=== PATIENT | male | born 1970 | race Caucasian/White ===

== ENCOUNTER 2020-12-11 11:51 | Day surgery (SDC) | payer BC, SELFPAY ==
[2020-12-11] VITALS (11 sets, daily range): BP systolic 109–150; BP diastolic 63–87; PULSE 84–98; RESP 14–16; TEMP 35.9–36.9; O2SAT 94–100; BMI 24.7
[2020-12-11] MEDS: Lactated Ringers 1,000 ML 100 ML IV (12:46)
--- NOTE | 2020-12-11 13:01 | DCINST_ITS ---
Discharge Diet: Light diet - advance as tolerated Discharge Activity: May Not Drive, May Not Shower, Use Walker, Use Crutches Weight Bearing Status: No weight bearing Keep extremity elevated above heart level: Left Leg Additional Activity Instructions:: 1. Keep dressing to left leg clean, dry, and intact. Do not remove dressing. Do not get dressing wet. If get dressing wet, call office for further instructions. I recommend sponge bathing only at this time. 2. Ice around the left knee 30 minutes every hour while awake to help with pain. 3. Elevate left foot above level of heart as often as possible until further instructed. This helps control the swelling. 4. Begin taking doxycycline (antibiotic) tomorrow, December 12, 2020, 1 pill twice a day as instructed on bottle. 5. Begin taking aspirin 81 mg tomorrow, December 12, 2020 1 pill twice a day. 6. Begin taking Percocet (pain medication) today, December 11, 2020 as needed. Percocet does contain acetaminophen (Tylenol). You may supplement the Percocet pain medication with extra strength Tylenol. Do not exceed more than 3000 mg of Tylenol (acetaminophen) in a 24-hour period. 7. No walking/standing/placing any weight on left foot. Use crutches/walker/knee scooter for assistance. 8. Follow-up with Dr. Granados in 1 week at previously scheduled appointment. Call your doctor if your incision/area has: Sudden Increased Bleeding, Increased Pain/ Swelling Call your doctor if you observe: Fever of 101 or Higher, Coldness, Increased Pain, Inability to have a bowel movement, Shortness of breath, Dizziness, Chest pain, Prolonged hiccoughing, Increased palpitations (irregular heartbeat), Calf discomfort, Uncontrolled pain Cleanse incision/area with: Keep Dressing Clean & Dry Allergies/Adverse Reactions: Allergies No Known Allergies Allergy (Verified 12/10/20 13:23) Medications to take at Discharge Naproxen 375 mg PO DAILY PRN 12/10/20 Primary Care Physician: Care Physician,No Primary [Primary Care Provider] - Test Results: Test results from this visit will be discussed in further detail at your follow- up appointment, if applicable. Please Follow Up With: Francisco Javier Granados DPM When: in 1 week at previously scheduled appointment Proposed Discharge Date: 12/11/20
[2020-12-11] MEDS: Cefazolin 2 GM in 0.9% Normal Saline 100 ML IV (13:04)
--- NOTE | 2020-12-11 13:04 | PCM.OPRPT ---
Problem List (1) Strain of left Achilles tendon, initial encounter Status: Acute Report of Operation Date of Procedure: 12/11/20 Pre-Operative Diagnosis: 1. Left Achilles tendon tear. Post-Operative Diagnosis: 1. Left Achilles tendon tear. Surgery/Procedure Performed:: Left Achilles tendon repair Description of Surgical Findings:: Consistent with diagnosis. Repair of Achilles tendon achieved. Angulo's test elicited prior to surgical intervention revealed no plantar flexion. Angulo's test elicited after surgical intervention revealed plantar flexion that was comparable to the contralateral extremity. flexographic press set up operator: Assist,RN First Type of Anesthesia:: General/Regional - With a popliteal block given to the left lower extremity preoperatively Anesthesiologist: Nic Navarro Special Medications: 2 grams of ancef given pre-operatively for DVT prophylaxis Specimen's removed: None Drains: None Estimated Blood Loss (mL): 10 Description of Procedure: Pathology: None Anesthesia: General with a popliteal block given the left lower extremity preoperatively Hemostasis: Pneumatic thigh tourniquet placed at the level of the left thigh at 275 mmHg for 52 minutes Estimated blood loss is 10 mL Materials: #1. Arthrex percutaneous Achilles repair system with associated FiberWire and fiber tape. 2. Arthrex bone anchor x2. 3. Size 2-0 FiberWire. 4. Size 2-0 Vicryl. 5. Size 3-0 Vicryl. 6. Size 3-0 nylon. Injectables: None Complications: None Condition: Stable Indications: Patient is a 50-year-old male with no significant past medical history who was at his home on December 05, 2020. While at home, he was walking around a room and lost his balance. He ended up kicking a box on the floor, and felt immediate pain in his left achilles tendon. He had difficulty weightbearing due to the pain. Patient saw me in my office on December 08 for evaluation of this injury. After clinical examination was performed, this revealed no plantar flexion of the left foot during the Angulo's test in a dependent and independent fashion. This test performed on the contralateral limb revealed full plantarflexion on the right side. Furthermore, there is evidence of gapping noted in the area of the left Achilles tendon and he had an increased in the dorsiflexory component of the left foot when compared to the right foot. I discussed with the patient that I do believe that he has an Achilles tendon rupture. I discussed conservative and surgical intervention for this, with risks and benefits to both treatment options. I discussed with the patient that there is a higher chance of rerupture along with increased muscle weakness of the affected limb with nonoperative intervention. All the patient's questions were answered to satisfaction and all of his concerns were addressed. No guarantees were made as to the outcome of the procedure. Patient understood all aspects of the procedure. I discussed with the patient that I believe that surgical intervention would be in his best interest. Patient was agreeable to this. I discussed with the patient that I would need a MRI for preoperative planning. An MRI was then performed on December 09, and patient follow-up with me in the office on TuesdayDecember 10. I went over the MRI findings with him, revealing a complete Achilles tendon rupture. I discussed with the patient the MRI findings at that time. I discussed with the patient that I would still recommend the surgical intervention for the Achilles tendon. Patient was agreeable to this, and surgical intervention was scheduled for today, December 11, 2020. Operative report: Before the patient was brought to the operating room, the risks, benefits, possible outcomes, possible complications of the procedure discussed with the patient once again. The risks include but not limited to delayed or nonhealing wounds, delayed or nonhealing tendon, DVT, infection, decreased function of limb, muscle weakness, continued pain, loss of limb, loss of life, chance of re-rupture, chance of weakness of the left lower extremity. All the patient's questions were answered to his satisfaction and all of his concerns were addressed. No guarantees were made as to the outcome of the procedure. Patient understood all aspects of the procedure, and consent was then signed by the patient. Before the patient was brought to the operating room, the anesthesiologist administered a popliteal block to the left lower extremity. Patient was then brought to the operating room. At that time, general anesthesia was obtained and anesthesia took control of the airway and the IV access. 2 grams of ancef was administered for antibiotic prophylaxis. Patient was then placed in a prone position on the bed, with adequate padding placed in all pressure points. Next, the left foot, ankle, leg were then scrubbed, prepped, draped in the usual sterile manner. Attention was then directed to the posterior aspect of the left ankle in the area of the Achilles tendon. At this time, markings were made on the skin of the posterior tuber of the calcaneus, insertion point of the Achilles tendon into the calcaneus, and level of the Achilles tendon tear. Next, the left foot, ankle, leg were then elevated and exsanguinated via Esmarch and inflation the pneumatic thigh tourniquet was performed to 275 mmHg. Attention was then directed back to the posterior aspect of the left Achilles. Next, #15 blade was to perform a linear longitudinal incision starting at the proximal aspect of the Achilles tendon tear extending distally to the distal aspect of the Achilles tendon tear. This incision was approximately 3 cm in length. This incision was deepened utilizing sharp and blunt dissection. Care was taken to retract all vital neural and vascular structures. All bleeders were cauterized and ligated as necessary. Next, a linear incision was made in line with the paratenon. The paratenon was then reflected medially and laterally, thus exposing the Achilles tendon at the operative site. Next, the surgical site was irrigated with copious amounts of normal sterile saline. The proximal portion of the Achilles tendon was then clamped via an Allis clamp. At this time, the Arthrex PARS jig was placed into the surgical site aimed superiorly along the proximal aspect of the Achilles tendon. The sutures were passed from medial to lateral in standard fashion. Once all sutures were passed, the Arthrex jig was pulled inferiorly through the surgical site to allow the sutures to pass through the proximal portion of the Achilles tendon out the proximal end.. Next, a Tyron needle was used to take the ends of the medial and lateral sutures to pass them through the distal portion of the proximal tear to centralize the sutures in the tendon tear. Attention was then directed to the lateral aspect of the insertion point of the Achilles tendon. Next, #15 blade was used to perform an incision just lateral to the lateral portion of the Achilles tendon insertion in the midportion of the calcaneal tuber. This incision was approximate 0.5 cm in length. This incision was deepened utilizing sharp and blunt dissection down to the level of the calcaneus. Next, the Arthrex suture passer chang was placed into this incision and through the insertion point the Achilles tendon and was passed through the distal portion of the Achilles tendon tear. Next, the wire to pass the sutures was placed through the suture passer and the sutures on the lateral aspect of the incision were then passed from the proximal portion of the Achilles tendon rupture through the distal portion out the incision on the distal lateral aspect of the insertion point the Achilles tendon. Next, attention was then directed to the medial aspect of the insertion point of the Achilles tendon. A #15 blade was used to perform an incision just medial to the medial portion of the Achilles tendon insertion in the midportion of the calcaneal tuber. This incision was approximate 0.5 cm in length. This incision was deepened utilizing sharp and blunt dissection down to the level of the calcaneus. Next, the Arthrex suture passer chang was placed into this incision and through the insertion point the Achilles tendon and was passed through the distal portion of the Achilles tendon tear. Next, the wire to pass the sutures was placed through the suture passer and the sutures on the medial aspect of the incision were then passed from the proximal portion of the Achilles tendon rupture through the distal portion out the incision on the distal medial aspect of the insertion point the Achilles tendon. At this time, attention was then directed back to the distal lateral surgical site. Drilling and tapping was performed for the bone anchor in standard fashion. The sutures were then placed into the bone anchor, and the bone anchor was inserted into the lateral portion of the calcaneus with the foot approximately in 15 degrees of plantar flexion. The bone anchor was placed in a slightly plantarflexed position. Care was taken to make sure that the foot was held in this plantarflexed position as the bone anchor was placed. Adequate tensioning was placed on the sutures while the anchor was being placed. Once the anchor was placed, any excess sutures were removed from the surgical site. Next, attention was then directed back to the distal medial surgical site. Drilling and tapping was performed for the bone anchor in standard fashion. The sutures were then placed into the bone anchor, and the bone anchor was inserted into the medial portion of the calcaneus with the foot approximately in 15 degrees of plantar flexion. The bone anchor was placed in a slightly plantarflexed position. Care was taken to make sure that the foot was held in this plantarflexed position as the bone anchor was placed. Adequate tensioning was placed on the sutures while the anchor was being placed. Once the anchor was placed, any excess sutures were removed from the surgical site. The Angulo's test was then performed once again, and now plantar flexion was performed of the foot that was comparable to the contralateral extremity. Each surgical site was then irrigated with copious amounts of irrisept and normal sterile saline. The tendon ends from the proximal and distal portions of the Achilles tendon tear were then reapproximated and coapted utilizing size 2-0 fiberwire in an over and over stitch fashion. The paratenon was then reapproximated coapted utilizing 3-0 Vicryl in a running stitch fashion. The subcutaneous tissue was reapproximated and coapted utilizing size 2-0 Vicryl. The skin was reapproximated and coapted utilizing size 3-0 nylon in a simple interrupted and horizontal mattress fashion. The subcutaneous tissues of the bone anchor sites were reapproximated and coapted utilizing size 3-0 Vicryl. The skin of the bone anchor sites were reapproximated and coapted using size 3-0 nylon in a simple interrupted and horizontal mattress fashion. The pneumatic thigh tourniquet was then released and a prompt hyperemic response was noted to the entirety of the left lower extremity. Each surgical site was then dressed with Betadine soaked gauze, and a dry sterile dressing consisting of 4 x 4 gauze, ABD pads, wrapped with Kerlix. The left foot and ankle were then wrapped with an Jaycob bandage. Next, a stockinette was placed over the left lower extremity. Cast padding was wrapped from the metatarsal heads extending proximally to the level just distal to the tibial tuberosity. A posterior splint was fashioned to the left lower extremity and was adhered to the left lower extremity utilizing Jaycob bandages. Care was taken make sure that the foot and ankle held in a plantarflexed position as the posterior splint dried. Neurovascular status was assessed at the end of the application and deemed intact to left lower extremity. The patient tolerated the anesthesia and the procedure well and was transported to the PACU with vital signs stable and neurovascular status intact the left lower extremity. After period of postoperative monitoring, patient will be discharged home with written and oral instructions for wound care and follow-up. Grafts/Implants Used: Arthrex PARS, Arthrex bone anchors - Complications None - Admit VTE Documentation VTE Present on Admission: No - Aspirin 81mg BID to begin 12/12/20 for DVT prophylaxis VTE Mechan Device Prophylaxis: SCD's VTE Pharm Prophylaxis ordered?: No
--- NOTE | 2020-12-11 15:19 | RAD_ITS ---
INDICATION: s/p left achilles tendon repair with bone anchors -- PORTABLE EXAMINATION/TECHNIQUE: X-RAY - LEFT XR Ankle Min 3 Views COMPARISON: None. FINDINGS: No acute fracture or malalignment. No blastic or lytic lesions. No degenerative changes are seen. The soft tissues are unremarkable. Heel spurs. RAD/Ankle min 3 Views IMPRESSION: No acute radiographic abnormalities. Electronically Signed: Hiro Lauren MD at 18:39 EDT Tel , Service support ,
== END 2020-12-11 18:31 | disposition home or self-care (01) ==
LOC: SDC 11:53 → AC 11:56
PROVIDERS: Referring Provider Podiatrist Foot & Ankle Surgery; Visit Provider Podiatrist Foot & Ankle Surgery
PROC: (CPT 27650; principal; 2020-12-11 13:15)
DX: S86.012A Strain of left Achilles tendon, initial encounter (principal); M67.02 Short Achilles tendon (acquired), left ankle; M77.32 Calcaneal spur, left foot; M21.42 Flat foot [pes planus] (acquired), left foot
CPT/HCPCS: 01472; 27650; 73610; C1713; J7120; J2405

== ENCOUNTER 2021-03-19 08:30 | Outpatient (RCR) | payer BC, SELFPAY ==
[2020-12-11 12:13] VITALS: BMI 24.7
[2021-03-05 09:07] VITALS: BP 149/91; PULSE 73; RESP 18; TEMP 36.7; BMI 22.6
--- NOTE | 2021-03-05 10:58 | RAD_ITS ---
STUDY: X-RAY - LEFT FOOT CLINICAL: Male, 50 years old. L ACHILLES ULCER TECHNIQUE: 3 view(s) of the foot. COMPARISON: None. FINDINGS: Normal talus, calcaneus, and tarsal bones. Small plantar posterior calcaneal enthesophytes. Normal visualized subtalar, talonavicular, calcaneocuboid, tarsal and tarsometatarsal articulations. Normal metatarsi. Normal metatarsophalangeal joint of the great toe. Normal tibial and fibular sesamoid bones. Normal interphalangeal joint of the great toe. Normal phalanges of the great toe. Normal second through fifth metatarsophalangeal joints. Normal interphalangeal joints and phalanges of the lesser toes. The soft tissue structures are unremarkable. RAD/Foot min 3 Views IMPRESSION: Normal x-ray examination of the foot. Electronically Signed: Dung Dean MD at 12:15 EDT Tel , Service support ,
--- NOTE | 2021-03-05 10:58 | RAD_ITS ---
STUDY: X-RAY - LEFT ANKLE REASON FOR EXAM: Male, 50 years old. L ACHILLES ULCER TECHNIQUE: 3 view(s) of the ankle. COMPARISON: 12/11/2020 FINDINGS: Normal visualized distal tibia and fibula. Normal medial and lateral malleoli. Normal tibiotalar articulation and ankle mortise. Radiolucency and possible destruction of the lateral cortex of the calcaneus worrisome for osteomyelitis in correlation with MRI is recommended. Small plantar posterior calcaneal enthesophytes. The visualized subtalar, talonavicular, calcaneocuboid and tarsal articulations are normal. The soft tissue structures are unremarkable. RAD/Ankle min 3 Views IMPRESSION: Suspect osteomyelitis of the lateral aspect of the calcaneus and correlation MRI is recommended. Electronically Signed: Dung Dean MD at 12:17 EDT Tel , Service support ,
[2021-03-05 11:23] LABS: Erythrocyte Sedimentation Rate 11 mm/hr (0-20)
[2021-03-05 11:26] LABS: Absolute Lymphocyte Count 1.07 X10^3/uL (0.83-4.51); Absolute Neutrophil Count 6.4 X10^3/uL (2.0-7.7); Basophil# 0.03 X10^3/uL; Basophil% 0.4 % (0-1); Eosinophil# 0.06 X10^3/uL; Eosinophils% 0.7 % (0-5); Hematocrit 44.8 % (40-54); Hemoglobin 14.8 g/dL (13.0-16.5); Lymphocyte # 1.07 X10^3/ul (0.83-4.51); Lymphocyte % 12.5 % (19-41); Mean Corpuscular Hgb 30.4 pg (27.0-32.0); Mean Platelet Vol. 9.4 fl (6.2-12.0); Monocyte# 0.92 X10^3/uL; Monocyte% 10.7 % (0-10); NRBC Flagged by Analyzer 0 % (0-5); Neutrophil # 6.44 X10^3/uL (2.7-7.7); Neutrophil % 75.2 % (47-70); Platelet Count 282 K/mm3 (150-450); RBC Distribution Width CV 11.9 % (11.6-14.6); RBC Distribution Width SD 40.8 fl (35.1-43.9); Red Blood Count 4.87 M/mm3 (4.6-6.2); White Blood Count 8.6 K/mm3 (4.4-11.0)
[2021-03-05 11:44] LABS: ALB/GLOB Ratio 1.1 RATIO (0.9-2.4); AST(SGOT) 13 U/L (15-37); Alanine Aminotransfer ALT/SGPT 15 U/L (16-61); Albumin, Serum 4.1 g/dL (3.2-5.0); Alkaline Phosphatase 80 U/L (45-117); Anion Gap 4 (5-15); BUN 14 mg/dL (7-18); BUN/Creat Ratio 13.9 RATIO (10-20); Calcium,Total 9.1 mg/dL (8.5-10.1); Chloride 101 mmol/L (98-107); Creatinine, Serum 1.01 mg/dL (0.70-1.30); EST Glomerular Filtration Rate 83 mL/min (>60); Est Glom Filt Rate - Afr Amer 100 mL/min (>60); Estimated Creatinine Clearance 92.69 ml/min; Globulin 3.7 g/dL (2.2-4.2); Glucose 97 mg/dL (74-106); Potassium 3.8 mmol/L (3.5-5.1); Protein, Total 7.8 g/dL (6.4-8.2); Sodium Level 138 mmol/L (136-145)
--- NOTE | 2021-03-05 17:06 | PCM.WC.HP ---
History of Present Illness Date of Service: 03/05/21 Chief Complaint: Surgical wound breakdown. History of Wound: Mr. Hernandez is a 50-year-old who was referred to the wound center by his orthopedic surgeon due to nonhealing surgical wound/surgical wound breakdown. In November, had surgical repair following left Achilles tendon tear. Surgery was uneventful. Was placed in a cast following surgery and had his sutures removed uneventfully. However a few weeks after, noted reopening. Has been seen/managed by his orthopedic surgeon however area has remained opened. States that he has been applying Bactroban daily. No history of diabetes. Denies tobacco abuse. Occasional drainage from the area. Feels well, denies chills, fever, nausea, vomiting or change in bowel habits. [facility] Medical History (Updated 03/05/21 @ 17:[address] Trisha Cole MD) Ankle osteomyelitis, left Delayed surgical wound healing Delayed wound healing Surgical wound breakdown Ulcer of left lower extremity with fat layer exposed Home Medications naproxen 375 mg PO DAILY PRN 12/10/20 [History Last Taken Unknown] Allergy/AdvReac Type Severity Reaction Status Date / Time No Known Allergies Allergy Verified 03/05/21 09:26 Social History Smoking Status: Never smoker ROS Constitutional Constitutional: Denies chills, daytime sleepiness, fatigue, fever(s), frequent falls or headache(s) Eyes Eyes: Denies blindness, blind spots, bloody eye, blurry vision, change in eye color or change in vision ENT HEENT: Denies dysphagia, ear discharge, ear pain, epistaxis or facial pain Cardiovascular Cardiovascular: Denies claudication, clubbing, cold extremities, cyanosis, diaphoresis, dyspnea at rest or dyspnea on exertion Respiratory/Chest Respiratory/Chest: Denies difficulty clearing secretions, dusky skin, dyspnea, dyspnea on exertion, excessive phlegm production or hemoptysis Gastrointestinal Gastrointestinal: Denies chewing difficulty, coffee ground emesis, constipation, cramping, diarrhea or dry heaves Genitourinary Genitourinary: Denies abdominal discomfort, anuria, burning urination, dribbling, dysuria or low back pain Musculoskeletal Musculoskeletal: Denies back pain, deformity, loss of height, muscle cramps, muscle spasms or muscle weakness Integumentary Integumentary: Denies erythema, furuncle, hirsutism, jaundice, lesions or nail changes Neurologic Neurologic: Denies burning sensations, confusion, convulsions, disequilibrium, dizziness or focal weakness Psychiatric Psychiatric: Denies abnormal sleep pattern, anhedonia, anxiety, auditory hallucinations or change in appetite Endocrine Endocrinology: Denies excessive sweating, fatigue, flushing or heat intolerance Hematologic/Lymphatic Hematologic/Lymphatic: Denies easy bleeding or easy bruising Allergic/Immunologic Allergic/Immunologic: Denies tongue swelling, hives, urticaria, eczemia or wheezing Vital Signs Vital Signs Vital Signs: 03/05/21 09:07 Temperature 98.1 F Temperature Source Temporal Pulse Rate 73 Respiratory Rate 18 Blood Pressure 149/91 H Blood Pressure Mean 110 Blood Pressure Source Monitor Weight Weight: 166 lb 15.477 oz Body Mass Index (BMI) 22.6 Physical Exam Const alert, oriented x3 and no apparent distress General Appearance: cooperative, comfortable and well kempt HEENT normocephalic and head/scalp atraumatic Eyes PERRL and EOMs intact bilaterally Neck full ROM and supple General: normal visual inspection Resp normal respiratory effort Effort and Inspection: able to speak in complete sentences Cardio regular rate, regular rhythm, S1 normal heart sound and S2 normal heart sound GI Palpation: soft Skin Wounds: wounds noted Neuro oriented x3, CN's II-XII intact bilaterally, moves all extremities and no focal motor deficits Psych mental status grossly normal Appearance: grossly normal Attitude: calm Activity / Motor Behavior: appropriate eye contact Speech: normal speech Debridement Note Debridement Note Post-Debridement Measurements and Additional Note: Post-Debridement Measurements/Treatment TOBY - Nurse 1 - General Ulcer Assessment Start: 03/05/21 08:43 Freq: Status: Active Protocol: KEO Activity Type Activity Date Activity User E-Sign Co-Sign Detail Recorded Client Recorded Date Recorded By Document 03/05/21 09:07 CANDELARIO [id number] 03/05/21 09:24 CANDELARIO 03/05/21 09:07 - Today's Visit Information Type of service Initial Visit Arrival Mode Ambulatory Transfer Assistance None Patient Identification Verified (Name & Yes ) Patient Requires Transmission-Based No Precautions Safety Precautions NA Height and Weight Height 6 ft Weight 166 lb 15.477 oz Weight in Pounds 167.0 lbs Body Mass Index (BMI) 22.6 BMI Classification Normal BSA - Spenser 1.97 Vital Signs Temperature (97.8 F-99.1 F) 98.1 F Temperature Source Temporal Pulse Rate (60-100) 73 Pulse Location Monitor Respiratory Rate (12-18) 18 Respiratory rate source Observation Blood Pressure (90/60-120/80) 149/91 H Blood Pressure Mean 110 Source Monitor Pain Scale: 0-10 Numeric Is Patient Pain Free? Yes Lower Extremity Assessment/ Foot Assessment/ Toe Nail Assessment Left -Posterior Tibial Palpable Yes -Posterior Tibial Doppler Multiphasic -Dorsalis Pedis Palpable Yes -Dorsalis Pedis Doppler Multiphasic -Extremity Color Normal -Hair Growth on Legs Yes -Hair Growth on Toes Yes -Temperature of Extremity Warm -Capillary Refill Less than 3 Seconds -Dependent Rubor No -Blanched when Elevated No -Lipodermatosclerosis No -Other Deformity No -Prior Foot Ulcer No -Charcot Joint No -Prior Amputation No -Thick No -Discolored No -Deformed No -Improper Length & Hygeine No Right -Posterior Tibial Palpable Yes -Posterior Tibial Doppler Multiphasic -Dorsalis Pedis Palpable Yes -Dorsalis Pedis Doppler Multiphasic -Extremity Color Normal -Hair Growth on Legs Yes -Hair Growth on Toes Yes -Temperature of Extremity Warm -Capillary Refill Less than 3 Seconds -Dependent Rubor No -Blanched when Elevated No -Lipodermatosclerosis No -Other Deformity No -Prior Foot Ulcer No -Charcot Joint No -Prior Amputation No -Thick No -Discolored No -Deformed No -Improper Length & Hygeine No Neuropathy Assessment Feet - Top Side and Bottom <Entered> (a) Communication Assessment Preferred language Macedonian Able to Read Yes Able to Write Yes Communication Tools None Right Hearing Abillity Normal Left Hearing Abillity Normal Visual Assistive Devices Glasses, Contacts Teaching Assessment Preferences Verbal,Written, Demonstration Barriers to Learning None Readiness To Learn Good Willingness to Engage in Self Management Med Activies Readiness to Engage in Self Management Med Activities Anxiety Level Calm Cooperation Cooperative Perception Coherent Interest in Health Problem Asks Questions Education Importance Acknowledges Need Does Patient Smoke tobacco or other No substances Smoking Status Never smoker Is Patient Diabetic No Culture/Congregational/Car Starter Cultural/Congregational Needs that may affect No Treatment Plan Would you allow our hospital international controller to No meet you for the purpose of spiritual/ emotional support? Car Starter to contact place of islam No Teaching: Wound Center Dressing Your Wound -Person Taught Patient Discharge Instructions -Person Taught Patient *Welcome to the Wound Center -Person Taught Patient (a) 1 - + WC - Nurse 1 - General Ulcer Measurement Start: 03/05/21 08:43 Freq: Status: Active Protocol: Activity Type Activity Date Activity User E-Sign Co-Sign Detail Recorded Client Recorded Date Recorded By Document 03/05/21 09:07 DL [id number] 03/05/21 09:24 DL 03/05/21 09:07 Wound Center Nurse 1 #1 L Achilles -Current Size (cm) - Length 1.6 -Current Size (cm) - Width 1 -Current Size (cm) - Depth 0.3 -Total Square Cm 1.6 -Photo Taken Yes -Classification - Thickness Full Thickness without Exposed Support Structure -Exudate Amt Medium -Exudate Type Serosanguineous -Wound Margin Distinct, Outline Attached -Granulation Amt None Present (0 %) -Necrosis Amt Large (67-100%) -Necrotic Tissue Type Adherent Slough -Structure Exposed Fascia -Texture (Sue-wound Skin Appearance) Localized Edema ,Scarring -Moisture (Sue-wound Skin Appearance) No Abnormality -Color (Sue-wound Skin Appearance) Erythema -Temperature (Sue-wound Skin No Abnormality Appearance) (Pt Warm) -Tenderness on Palpation (Sue-wound No Skin Appearance) -Ulcer Cleansing Wound Cleanser -Foul Odor after Cleansing No -Anesthetic Used 5% Lidocaine Gel Left Calf (cm) 35 Left Ankle (cm) 25.5 WC - Nurse 2 - General Ulcer CM Notes Start: 03/05/21 08:43 Freq: Status: Active Protocol: Activity Type Activity Date Activity User E-Sign Co-Sign Detail Recorded Client Recorded Date Recorded By Document 03/05/21 09:43 MW [id number] 03/05/21 09:51 MW 03/05/21 09:43 Wound Center Nurse 2 #1 L Achilles -Time 09:43 -Correct Patient Yes -Correct Side, Site, Position Yes -Correct Procedure Yes -Procedure Performed Yes -Type of Procedure Debridement -Clinical Debridement Subcutaneous -Tissue Removed Subcutaneous -Post Debridement (cm) - Length 1.7 -Post Debridement (cm) - Width 1.0 -Post Debridement (cm) - Depth 0.3 -Total Square (Post) (cm) 1.70 -Area of Debridement (cm) - Length 1.7 -Area of Debridement (cm) - Width 1.0 -Total Square (Area) (cm) 1.70 -Tunneling No -Undermining/Tunneling No -Circular Undermining No -Wound/Ulcer Outcome Not Healed -Ulcer Cleansing Rinsed/ Irrigated with Saline -Foul Odor after Cleansing No -Bioengineered Tissue No -Bleeding Controlled with Pressure -Offloading No -Treatment Response Procedure Tolerated Well -Debridement - Subq, 1st 20sq cm Yes Pain Scale: 0-10 Numeric Is Patient Pain Free? Yes WC - Nurse 3 - General Ulcer D/C NN Start: 03/05/21 08:43 Freq: Status: Active Protocol: Activity Type Activity Date Activity User E-Sign Co-Sign Detail Recorded Client Recorded Date Recorded By Document 03/05/21 10:22 DL [id number] 03/05/21 10:23 DL 03/05/21 10:22 Wound Care Nurse 3 #1 L Achilles -Ulcer Cleansing Rinsed/ Irrigated with Saline -Foul Odor after Cleansing No -Primary Dressing Applied NonAdherent Contact Layer, Promogran Beatris Matter -Primary Dressing Covered/Secured with Dry Gauze, Secured with Tape -Promogran Beatris Matter 1 Treatment Response Procedure Tolerated Well Pain Scale: 0-10 Numeric Is Patient Pain Free? Yes WC - Visit Discharge Discharge Condition Stable Ambulatory Status Ambulatory Transportation Private Auto Wound debrided: Left Achilles Type of Debridement: Excisional debridement Anesthesia Used: 4% Lidocaine Solution Depth: Down to and including healthy tissue and in the subcutaneous layer Instrument Used: 3mm curette Tissue Removed: Slough and devitalized tissue Severity: Fat Layer Exposed Amount of bleeding with debridement: Mild Bleeding Controlled with: Pressure Patient tolerated procedure: Patient tolerated procedure well Lab / Micro Data Result Diagrams: 03/05/21 10:36 03/05/21 10:36 Labs: Laboratory Results - last 24 hr 03/05/21 10:36: Sodium 138, Potassium 3.8, Chloride 101, Carbon Dioxide 33.0 H, Anion Gap 4 L, BUN 14, Creatinine 1.01, Estim Creat Clear Calc 92.69, Est GFR (MDRD) Af Amer 100, Est GFR (MDRD) Non-Af 83, BUN/Creatinine Ratio 13.9, Glucose 97, Calcium 9.1, Total Bilirubin 0.70, AST 13 L, ALT 15 L, Alkaline Phosphatase 80, C-React Prot Ext Range 16.40 H, Total Protein 7.8, Albumin 4.1, Globulin 3.7, Albumin/Globulin Ratio 1.1 03/05/21 10:36: WBC 8.6, RBC 4.87, Hgb 14.8, Hct 44.8, MCV 92.0, MCH 30.4, MCHC 33.0, RDW Std Deviation 40.8, RDW Coeff of Justin 11.9, Plt Count 282, MPV 9.4, Immature Gran % (Auto) 0.500, Neut % (Auto) 75.2 H, Lymph % (Auto) 12.5 L, [place] % (Auto) 10.7 H, Eos % (Auto) 0.7, Baso % (Auto) 0.4, Absolute Neuts (auto) 6.4, Absolute Lymphs (auto) 1.07, Nucleated RBC % 0, ESR 11 Micro: Microbiology 03/05/21 09:45 Wound Abcess - Ankle Gram Stain - Final Radiology Impression Ankle X-Ray 03/05/21 10:58 IMPRESSION: Suspect osteomyelitis of the lateral aspect of the calcaneus and correlation MRI is recommended. Electronically Signed: Dung Dean MD at 12:17 EDT Tel , Service support , Foot X-Ray 03/05/21 10:58 IMPRESSION: Normal x-ray examination of the foot. Electronically Signed: Dung Dean MD at 12:15 EDT Tel , Service support , Charges/Coding Visit Charges Office Visits / Consults: 05013 OV L4 New Procedures Integumentary [id number]: [id number] Mariel subq tissue 20 sq cm/< Assessment/Plan Assessment/Plan (1) Ulcer of left lower extremity with fat layer exposed: CODE(S): L97.922 - Non-pressure chronic ulcer of unspecified 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 X-ray ordered. Cultures also taken and labs ordered. Follow-up with results. For now, Beatris daily with Adaptic over top. Tubigrip for edema management. Elevate lower extremities when seated and in bed. Increased protein intake, vitamin C and zinc also discussed/recommended. His questions were answered and was advised to call with any further questions or concerns. Due to chronicity of wound, I believe he will benefit from a skin substitute, application made. Follow-up at next visit. Imaging reviewed. Suggestive of possible osteomyelitis and so an MRI was ordered. CRP is also elevated however ESR is within normal range. Follow-up with MRI. Culture pending, will review when available. This note was generated with [employer] dictation software. It may contain incorrect words, spelling, and punctuation that were not noted in checking the note before signing.
--- NOTE | 2021-03-06 12:51 | WC ---
Received a message from patient regarding questions and concerns he has about pain control and ambulation. Spoke with Dr. Cole for instructions on his concerns. Stated patient can take Tylenol or naproxen for pain control as long as no reflux or gastric issues. Walking is okay but to avoid flexion and extension movements of ankle. X-ray and lab results reviewed by Dr. Cole. She noted x-ray is suspicious of osteomyelitis. She placed an order for an MRI and will be scheduled once prior authorization is complete. Instructions then discussed with patient. Voiced understanding.
--- NOTE | 2021-03-10 09:07 | WC ---
Dr. Cole's Progress notes and x-ray results faxed over to Dr. Granados referring physician on Tuesday03/06/21 for review. Spoke to Dr. Granados this AM. He stated that when he did surgery on patiet's left Achilles, he placed a bone anchor that will look like osteomyelitis on a x-ray. He stated an MRI will also come back abnormal for this patient because of fluid. Dr. Granados does not feel an MRI is necessary. Called Dr. Cole and updated. Dr. Cloe will discuss this with patient at his next scheduled appointment.
[2021-03-12 11:22] VITALS: BP 137/81; PULSE 88; RESP 16; TEMP 35.8; BMI 22.6
--- NOTE | 2021-03-12 13:14 | PN.PCM_ITS ---
History of Present Illness Date of Service: 03/12/21 Chief Complaint: Surgical wound breakdown. History of Wound: Mr. Hernandez is a 50-year-old who was referred to the wound center by his orthopedic surgeon due to nonhealing surgical wound/surgical wound breakdown. In November, had surgical repair following left Achilles tendon tear. Surgery was uneventful. Was placed in a cast following surgery and had his sutures removed uneventfully. However a few weeks after, noted reopening. Has been seen/managed by his orthopedic surgeon however area has remained opened. States that he has been applying Bactroban daily. No history of diabetes. Denies tobacco abuse. Occasional drainage from the area. Feels well, denies chills, fever, nausea, vomiting or change in bowel habits. Subjective Subjective No new concerns at this time. Currently on doxycycline per culture and sensitivity. Tolerating this well. Per Dr Granados, no concerns for Osteomyelitis on Xray believes this is just artifact from surgery he performed. Objective Data Objective Data Vital Signs: Vital Signs Temp Pulse Resp BP 96.4 F L 88 16 137/81 H 03/12/21 11:22 03/12/21 11:22 03/12/21 11:22 03/12/21 11:22 Weight: 166 lb 15.477 oz Body Mass Index (BMI) 22.6 Lab / Micro Data Result Diagrams: 03/05/21 10:36 03/05/21 10:36 Micro: Microbiology 03/05/21 09:45 Wound Abcess - Ankle Gram Stain - Final 03/05/21 09:45 Wound Abcess - Ankle Wound Culture - Final Staphylococcus aureus 03/05/21 09:45 Wound Abcess - Ankle Anaerobic Culture - Final Anaerobic cocci Charges/Coding Procedures Integumentary [id number]: [id number] Mariel subq tissue 20 sq cm/< Physical Exam Const alert, oriented x3 and no apparent distress General Appearance: cooperative, comfortable and well kempt HEENT normocephalic and head/scalp atraumatic Eyes PERRL and EOMs intact bilaterally Neck full ROM and supple General: normal visual inspection Resp normal respiratory effort Effort and Inspection: able to speak in complete sentences Cardio regular rate, regular rhythm, S1 normal heart sound and S2 normal heart sound GI Palpation: soft Skin Wounds: wounds noted Neuro oriented x3, CN's II-XII intact bilaterally, moves all extremities and no focal motor deficits Psych mental status grossly normal Appearance: grossly normal Attitude: calm Activity / Motor Behavior: appropriate eye contact Speech: normal speech Debridement Note Debridement Note Post-Debridement Measurements and Additional Note: Post-Debridement Measurements/Treatment WC - Nurse 1 - General Ulcer Assessment Start: 03/05/21 08:43 Freq: Status: Active Protocol: WC.LOWEXT Activity Type Activity Date Activity User E-Sign Co-Sign Detail Recorded Client Recorded Date Recorded By Document 03/05/21 09:07 DL [id number] 03/05/21 09:24 DL Document 03/12/21 11:22 ML [id number] 03/12/21 11:27 ML 03/05/21 03/12/21 09:07 11:22 WC - Today's Visit Information Type of service Initial Visit Follow-up Visit (Physician/[employer] ) Arrival Mode Ambulatory Ambulatory Transfer Assistance None None Patient Identification Verified (Name & Yes Yes ) Patient Requires Transmission-Based No No Precautions Safety Precautions NA NA Height and Weight Height 6 ft Weight 166 lb 15.477 oz Weight in Pounds 167.0 lbs Body Mass Index (BMI) 22.6 22.6 BMI Classification Normal Normal BSA - Spenser 1.97 Vital Signs Temperature (97.8 F-99.1 F) 98.1 F 96.4 F L Temperature Source Temporal Temporal Pulse Rate (60-100) 73 88 Pulse Location Monitor Monitor Respiratory Rate (12-18) 18 16 Respiratory rate source Observation Observation Blood Pressure (90/60-120/80) 149/91 H 137/81 H Blood Pressure Mean (mm Hg) 110 99 Source Monitor Monitor Position Sitting Blood Pressure Location Right Arm History Since Last Visit- (Skip if this is Patient's initial visit) Have you changed medications since your No last visit? Any new allergies or adverse reactions No Had a fall/change in ADL's that may No increase risk of falls Signs or symptoms of abuse and/or No neglect since last visit Have you been in the hospital since your No last visit? Has dressing in place as prescribed Yes Has compression in place as prescribed N/A Has offloadiing in place as prescribed N/A Experienced any changes in pain level or No management Left Footwear Regular Shoe Right Footwear Regular Shoe Pain Scale: 0-10 Numeric Is Patient Pain Free? Yes Yes Lower Extremity Assessment/ Foot Assessment/ Toe Nail Assessment Left -Posterior Tibial Palpable Yes -Posterior Tibial Doppler Multiphasic -Dorsalis Pedis Palpable Yes -Dorsalis Pedis Doppler Multiphasic -Extremity Color Normal -Hair Growth on Legs Yes -Hair Growth on Toes Yes -Temperature of Extremity Warm -Capillary Refill Less than 3 Seconds -Dependent Rubor No -Blanched when Elevated No -Lipodermatosclerosis No -Other Deformity No -Prior Foot Ulcer No -Charcot Joint No -Prior Amputation No -Thick No -Discolored No -Deformed No -Improper Length & Hygeine No Right -Posterior Tibial Palpable Yes -Posterior Tibial Doppler Multiphasic -Dorsalis Pedis Palpable Yes -Dorsalis Pedis Doppler Multiphasic -Extremity Color Normal -Hair Growth on Legs Yes -Hair Growth on Toes Yes -Temperature of Extremity Warm -Capillary Refill Less than 3 Seconds -Dependent Rubor No -Blanched when Elevated No -Lipodermatosclerosis No -Other Deformity No -Prior Foot Ulcer No -Charcot Joint No -Prior Amputation No -Thick No -Discolored No -Deformed No -Improper Length & Hygeine No Neuropathy Assessment Feet - Top Side and Bottom <Entered> (a) Communication Assessment Preferred language Bahamian Able to Read Yes Able to Write Yes Communication Tools None Right Hearing Abillity Normal Left Hearing Abillity Normal Visual Assistive Devices Glasses, Contacts Teaching Assessment Preferences Verbal,Written, Demonstration Barriers to Learning None Readiness To Learn Good Willingness to Engage in Self Management Med Activies Readiness to Engage in Self Management Med Activities Anxiety Level Calm Cooperation Cooperative Perception Coherent Interest in Health Problem Asks Questions Education Importance Acknowledges Need Does Patient Smoke tobacco or other No substances Smoking Status Never smoker Is Patient Diabetic No Culture/Sabianist/Bench Lay Out Technician Cultural/Sabianist Needs that may affect No Treatment Plan Would you allow our hospital rn transitional care to No meet you for the purpose of spiritual/ emotional support? Bench Lay Out Technician to contact place of roman catholic No Teaching: Wound Center Dressing Your Wound -Person Taught Patient Discharge Instructions -Person Taught Patient *Welcome to the Wound Center -Person Taught Patient (a) 1 - + WC - Nurse 1 - General Ulcer Measurement Start: 03/05/21 08:43 Freq: Status: Active Protocol: Activity Type Activity Date Activity User E-Sign Co-Sign Detail Recorded Client Recorded Date Recorded By Document 03/05/21 09:07 DL [id number] 03/05/21 09:24 DL Document 03/12/21 11:22 ML [id number] 03/12/21 11:27 ML 03/05/21 03/12/21 09:07 11:22 Wound Center Nurse 1 #1 L Achilles -Current Size (cm) - Length 1.6 1.7 -Current Size (cm) - Width 1 1.3 -Current Size (cm) - Depth 0.3 0.1 -Total Square Cm 1.6 2.21 -Photo Taken Yes -Classification - Thickness Full Thickness without Exposed Support Structure -Exudate Amt Medium Medium -Exudate Type Serosanguineous Serosanguineous -Wound Margin Distinct, Distinct, Outline Outline Attached Attached -Granulation Amt None Present (0 Medium (34-66%) %) -Slough/Fibrin Yes -Necrosis Amt Large (67-100%) Medium (34-66%) -Necrotic Tissue Type Adherent Slough Adherent Slough -Structure Exposed Fascia -Texture (Sue-wound Skin Appearance) Localized Edema Assessed ,Scarring -Moisture (Sue-wound Skin Appearance) No Abnormality Assessed -Color (Sue-wound Skin Appearance) Erythema Assessed -Temperature (Sue-wound Skin No Abnormality No Abnormality Appearance) (Pt Warm) (Pt Warm) -Tenderness on Palpation (Sue-wound No Skin Appearance) -Ulcer Cleansing Wound Cleanser Rinsed/ Irrigated with Saline -Foul Odor after Cleansing No No -Anesthetic Used 5% Lidocaine 4% Lidocaine Gel Solution Left Calf (cm) 35 Left Ankle (cm) 25.5 WC - Nurse 2 - General Ulcer CM Notes Start: 03/05/21 08:43 Freq: Status: Active Protocol: Activity Type Activity Date Activity User E-Sign Co-Sign Detail Recorded Client Recorded Date Recorded By Document 03/05/21 09:43 MW [id number] 03/05/21 09:51 MW Document 03/12/21 11:55 MW [id number] 03/12/21 12:03 MW 03/05/21 03/12/21 09:43 11:55 Wound Center Nurse 2 #1 L Achilles -Time 09:43 11:55 -Correct Patient Yes Yes -Correct Side, Site, Position Yes Yes -Correct Procedure Yes Yes -Procedure Performed Yes Yes -Type of Procedure Debridement Debridement -Clinical Debridement Subcutaneous Subcutaneous -Tissue Removed Subcutaneous Subcutaneous -Post Debridement (cm) - Length 1.7 1.5 -Post Debridement (cm) - Width 1.0 1.0 -Post Debridement (cm) - Depth 0.3 0.3 -Total Square (Post) (cm) 1.70 1.50 -Area of Debridement (cm) - Length 1.7 1.5 -Area of Debridement (cm) - Width 1.0 1.0 -Total Square (Area) (cm) 1.70 1.50 -Tunneling No No -Undermining/Tunneling No No -Circular Undermining No No -Wound/Ulcer Outcome Not Healed Not Healed -Ulcer Cleansing Rinsed/ Rinsed/ Irrigated with Irrigated with Saline Saline -Foul Odor after Cleansing No No -Bioengineered Tissue No No -Bleeding Controlled with Pressure Pressure -Offloading No No -Treatment Response Procedure Procedure Tolerated Well Tolerated Well -Debridement - Subq, 1st 20sq cm Yes Yes Pain Scale: 0-10 Numeric Is Patient Pain Free? Yes Yes - Nurse 3 - General Ulcer D/C NN Start: 03/05/21 08:43 Freq: Status: Active Protocol: Activity Type Activity Date Activity User E-Sign Co-Sign Detail Recorded Client Recorded Date Recorded By Document 03/05/21 10:22 DL [id number] 03/05/21 10:23 DL Document 03/12/21 12:05 MW [id number] 03/12/21 12:07 MW 03/05/21 03/12/21 10:22 12:05 Wound Care Nurse 3 #1 L Achilles -Ulcer Cleansing Rinsed/ Rinsed/ Irrigated with Irrigated with Saline Saline -Foul Odor after Cleansing No No -Negative Pressure Wound Therapy N/A -Primary Dressing Applied NonAdherent NonAdherent Contact Layer, Contact Layer Promogran Maria Isabel Matter -Other Dressing c.hydrogel -Primary Dressing Covered/Secured with Dry Gauze, Dry Gauze & Secured with Roll Gauze, Tape Secured with Tape -Promogran Maria Isabel Matter 1 Treatment Response Procedure Tolerated Well Pain Scale: 0-10 Numeric Is Patient Pain Free? Yes Yes Teaching: Wound Center Dressing Your Wound -Person Taught Patient -Teaching Method Discussion, Demonstration -Response to teaching Verbalize understanding WC - Visit Discharge Discharge Condition Stable Stable Ambulatory Status Ambulatory Ambulatory Transportation Private Auto Private Auto Accompanied by self Medication Reconcilliation completed & No provided to patient/care provider Clinical Summary of Care Provided Yes Wound debrided: Left Ankle Type of Debridement: Excisional debridement Anesthesia Used: 4% Lidocaine Solution Depth: Down to and including healthy tissue and in the subcutaneous layer Percentage of wound debrided: 100 Instrument Used: 5mm curette Tissue Removed: Slough and devitalized tissue Severity: Fat Layer Exposed Amount of bleeding with debridement: Mild Bleeding Controlled with: Pressure Assessment/Plan Assessment/Plan (1) Ulcer of left lower extremity with fat layer exposed: CODE(S): L97.922 - Non-pressure chronic ulcer of unspecified 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 Currently on doxycycline per culture and sensitivity.. Skin substitute denied by insurance. As above, x-ray ordered and reviewed and suggestive of osteomyelitis however operating surgeon Dr. Granados does not think it is osteomyelitis but believes it is from his implant/surgery. MRI has been ordered Dr. Granados however suggests that MRI would have the same finding.... Patient was advised to decide if he wants to or not. Will monitor for now and if healing is delayed however, will get MRI to rule out osteomyelitis. Continue maria isabel daily with Adaptic over top. Tubigrip for edema management. Elevate lower extremities when seated and in bed. Increased protein intake, vitamin C and zinc also discussed/recommended. His questions were answered and was advised to call with any further questions or concerns. This note was generated with [employer] dictation software. It may contain incorrect words, spelling, and punctuation that were not noted in checking the note before signing.
[2021-03-19 08:31] VITALS: BP 120/77; PULSE 88; RESP 18; TEMP 36.3; BMI 22.6
--- NOTE | 2021-03-19 12:52 | PCM.WC.PN ---
History of Present Illness Date of Service: 03/19/21 Chief Complaint: Surgical wound breakdown. History of Wound: Mr. Hernandez is a 50-year-old who was referred to the wound center by his orthopedic surgeon due to nonhealing surgical wound/surgical wound breakdown. In November, had surgical repair following left Achilles tendon tear. Surgery was uneventful. Was placed in a cast following surgery and had his sutures removed uneventfully. However a few weeks after, noted reopening. Has been seen/managed by his orthopedic surgeon however area has remained opened. States that he has been applying Bactroban daily. No history of diabetes. Denies tobacco abuse. Occasional drainage from the area. Feels well, denies chills, fever, nausea, vomiting or change in bowel habits. Subjective Subjective No new concerns at this time. Has been using Santyl, tolerated well. Canceled MRI. Objective Data Objective Data Vital Signs: Vital Signs Temp Pulse Resp BP 97.4 F L 88 18 120/77 03/19/21 08:31 03/19/21 08:31 03/19/21 08:31 03/19/21 08:31 Weight: 166 lb 15.477 oz Body Mass Index (BMI) 22.6 Lab / Micro Data Result Diagrams: 03/05/21 10:36 03/05/21 10:36 Micro: Microbiology 03/05/21 09:45 Wound Abcess - Ankle Gram Stain - Final 03/05/21 09:45 Wound Abcess - Ankle Wound Culture - Final Staphylococcus aureus 03/05/21 09:45 Wound Abcess - Ankle Anaerobic Culture - Final Anaerobic cocci Charges/Coding Procedures Integumentary 111xxx-113xx: 10001 Mariel subq tissue 20 sq cm/< Physical Exam Const alert, oriented x3 and no apparent distress General Appearance: cooperative, comfortable and well kempt HEENT normocephalic and head/scalp atraumatic Eyes PERRL and EOMs intact bilaterally Neck full ROM and supple General: normal visual inspection Resp normal respiratory effort Effort and Inspection: able to speak in complete sentences Cardio regular rate, regular rhythm, S1 normal heart sound and S2 normal heart sound GI Palpation: soft Skin Wounds: wounds noted Neuro oriented x3, CN's II-XII intact bilaterally, moves all extremities and no focal motor deficits Psych mental status grossly normal Appearance: grossly normal Attitude: calm Activity / Motor Behavior: appropriate eye contact Speech: normal speech Debridement Note Debridement Note Post-Debridement Measurements and Additional Note: Post-Debridement Measurements/Treatment WC - Nurse 1 - General Ulcer Assessment Start: 03/05/21 08:43 Freq: Status: Active Protocol: KEO Activity Type Activity Date Activity User E-Sign Co-Sign Detail Recorded Client Recorded Date Recorded By Document 03/05/21 09:07 DL [id number] 03/05/21 09:24 DL Document 03/12/21 11:22 ML [id number] 03/12/21 11:27 ML Document 03/19/21 08:31 AK [id number] 03/19/21 08:39 AK 03/05/21 03/12/21 03/19/21 09:07 11:22 08:31 WC - Today's Visit Information Type of service Initial Visit Follow-up Visit Follow-up Visit (Physician/HOT DIE PRESS FEEDER (Physician/HOT DIE PRESS FEEDER ) ) Arrival Mode Ambulatory Ambulatory Ambulatory Transfer Assistance None None None Patient Identification Verified (Name & Yes Yes Yes ) Patient Requires Transmission-Based No No No Precautions Safety Precautions NA NA Height and Weight Height 6 ft Weight 166 lb 15.477 oz Weight in Pounds 167.0 lbs Body Mass Index (BMI) 22.6 22.6 22.6 BMI Classification Normal Normal Normal BSA - Spenser 1.97 Vital Signs Temperature (97.8 F-99.1 F) 98.1 F 96.4 F L 97.4 F L Temperature Source Temporal Temporal Temporal Pulse Rate (60-100) 73 88 88 Pulse Location Monitor Monitor Monitor Respiratory Rate (12-18) 18 16 18 Respiratory rate source Observation Observation Observation Blood Pressure (90/60-120/80) 149/91 H 137/81 H 120/77 Blood Pressure Mean (mm Hg) 110 99 91 Source Monitor Monitor Monitor Position Sitting Semi-Fowlers Blood Pressure Location Right Arm Left Arm History Since Last Visit- (Skip if this is Patient's initial visit) Have you changed medications since your No No last visit? Any new allergies or adverse reactions No No Had a fall/change in ADL's that may No No increase risk of falls Signs or symptoms of abuse and/or No neglect since last visit Have you been in the hospital since your No No last visit? Has dressing in place as prescribed Yes Yes Has compression in place as prescribed N/A No Has offloadiing in place as prescribed N/A No Experienced any changes in pain level or No No management Left Footwear Regular Shoe Right Footwear Regular Shoe Pain Scale: 0-10 Numeric Is Patient Pain Free? Yes Yes Yes Lower Extremity Assessment/ Foot Assessment/ Toe Nail Assessment Left -Posterior Tibial Palpable Yes -Posterior Tibial Doppler Multiphasic -Dorsalis Pedis Palpable Yes -Dorsalis Pedis Doppler Multiphasic -Extremity Color Normal -Hair Growth on Legs Yes -Hair Growth on Toes Yes -Temperature of Extremity Warm -Capillary Refill Less than 3 Seconds -Dependent Rubor No -Blanched when Elevated No -Lipodermatosclerosis No -Other Deformity No -Prior Foot Ulcer No -Charcot Joint No -Prior Amputation No -Thick No -Discolored No -Deformed No -Improper Length & Hygeine No Right -Posterior Tibial Palpable Yes -Posterior Tibial Doppler Multiphasic -Dorsalis Pedis Palpable Yes -Dorsalis Pedis Doppler Multiphasic -Extremity Color Normal -Hair Growth on Legs Yes -Hair Growth on Toes Yes -Temperature of Extremity Warm -Capillary Refill Less than 3 Seconds -Dependent Rubor No -Blanched when Elevated No -Lipodermatosclerosis No -Other Deformity No -Prior Foot Ulcer No -Charcot Joint No -Prior Amputation No -Thick No -Discolored No -Deformed No -Improper Length & Hygeine No Neuropathy Assessment Feet - Top Side and Bottom <Entered> (a) Communication Assessment Preferred language Vietnamese Able to Read Yes Able to Write Yes Communication Tools None Right Hearing Abillity Normal Left Hearing Abillity Normal Visual Assistive Devices Glasses, Contacts Teaching Assessment Preferences Verbal,Written, Demonstration Barriers to Learning None Readiness To Learn Good Willingness to Engage in Self Management Med Activies Readiness to Engage in Self Management Med Activities Anxiety Level Calm Cooperation Cooperative Perception Coherent Interest in Health Problem Asks Questions Education Importance Acknowledges Need Does Patient Smoke tobacco or other No substances Smoking Status Never smoker Is Patient Diabetic No Culture/Confucianism/Media Services Specialist Cultural/Confucianism Needs that may affect No Treatment Plan Would you allow our hospital metal machine setter to No meet you for the purpose of spiritual/ emotional support? Media Services Specialist to contact place of rastafari No Teaching: Wound Center Dressing Your Wound -Person Taught Patient Discharge Instructions -Person Taught Patient *Welcome to the Wound Center -Person Taught Patient (a) 1 - + WC - Nurse 1 - General Ulcer Measurement Start: 03/05/21 08:43 Freq: Status: Active Protocol: Activity Type Activity Date Activity User E-Sign Co-Sign Detail Recorded Client Recorded Date Recorded By Document 03/05/21 09:07 DL [id number] 03/05/21 09:24 DL Document 03/12/21 11:22 ML [id number] 03/12/21 11:27 ML Document 03/19/21 08:31 AK [id number] 03/19/21 08:39 AK 03/05/21 03/12/21 03/19/21 09:07 11:22 08:31 Wound Center Nurse 1 #1 L Achilles -Combined with other wound No -Current Size (cm) - Length 1.6 1.7 1.5 -Current Size (cm) - Width 1 1.3 0.7 -Current Size (cm) - Depth 0.3 0.1 0.5 -Total Square Cm 1.6 2.21 1.05 -Photo Taken Yes -Tunneling No -Undermining/Tunneling No -Circular Undermining No -Classification - Thickness Full Thickness without Exposed Support Structure -Exudate Amt Medium Medium Small -Exudate Type Serosanguineous Serosanguineous Serosanguineous -Wound Margin Distinct, Distinct, Thickened & Outline Outline Rolled Under Attached Attached -Granulation Amt None Present (0 Medium (34-66%) Medium (34-66%) %) -Granulation Quality [place] -Slough/Fibrin Yes Yes -Necrosis Amt Large (67-100%) Medium (34-66%) Medium (34-66%) -Necrotic Tissue Type Adherent Slough Adherent Slough Adherent Slough -Structure Exposed Fascia N/A -Texture (Sue-wound Skin Appearance) Localized Edema Assessed Assessed ,Scarring -Moisture (Sue-wound Skin Appearance) No Abnormality Assessed Assessed -Color (Sue-wound Skin Appearance) Erythema Assessed Assessed -Temperature (Sue-wound Skin No Abnormality No Abnormality No Abnormality Appearance) (Pt Warm) (Pt Warm) (Pt Warm) -Tenderness on Palpation (Sue-wound No No Skin Appearance) -Ulcer Cleansing Wound Cleanser Rinsed/ Rinsed/ Irrigated with Irrigated with Saline Saline -Foul Odor after Cleansing No No No -Anesthetic Used 5% Lidocaine 4% Lidocaine 4% Lidocaine Gel Solution Solution Left Calf (cm) 35 Left Ankle (cm) 25.5 WC - Nurse 2 - General Ulcer CM Notes Start: 03/05/21 08:43 Freq: Status: Active Protocol: Activity Type Activity Date Activity User E-Sign Co-Sign Detail Recorded Client Recorded Date Recorded By Document 03/05/21 09:43 MW [id number] 03/05/21 09:51 MW Document 03/12/21 11:55 MW [id number] 03/12/21 12:03 MW Document 03/19/21 09:01 MW [id number] 03/19/21 09:06 MW 03/05/21 03/12/21 03/19/21 09:43 11:55 09:01 Wound Center Nurse 2 #1 L Achilles -Time 09:43 11:55 09:01 -Correct Patient Yes Yes Yes -Correct Side, Site, Position Yes Yes Yes -Correct Procedure Yes Yes Yes -Procedure Performed Yes Yes Yes -Type of Procedure Debridement Debridement Debridement -Clinical Debridement Subcutaneous Subcutaneous Subcutaneous -Tissue Removed Subcutaneous Subcutaneous Subcutaneous -Post Debridement (cm) - Length 1.7 1.5 1.9 -Post Debridement (cm) - Width 1.0 1.0 0.8 -Post Debridement (cm) - Depth 0.3 0.3 0.2 -Total Square (Post) (cm) 1.70 1.50 1.52 -Area of Debridement (cm) - Length 1.7 1.5 1.9 -Area of Debridement (cm) - Width 1.0 1.0 0.8 -Total Square (Area) (cm) 1.70 1.50 1.52 -Tunneling No No No -Undermining/Tunneling No No No -Circular Undermining No No No -Wound/Ulcer Outcome Not Healed Not Healed Not Healed -Ulcer Cleansing Rinsed/ Rinsed/ Rinsed/ Irrigated with Irrigated with Irrigated with Saline Saline Saline -Foul Odor after Cleansing No No No -Bioengineered Tissue No No No -Bleeding Controlled with Pressure Pressure Pressure -Offloading No No No -Treatment Response Procedure Procedure Procedure Tolerated Well Tolerated Well Tolerated Well -Debridement - Subq, 1st 20sq cm Yes Yes Yes Pain Scale: 0-10 Numeric Is Patient Pain Free? Yes Yes Yes WC - Nurse 3 - General Ulcer D/C NN Start: 03/05/21 08:43 Freq: Status: Active Protocol: Activity Type Activity Date Activity User E-Sign Co-Sign Detail Recorded Client Recorded Date Recorded By Document 03/05/21 10:22 DL [id number] 03/05/21 10:23 DL Document 03/12/21 12:05 MW [id number] 03/12/21 12:07 MW Document 03/19/21 09:24 RB [id number] 03/19/21 09:26 RB 03/05/21 03/12/21 03/19/21 10:22 12:05 09:24 Wound Care Nurse 3 #1 L Achilles -Ulcer Cleansing Rinsed/ Rinsed/ Irrigated with Irrigated with Saline Saline -Foul Odor after Cleansing No No -Negative Pressure Wound Therapy N/A -Primary Dressing Applied NonAdherent NonAdherent Contact Layer, Contact Layer Promogran Beatris Matter -Other Dressing c.hydrogel SANTYL -Primary Dressing Covered/Secured with Dry Gauze, Dry Gauze & Dry Gauze, Secured with Roll Gauze, Secured with Tape Secured with Tape Tape -Promogran Beatris Matter 1 Left -Lotion applied to leg before No compression wrap -Tubular Bandage Double Layer -Size of Tubigrip Used Size D -Size D ($) 1 Treatment Response Procedure Procedure Tolerated Well Tolerated Well Pain Scale: 0-10 Numeric Is Patient Pain Free? Yes Yes Teaching: Wound Center Dressing Your Wound -Person Taught Patient -Teaching Method Discussion, Demonstration -Response to teaching Verbalize understanding WC - Visit Discharge Discharge Condition Stable Stable Stable Ambulatory Status Ambulatory Ambulatory Ambulatory Transportation Private Auto Private Auto Private Auto Accompanied by self Medication Reconcilliation completed & No No provided to patient/care provider Clinical Summary of Care Provided Yes Yes Wound debrided: Left Achilles Type of Debridement: Excisional debridement Anesthesia Used: 4% Lidocaine Solution and 5% Lidocaine Gel Depth: Down to and including healthy tissue and in the subcutaneous layer Percentage of wound debrided: 100 Instrument Used: 5mm curette Tissue Removed: Slough and devitalized tissue Severity: Fat Layer Exposed Amount of bleeding with debridement: Mild Bleeding Controlled with: Pressure Patient tolerated procedure: Patient tolerated procedure well Assessment/Plan Assessment/Plan (1) Ulcer of left lower extremity with fat layer exposed: CODE(S): L97.922 - Non-pressure chronic ulcer of unspecified 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 Has completed antibiotics. Skin substitute denied by insurance. Patient thought through and decided to cancel MRI. Will monitor for now and if healing is delayed , will get MRI to rule out osteomyelitis. Continue Santyl daily with Adaptic over top. Tubigrip for edema management. Elevate lower extremities when seated and in bed. Increased protein intake, vitamin C and zinc also discussed/recommended. His questions were answered and was advised to call with any further questions or concerns. This note was generated with [employer] dictation software. It may contain incorrect words, spelling, and punctuation that were not noted in checking the note before signing.
== END 2021-03-21 23:59 ==
LOC: WC 08:30
PROVIDERS: Referring Provider Internal Medicine; Visit Provider Internal Medicine
DX: T81.31XA Disruption of external operation (surgical) wound, not elsewhere classified, initial encounter (principal); L97.522 Non-pressure chronic ulcer of other part of left foot with fat layer exposed; Y83.9 Surgical procedure, unspecified as the cause of abnormal reaction of the patient, or of later complication, without mention of misadventure at the time of the procedure; Y92.9 Unspecified place or not applicable
CPT/HCPCS: 11042; 36415; 73610; 73630; 80053; 85025; 85652; 86140; 87070; 87075; 87077; 87186; 87205; 99213; G0463

== ENCOUNTER 2021-03-31 14:30 | Inpatient (IN) | payer BC, SELFPAY ==
[2021-03-31 13:24] VITALS: BMI 22.6
--- NOTE | 2021-03-31 15:34 | PCM.HP.STD ---
HPI - General General Date of Admission: 03/31/21 Date of Service: 03/31/21 Chief Complaint: L Achilles Wound worsened appearance, sent from Wound Care center HPI Narrative The patient is a 50 y/o M w/ no marked PMHx, healthy, avid runner who presents to the [facility] as direct admission from the Wound Care Center on 03/31/21 with history of surgical repair of left Achilles tendon following a tear with no significant perioperative events at that time with casting however approximately 1 week following operative intervention there was reopening of the incision therefore patient was referred to wound care therapy for ongoing aggressive wound care with MSSA noted infection treated with doxycycline with 1 week history of increased swelling, pain rated 2-3 out of 10, worse with activity, improved with elevation with discharge from the wound with repeat evaluation at the wound care center with worsened appearance prompting referral to the hospital for direct admission for podiatric evaluation and antibiotic therapy as well as suspected operative intervention needs. Prior to being debrided before referral to the ED wound measures 1.5 x 2 x 0.08 increased from 1.5 x 0.9 x 0.2 with significant slough with no granulation tissue with thin malodorous discharge and marked swelling as well as red/purple discoloration of the skin with a few satellite lesions evident with periwound warmth and spongy swelling superior to the wound. Dr. Granados who had performed the operation was contacted and discussed case with Dr. Christie who planned evaluating the patient. [facility] Medical History (Updated 03/31/21 @ 18:[address] Kait Bain, DPM) Ankle osteomyelitis, left Delayed surgical wound healing Delayed wound healing Surgical wound breakdown Ulcer of left lower extremity with fat layer exposed Home Medications acetaminophen [Tylenol] 325 mg PO Q6H PRN 03/31/21 [History Last Taken Unknown] ascorbic acid (vitamin C) [Vitamin C] 1 g PO DAILY 03/31/21 [History Last Taken Unknown] docosahexaenoic acid-epa [Fish Oil (with DHA-EPA)] 1 cap PO DAILY 03/31/21 [History Last Taken Unknown] magnesium 400 mg PO DAILY 03/31/21 [History Last Taken Unknown] vitamin B complex 1 tab PO/SL DAILY 03/31/21 [History Last Taken Unknown] zinc 50 mg PO DAILY 03/31/21 [History Last Taken Unknown] Allergy/AdvReac Type Severity Reaction Status Date / Time No Known Allergies Allergy Verified 03/05/21 09:26 no significant family history (Patient denies any marked maternal/paternal family history including HD, CA, DM.) Surgical History (Updated 03/31/21 @ 20:[address] Nicole Lopes MD) H/O wisdom tooth extraction History of Achilles tendon repair Social History (Updated 03/31/21 @ 20:[address] Nicole Lopes MD) household members: spouse Smoking Status: Never smoker alcohol intake: current alcohol intake frequency: holidays/special occasions only substance use type: does not use ROS ROS Narrative Admission Review of Systems: CONSTITUTIONAL: No weight loss, fever, chills, weakness or fatigue. HEENT: Eyes: No visual loss, blurred vision, double vision or yellow sclerae. Ears, Nose, Throat: No hearing loss, sneezing, congestion, runny nose or sore throat. SKIN: + worsened L ankle wound, redness, drainage noted. CARDIOVASCULAR: No chest pain, chest pressure or chest discomfort, palpitations, edema, orthopnea, syncopal events. RESPIRATORY: No shortness of breath, cough or sputum, wheezing, hemoptysis. GASTROINTESTINAL: No anorexia, nausea, vomiting or diarrhea, abdominal pain, melena, BRBPR. GENITOURINARY: No dysuria, frequency, urgency or retention. NEUROLOGICAL: No headache, dizziness, syncope, paralysis, ataxia, numbness or tingling in the extremities, focal weakness, change in bowel or bladder control, seizure. MUSCULOSKELETAL: + muscle, back pain, joint pain or stiffness. HEMATOLOGIC: No anemia, bleeding or bruising. LYMPHATICS: No enlarged nodes. No history of splenectomy. PSYCHIATRIC: No history of depression or anxiety. ENDOCRINOLOGIC: No reports of sweating, cold or heat intolerance. No polyuria or polydipsia. ALLERGIES: No history of asthma, hives, eczema or rhinitis. Vital Signs Vital Signs Vital Signs: Weight Body Mass Index (BMI) 22.6 Physical Exam Narrative Physical Examination: General: Awake, alert, oriented x 3 and cooperative, seated upright in the medical surgical bed in no apparent distress, notes some discomfort, currently rated to out of 10. Skin: Normal color, normal turgor, no icterus, no cyanosis except noted left Achilles region with open wound with periwound erythema and induration with ulceration approximately 2 x 1.5 x 1 cm with exposed tendon and fibrous tissue with mild purulent smell but no current drainage noted. HEENT: AT/NC, EOMI, PERRLA, MMM, no carotid bruits or JVD noted. Lungs: CTA bilaterally, no rales, ronchi or wheezing. Heart: Regular rate and rhythm; no gallop, rub audible. Abdomen: Soft, NTTP, ND, normal BS, no HSM. Extremities: No cyanosis, no clubbing, see skin, mild left lower extremity edema, nonpitting. Neurological: Patient awake, alert, oriented x 3, cognitive function intact; pupils equally reactive to light and accommodation, cranial nerves II-XII grossly normal, moving all 4 extremities despite even left lower extremity findings, no focal deficits, strength primarily intact although mildly reduced given acute presentation as noted. Psychiatric: Affect appears normal, no acute evidence of depressive or anxiety feelings. Results Lab / Micro Data Result Diagrams: 03/31/21 15:46 03/31/21 16:04 Assessment & Plan Assessment/Plan (1) Ulcer of left lower extremity with necrosis of muscle: (2) Cellulitis and abscess of left leg: PLAN: The patient is a 50 y/o M w/ no marked PMHx, healthy, avid runner who presents to the [facility] as direct admission from the Wound Care Center on 03/31/21 with history of surgical repair of left Achilles tendon following a tear with no significant perioperative events at that time with casting however approximately 1 week following operative intervention there was reopening of the incision therefore patient was referred to wound care therapy for ongoing aggressive wound care now with worsened appearance. 1. LLE Surgical Infected Open Wound with Sue-wound Extremity Cellulitis, Concern for Osteomyelitis and possible Abscess: Will admit to MS, maintain on IV BSA with Vanc and zosyn pending requested Wound Cx as well as Wound MRSA PCR, plan admission CBC as well as CMP and ESR/CRP with planned repeat CBC in AM, continue affected extremity elevation above heart when seated and in bed, monitor erythema outline with VS checks. Will request Podiatry consultation with planned NPO status in case of OR transition today. Will defer imaging decisions to podiatry. ID also consulted given ongoing wound, non-healing, now worsened status. Wound RN consulted. Continue dressing changes pending Podiatry evaluation. 2. DVT prophylaxis: SCDs, defer any chemoprophylaxis given low risk and plan possible OR. Charges/Coding Visit Charges Inpatient E&M: 76353 Init Hosp L2
[2021-03-31 15:37] VITALS: BMI 22.8
--- NOTE | 2021-03-31 15:50 | NURSING ---
wound photo: left Achilles
[2021-03-31 15:55] LABS: Absolute Lymphocyte Count 0.97 X10^3/uL (0.83-4.51); Absolute Neutrophil Count 10.5 X10^3/uL (2.0-7.7); Basophil# 0.03 X10^3/uL; Basophil% 0.2 % (0-1); Eosinophil# 0.04 X10^3/uL; Eosinophils% 0.3 % (0-5); Hemoglobin 14.8 g/dL (13.0-16.5); Lymphocyte # 0.97 X10^3/ul (0.83-4.51); Lymphocyte % 7.7 % (19-41); Mean Corp Hgb Conc 33.6 g/dL (32-36); Mean Corpuscular Hgb 30.6 pg (27.0-32.0); Mean Corpuscular Volume 90.9 fL (80-94); Monocyte# 1.01 X10^3/uL; NRBC Flagged by Analyzer 0 % (0-5); Neutrophil # 10.45 X10^3/uL (2.7-7.7); Neutrophil % 83.2 % (47-70); Platelet Count 290 K/mm3 (150-450); RBC Distribution Width CV 11.9 % (11.6-14.6); RBC Distribution Width SD 39.7 fl (35.1-43.9); Red Blood Count 4.84 M/mm3 (4.6-6.2); White Blood Count 12.6 K/mm3 (4.4-11.0)
[2021-03-31] MEDS: 0.9% Normal Saline 1,000 ML 100 ML IV (16:00)
[2021-03-31 16:02] VITALS: BP 136/72; PULSE 97; RESP 18; TEMP 36.8; O2SAT 98
[2021-03-31 16:11] LABS: Erythrocyte Sedimentation Rate 18 mm/hr (0-20)
--- NOTE | 2021-03-31 16:15 | RAD_ITS ---
STUDY: X-RAY - LEFT ANKLE REASON FOR EXAM: Male, 50 years old. infection TECHNIQUE: 3 view(s) of the ankle. COMPARISON: None. FINDINGS: Normal visualized distal tibia and fibula. Normal medial and lateral malleoli. Normal tibiotalar articulation and ankle mortise. Small plantar calcaneal spur noted. Mild discopathy present at the Achilles tendon insertion site. The mid aspect of the Achilles tendon shadow is moderately thickened. No visualized subcutaneous gas. Normal visualized talus and calcaneus. The visualized subtalar, talonavicular, calcaneocuboid and tarsal articulations are normal. There is no demonstrated fracture. RAD/Ankle min 3 Views IMPRESSION: The mid aspect of the Achilles tendon shadow is moderately thickened. No visualized subcutaneous gas. Electronically Signed: Ranjeet Villarreal MD at 20:46 EDT , Service support ,
[2021-03-31 16:43] LABS: Anion Gap 6 (5-15); BUN 26 mg/dL (7-18); BUN/Creat Ratio 29.1 RATIO (10-20); CRP 7.25 mg/L (0.0-3.0); Calcium,Total 9.4 mg/dL (8.5-10.1); Chloride 101 mmol/L (98-107); EST Glomerular Filtration Rate 95 mL/min (>60); Est Glom Filt Rate - Afr Amer 115 mL/min (>60); Estimated Creatinine Clearance 104.66 ml/min; Glucose 100 mg/dL (74-106); Potassium 3.6 mmol/L (3.5-5.1); Sodium Level 136 mmol/L (136-145)
--- NOTE | 2021-03-31 16:45 | CON.PCM_ITS ---
Assessment & Plan Assessment/Plan (1) Surgical wound breakdown: (2) Delayed surgical wound healing: (3) Cellulitis and abscess of left leg: (4) Ulcer of left lower extremity with necrosis of muscle: PLAN: I reviewed and discussed his case today. Debridement was performed earlier today as noted in the wound center documentation. Full chart review was also performed and the case was verbally reviewed with Dr. Granados. The following work up and care recommendations were made: Infection: I reviewed his diagnostic data and clinical findings. Aerobic, anaerobic, and MRSA PCR cultures were obtained during his wound center visit. The PCR is negative for MRSA. Additional information is pending. Blood cultures were also initiated and these results are pending. He has notable local signs of infection with compromise of the Achilles tendon which overall appears to be intact. Leukocytosis noted with white blood cell count of 12.6, ESR 18, C-reactive protein 7.25. Updated ankle x-rays were obtained and no soft tissue emphysema or foreign bodies noted. Kager's triangle also appears to be intact which supports an intact Achilles evaluation. There is an area of diminished bone density to the lateral wall of the calcaneus when compared to the films on 03-05-21 remain unchanged and this directly correlates to the location of the bone anchor that was applied during surgery in a standard manner when using the [employer] midsubstance repair PARS system. This site does not directly correlate with the ulcer site. There is no osseous destruction adjacent to the ulcer site. He was started on broad-spectrum vancomycin and Zosyn IV antibiotics. Infectious disease has been consulted and input will be greatly appreciated. This patient would benefit from Versajet operating room debridement. I will see if we can get him added on tomorrow for subcutaneous and tendon Versajet debridement and irrigation. Preoperative H&P were reviewed including his diagnostic data. There is no gross abnormalities noted with labs for preoperative EKG. Preoperative indications, planned procedure, benefits, risk, anticipated healing time and management were reviewed. The patient understands and elects proceed with surgery at this time. No guarantees were made. The patient understands risk and complications i nclude but are not limited to following: pain, swelling, scarring, need for further surgery, tendon contracture, transfer lesion, hardware failure, arthritis, need for further surgery, delayed or nonhealing, infection, blood clot, allergic reaction, loss of limb, function, or life. He also understands if a significant amount of his Achilles is compromised he may require future tendon transfer or graft however this would not be addressed during his initial infection management procedure. The informed surgical limb and consent will need to be signed. I answered all the patient's questions. The patient will be n.p.o. this evening and was advised to go ahead and eat dinner. Anticipated anesthesia is general and local with the patient in a prone position. Operating room availability is to be determined. Dressing: Betadine, Adaptic, and gauze dressing was applied with gentle application of Jaycob wrap. To avoid touching the wound without having gloves in place to avoid contamination even with normal skin héctor which is problematic in this layer of the body. To wear protective shoes and dressings when he returns home. To keep pets away from the wound. Wash: Soap and water Tissue growth optimization: He understands advanced wound healing products may be considered in the clinical setting after his infection status is better managed. It is noted he try to get approved for epi fix and this was denied by his insurance so far. Offload: I recommend changing his lower limb over stacked blankets or pillows to keep complete pressure off of the ulcer site. To avoid excessive motion of the ankle which will put tension on the ulcer Vascular: Palpable pulses noted Edema: Jaycob wrap applied. To elevate. Pain: This is fairly controlled at this time Host factors: Medical management per hospitalist service is greatly appreciated and noted. He does not have notable comorbidities however has noted delayed healing. He is even an avid half marathon runner and has avoided recent exerc ise activities. I recommend nutritional supplementation to optimize healing. Chucho was ordered. We also discussed other supplementation. It is noted he is taking 60-70 milligrams of protein supplements at a time and I recommend spreading this out so his body better absorbs and utilizes the supplements. I answered all the patient's questions. His is also bedside. Thank you for the consultation. Please do not hesitate to call if you have any questions. Kait Bain DPM, [facility] [phone] HPI Consult Data Date of Consult: 03/31/21 HPI Narrative Reason for Consultation: Infected left Achilles wound HPI Narrative: CARMEN JOHN, is a 50 M who was admitted was admitted for nonhealing and infected left Achilles wound. He ruptured his tendon and had surgical repair with his people manager, Dr. Francisco Javier Granados, on 12-11-20. Postoperative casting and suture removal were uneventful and were later followed by dehiscence several weeks later. He has demonstrated continued delayed healing and notable deterioration, signs of infection, and enlarged ulcer size were noted within the past several days. The patient reports a mild odor and progressive redness and swelling. He was seen at the wound healing center as an add on evaluation with Dr. Sanders and was referred for admission. The patient denies current fever, chills, vomiting. He denies routine claudication. His pain is mild. He does report some intermittent nausea. Prior wound care treatment has included Bactroban and more recently Santyl application. His is concerned they have pets at home and he ambulates around the house without protective shoes in place. [facility] Medical History (Updated 03/31/21 @ 18:[address] Kait Bain, [facility]) Ankle osteomyelitis, left Delayed surgical wound healing Delayed wound healing Surgical wound breakdown Ulcer of left lower extremity with fat layer exposed Home Medications acetaminophen [Tylenol] 325 mg PO Q6H PRN 03/31/21 [History Last Taken Unknown] ascorbic acid (vitamin C) [Vitamin C] 1 g PO DAILY 03/31/21 [History Last Taken Unknown] docosahexaenoic acid-epa [Fish Oil (with DHA-EPA)] 1 cap PO DAILY 03/31/21 [History Last Taken Unknown] magnesium 400 mg PO DAILY 03/31/21 [History Last Taken Unknown] vitamin B complex 1 tab PO/SL DAILY 03/31/21 [History Last Taken Unknown] zinc 50 mg PO DAILY 03/31/21 [History Last Taken Unknown] Allergy/AdvReac Type Severity Reaction Status Date / Time No Known Allergies Allergy Verified 03/05/21 09:26 Social History Smoking Status: Never smoker ROS Constitutional Constitutional: Denies malaise Cardiovascular Cardiovascular: Reports erythema on extremities, leg ulcers and pedal edema Gastrointestinal Gastrointestinal: Denies vomiting Musculoskeletal Musculoskeletal: Reports joint swelling; Denies joint pain, stiffness or tingling Integumentary Integumentary: Reports skin ulcer Neurologic Neurologic: Denies paresthesias Physical Exam Const alert and oriented x3 General Appearance: cooperative HEENT normocephalic Extremity Extremity Narrative: No calf tenderness except directly to ulcer site, left (several cm proximal to the insertion at the calcaneus) 2/4 pt and dp pulse, left No muscle wasting noted Angulo test elicits appropriate plantarflexion of the foot upon ankle indicates Achilles tendon is intact Compartments of left lower extremity remain soft to palpate without bogginess, fluctuance or abscess palpation Active range of motion digits normal and noted. Negative El and Quiñonez sign left General Extremity: edema and no tenderness to palpation of joints or extremities; Negative for cyanosis Skin Skin Narrative: no purulence, no streaking, no odor noted this evening (per wound center chart review there was mild malodor). There is peripheral edema erythema and induration extending over 2 cm adjacent to the ulcer margins. The ulcer size measures approximately 2 cm x 1.5 x 0.8 with exposed devitalized Achilles tendon and adjacent fibrous tissue. No hilton eschar or purulence on expression. The adjacent skin is atrophic General Skin Exam: Negative for erythema Neuro Neuro Narrative: Epicritic sensation is intact via light touch the foot and ankle Psych cooperative and affect normal Lab / Micro Data Result Diagrams: 03/31/21 15:46 03/31/21 16:04 Labs: Laboratory Results - last 24 hr 03/31/21 15:37: Sodium Cancelled, Potassium Cancelled, Chloride Cancelled, Carbon Dioxide Cancelled, Anion Gap Cancelled, BUN Cancelled, Creatinine Cancelled, Estim Creat Clear Calc Cancelled, Est GFR (MDRD) Af Amer Cancelled, Est GFR (MDRD) Non-Af Cancelled, BUN/Creatinine Ratio Cancelled, Glucose Cancelled, Calcium Cancelled, C-React Prot Ext Range Cancelled 03/31/21 15:46: WBC 12.6 H, RBC 4.84, Hgb 14.8, Hct 44.0, MCV 90.9, MCH 30.6, MCHC 33.6, RDW Std Deviation 39.7, RDW Coeff of Justin 11.9, Plt Count 290, MPV 9.0, Immature Gran % (Auto) 0.600, Neut % (Auto) 83.2 H, Lymph % (Auto) 7.7 L, [place] % (Auto) 8.0, Eos % (Auto) 0.3, Baso % (Auto) 0.2, Absolute Neuts (auto) 10.5 H, Absolute Lymphs (auto) 0.97, Nucleated RBC % 0, ESR 18 03/31/21 16:04: Sodium 136, Potassium 3.6, Chloride 101, Carbon Dioxide 29.0, Anion Gap 6, BUN 26 H, Creatinine 0.90, Estim Creat Clear Calc 104.66, Est GFR (MDRD) Af Amer 115, Est GFR (MDRD) Non-Af 95, BUN/Creatinine Ratio 29.1 H, Glucose 100, Calcium 9.4, C-React Prot Ext Range 7.25 H
[2021-03-31] MEDS: 0.9% Saline Lock 10 ML Syringe IV (16:56)
[2021-03-31 17:12] LABS: M R Staph aureus DNA By PCR Negative (Negative); Probe Check PASS; Staph aureus DNA By PCR POSITIVE (Negative)
--- NOTE | 2021-03-31 17:40 | PCM.RX.CS ---
Consult Pharmacy has been consulted to manage selected antiobiotic: Vancomycin Type of Consult: New start Suspected Infection: Other - INFECTED ACHILLES TENDON Labs: Sodium 136 mmol/L (136-145) 03/31/21 16:04 Potassium 3.6 mmol/L (3.5-5.1) 03/31/21 16:04 Chloride 101 mmol/L (98-107) 03/31/21 16:04 Carbon Dioxide 29.0 mmol/L (21.0-32.0) 03/31/21 16:04 Anion Gap 6 (5-15) 03/31/21 16:04 BUN 26 mg/dL (7-18) H 03/31/21 16:04 Creatinine 0.90 mg/dL (0.70-1.30) 03/31/21 16:04 Est GFR (MDRD) Af Amer 115 mL/min (>60) 03/31/21 16:04 Est GFR (MDRD) Non-Af 95 mL/min (>60) 03/31/21 16:04 BUN/Creatinine Ratio 29.1 RATIO (10-20) H 03/31/21 16:04 Glucose 100 mg/dL (74-106) 03/31/21 16:04 Goal Trough: 15-20 mcg/mL Pharmacy Plan for Drug Dosing: NEW START IV VANCOMYCIN Consulting Physician: NII Indication: INFECTED ACHILLES TENDON Goal Trough: 15-20 MG/DL SrCr: 0.9 CrCl: 104 ML/MIN Comments: LOADING DOSE OF 2000MG GIVEN 03/31 @ 1655 Vancomycin Dose: START 1000MG Q8H PER POLICY. WILL START 04/01 @ 0100 AND GET A TROUGH PRIOR TO 4TH DOSE. Pending Level: 04/01/21 @ 1630 Pharmacy Service will continue to monitor and adjust dosing as required.
[2021-03-31 21:13] VITALS: BP 138/79; PULSE 81; RESP 18; TEMP 37.6; O2SAT 94
[2021-03-31] MEDS: Famotidine 20 MG Tablet PO (21:24)
[2021-04-01] VITALS (14 sets, daily range): BP systolic 89–148; BP diastolic 50–94; PULSE 59–75; RESP 10–18; TEMP 35.9–37.1; O2SAT 94–100; BMI 22.8
[2021-04-01] MEDS: Vancomycin IV 1,000 MG/200 ML BAG 200 MG IV ×3 (01:02→18:06)
--- NOTE | 2021-04-01 05:00 | EKG12_ITS ---
Test Reason : AM EKG Blood Pressure : / mmHG Vent. Rate : 062 BPM Atrial Rate : 062 BPM P-R Int : 224 ms QRS Dur : 088 ms QT Int : 396 ms P-R-T Axes : 043 033 034 degrees QTc Int : 401 ms Sinus rhythm with 1st degree A-V block Otherwise normal ECG Confirmed by CLEMENTE HERNANDEZ, CARIE ([id number]), clinical editor BRAULIO MONTERO ([id number]) on 04/02/2021 10:48:05 AM Referred By: Nicole Lopes Confirmed By:CARIE CORNEJO MD
--- NOTE | 2021-04-01 07:16 | PN.ORTHO_ITS ---
Subjective Subjective Patient is a 50-year-old male who underwent a left Achilles tendon repair by me on December 11, 2020. The immediate postoperative course was uneventful, but unfortunately he experienced surgical dehiscence of the wound. I then referred to the patient to the wound care center for further evaluation. Patient was seen by Dr. Sanders of the wound care center yesterday, March 31, 2021, and there was noted to be increase in the wound size along with infection present. Due to this, patient was admitted for further evaluation. Broad-spectrum IV antibiotics were started. I was consulted for further evaluation. Due to me leaving [place] and leaving my current practice, I did recommend that the patient be referred to Dr. Bain for further evaluation. Patient seen at bedside resting comfortably. Admits to minimal pain in area of left Achilles tendon. He states that he feels the symptoms are improving. He is currently n.p.o., for surgical debridement today with Dr. Bain. Currently, patient denies fever, chills, nausea, vomiting, shortness of breath, chest pain. Patient denies left calf pain. Objective Data Objective Data Vital Signs: Vital Signs Temp Pulse Resp BP Pulse Ox 98 F 67 18 109/68 97 04/01/21 02:35 04/01/21 02:35 04/01/21 02:35 04/01/21 02:35 04/01/21 02:35 Oxygen Delivery Method Room Air Weight: 76.3 kg Body Mass Index (BMI) 22.8 Intake & Output: Intake and Output for Last 24 Hours 03/30/21 03/31/21 04/01/21 23:59 23:59 23:59 Intake Total 1216.67 / 1216.67 601.67 / 601.67 Balance 1216.67 / 1216.67 601.67 / 601.67 Medical Nutrition Assessment Dietitian: Nutrition Therapy Diagnosis Start: 03/31/21 16:20 Freq: Status: Active Protocol: Document 03/31/21 18:58 RMA (Rec: 03/31/21 18:58 RMA [id number]) Nutrition Malnutrition Evidence of Malnutrition Exists No Intake Problem Increased Nutrient Needs (specify) Etiology for protein related to wound healing Signs/Symptoms as evidenced by open surgical wound of left achilles Status Active Problem Recommendation Dietitian Recommendations/Changes Will continue regular diet as ordered. Will continue Chucho BID for wound healing. Will continue ensure enlive w/ medpass for now but, will d/c as indicated if PO established adequate with meals. Lab / Micro Data Result Diagrams: 03/31/21 15:46 03/31/21 16:04 Labs: Laboratory Results - last 24 hr 03/31/21 15:35: S.aureus Protein A PCR POSITIVE H, MRSA (PCR) Negative 03/31/21 15:37: Sodium Cancelled, Potassium Cancelled, Chloride Cancelled, Carbon Dioxide Cancelled, Anion Gap Cancelled, BUN Cancelled, Creatinine Cancelled, Estim Creat Clear Calc Cancelled, Est GFR (MDRD) Af Amer Cancelled, Est GFR (MDRD) Non-Af Cancelled, BUN/Creatinine Ratio Cancelled, Glucose Cancelled, Calcium Cancelled, C-React Prot Ext Range Cancelled 03/31/21 15:46: WBC 12.6 H, RBC 4.84, Hgb 14.8, Hct 44.0, MCV 90.9, MCH 30.6, MCHC 33.6, RDW Std Deviation 39.7, RDW Coeff of Justin 11.9, Plt Count 290, MPV 9.0 , Immature Gran % (Auto) 0.600, Neut % (Auto) 83.2 H, Lymph % (Auto) 7.7 L, Morrison % (Auto) 8.0, Eos % (Auto) 0.3, Baso % (Auto) 0.2, Absolute Neuts (auto) 10.5 H, Absolute Lymphs (auto) 0.97, Nucleated RBC % 0, ESR 18 03/31/21 16:04: Sodium 136, Potassium 3.6, Chloride 101, Carbon Dioxide 29.0, Anion Gap 6, BUN 26 H, Creatinine 0.90, Estim Creat Clear Calc 104.66, Est GFR (MDRD) Af Amer 115, Est GFR (MDRD) Non-Af 95, BUN/Creatinine Ratio 29.1 H, Glucose 100, Calcium 9.4, C-React Prot Ext Range 7.25 H Radiography Diagnostic Testing: Radiology Impression Ankle X-Ray 03/31/21 16:15 IMPRESSION: The mid aspect of the Achilles tendon shadow is moderately thickened. No visualized subcutaneous gas. Electronically Signed: Ranjeet Villarreal MD at 20:46 EDT , Service support , Physical Exam Const alert, oriented x3, no apparent distress, average body habitus and healthy appearing General Appearance: cooperative and comfortable Orientation / Consciousness: awake, oriented to person and oriented to place Exam Limitations: no limitations HEENT normocephalic and head/scalp atraumatic Head and Scalp: normal to inspection Eyes PERRL and EOMs intact bilaterally Neck General: normal visual inspection Chest inspection of chest normal Resp normal respiratory effort and normal air movement Effort and Inspection: able to speak in complete sentences Cardio regular rate, regular rhythm, S1 normal heart sound and S2 normal heart sound GI normal to inspection, nondistended, normoactive bowel sounds Back/Spine no CVA tenderness Extremity Extremity Narrative: Left lower extremity: Dressing is clean, dry, intact with no evidence of strikethrough noted. Dressing is not removed at this time. I do not want to disturb the wound at this time. Neuro oriented x3, CN's II-XII intact bilaterally and no sensory deficits noted Psych mental status grossly normal Assessment & Plan Assessment/Plan (1) Cellulitis and abscess of left leg: PLAN: Patient chart reviewed and patient evaluated. Full discussion had with the patient about the patient's current clinical condition. I did speak with Dr. Sanders and Dr. Lopes yesterday, March 31, 2021. We did discuss the patient in detail. I did discuss with them that I will be leaving my current practice and the state of [place]. Due to this, I did recommend the patient's care be transferred to Dr. Bain with her taking over the medical decision making for this patient. I do believe that the patient will benefit from senior living follow up care with a single provider. Dr. Lopes and Dr. Sanders were agreeable to this. I did speak to the patient about this in depth as well, and he was agreeable to have his care transferred. I then spoke with Dr. Bain personally, who kindly agreed to take over the care of this patient. I do appreciate her help in managing this patient. Further medical decision making will be made by Dr. Bain. Thank you for keeping me informed and allowing me to take part in the care of your patient. (2) Delayed surgical wound healing: (3) Ulcer of left lower extremity with fat layer exposed: (4) Surgical wound breakdown:
--- NOTE | 2021-04-01 07:48 | PN_ITS ---
Subjective Subjective This 50-year-old male was seen bedside for left achilles wound devitalization and infection. He denies fever, chill, nausea, vomiting overnight. He is trying keep pressure off the ulcer site. Objective Data Objective Data Vital Signs: Vital Signs Temp Pulse Resp BP Pulse Ox 98 F 67 18 109/68 96 04/01/21 02:35 04/01/21 02:35 04/01/21 02:35 04/01/21 02:35 04/01/21 07:31 Oxygen Delivery Method Room Air Weight: 76.3 kg Body Mass Index (BMI) 22.8 Intake & Output: Intake and Output for Last 24 Hours 03/30/21 03/31/21 04/01/21 23:59 23:59 23:59 Intake Total 1216.67 / 1216.67 601.67 / 601.67 Balance 1216.67 / 1216.67 601.67 / 601.67 Medical Nutrition Assessment Dietitian: Nutrition Therapy Diagnosis Start: 03/31/21 16 :20 Freq: Status: Active Protocol: Document 03/31/21 18:58 RMA (Rec: 03/31/21 18:58 RMA [id number]) Nutrition Malnutrition Evidence of Malnutrition Exists No Intake Problem Increased Nutrient Needs (specify) Etiology for protein related to wound healing Signs/Symptoms as evidenced by open surgical wound of left achilles Status Active Problem Recommendation Dietitian Recommendations/Changes Will continue regular diet as ordered. Will continue Chucho BID for wound healing. Will continue ensure enlive w/ medpass for now but, will d/c as indicated if PO established adequate with meals. Lab / Micro Data Result Diagrams: 03/31/21 15:46 03/31/21 16:04 Labs: Laboratory Results - last 24 hr 03/31/21 15:35: S.aureus Protein A PCR POSITIVE H, MRSA (PCR) Negative 03/31/21 15:37: Sodium Cancelled, Potassium Cancelled, Chloride Cancelled, Ca rbon Dioxide Cancelled, Anion Gap Cancelled, BUN Cancelled, Creatinine Cancelled, Estim Creat Clear Calc Cancelled, Est GFR (MDRD) Af Amer Cancelled, Est GFR (MDRD) Non-Af Cancelled, BUN/Creatinine Ratio Cancelled, Glucose Cancelled, Calcium Cancelled, C-React Prot Ext Range Cancelled 03/31/21 15:46: WBC 12.6 H, RBC 4.84, Hgb 14.8, Hct 44.0, MCV 90.9, MCH 30.6, MCHC 33.6, RDW Std Deviation 39.7, RDW Coeff of Justin 11.9, Plt Count 290, MPV 9.0, Immature Gran % (Auto) 0.600, Neut % (Auto) 83.2 H, Lymph % (Auto) 7.7 L, [place] % (Auto) 8.0, Eos % (Auto) 0.3, Baso % (Auto) 0.2, Absolute Neuts (auto) 10.5 H, Absolute Lymphs (auto) 0.97, Nucleated RBC % 0, ESR 18 03/31/21 16:04: Sodium 136, Potassium 3.6, Chloride 101, Carbon Dioxide 29.0, Anion Gap 6, BUN 26 H, Creatinine 0.90, Estim Creat Clear Calc 104.66, Est GFR (MDRD) Af Amer 115, Est GFR (MDRD) Non-Af 95, BUN/Creatinine Ratio 29.1 H, Glucose 100, Calcium 9.4, C-React Prot Ext Range 7.25 H Radiography Diagnostic Testing: Radiology Impression Ankle X-Ray 03/31/21 16:15 IMPRESSION: The mid aspect of the Achilles tendon shadow is moderately thickened. No visualized subcutaneous gas. Electronically Signed: Ranjeet Villarreal MD at 20:46 EDT , Service support , Physical Exam Const alert and oriented x3 General Appearance: cooperative HEENT normocephalic Extremity Extremity Narrative: No calf tenderness except directly to ulcer site, left (several cm proximal to the insertion at the calcaneus) 2/4 pt and dp pulse, left No muscle wasting noted General Extremity: edema and no tenderness to palpation of joints or extremities; Negative for cyanosis Skin Skin Narrative: no purulence, no streaking, no odor noted this mornging. There is peripheral edema erythema and induration extending over 2 cm adjacent to the ulcer margins. Erythema intensity has decreased compared to yesterday. No hilton eschar or purulence on expression. The adjacent skin is atrophic General Skin Exam: Negative for erythema Neuro Neuro Narrative: Epicritic sensation is intact via light touch the foot and ankle Psych cooperative and affect normal Assessment & Plan Assessment/Plan (1) Surgical wound breakdown: (2) Delayed surgical wound healing: (3) Cellulitis and abscess of left leg: (4) Ulcer of left lower extremity with necrosis of muscle: PLAN: I reviewed and discussed his case today. He is afebrile and his vital signs are stable. He is n.p.o. and is tentatively scheduled for surgery at 12:00 today for versa jet debridement of Achilles tendon adjacent subcutaneous tissue. Surgical consent has been signed. Kait Bain DPM, [facility] [phone]
--- NOTE | 2021-04-01 11:10 | CASEMGMT ---
TC CM in to pt room. Pt is off of the floor at this time.
--- NOTE | 2021-04-01 12:16 | PCM.PN.HOSP ---
Documented by User: Eriberto PERKINS 04/01/21 12:27 Subjective Subjective Patient is a 50-year-old male comfortably resting in bed, alert and orient x3. Patient reports no change or progression of symptoms from yesterday. Denies chest pain, shortness of breath, palpitations, hemoptysis, sputum production, fever, chills, N/V/D. Objective Data Objective Data Vital Signs: Vital Signs Temp Pulse Resp BP Pulse Ox 98.2 F 75 18 148/94 H 98 04/01/21 10:45 04/01/21 10:45 04/01/21 10:45 04/01/21 10:45 04/01/21 10:45 Oxygen Delivery Method Room Air Weight: 168 lb 3.403 oz Body Mass Index (BMI) 22.8 Intake & Output: Intake and Output for Last 24 Hours 03/30/21 03/31/21 04/01/21 23:59 23:59 23:59 Intake Total 1216.67 / 1216.67 851.67 / 851.67 Balance 1216.67 / 1216.67 851.67 / 851.67 Medical Nutrition Assessment Dietitian: Nutrition Therapy Diagnosis Start: 03/31/21 16:20 Freq: Status: Active Protocol: Document 03/31/21 18:58 RMA (Rec: 03/31/21 18:58 RMA [id number]) Nutrition Malnutrition Evidence of Malnutrition Exists No Intake Problem Increased Nutrient Needs (specify) Etiology for protein related to wound healing Signs/Symptoms as evidenced by open surgical wound of left achilles Status Active Problem Recommendation Dietitian Recommendations/Changes Will continue regular diet as ordered. Will continue Chucho BID for wound healing. Will continue ensure enlive w/ medpass for now but, will d/c as indicated if PO established adequate with meals. Lab / Micro Data Result Diagrams: 03/31/21 15:46 03/31/21 16:04 Labs: Laboratory Results - last 24 hr 03/31/21 15:35: S.aureus Protein A PCR POSITIVE H, MRSA (PCR) Negative 03/31/21 15:37: Sodium Cancelled, Potassium Cancelled, Chloride Cancelled, Carbon Dioxide Cancelled, Anion Gap Cancelled, BUN Cancelled, Creatinine Cancelled, Estim Creat Clear Calc Cancelled, Est GFR (MDRD) Af Amer Cancelled, Est GFR (MDRD) Non-Af Cancelled, BUN/Creatinine Ratio Cancelled, Glucose Cancelled, Calcium Cancelled, C-React Prot Ext Range Cancelled 03/31/21 15:46: WBC 12.6 H, RBC 4.84, Hgb 14.8, Hct 44.0, MCV 90.9, MCH 30.6, MCHC 33.6, RDW Std Deviation 39.7, RDW Coeff of Justin 11.9, Plt Count 290, MPV 9.0, Immature Gran % (Auto) 0.600, Neut % (Auto) 83.2 H, Lymph % (Auto) 7.7 L, [place] % (Auto) 8.0, Eos % (Auto) 0.3, Baso % (Auto) 0.2, Absolute Neuts (auto) 10.5 H, Absolute Lymphs (auto) 0.97, Nucleated RBC % 0, ESR 18 03/31/21 16:04: Sodium 136, Potassium 3.6, Chloride 101, Carbon Dioxide 29.0, Anion Gap 6, BUN 26 H, Creatinine 0.90, Estim Creat Clear Calc 104.66, Est GFR (MDRD) Af Amer 115, Est GFR (MDRD) Non-Af 95, BUN/Creatinine Ratio 29.1 H, Glucose 100, Calcium 9.4, C-React Prot Ext Range 7.25 H Micro: Microbiology 03/31/21 15:35 Wound Drainage - Aerobic Swab Gram Stain - Final 03/31/21 15:35 Wound Drainage - Aerobic Swab Wound Culture - Preliminary Staphylococcus aureus Radiography Diagnostic Testing: Radiology Impression Ankle X-Ray 03/31/21 16:15 IMPRESSION: The mid aspect of the Achilles tendon shadow is moderately thickened. No visualized subcutaneous gas. Electronically Signed: Ranjeet Villarreal MD at 20:46 EDT , Service support , Physical Exam Const alert, oriented x3 and no apparent distress HEENT head/scalp atraumatic and moist oral mucous membranes Head and Scalp: normocephalic Eyes EOMs intact bilaterally and conjunctivae normal Neck no lymphadenopathy, supple and no JVD Resp normal respiratory effort, no retractions, no use of accessory muscles and clear to auscultation bilaterally Cardio regular rate, regular rhythm, no murmurs and no JVD GI normal to inspection, nondistended, normoactive bowel sounds, soft to palpation and non-tender Extremity normal to inspection, full ROM and no clubbing, cyanosis or edema Skin no rashes or lesions noted, no wounds, skin turgor normal and no jaundice Neuro CN's II-XII intact bilaterally Psych affect normal Assessment & Plan Assessment/Plan (1) Ulcer of left lower extremity with necrosis of muscle: (2) Cellulitis and abscess of left leg: PLAN: Day 2: See subjective. Discharge planning: Patient to be discharged home when medically ready, no home health care needs or additional therapies identified. 1) left lower extremity open wound with cellulitis Wound of the Achilles tendon on the left lower extremity, podiatry following and has Versajet debridement scheduled for 12 PM on 04/01/2021. Plan; remain admitted to [facility], continue empiric vancomycin and Zosyn, blood cultures pending, wound cultures demonstrate staph aureus, ID consult ordered, wound nurse ordered. DVT prophylaxis - SCDs. Patient seen by Eriberto Holm PA-C, under the supervision of Dr. Hickey. Documented by User: Dr. Elvia Hickey DO 04/01/21 16:13 Subjective Subjective This patient was seen in conjunction with MADDIE Leal. The following is a representation my independent history and physical examination. Please see below for addendum. Patient reports that he is feeling okay and scheduled to go to the OR this afternoon. He states initial surgery was in November. He is a runner of half marathons. Objective Data Lab / Micro Data Result Diagrams: 03/31/21 15:46 03/31/21 16:04 Physical Exam Const alert, oriented x3 and no apparent distress Resp normal respiratory effort, no retractions, no use of accessory muscles and clear to auscultation bilaterally Auscultation: Negative for crackles, rales, rhonchi or wheezes Cardio regular rate, regular rhythm, S1 normal heart sound, S2 normal heart sound, no murmurs, no rub, no gallops, no clicks and no JVD GI normal to inspection, nondistended, normoactive bowel sounds, soft to palpation, non-tender and non-distended Extremity Extremity Narrative: Left lower extremity with some edema and Jaycob bandage around distal left lower extremity, excellent cap refill 2+ bilateral lower extremities Peripheral Pulses: Yes pulses 2+ throughout Neuro oriented x3, CN's II-XII intact bilaterally and moves all extremities Sensorium / Orientation: awake and alert Speech: speech normal Psych affect normal Assessment & Plan Assessment/Plan (1) Ulcer of left lower extremity with necrosis of muscle: (2) Cellulitis and abscess of left leg: (3) Ankle osteomyelitis, left: (4) Delayed surgical wound healing: (5) Leukocytosis: PLAN: Assessment: Left Achilles infection with abscess and nonabsorbable sutures in place Leukocytosis Recent left Achilles tendon rupture Plan: -Await cultures -Continue broad-spectrum antibiotics with vancomycin and Zosyn -OR this afternoon with podiatry -Wound cultures show staph aureus Charges/Coding Visit Charges Inpatient E&M: 32260 Subs Hosp L2
[2021-04-01] MEDS: Bupivacaine Mpf 0.5% 30 ML VIAL (12:21)
[2021-04-01] MEDS: Lidocaine 1% (30 ml sdv) 30 ML Vial (12:21)
--- NOTE | 2021-04-01 12:45 | OP.PCM_ITS ---
Problems Associated Problem List Diagnoses (1) Ulcer of left lower extremity with necrosis of muscle: (2) Cellulitis and abscess of left leg: Report of Operation Date of Procedure: 04/01/21 Pre-Operative Diagnosis: infected left leg ulcer including achilles tendon Post-Operative Diagnosis: infected left leg ulcer including achilles tendon abscess left leg Surgery/Procedure Performed:: debridement of left leg wound including achilles tendon (with versa jet) and incision and drainage of leg Description of Surgical Findings:: Hemostasis: Anatomic dissection, no tourniquet utilized Complications: None Findings: Abscess decompressed adjacent to ulcer site with remaining healthy bleeding tissue with no necrosis or purulence Specimens pending The patient tolerated the procedure and anesthesia well. The patient was transported to the PACU with vital signs stable and vascular status intact to the surgical limb. To ice and elevate for pain and inflammation management. Postoperative orders were entered electronically. Surgeon: Kait Bain Type of Anesthesia: Local (Preoperative: 9 cc of one-to-one mixture of 1% lidocaine plain and 0.5% Marcaine plain administered and local infiltrative manner proximal to the cellulitis area) and MAC Specimen's removed: Post irrigation deep wound culture: Aerobic, anaerobic, acid-fast, fungal Drains: None Estimated Blood Loss (mL): 10 Description of Procedure: Indications: This 50 M who was admitted was admitted for nonhealing and infected left Achilles wound. He ruptured his tendon and had surgical repair with his claim representative, Dr. Francisco Javier Granados, on 12-11-20. Postoperative casting and suture removal were uneventful and were later followed by dehiscence several weeks later. He has demonstrated continued delayed healing and notable deterioration, signs of infection, and enlarged ulcer size were noted within the past several days upon wound care center evaluation. Prior wound care treatment has included Bactroban and more recently Santyl application. Has palpable pulses. Cultures demonstrate Staph aureus growth so far. Blood cultures are pending. He has elevated white blood cell count and normal ESR. Preoperative H&P were reviewed including his diagnostic data. There is no gross abnormalities noted with labs. Preoperative indications, planned procedure, benefits, risk, anticipated healing time and management were reviewed. The michael ent understands and elects proceed with surgery at this time. No guarantees were made. The patient understands risk and complications include but are not limited to following: pain, swelling, scarring, need for further surgery, tendon contracture, transfer lesion, hardware failure, arthritis, need for further surgery, delayed or nonhealing, infection, blood clot, allergic reaction, loss of limb, function, or life. The informed surgical limb and consent were signed. I answered all the patient's questions. The patient also understands there is an inherent risk with being in the hospital and undergoing a procedure during the time of COVID-19 pandemic. The patient understands precautions are being taken to prevent transmission. This patient understands the benefits and risks of having a procedure at this time versus waiting in which the benefits are reasonable at this time. He has been vaccinated. Procedure in detail: The patient was transferred to the operating room via cart and placed on the operating table in the lateral decubitus position. Final verification of patient, surgery, limb designation was performed via the timeout procedure. No tourniquet was utilized. The left lower extremity was prepped and draped in the usual aseptic manner. He is already receiving IV antibiotics on the medical surgical floor. Anesthesia team initiated MAC sedation and I administered the local infiltrative anesthesia as noted. Attention was first directed to the posterior leg at the devitalized Achilles tendon sites with indurated erythema to the adjacent tissue. A versa jet (setting 8) was used to debride devitalized tendon and the post debridement wound measured 6 cm x 3 cm with a depth of 2 cm and the lateral most abscess I & D aspect and not centrally at the partially intact achilles tendon site. It is noted that there was some loculated localized purulence coming from the proximal lateral aspect of this wound margin this was carefully dissected with surgical instrumentation to decompress at this site (<2cc). No additional bogginess or fluctuance or purulence was noted after continue debridement with versa jet and curette. Saline copious irrigation was performed. At this time clean gloves and instrumentation was used to obtain a post irrigation specimen and this was sent to microbiology as noted. A Betadine wet-to-dry gauze and Adaptic dressing was applied. Further abdominal pad Kerlix and Jaycob wrap was applied. It is noted at the end of the surgery there was no necrosis, purulence, or odor appreciated. After procedure: The patient tolerated the procedure and anesthesia well. The patient was transported to the PACU with vital signs stable and vascular status intact to the surgical limb. To ice and elevate for pain and inflammation management. Specimen was obtained post irrigation and the results are pending. He will continue on IV antibiotics while on the medical surgical floor and this will be narrowed down according to culture results. A longer course of IV antibiotics will also be considered due to his retained non absorbable suture/fiber wire retained device. Infectious disease specialist is on consult and appreciated. Medical management per hospitalist is appreciated. Postoperative orders were entered electronically. Pending resolution of infection and viability of this recently debrided wound, additional intervention with removal of Arthrex FiberWire nonabsorbable material or further work-up with MRI will be considered. Grafts/Implants Used: None Complications None Admit VTE Documentation VTE Present on Admission: No VTE Mechan Device Prophylaxis: SCD's VTE Pharm Prophylaxis ordered?: Yes
[2021-04-01] MEDS: 0.9% Normal Saline 1,000 ML 100 ML IV (13:56)
--- NOTE | 2021-04-01 14:15 | CASEMGMT ---
TC JUÁREZ Assessment: Face to Face with pt for initial transition planning/care coordination assessment. RN MARQUITA introduced self and role at [facility], pt voices understanding and consents to assessment. Pt is A/O x4 and answers all questions appropriately at this time. Pt sitting up in bed in no distress. Care providers, pharmacy, and demographics verified/updated. Admitting Dx: Infected achilles tendon PCP:Pt does not currently have a PCP. Provided pt with local directory. Specialists:marcus Bain Pharmacy: [facility] Insurance: [employer] Prescription Benefit: yes LW/HPOA: Pt denies having LW/DPOA. LNOK: Marivel Hernandez, Living Arrangements: Pt lives with and 12 year old dtr in a two story house with 3 steps to enter without a rail. Pt states he is normally I in ADL's and denies concerns at home. Transportation: Pt drives self and denies concerns with transportation. DME/HHC/SNF: Pt has a knee scooter at home but was not using it prior to hospitalization. Pt denies hx of HHC or SNF stays. Pt states no concerns with going home at time of dc. Pt states he was performing his own dressing changes daily and then seeing the wound center once a week. Pt states he will continue to do his dressing changes. Pt states no further concerns/needs. CM to follow. Advised pt to ask CM if any further question/concerns/needs arise, voices understanding. Pt Goal: Home Plan: Home
[2021-04-01] MEDS: oxyCODONE 5 MG Tablet PO (15:50)
--- NOTE | 2021-04-01 15:56 | PCM.CONS.GEN ---
Assessment & Plan Assessment/Plan (1) Cellulitis and abscess of left leg: PLAN: L achilles infection and abscess with nonabsorbable sutures in place. Cxs pending, pcr shows mssa. On vanc.zosyn. Taken to OR this afternoon 04/[address] Bain. Will follow, thank you, d/w Dr. Bain. Has completed covid vaccine. HPI Consult Data Date of Consult: 04/01/21 HPI Narrative HPI Narrative: CARMEN HERNANDEZ, is a 50 M who presented with worsening L achilles wound. Had 3-4 days of quickly progressive pain/redness/purulent drainage. Had Tendon repair done 12/11/[address] Granados. Has been complicated by wound dehiscence, has been following at wound center. Has gotten covid vaccine. No recent abx. No fever or chills. Seen at wound center, sent to ED, admitted on vanc/zosyn, taken to OR today by Dr. Bain for I&D. Full ROS performed and neg except as noted above. FORMERLY [facility], [facility] Medical History Ankle osteomyelitis, left Delayed surgical wound healing Delayed wound healing Surgical wound breakdown Ulcer of left lower extremity with fat layer exposed Home Medications acetaminophen [Tylenol] 325 mg PO Q6H PRN 03/31/21 [History Last Taken Unknown] ascorbic acid (vitamin C) [Vitamin C] 1 g PO DAILY 03/31/21 [History Last Taken Unknown] docosahexaenoic acid-epa [Fish Oil (with DHA-EPA)] 1 cap PO DAILY 03/31/21 [History Last Taken Unknown] magnesium 400 mg PO DAILY 03/31/21 [History Last Taken Unknown] vitamin B complex 1 tab PO/SL DAILY 03/31/21 [History Last Taken Unknown] zinc 50 mg PO DAILY 03/31/21 [History Last Taken Unknown] Allergy/AdvReac Type Severity Reaction Status Date / Time No Known Allergies Allergy Verified 03/05/21 09:26 Surgical History H/O wisdom tooth extraction History of Achilles tendon repair Social History (Updated 03/31/21 @ 20:[address] Nicole Lopes MD) household members: spouse Smoking Status: Never smoker alcohol intake: current alcohol intake frequency: holidays/special occasions only substance use type: does not use Physical Exam Const alert, oriented x3 and no apparent distress General Appearance: cooperative HEENT normocephalic and head/scalp atraumatic Eyes PERRL and EOMs intact bilaterally Neck supple and No nodes Resp normal air movement and clear to auscultation bilaterally Cardio regular rate and regular rhythm GI normal to inspection, nondistended, normoactive bowel sounds Extremity Extremity Narrative: leg wrapped Skin no rashes or lesions noted Skin Narrative: reviewed photos Neuro CN's II-XII intact bilaterally Medical Records Data Medical Nutrition Assessment Dietitian: Nutrition Therapy Diagnosis Start: 03/31/21 16:20 Freq: Status: Active Protocol: Document 03/31/21 18:58 RMA (Rec: 03/31/21 18:58 RMA [id number]) Nutrition Malnutrition Evidence of Malnutrition Exists No Intake Problem Increased Nutrient Needs (specify) Etiology for protein related to wound healing Signs/Symptoms as evidenced by open surgical wound of left achilles Status Active Problem Recommendation Dietitian Recommendations/Changes Will continue regular diet as ordered. Will continue Chucho BID for wound healing. Will continue ensure enlive w/ medpass for now but, will d/c as indicated if PO established adequate with meals. Lab / Micro Data Result Diagrams: 03/31/21 15:46 03/31/21 16:04 Labs: Laboratory Results - last 24 hr 03/31/21 15:35: S.aureus Protein A PCR POSITIVE H, MRSA (PCR) Negative 03/31/21 15:37: Sodium Cancelled, Potassium Cancelled, Chloride Cancelled, Carbon Dioxide Cancelled, Anion Gap Cancelled, BUN Cancelled, Creatinine Cancelled, Estim Creat Clear Calc Cancelled, Est GFR (MDRD) Af Amer Cancelled, Est GFR (MDRD) Non-Af Cancelled, BUN/Creatinine Ratio Cancelled, Glucose Cancelled, Calcium Cancelled, C-React Prot Ext Range Cancelled 03/31/21 15:46: WBC 12.6 H, RBC 4.84, Hgb 14.8, Hct 44.0, MCV 90.9, MCH 30.6, MCHC 33.6, RDW Std Deviation 39.7, RDW Coeff of Justin 11.9, Plt Count 290, MPV 9.0, Immature Gran % (Auto) 0.600, Neut % (Auto) 83.2 H, Lymph % (Auto) 7.7 L, [place] % (Auto) 8.0, Eos % (Auto) 0.3, Baso % (Auto) 0.2, Absolute Neuts (auto) 10.5 H, Absolute Lymphs (auto) 0.97, Nucleated RBC % 0, ESR 18 03/31/21 16:04: Sodium 136, Potassium 3.6, Chloride 101, Carbon Dioxide 29.0, Anion Gap 6, BUN 26 H, Creatinine 0.90, Estim Creat Clear Calc 104.66, Est GFR (MDRD) Af Amer 115, Est GFR (MDRD) Non-Af 95, BUN/Creatinine Ratio 29.1 H, Glucose 100, Calcium 9.4, C-React Prot Ext Range 7.25 H Micro: Microbiology 03/31/21 15:35 Wound Drainage - Aerobic Swab Gram Stain - Final 03/31/21 15:35 Wound Drainage - Aerobic Swab Wound Culture - Preliminary Staphylococcus aureus Radiology Impression Ankle X-Ray 03/31/21 16:15 IMPRESSION: The mid aspect of the Achilles tendon shadow is moderately thickened. No visualized subcutaneous gas. Electronically Signed: Ranjeet Villarreal MD at 20:46 EDT , Service support ,
[2021-04-01] MEDS: Juven (unflavored) Packet 1 PACKET PO (18:06)
--- NOTE | 2021-04-01 20:33 | PCM.RX.CS ---
Consult Pharmacy has been consulted to manage selected antiobiotic: Vancomycin Type of Consult: Follow-up Suspected Infection: Skin/Soft tissue Labs: Sodium 136 mmol/L (136-145) 03/31/21 16:04 Potassium 3.6 mmol/L (3.5-5.1) 03/31/21 16:04 Chloride 101 mmol/L (98-107) 03/31/21 16:04 Carbon Dioxide 29.0 mmol/L (21.0-32.0) 03/31/21 16:04 Anion Gap 6 (5-15) 03/31/21 16:04 BUN 26 mg/dL (7-18) H 03/31/21 16:04 Creatinine 0.90 mg/dL (0.70-1.30) 03/31/21 16:04 Est GFR (MDRD) Af Amer 115 mL/min (>60) 03/31/21 16:04 Est GFR (MDRD) Non-Af 95 mL/min (>60) 03/31/21 16:04 BUN/Creatinine Ratio 29.1 RATIO (10-20) H 03/31/21 16:04 Glucose 100 mg/dL (74-106) 03/31/21 16:04 Vancomycin Trough 18.0 ug/mL (5.0-15.0) H 04/01/21 16:27 Microbiology: Microbiology 03/31/21 15:35 Wound Drainage - Aerobic Swab Gram Stain - Final 03/31/21 15:35 Wound Drainage - Aerobic Swab Wound Culture - Preliminary Staphylococcus aureus Goal Trough: 15-20 mcg/mL Pharmacy Plan for Drug Dosing: VANCOMYCIN LEVEL RECEIVED Current Vancomycin Dose: 1g IV Q8h Number of Doses Received: 4 Vancomycin Level: 18 Hours Since Last Dose: 7hr Renal Function: 0.9 Renal Function Trend: stable Lab/Micro: WCx growing staph (no sens yet) Vancomycin Plan/Comments: Patient therapeutic on current dose of 1g IV Q8h. Will continue current dose and check trough in 2 days to assess dosing needs at that time. Pending Level: 04/03/21 @1630 Pharmacy Service will continue to monitor and adjust dosing as required.
[2021-04-01] MEDS: Famotidine 20 MG Tablet PO (21:07)
[2021-04-01] MEDS: Acetaminophen 325 MG Tablet 650 MG PO (21:12)
[2021-04-02] MEDS: Vancomycin IV 1,000 MG/200 ML BAG 200 MG IV ×3 (01:25→17:49)
[2021-04-02 01:26] VITALS: BP 120/70; PULSE 66; RESP 18; TEMP 36.6; O2SAT 96
[2021-04-02 05:38] VITALS: BP 122/74; PULSE 68; RESP 18; TEMP 36.7; O2SAT 99
[2021-04-02] MEDS: 0.9% Normal Saline 1,000 ML 100 ML IV (05:41)
[2021-04-02 06:29] LABS: Absolute Lymphocyte Count 1.49 X10^3/uL (0.83-4.51); Absolute Neutrophil Count 6.5 X10^3/uL (2.0-7.7); Basophil# 0.04 X10^3/uL; Basophil% 0.4 % (0-1); Eosinophil# 0.24 X10^3/uL; Eosinophils% 2.6 % (0-5); Hematocrit 43.1 % (40-54); Hemoglobin 14.4 g/dL (13.0-16.5); Lymphocyte # 1.49 X10^3/ul (0.83-4.51); Lymphocyte % 16.2 % (19-41); Mean Corp Hgb Conc 33.4 g/dL (32-36); Mean Corpuscular Hgb 31.2 pg (27.0-32.0); Mean Corpuscular Volume 93.5 fL (80-94); Mean Platelet Vol. 9.7 fl (6.2-12.0); Monocyte% 9.8 % (0-10); NRBC Flagged by Analyzer 0 % (0-5); Neutrophil # 6.53 X10^3/uL (2.7-7.7); Neutrophil % 70.8 % (47-70); Platelet Count 290 K/mm3 (150-450); RBC Distribution Width SD 41.5 fl (35.1-43.9); Red Blood Count 4.61 M/mm3 (4.6-6.2); White Blood Count 9.2 K/mm3 (4.4-11.0)
--- NOTE | 2021-04-02 06:31 | PCM.PROGNOTE ---
Subjective Subjective This 50-year-old male was seen bedside postoperative day #1 left Achilles infection debridement and incision and drainage. His pain at worst during the dressing change was 8 out of 10 even with premedication, and prior to that is very well controlled. He denies fever, chills, nausea, vomiting. Objective Data Objective Data Vital Signs: Vital Signs Temp Pulse Resp BP Pulse Ox 98.1 F 68 18 122/74 H 99 04/02/21 05:38 04/02/21 05:38 04/02/21 05:38 04/02/21 05:38 04/02/21 05:38 Oxygen Delivery Method Room Air Weight: 76.6 kg Body Mass Index (BMI) 22.8 Intake & Output: Intake and Output for Last 24 Hours 03/31/21 04/01/21 04/02/21 23:59 23:59 23:59 Intake Total 1216.67 / 1216.67 3201.66 / 3201.66 883.34 / 883.34 Balance 1216.67 / 1216.67 3201.66 / 3201.66 883.34 / 883.34 Medical Nutrition Assessment Dietitian: Nutrition Therapy Diagnosis Start: 03/31/21 16:20 Freq: Status: Active Protocol: Document 03/31/21 18:58 RMA (Rec: 03/31/21 18:58 RMA [id number]) Nutrition Malnutrition Evidence of Malnutrition Exists No Intake Problem Increased Nutrient Needs (specify) Etiology for protein related to wound healing Signs/Symptoms as evidenced by open surgical wound of left achilles Status Active Problem Recommendation Dietitian Recommendations/Changes Will continue regular diet as ordered. Will continue Chucho BID for wound healing. Will continue ensure enlive w/ medpass for now but, will d/c as indicated if PO established adequate with meals. Lab / Micro Data Result Diagrams: 04/02/21 06:06 04/02/21 06:06 Labs: Laboratory Results - last 24 hr 04/01/21 16:27: Vancomycin Trough 18.0 H 04/02/21 06:06: WBC 9.2, RBC 4.61, Hgb 14.4, Hct 43.1, MCV 93.5, MCH 31.2, MCHC 33.4, RDW Std Deviation 41.5, RDW Coeff of Justin 12.0, Plt Count 290, MPV 9.7, Immature Gran % (Auto) 0.200, Neut % (Auto) 70.8 H, Lymph % (Auto) 16.2 L, [place] % (Auto) 9.8, Eos % (Auto) 2.6, Baso % (Auto) 0.4, Absolute Neuts (auto) 6.5, Absolute Lymphs (auto) 1.49, Nucleated RBC % 0 Micro: Microbiology 03/31/21 15:35 Wound Drainage - Aerobic Swab Gram Stain - Final 03/31/21 15:35 Wound Drainage - Aerobic Swab Wound Culture - Preliminary Staphylococcus aureus Physical Exam Const alert and oriented x3 General Appearance: cooperative HEENT normocephalic Extremity Extremity Narrative: No calf tenderness except directly to ulcer site, left (several cm proximal to the insertion at the calcaneus) 2/4 pt and dp pulse, left No muscle wasting noted no adjacent induration, fluctuance or bogginess. General Extremity: edema and no tenderness to palpation of joints or extremities; Negative for cyanosis Skin Skin Narrative: no purulence, no streaking, no odor noted this morning. Resolved adjacent wound/ I & D site erythema and edema is also significantly reduced. No hilton eschar or purulence on expression. The adjacent skin is atrophic General Skin Exam: Negative for erythema Neuro Neuro Narrative: Epicritic sensation is intact via light touch the foot and ankle Psych cooperative and affect normal Assessment & Plan Assessment/Plan (1) Ulcer of left lower extremity with necrosis of muscle: (2) Cellulitis and abscess of left leg: (3) Delayed surgical wound healing: PLAN: I reviewed and discussed his case today. He is now postoperative day 1 left infected debridement and incision and drainage in the operating room performed 04-01-2021. The following work up and care recommendations were made: Infection: So far cultures demonstrate Staph aureus growth with negative MRSA PCR. Additional information is pending. Blood cultures were also initiated and these results are pending. He has notable local signs of infection with compromise of the Achilles tendon which overall appears to be intact and now since surgery there is resolution of erythema, reduced edema, no odor or eschar purulence were visualized devitalized tissue. White blood cell count is decreased to 9.2. He was started on broad-spectrum vancomycin and Zosyn IV antibiotics. Infectious disease has been consulted and is appreciated. Dressing: This was changed this morning with Betadine, Adaptic, and gauze dressing was applied with gentle application of Jaycob wrap. Wash: Soap and water Tissue growth optimization: He understands advanced wound healing products may be considered in the clinical setting after his infection status is better managed. Staged advanced wound healing product application will be considered in the outpatient setting if approved by insurance and if infection remains resolved. Offload: I recommend changing his lower limb over stacked blankets or pillows to keep complete pressure off of the ulcer site. To avoid excessive motion of the ankle which will put tension on the ulcer Vascular: Palpable pulses noted Edema: Jaycob wrap applied. To elevate. Pain: This is fairly controlled at this time. Pain medication ordered prn. Host factors: Medical management per hospitalist service is greatly appreciated and noted. Continue nutritional supplementation, Chucho. I answered all the patient's questions. I'll continue to follow him while in house and after discharge at the wound healing center. Please do not hesitate to call if you have any questions. Kait Bain DPM, FACFAS [facility] [phone]
[2021-04-02] MEDS: Morphine 2 MG/ML Syringe 1 MG IV (06:39)
[2021-04-02 06:48] LABS: Anion Gap 4 (5-15); BUN 17 mg/dL (7-18); BUN/Creat Ratio 19.8 RATIO (10-20); Calcium,Total 8.9 mg/dL (8.5-10.1); Chloride 106 mmol/L (98-107); Creatinine, Serum 0.86 mg/dL (0.70-1.30); EST Glomerular Filtration Rate 100 mL/min (>60); Est Glom Filt Rate - Afr Amer 121 mL/min (>60); Glucose 87 mg/dL (74-106); Potassium 4.4 mmol/L (3.5-5.1); Sodium Level 140 mmol/L (136-145)
[2021-04-02] MEDS: oxyCODONE 5 MG Tablet PO ×2 (07:08→14:24)
[2021-04-02 08:00] VITALS: BP 119/70; PULSE 60; RESP 18; TEMP 36.9; O2SAT 99
[2021-04-02] MEDS: Juven (unflavored) Packet 1 PACKET PO ×2 (08:47→17:50)
[2021-04-02] MEDS: Famotidine 20 MG Tablet PO ×2 (10:15→21:36)
--- NOTE | 2021-04-02 11:40 | CASEMGMT ---
Addendum entered by Idalmis Dixon 04/02/21 15:38: TC JUÁREZ to pt room to make aware of the cost of the medication and the homecare. Pt questions answered. Addendum entered by Idalmis Dixon 04/02/21 13:58: TC JUÁREZ back into pt room. Pt states he discussed the HHC with his friend who is a physician and he decided on 1. [facility] 2. [facility] and [facility]. [facility]. TC to [facility], spoke with shwetha who states they are at capacity through the weekend for new patients. TC to [facility], spoke with Elliott, he states they do not service [facility]. TC to [facility], spoke with Dafne, referral accepted. Received tc from Serena at [facility] who gives the following benefits: Pt has not met his deductible of $1000. $75 has been applied. Pt cost to be $68.84/day until deductible met, then $13.66/day. TC JUÁREZ in to pt room to notify. Pt getting ready to have his PICC line inserted. Will check back. Original Note: TC JUÁREZ notified that pt will be dc'd home on IV antibiotics. TC JUÁREZ in to pt room. Patient was provided a list of [facility] providers including quality and resource use data and consistent with the patient?s preferred geographic region, medical needs, and insurance network. Also provided pt with in network infusion companies. Pt chose [facility] for infusion company. Pt to review list of [facility] companies and TC JUÁREZ to check back. [facility] to [facility], spoke with Serena. Referral faxed. Will await call back with cost of medication.
--- NOTE | 2021-04-02 12:23 | PCM.PN.HOSP ---
Documented by User: Debbie Millan NP, COMPUTER HELP DESK SPECIALIST-C 04/02/21 12:30 Subjective Subjective Patient seen and examined. Denies fever, chills. Denies significant pain currently. Denies other symptoms or complaints. Objective Data Objective Data Vital Signs: Vital Signs Temp Pulse Resp BP Pulse Ox 98.4 F 60 18 119/70 99 04/02/21 08:00 04/02/21 08:00 04/02/21 08:00 04/02/21 08:00 04/02/21 08:00 Oxygen Delivery Method Room Air Weight: 168 lb 13.985 oz Body Mass Index (BMI) 22.8 Intake & Output: Intake and Output for Last 24 Hours 03/31/21 04/01/21 04/02/21 23:59 23:59 23:59 Intake Total 1216.67 / 1216.67 3201.66 / 3201.66 1133.34 / 1133.34 Balance 1216.67 / 1216.67 3201.66 / 3201.66 1133.34 / 1133.34 Medical Nutrition Assessment Dietitian: Nutrition Therapy Diagnosis Start: 03/31/21 16:20 Freq: Status: Active Protocol: Document 03/31/21 18:58 RMA (Rec: 03/31/21 18:58 RMA [id number]) Nutrition Malnutrition Evidence of Malnutrition Exists No Intake Problem Increased Nutrient Needs (specify) Etiology for protein related to wound healing Signs/Symptoms as evidenced by open surgical wound of left achilles Status Active Problem Recommendation Dietitian Recommendations/Changes Will continue regular diet as ordered. Will continue Chucho BID for wound healing. Will continue ensure enlive w/ medpass for now but, will d/c as indicated if PO established adequate with meals. Lab / Micro Data Result Diagrams: 04/02/21 06:06 04/02/21 06:06 Labs: Laboratory Results - last 24 hr 04/01/21 16:27: Vancomycin Trough 18.0 H 04/02/21 06:06: WBC 9.2, RBC 4.61, Hgb 14.4, Hct 43.1, MCV 93.5, MCH 31.2, MCHC 33.4, RDW Std Deviation 41.5, RDW Coeff of Justin 12.0, Plt Count 290, MPV 9.7, Immature Gran % (Auto) 0.200, Neut % (Auto) 70.8 H, Lymph % (Auto) 16.2 L, [place] % (Auto) 9.8, Eos % (Auto) 2.6, Baso % (Auto) 0.4, Absolute Neuts (auto) 6.5, Absolute Lymphs (auto) 1.49, Nucleated RBC % 0 04/02/21 06:06: Sodium 140, Potassium 4.4, Chloride 106, Carbon Dioxide 30.0, Anion Gap 4 L, BUN 17, Creatinine 0.86, Estim Creat Clear Calc 110.10, Est GFR (MDRD) Af Amer 121, Est GFR (MDRD) Non-Af 100, BUN/Creatinine Ratio 19.8, Glucose 87, Calcium 8.9 Micro: Microbiology 04/01/21 12:57 Tissue - Left Foot Gram Stain - Final 03/31/21 15:35 Wound Drainage - Aerobic Swab Gram Stain - Final 03/31/21 15:35 Wound Drainage - Aerobic Swab Wound Culture - Preliminary Staphylococcus aureus Physical Exam Const alert, oriented x3 and no apparent distress Orientation / Consciousness: awake, oriented to person, oriented to place and oriented to time HEENT normocephalic and moist oral mucous membranes Eyes PERRL, EOMs intact bilaterally and conjunctivae normal Neck no lymphadenopathy Resp normal respiratory effort and clear to auscultation bilaterally Cardio regular rate, regular rhythm and no murmurs Peripheral Pulses: pulses 2+ throughout GI normal to inspection, nondistended, normoactive bowel sounds, non-tender and non-distended Extremity normal to inspection Skin no rashes or lesions noted Skin Narrative: Left foot dressing intact. Lesions: no lesions Rashes: no rashes Trauma: no lacerations or abrasions Neuro CN's II-XII intact bilaterally, no focal motor deficits, no sensory deficits noted and deep tendon reflexes 2+ bilaterally Psych mental status grossly normal and affect normal Assessment & Plan Assessment/Plan (1) Cellulitis and abscess of left leg: PLAN: 1. Left Achilles infection with abscess-PCR positive MSSA. Negative MRSA. On IV Vanco and IV Zosyn. Underwent debridement of left leg wound including Achilles tendon and incision and drainage of leg 04/01/2021 by podiatry. Postoperative cultures pending. ID consulted. Await further antibiotic recommendations per ID prior to discharge 2. Recent left Achilles tendon rupture status post surgical repair-podiatry following. PT/OT. DVT prophylaxis-SCDs This patient was seen by CHARITO AaronC under the supervision of Dr. Hickey. Documented by User: Dr. Elvia Hickey DO 04/02/21 13:06 Subjective Subjective Patient was seen in conjunction with Debbie Millan NP. The following is a representation of my independent history and physical examination. Please see below for any addendum to the above. Patient states that overall he is feeling okay. He did have significant pain with his dressing change but he states he is better now. He is anxious to go home. We did discuss the possible need for placement of a PICC and long-term antibiotics and he is accepting of this. Objective Data Lab / Micro Data Result Diagrams: 04/02/21 06:06 04/02/21 06:06 Physical Exam Const alert, oriented x3 and no apparent distress Constitutional Narrative: Middle-aged white male lying in bed, appears comfortable, nontoxic Resp normal respiratory effort, no retractions, no use of accessory muscles and clear to auscultation bilaterally Auscultation: Negative for crackles, rales, rhonchi or wheezes Cardio regular rate, regular rhythm, S1 normal heart sound, S2 normal heart sound, no murmurs, no gallops, no clicks and no JVD GI normal to inspection, nondistended, normoactive bowel sounds, soft to palpation, non-tender and non-distended; Negative for hepatosplenomegaly Extremity no clubbing, cyanosis or edema Extremity Narrative: Left lower extremity with dressing in place Peripheral Pulses: Yes pulses 2+ throughout Neuro oriented x3 Sensorium / Orientation: awake and alert Assessment & Plan Assessment/Plan (1) Cellulitis and abscess of left leg: (2) Delayed surgical wound healing: PLAN: Assessment: Left Achilles infection with abscess and nonabsorbable sutures in place Recent left Achilles tendon rupture Plan: -Await cultures -Discussed with infectious disease and patient will most likely be sent home on IV antibiotics and PICC line recommended -Order for PICC placed -Probable discharge tomorrow -Patient will need follow-up with the wound center Charges/Coding Visit Charges Inpatient E&M: 90775 Subs Hosp L2
--- NOTE | 2021-04-02 15:52 | PN.ID_ITS ---
Physical Exam Narrative Feeling ok, no fever, no n/v/d Const alert General Appearance: cooperative Resp normal air movement and clear to auscultation bilaterally Cardio regular rate and regular rhythm GI normal to inspection, nondistended, normoactive bowel sounds Skin Skin Narrative: leg wrapped ID ID: Route of nutrition/ use of supplements: [] Nutritional Intake: [] IV Site: [] Conner Catheter: [] Assessment & Plan Assessment/Plan (1) Cellulitis and abscess of left leg: PLAN: L achilles infection and abscess with nonabsorbable sutures in place. Cxs with staph, pcr shows mssa. On vanc.zosyn. Taken to OR by Dr. Bain. Plan at this point will be for picc and 4 weeks IV cefazolin if other cxs show no other bacteria, stop date 04/29/21 with weekly labs. Will follow, d/w Dr. Bain, regional account manager, and primary team. Has completed covid vaccine. ID followup in 2-3 weeks.
[2021-04-02 16:00] VITALS: BP 117/60; PULSE 74; RESP 18; TEMP 36.8; O2SAT 99
[2021-04-02] MEDS: 0.9% Saline Lock 10 ML Syringe IV (17:49)
[2021-04-02 21:35] VITALS: BP 140/82; PULSE 79; RESP 18; TEMP 37.3; O2SAT 95
[2021-04-02] MEDS: cycloBENZAPRine HCl 5 MG TABLET PO (21:52)
[2021-04-03] MEDS: 0.9% Normal Saline 1,000 ML 100 ML IV ×2 (00:50→10:46)
[2021-04-03] MEDS: Vancomycin IV 1,000 MG/200 ML BAG 200 MG IV ×2 (00:51→08:50)
[2021-04-03 02:30] VITALS: BP 124/74; PULSE 70; RESP 16; TEMP 37.1; O2SAT 98
[2021-04-03 07:14] VITALS: O2SAT 97
[2021-04-03] MEDS: Famotidine 20 MG Tablet PO (08:50)
[2021-04-03] MEDS: Juven (unflavored) Packet 1 PACKET PO (08:50)
[2021-04-03] MEDS: Morphine 2 MG/ML Syringe IV (09:05)
[2021-04-03] MEDS: oxyCODONE 5 MG Tablet PO (09:05)
[2021-04-03 09:15] VITALS: BP 131/76; PULSE 80; RESP 16; TEMP 36.3; O2SAT 100
--- NOTE | 2021-04-03 09:25 | PN_ITS ---
Subjective Subjective This 50-year-old male was seen bedside postoperative day #2 left Achilles infection debridement and incision and drainage. His pain level is much better controlled today even during the dressing change. He denies fever, chills, nausea, vomiting. PICC line placed yesterday. Objective Data Objective Data Vital Signs: Vital Signs Temp Pulse Resp BP Pulse Ox 98.7 F 70 16 124/74 H 97 04/03/21 02:30 04/03/21 02:30 04/03/21 02:30 04/03/21 02:30 04/03/21 07:14 Oxygen Delivery Method Room Air Weight: 77.1 kg Body Mass Index (BMI) 22.8 Intake & Output: Intake and Output for Last 24 Hours 04/01/21 04/02/21 04/03/21 23:59 23:59 23:59 Intake Total 3201.66 / 3201.66 3033.34 / 3333.34 2281.67 / 2281.67 Balance 3201.66 / 3201.66 3033.34 / 3333.34 2281.67 / 2281.67 Medical Nutrition Assessment Dietitian: Nutrition Therapy Diagnosis Start: 03/31/21 16:20 Freq: Status: Active Protocol: Document 03/31/21 18:58 RMA (Rec: 03/31/21 18:58 RMA [id number]) Nutrition Malnutrition Evidence of Malnutrition Exists No Intake Problem Increased Nutrient Needs (specify) Etiology for protein related to wound healing Signs/Symptoms as evidenced by open surgical wound of left achilles Status Active Problem Recommendation Dietitian Recommendations/Changes Will continue regular diet as ordered. Will continue Chucho BID for wound healing. Will continue ensure enlive w/ medpass for now but, will d/c as indicated if PO established adequate with meals. Lab / Micro Data Result Diagrams: 04/02/21 06:06 04/02/21 06:06 Micro: Microbiology 03/31/21 15:35 Wound Drainage - Aerobic Swab Gram Stain - Final 03/31/21 15:35 Wound Drainage - Aerobic Swab Wound Culture - Final Staphylococcus aureus Haemophilus parainfluenzae 03/31/21 16:04 Blood Culture (Wb) - Anticubital Right Blood Culture - Preliminary No growth in 48 hours. 03/31/21 16:25 Blood Culture (Wb) - Anticubital Right Blood Culture - Preliminary No growth in 48 hours. 04/01/21 12:57 Tissue - Left Foot Gram Stain - Final 04/01/21 12:57 Tissue - Left Foot Wound Culture - Preliminary Staphylococcus aureus Physical Exam Const alert and oriented x3 General Appearance: cooperative HEENT normocephalic Extremity Extremity Narrative: No calf tenderness except directly to ulcer site, left (several cm proximal to the insertion at the calcaneus) 2/4 pt and dp pulse, left No muscle wasting noted no adjacent induration, fluctuance or bogginess. General Extremity: edema and no tenderness to palpation of joints or extremities; Negative for cyanosis Skin Skin Narrative: no purulence, no streaking, no odor noted this morning. Resolved adjacent wound/ I & D site erythema and edema. No hilton eschar or purulence on expression. The adjacent skin is atrophic General Skin Exam: Negative for erythema Neuro Neuro Narrative: Epicritic sensation is intact via light touch the foot and ankle Psych cooperative and affect normal Assessment & Plan Assessment/Plan (1) Ulcer of left lower extremity with necrosis of muscle: (2) Cellulitis and abscess of left leg: PLAN: I reviewed and discussed his case today. He is now postoperative day #2 left infected achilles debridement and incision and drainage in the operating room performed 04-01-2021. The following work up and care recommendations were made: Infection: So far cultures demonstrate Staph aureus and haemophilus parainflu enzae growth. Negative MRSA PCR. Blood cultures negative. He has notable local signs of infection with compromise of the Achilles tendon which overall appears to be intact and now since surgery there is resolution of erythema, reduced edema. There is also no odor, eschar, purulence, or devitalized tissue noted with dressing change this morning. White blood cell count is decreased to 9.2. He was started on broad-spectrum vancomycin and Zosyn IV antibiotics and will transition to 4 weeks of IV cefazolin; PICC line placed yesterday. Infectious disease has been consulted and is appreciated. Dressing: This was changed this morning with Betadine, Adaptic, and gauze dressing was applied with gentle application of Jaycob wrap. He is not sure if he will be able to change the dressing daily at home and will think about this for the rest of the morning. He understands home health is an option but will need to be arranged prior to discharge. Wash: Soap and water Offload: I recommend changing his lower limb over stacked blankets or pillows to keep complete pressure off of the ulcer site. To avoid excessive motion of the ankle which will put tension on the ulcer Vascular: Palpable pulses noted Edema: Jaycob wrap applied. To elevate. Pain: This is better controlled at this time. Pain medication ordered prn. Host factors: Medical management per hospitalist service is greatly appreciated and noted. Continue nutritional supplementation, Chucho. I answered all the patient's questions. I'll continue to follow him while in house and after discharge at the wound healing center next Tuesday. Ok to d/c from a podiatry standpoint. He understands fiber / hardware removal and additi onal imaging may be needed pending treatment response. He understands his achilles is compromised and function may be impaired requiring activity modifications, bracing, and even surgical grafting/tendon transfer after infection is resolved. He is an avid runner and advised to avoid lower extremit y exercise while this is healing to prevent strain on this structure during this fragile time frame. It is ok to perform upper body rowing, arm bike, core work, or upper extremity lifting only. It is also ok to walk outside with the use of knee roller also. Please do not hesitate to call if you have any questions. Kait Bain DPM, FACFAS [facility] [phone]
[2021-04-03] MEDS: Cefazolin 2 GM in 0.9% Normal Saline 100 ML IV (10:46)
--- NOTE | 2021-04-03 11:07 | CASEMGMT ---
TC veronique Lyons at [facility] for estimated arrival time of antibiotic, left vm. Faxed Pic[facility] information at this time. Spoke with [facility] who plans on start of care to be this afternoon. Pt aware of this information.
--- NOTE | 2021-04-03 11:25 | PCM.DC ---
Discharge Instructions Diet Discharge Diet: No restrictions Activity Discharge Activity: Return to Normal Activity Lifting Restrictions: Continue use of knee roller left lower extremity Dressing / Incision Call your doctor if your incision/area has: Continuous Slow Oozing, Sudden Increased Bleeding, Increased Pain/ Swelling, Increased Redness, Foul Smelling Discharge and Swelling at the incision site Call your doctor if you observe: Fever of 101 or Higher Follow Up Care Test Results: Test results from this visit will be discussed in further detail at your follow-up appointment, if applicable. Discharge Plan Admission Admit Date/Time: 03/31/21 14:30 Primary Reason for Your Visit: Left leg cellulitis and abscess Attending Provider: Elvia Hickey Primary Care Provider: Care Physician,No Primary Consulting Providers: Sai Shen ; Kait Bain Instructions Additional Instructions / Restrictions: Change left lower extremity dressing daily with Adaptic and Betadine covered with 4 x 4 gauze, Kerlix and Jaycob wrap. To wash gently with antibacterial soap and water during dressing changes. To wear gloves during dressing changes. To maintain a nonweightbearing status to left lower extremity with the use of assistive devices such as crutches or knee roller. To hang lower leg including the wound site over stacked pillows or blankets while seated or laying down in bed to avoid direct pressure on the site. To avoid excessive ankle range of motion movement to avoid tension on the wound. I recommend Chucho supplementation 1-2 times daily to optimize healing. Discharge Orders/Prescriptions Prescriptions: New cefazolin 1 gram recon soln 2 g IV Q8H 26 Days Qty: 78 RF: 0 oxycodone-acetaminophen [Percocet] 5-325 mg tablet 1 tab PO DAILY PRN PRN (Reason: pain) 7 Days Qty: 7 RF: 0 Continued ascorbic acid (vitamin C) [Vitamin C] 1,000 mg Tablet 1 g PO DAILY RF: 0 acetaminophen [Tylenol] 325 mg Tablet 325 mg PO Q6H PRN (Reason: Pain) RF: 0 magnesium 200 mg Tablet 400 mg PO DAILY RF: 0 docosahexaenoic acid-epa Capsule 1 cap PO DAILY RF: 0 vitamin B complex 1 tab PO/SL DAILY RF: 0 zinc 50 mg Tablet 50 mg PO DAILY RF: 0 cyclobenzaprine 5 mg tablet 5 mg PO TID PRN PRN (Reason: muscle spasms) RF: 0 Referrals / Follow Up: Wound Health [Outside] - In 1 Week Kait Bain DPM [STAFF PHYSICIAN] - In 1 Week (Okay to follow-up at wound healing center (Wed) with [facility]. Wound center phone number is [phone].) Care Physician,No Primary [Primary Care Provider] - In 1 Week Disposition Disposition (needs filled in before D/C Order can be placed): Home Health Service
--- NOTE | 2021-04-03 11:34 | PCM.DC.SUM ---
Documented by User: Debbie Millan NP, [employer] 04/03/21 11:44 Providers Date of Admission: 03/31/21 Date of Discharge: 04/03/21 Primary Care Physician: Yulissa Primary Care Phys Consultations 03/31/21 14:24 Consult: Infectious Disease Routine Consulting Provider: Sai Shen Reason for Consult: Infected achilles, s/p OR, suspect osteo EMERGENT Consult: No MD Notified: Yes Date Notified: 03/31/21 Time Notified: 15:18 Method of Notification: Answering Service Consult: Podiatry Routine Consulting Provider: Kait Bain Reason for Consult: Infected achilles tendon region, s/p OR EMERGENT Consult: No MD Notified: Yes Date Notified: 03/31/21 Time Notified: 14:27 Method of Notification: see comment Comments:: per Dr. Lopes, Dr. Granados already informed her. 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 (2) Cellulitis and abscess of left leg: Status: Acute Code(s): L03.116 - Cellulitis of left lower limb; L02.416 - Cutaneous abscess of left lower limb Medications at Discharge Home Medications acetaminophen [Tylenol] 325 mg PO Q6H PRN 03/31/21 ascorbic acid (vitamin C) [Vitamin C] 1 g PO DAILY 03/31/21 docosahexaenoic acid-epa 1 cap PO DAILY 03/31/21 magnesium 400 mg PO DAILY 03/31/21 vitamin B complex 1 tab PO/SL DAILY 03/31/21 zinc 50 mg PO DAILY 03/31/21 cefazolin 2 g IV Q8H 26 Days #78 ea 04/02/21 cyclobenzaprine 5 mg PO TID PRN PRN 04/02/21 oxycodone-acetaminophen [Percocet] 1 tab PO DAILY PRN PRN 7 Days #7 tab 04/03/21 Hospital Course Operations - (debridement of left leg wound including Achilles tendon and incision and drainage of leg 04/01/2021) Procedures None Summary of Care Provided Minutes Spent on Discharge: 35 Hospital Course: Patient is a 50-year-old male admitted 03/31/2021 due to left Achilles wound. 1. Left Achilles infection with abscess-PCR positive MSSA. Negative MRSA. Culture growing staph. PICC line placed. Plan for IV cefazolin for 4 weeks with stop date 04/29/2021. Underwent debridement of left leg wound including Achilles tendon and incision and drainage of leg 04/01/2021 by podiatry. Follow-up with podiatry, wound center and PCP in 1 week. Continue daily dressing changes as ordered. Home health at discharge. 2. Recent left Achilles tendon rupture status post surgical repair-podiatry following. Home health/therapies. Physical Exam Const alert, oriented x3 and no apparent distress Orientation / Consciousness: awake, oriented to person, oriented to place and oriented to time HEENT normocephalic and moist oral mucous membranes Eyes PERRL, EOMs intact bilaterally and conjunctivae normal Neck no lymphadenopathy Resp normal respiratory effort and clear to auscultation bilaterally Cardio regular rate, regular rhythm and no murmurs Peripheral Pulses: pulses 2+ throughout GI normal to inspection, nondistended, normoactive bowel sounds, non-tender and non-distended Extremity normal to inspection Skin no rashes or lesions noted Skin Narrative: Left foot dressing intact. Lesions: no lesions Rashes: no rashes Trauma: no lacerations or abrasions Neuro CN's II-XII intact bilaterally, no focal motor deficits, no sensory deficits noted and deep tendon reflexes 2+ bilaterally Psych mental status grossly normal and affect normal Patient seen and examined prior to discharge. Physical assessment as noted above. Patient is stable for discharge with follow up recommendations as noted above. This patient was seen by ANDREI Aaron under the supervision of Dr. Hickey. Medical Records Data Medical Nutrition Assessment Dietitian: Nutrition Therapy Diagnosis Start: 03/31/21 16:20 Freq: Status: Active Protocol: Document 03/31/21 18:58 RMA (Rec: 03/31/21 18:58 RMA [id number]) Nutrition Malnutrition Evidence of Malnutrition Exists No Intake Problem Increased Nutrient Needs (specify) Etiology for protein related to wound healing Signs/Symptoms as evidenced by open surgical wound of left achilles Status Active Problem Recommendation Dietitian Recommendations/Changes Will continue regular diet as ordered. Will continue Chucho BID for wound healing. Will continue ensure enlive w/ medpass for now but, will d/c as indicated if PO established adequate with meals. Weight / BMI Weight Weight: 169 lb 15.622 oz Body Mass Index (BMI) 22.8 ABG / Lab / Microbiology Data Result Diagrams: 04/02/21 06:06 04/02/21 06:06 Microbiology: Microbiology 03/31/21 15:35 Wound Drainage - Aerobic Swab Gram Stain - Final 03/31/21 15:35 Wound Drainage - Aerobic Swab Wound Culture - Final Staphylococcus aureus Haemophilus parainfluenzae 03/31/21 15:35 Wound Drainage - Aerobic Swab Anaerobic Culture - Preliminary Checking for anaerobes, further studies to follow. 04/01/21 12:57 Tissue - Left Foot Gram Stain - Final 04/01/21 12:57 Tissue - Left Foot Wound Culture - Final Staphylococcus aureus 04/01/21 12:57 Tissue - Left Foot Anaerobic Culture - Preliminary No anaerobic bacteria isolated. 03/31/21 16:04 Blood Culture (Wb) - Anticubital Right Blood Culture - Preliminary No growth in 48 hours. 03/31/21 16:25 Blood Culture (Wb) - Anticubital Right Blood Culture - Preliminary No growth in 48 hours. D/C Instructions Discharge Diet: No restrictions Call your doctor if your incision/area has: Continuous Slow Oozing, Sudden Increased Bleeding, Increased Pain/ Swelling, Increased Redness, Foul Smelling Discharge and Swelling at the incision site Call your doctor if you observe: Fever of 101 or Higher Meaningful Use Info Meaningful Use Diagnoses (Choose all that apply): None applicable Discharge Plan Admission Admit Date/Time: 03/31/21 14:30 Primary Reason for Your Visit: Left leg cellulitis and abscess Attending Provider: Elvia Hickey Primary Care Provider: Care Physician,No Primary Consulting Providers: Sai Shen ; Kait Bain Instructions Additional Instructions / Restrictions: Change left lower extremity dressing daily with Adaptic and Betadine covered with 4 x 4 gauze, Kerlix and Jaycob wrap. To wash gently with antibacterial soap and water during dressing changes. To wear gloves during dressing changes. To maintain a nonweightbearing status to left lower extremity with the use of assistive devices such as crutches or knee roller. To hang lower leg including the wound site over stacked pillows or blankets while seated or laying down in bed to avoid direct pressure on the site. To avoid excessive ankle range of motion movement to avoid tension on the wound. I recommend Chucho supplementation 1-2 times daily to optimize healing. Discharge Orders/Prescriptions Prescriptions: New cefazolin 1 gram recon soln 2 g IV Q8H 26 Days Qty: 78 RF: 0 oxycodone-acetaminophen [Percocet] 5-325 mg tablet 1 tab PO DAILY PRN PRN (Reason: pain) 7 Days Qty: 7 RF: 0 Continued ascorbic acid (vitamin C) [Vitamin C] 1,000 mg Tablet 1 g PO DAILY RF: 0 acetaminophen [Tylenol] 325 mg Tablet 325 mg PO Q6H PRN (Reason: Pain) RF: 0 magnesium 200 mg Tablet 400 mg PO DAILY RF: 0 docosahexaenoic acid-epa Capsule 1 cap PO DAILY RF: 0 vitamin B complex 1 tab PO/SL DAILY RF: 0 zinc 50 mg Tablet 50 mg PO DAILY RF: 0 cyclobenzaprine 5 mg tablet 5 mg PO TID PRN PRN (Reason: muscle spasms) RF: 0 Referrals / Follow Up: Wound Health [Outside] - In 1 Week Kait Bain DPM [STAFF PHYSICIAN] - In 1 Week (Okay to follow-up at wound healing center ([facility]) with foot and ankle Center. Wound center phone number is [phone].) Care Physician,No Primary [Primary Care Provider] - In 1 Week Disposition Disposition (needs filled in before D/C Order can be placed): Home Health Service Documented by User: Dr. Elvia Hickye DO 04/03/21 14:36 Providers Date of Admission: 03/31/21 Reason For Visit: INFECTED ACHILLES TENDON Medications at Discharge Home Medications acetaminophen [Tylenol] 325 mg PO Q6H PRN 03/31/21 ascorbic acid (vitamin C) [Vitamin C] 1 g PO DAILY 03/31/21 docosahexaenoic acid-epa 1 cap PO DAILY 03/31/21 magnesium 400 mg PO DAILY 03/31/21 vitamin B complex 1 tab PO/SL DAILY 03/31/21 zinc 50 mg PO DAILY 03/31/21 cefazolin 2 g IV Q8H 26 Days #78 ea 04/02/21 cyclobenzaprine 5 mg PO TID PRN PRN 04/02/21 oxycodone-acetaminophen [Percocet] 1 tab PO DAILY PRN PRN 7 Days #7 tab 04/03/21 Hospital Course Summary of Care Provided Minutes Spent on Discharge: 29 Hospital Course: This patient was seen in conjunction with Debbie Millan NP. The following is representation my independent history and physical examination. Please see below for any addendum. Mr. Hernandez is a 50-year-old male who suffered a left Achilles tendon rupture in November of this year and is status post repair who presented for direct admission to [facility] on 03/31/2021 from the wound care center for concern of infection. 1 week following his operation he suffered a wound dehiscence and has been undergoing aggressive wound management and treatment with doxycycline for MSSA infection. Over the last week prior to presentation he suffered from increased swelling, pain and discharge from the wound. He was evaluated by podiatry and taken to the OR on 04/01/2021 where debridement of the left leg wound including his Achilles tendon was performed. PCR was positive for MSSA and per discussion with infectious disease he will need long-term IV antibiotics. A PICC was placed on 04/02/2021 and he will be discharged home today on 4 weeks of IV cefazolin with a stop date of 04/29/2021. He is to follow-up in the wound care center weekly and to have daily dressing changes with home health care involved regarding these and his IV antibiotics. Discharge diagnoses: Left Achilles infection with abscess and nonabsorbable sutures in place Leukocytosis Recent left Achilles tendon rupture Physical Exam Const alert, oriented x3 and no apparent distress HEENT normocephalic and head/scalp atraumatic Resp normal respiratory effort, no retractions, no use of accessory muscles and clear to auscultation bilaterally Auscultation: Negative for crackles, rales, rhonchi or wheezes Cardio regular rate, regular rhythm, S1 normal heart sound, S2 normal heart sound, no murmurs, no rub, no gallops, no clicks and no JVD GI normal to inspection, nondistended, normoactive bowel sounds, soft to palpation, non-tender and non-distended; Negative for hepatosplenomegaly Extremity no clubbing, cyanosis or edema Extremity Narrative: Left lower extremity with dressing in place Neuro oriented x3 Sensorium / Orientation: awake and alert ABG / Lab / Microbiology Data Result Diagrams: 04/02/21 06:06 04/02/21 06:06 Discharge Plan Admission Admit Date/Time: 03/31/21 14:30 Primary Reason for Your Visit: Left leg cellulitis and abscess Attending Provider: Elvia Hickey Primary Care Provider: Care Physician,No Primary Consulting Providers: Sai Shen ; Kait Bain Instructions Additional Instructions / Restrictions: Change left lower extremity dressing daily with Adaptic and Betadine covered with 4 x 4 gauze, Kerlix and Jaycob wrap. To wash gently with antibacterial soap and water during dressing changes. To wear gloves during dressing changes. To maintain a nonweightbearing status to left lower extremity with the use of assistive devices such as crutches or knee roller. To hang lower leg including the wound site over stacked pillows or blankets while seated or laying down in bed to avoid direct pressure on the site. To avoid excessive ankle range of motion movement to avoid tension on the wound. I recommend Chucho supplementation 1-2 times daily to optimize healing. Discharge Orders/Prescriptions Prescriptions: New cefazolin 1 gram recon soln 2 g IV Q8H 26 Days Qty: 78 RF: 0 oxycodone-acetaminophen [Percocet] 5-325 mg tablet 1 tab PO DAILY PRN PRN (Reason: pain) 7 Days Qty: 7 RF: 0 Continued ascorbic acid (vitamin C) [Vitamin C] 1,000 mg Tablet 1 g PO DAILY RF: 0 acetaminophen [Tylenol] 325 mg Tablet 325 mg PO Q6H PRN (Reason: Pain) RF: 0 magnesium 200 mg Tablet 400 mg PO DAILY RF: 0 docosahexaenoic acid-epa Capsule 1 cap PO DAILY RF: 0 vitamin B complex 1 tab PO/SL DAILY RF: 0 zinc 50 mg Tablet 50 mg PO DAILY RF: 0 cyclobenzaprine 5 mg tablet 5 mg PO TID PRN PRN (Reason: muscle spasms) RF: 0 Referrals / Follow Up: Wound Health [Outside] - In 1 Week Kait Bain DPM [STAFF PHYSICIAN] - In 1 Week (Okay to follow-up at wound healing center (Wed) with foot and ankle Center. Wound center phone number is [phone].) Care Physician,No Primary [Primary Care Provider] - In 1 Week Disposition Disposition (needs filled in before D/C Order can be placed): Home Health Service Charges/Coding Visit Charges Inpatient E&M: 21978 Disch Hosp
--- NOTE | 2021-04-03 12:03 | CASEMGMT ---
Spoke with Serena at [facility]. Med to be delivered before 4pm. Faxed dc instructions and summary to [facility] as well as Willy.
[2021-04-03 13:41] VITALS: BP 125/82; PULSE 82; RESP 16; TEMP 36.6; O2SAT 99
[2021-04-03] MEDS: 0.9% Saline Lock 10 ML Syringe IV (13:43)
== END 2021-04-03 13:58 | disposition home health service (06) | DRG 580 ==
PROVIDERS: Physician Assistant; Podiatrist; Admitting Provider Family Medicine; Referring Provider Family Medicine; Visit Provider Internal Medicine
PROC: 0LDW0ZZ Extraction of Left Foot Tendon, Open Approach (ICD-10-PCS; principal; 2021-04-01 07:45)
DX: L03.116 Cellulitis of left lower limb (principal); L97.923 Non-pressure chronic ulcer of unspecified part of left lower leg with necrosis of muscle; T81.31XA Disruption of external operation (surgical) wound, not elsewhere classified, initial encounter; Y83.8 Other surgical procedures as the cause of abnormal reaction of the patient, or of later complication, without mention of misadventure at the time of the procedure; Y92.9 Unspecified place or not applicable; L02.416 Cutaneous abscess of left lower limb; B95.61 Methicillin susceptible Staphylococcus aureus infection as the cause of diseases classified elsewhere
CPT/HCPCS: 36415; 36569; 73610; 80048; 80202; 85025; 85652; 86140; 87015; 87040; 87070; 87075; 87077; 87102; 87116; 87176; 87186; 87205; 87206; 87640; 93005; 97802; J7030; J7040; A4216; J2405

== ENCOUNTER 2021-04-15 09:00 | Outpatient (RCR) | payer BC, SELFPAY ==
[2021-03-22 00:37] VITALS: BP 120/77; PULSE 88; RESP 18; TEMP 36.3
[2021-03-26 11:25] VITALS: BP 124/81; PULSE 78; TEMP 36.6; BMI 22.6
--- NOTE | 2021-03-26 12:21 | PN.PCM_ITS ---
History of Present Illness Date of Service: 03/26/21 Chief Complaint: Surgical wound breakdown. History of Wound: Mr. Hernandez is a 50-year-old who was referred to the wound center by his orthopedic surgeon due to nonhealing surgical wound/surgical wound breakdown. In November, had surgical repair following left Achilles tendon tear. Surgery was uneventful. Was placed in a cast following surgery and had his sutures removed uneventfully. However a few weeks after, noted reopening. Has been seen/managed by his orthopedic surgeon however area has remained opened. States that he has been applying Bactroban daily. No history of diabetes. Denies tobacco abuse. Occasional drainage from the area. Feels well, denies chills, fever, nausea, vomiting or change in bowel habits. Subjective Subjective No new concerns at this time. Has been using Santyl, tolerated well. Some improvement noted. Objective Data Objective Data Vital Signs: Vital Signs Temp Pulse Resp BP 97.9 F 78 18 124/81 H 03/26/21 11:25 03/26/21 11:25 03/22/21 00:37 03/26/21 11:25 Weight: 166 lb 15.477 oz Body Mass Index (BMI) 22.6 Charges/Coding Procedures Integumentary 111xxx-113xx: 45762 Mariel subq tissue 20 sq cm/< Physical Exam Const alert, oriented x3 and no apparent distress General Appearance: cooperative, comfortable and well kempt HEENT normocephalic and head/scalp atraumatic Eyes PERRL and EOMs intact bilaterally Neck full ROM and supple General: normal visual inspection Resp normal respiratory effort Effort and Inspection: able to speak in complete sentences Skin Wounds: wounds noted Neuro oriented x3, CN's II-XII intact bilaterally, moves all extremities and no focal motor deficits Psych mental status grossly normal Appearance: grossly normal Attitude: calm Activity / Motor Behavior: appropriate eye contact Speech: normal speech Debridement Note Debridement Note Post-Debridement Measurements and Additional Note: Post-Debridement Measurements/Treatment - Nurse 1 - General Ulcer Assessment Start: 03/26/21 11:25 Freq: Status: Active Protocol: TOBY.LOWEXT Activity Type Activity Date Activity User E-Sign Co-Sign Detail Recorded Client Recorded Date Recorded By Document 03/26/21 11:25 VALENTINA [id number] 03/26/21 11:29 AK 03/26/21 11:25 WC - Today's Visit Information Type of service Follow-up Visit (Physician/GUEST RELATIONS ASSOCIATE ) Arrival Mode Ambulatory Patient Identification Verified (Name & Yes ) Height and Weight Body Mass Index (BMI) 22.6 BMI Classification Normal Vital Signs Temperature (97.8 F-99.1 F) 97.9 F Temperature Source Temporal Pulse Rate (60-100) 78 Pulse Location Monitor Blood Pressure (90/60-120/80) 124/81 H Blood Pressure Mean (mm Hg) 95 Source Monitor History Since Last Visit- (Skip if this is Patient's initial visit) Have you changed medications since your No last visit? Any new allergies or adverse reactions No Had a fall/change in ADL's that may No increase risk of falls Signs or symptoms of abuse and/or No neglect since last visit Have you been in the hospital since your No last visit? Has dressing in place as prescribed Yes Has compression in place as prescribed N/A Has offloadiing in place as prescribed N/A Experienced any changes in pain level or No management Left Footwear Regular Shoe Right Footwear Regular Shoe WC - Nurse 1 - General Ulcer Measurement Start: 03/26/21 11:25 Freq: Status: Active Protocol: Activity Type Activity Date Activity User E-Sign Co-Sign Detail Recorded Client Recorded Date Recorded By Document 03/26/21 11:25 VALENTINA [id number] 03/26/21 11:29 VALENTINA 03/26/21 11:25 Wound Center Nurse 1 #1 L Achilles -Combined with other wound No -Current Size (cm) - Length 1.6 -Current Size (cm) - Width 0.9 -Current Size (cm) - Depth 0.7 -Total Square Cm 1.44 -Photo Taken No -Epithelialization None Present -Tunneling No -Undermining/Tunneling No -Circular Undermining No -Exudate Amt Medium -Exudate Type Serosanguineous -Wound Margin Distinct, Outline Attached -Granulation Amt Medium (34-66%) -Granulation Quality Red -Slough/Fibrin Yes -Necrosis Amt Medium (34-66%) -Necrotic Tissue Type Adherent Slough -Structure Exposed Fascia -Texture (Sue-wound Skin Appearance) No Abnormality, Assessed -Moisture (Sue-wound Skin Appearance) No Abnormality, Assessed -Color (Sue-wound Skin Appearance) No Abnormality, Assessed -Temperature (Sue-wound Skin No Abnormality Appearance) (Pt Warm) -Tenderness on Palpation (Sue-wound No Skin Appearance) -Ulcer Cleansing Rinsed/ Irrigated with Saline -Anesthetic Used 5% Lidocaine Gel TOBY - Nurse 2 - General Ulcer CM Notes Start: 03/26/21 11:25 Freq: Status: Active Protocol: Activity Type Activity Date Activity User E-Sign Co-Sign Detail Recorded Client Recorded Date Recorded By Document 03/26/21 11:44 MW [id number] 03/26/21 11:49 MW 03/26/21 11:44 Wound Center Nurse 2 -Time 11:44 -Correct Patient Yes -Correct Side, Site, Position Yes -Correct Procedure Yes -Procedure Performed Yes -Type of Procedure Debridement -Clinical Debridement Subcutaneous -Tissue Removed Subcutaneous -Post Debridement (cm) - Length 1.5 -Post Debridement (cm) - Width 0.9 -Post Debridement (cm) - Depth 0.2 -Total Square (Post) (cm) 1.35 -Area of Debridement (cm) - Length 1.5 -Area of Debridement (cm) - Width 0.9 -Total Square (Area) (cm) 1.35 -Tunneling No -Undermining/Tunneling No -Circular Undermining No -Wound/Ulcer Outcome Not Healed -Ulcer Cleansing Rinsed/ Irrigated with Saline -Foul Odor after Cleansing No -Bioengineered Tissue No -Bleeding Controlled with Pressure -Offloading No -Treatment Response Procedure Tolerated Well -Debridement - Subq, 1st 20sq cm Yes Pain Scale: 0-10 Numeric Is Patient Pain Free? Yes TOBY - Nurse 3 - General Ulcer D/C NN Start: 03/26/21 11:25 Freq: Status: Active Protocol: Activity Type Activity Date Activity User E-Sign Co-Sign Detail Recorded Client Recorded Date Recorded By Document 03/26/21 11:49 MW [id number] 03/26/21 11:51 MW 03/26/21 11:49 Wound Care Nurse 3 #1 L Achilles -Ulcer Cleansing Rinsed/ Irrigated with Saline -Foul Odor after Cleansing No -Negative Pressure Wound Therapy N/A -Primary Dressing Applied NonAdherent Contact Layer -Other Dressing SANTYL -Primary Dressing Covered/Secured with Dry Gauze & Roll Gauze, Secured with Tape Left -Lotion applied to leg before No compression wrap -Other DOUBLE LAYER TUBIGRIP Treatment Response Procedure Tolerated Well Pain Scale: 0-10 Numeric Is Patient Pain Free? Yes Teaching: Wound Center Dressing Your Wound -Person Taught Patient -Teaching Method Discussion -Response to teaching Verbalize understanding WC - Visit Discharge Discharge Condition Stable Ambulatory Status Ambulatory Transportation Private Auto Accompanied by SELF Medication Reconcilliation completed & No provided to patient/care provider Clinical Summary of Care Provided Yes Wound debrided: Left lower extremity (Achilles) Type of Debridement: Excisional debridement Anesthesia Used: 4% Lidocaine Solution Depth: Down to and including healthy tissue and in the subcutaneous layer Percentage of wound debrided: 100 Instrument Used: 5mm curette Tissue Removed: Slough and devitalized tissue Severity: Fat Layer Exposed Amount of bleeding with debridement: Mild Bleeding Controlled with: Pressure Patient tolerated procedure: Patient tolerated procedure well Assessment/Plan Assessment/Plan (1) Ulcer of left lower extremity with fat layer exposed: CODE(S): L97.922 - Non-pressure chronic ulcer of unspecified 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 Some improvement noted. Continue Santyl daily with Adaptic over top. Tubigrip for edema management. Elevate lower extremities when seated and in bed. Increased protein intake, vitamin C and zinc also discussed/recommended. His questions were answered and was advised to call with any further questions or concerns. This note was generated with [employer] dictation software. It may contain incorrect words, spelling, and punctuation that were not noted in checking the note before signing.
[2021-03-31 13:24] VITALS: BP 132/85; PULSE 82; TEMP 36.2
[2021-03-31 15:55] LABS: M R Staph aureus DNA By PCR Negative (Negative); Probe Check PASS; Staph aureus DNA By PCR POSITIVE (Negative)
--- NOTE | 2021-03-31 16:49 | PCM.WC.PN ---
History of Present Illness Date of Service: 03/31/21 Chief Complaint: Surgical wound breakdown. History of Wound: Mr. Hernandez is a 50-year-old who was referred to the wound center by his orthopedic surgeon due to nonhealing surgical wound/surgical wound breakdown. In November, had surgical repair following left Achilles tendon tear. Surgery was uneventful. Was placed in a cast following surgery and had his sutures removed uneventfully. However a few weeks after, noted reopening. Has been seen/managed by his orthopedic surgeon however area has remained opened. States that he has been applying Bactroban daily. No history of diabetes. Denies tobacco abuse. Occasional drainage from the area. Feels well, denies chills, fever, nausea, vomiting or change in bowel habits. Subjective Subjective Abdi [facility] today for a follow up visit. He has a hx of a Left Achilles tendon repair in November by Dr. Granados. The wound healed and then later broke open and has not healed since. He was treated a few weeks ago for a MSSA infection with Doxycycline. He denies any Fevers, shaking chills or night sweats. I am seeing him for Dr. Cole today. There has been increased swelling, pain and discoloration since last week. He last saw Dr. Granados last week. Abdi has applied the Santyl with his bare finger per nursing and has been picking at the wound. The wound is being dressed with Santyl and a dry dressing over top. Objective Data Objective Data Vital Signs: Vital Signs Temp Pulse Resp BP 97.1 F L 82 18 132/85 H 03/31/21 13:24 03/31/21 13:24 03/22/21 00:37 03/31/21 13:24 Weight: 166 lb 15.477 oz Body Mass Index (BMI) 22.6 Lab / Micro Data Labs: Laboratory Results - last 24 hr 03/31/21 13:45: S.aureus Protein A PCR POSITIVE H, MRSA (PCR) Negative Micro: Microbiology 03/31/21 13:45 Wound Abcess - Heel, Left Gram Stain - Final Charges/Coding Procedures Integumentary [id number]: [id number] Debride infected skin Physical Exam Const alert, oriented x3 and no apparent distress General Appearance: cooperative Skin Wound Narrative: The wound measures 1.5X2x0.8 today which is increased from 1.5X0.9X0.2. The wound is 100% slough with no granulation tissue. It was debrided with forceps and a scalpel. There is a thin malodorous DC. there is marked swelling of the ankle and red/purple discoloration of the skin. There are a few satellite lesions noted. the sue-wound area is warm to touch. No pain in the calf. When the slough was removed there is tendon visible. There is spongy swelling superior to the wound. 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 ) ) Arrival Mode Ambulatory Ambulatory Patient Identification Verified (Name & Yes Yes ) Height and Weight Body Mass Index (BMI) 22.6 22.6 BMI Classification Normal Normal Vital Signs Temperature (97.8 F-99.1 F) 97.9 F 97.1 F L Temperature Source Temporal Temporal Pulse Rate (60-100) 78 82 Pulse Location Monitor Monitor Blood Pressure (90/60-120/80) 124/81 H 132/85 H Blood Pressure Mean (mm Hg) 95 100 Source Monitor Monitor Position Semi-Fowlers Blood Pressure Location Right Arm History Since Last Visit- (Skip if this is Patient's initial visit) Have you changed medications since your No No last visit? Any new allergies or adverse reactions No No Had a fall/change in ADL's that may No No increase risk of falls Signs or symptoms of abuse and/or No No neglect since last visit Have you been in the hospital since your No No last visit? Has dressing in place as prescribed Yes Yes Has compression in place as prescribed N/A N/A Has offloadiing in place as prescribed N/A Experienced any changes in pain level or No No management Left Footwear Regular Shoe Right Footwear Regular Shoe Pain Scale: 0-10 Numeric Is Patient Pain Free? Yes WC - Nurse 1 - General Ulcer Measurement Start: 03/26/21 11:25 Freq: Status: Active Protocol: Activity Type Activity Date Activity User E-Sign Co-Sign Detail Recorded Client Recorded Date Recorded By Document 03/26/21 11:25 AK [id number] 03/26/21 11:29 AK Document 03/31/21 13:24 KR [id number] 03/31/21 13:27 KR 03/26/21 03/31/21 11:25 13:24 Wound Center Nurse 1 #1 L Achilles -Combined with other wound No -Current Size (cm) - Length 1.6 2 -Current Size (cm) - Width 0.9 1.5 -Current Size (cm) - Depth 0.7 0.2 -Total Square Cm 1.44 3.0 -Photo Taken No -Epithelialization None Present -Tunneling No -Undermining/Tunneling No -Circular Undermining No -Exudate Amt Medium Medium -Exudate Type Serosanguineous Yellow/Green -Wound Margin Distinct, Distinct, Outline Outline Attached Attached -Granulation Amt Medium (34-66%) -Granulation Quality Red -Slough/Fibrin Yes -Necrosis Amt Medium (34-66%) Large (67-100%) -Necrotic Tissue Type Adherent Slough Adherent Slough -Structure Exposed Fascia -Texture (Sue-wound Skin Appearance) No Abnormality, Assessed, Assessed Scarring -Moisture (Sue-wound Skin Appearance) No Abnormality, Assessed, Assessed Maceration -Color (Sue-wound Skin Appearance) No Abnormality, No Abnormality, Assessed Assessed -Temperature (Sue-wound Skin No Abnormality No Abnormality Appearance) (Pt Warm) (Pt Warm) -Tenderness on Palpation (Sue-wound No No Skin Appearance) -Ulcer Cleansing Rinsed/ Rinsed/ Irrigated with Irrigated with Saline Saline -Foul Odor after Cleansing No -Anesthetic Used 5% Lidocaine 5% Lidocaine Gel Gel WC - Nurse 2 - General Ulcer CM Notes Start: 03/26/21 11:25 Freq: Status: Active Protocol: Activity Type Activity Date Activity User E-Sign Co-Sign Detail Recorded Client Recorded Date Recorded By Document 03/26/21 11:44 MW [id number] 03/26/21 11:49 MW Document 03/31/21 13:37 MW [id number] 03/31/21 14:03 MW 03/26/21 03/31/21 11:44 13:37 Wound Center Nurse 2 #1 L Achilles -Time 11:44 13:38 -Correct Patient Yes Yes -Correct Side, Site, Position Yes Yes -Correct Procedure Yes Yes -Procedure Performed Yes Yes -Type of Procedure Debridement Debridement -Clinical Debridement Subcutaneous Subcutaneous -Tissue Removed Subcutaneous Subcutaneous -Post Debridement (cm) - Length 1.5 2.0 -Post Debridement (cm) - Width 0.9 1.5 -Post Debridement (cm) - Depth 0.2 0.8 -Total Square (Post) (cm) 1.35 3.00 -Area of Debridement (cm) - Length 1.5 2.0 -Area of Debridement (cm) - Width 0.9 1.5 -Total Square (Area) (cm) 1.35 3.00 -Tunneling No No -Undermining/Tunneling No No -Circular Undermining No No -Wound/Ulcer Outcome Not Healed Not Healed -Ulcer Cleansing Rinsed/ Rinsed/ Irrigated with Irrigated with Saline Saline -Foul Odor after Cleansing No No -Bioengineered Tissue No No -Bleeding Controlled with Pressure Pressure -Offloading No No -Treatment Response Procedure Procedure Tolerated Well Tolerated Well -Debridement - Subq, 1st 20sq cm Yes Yes Pain Scale: 0-10 Numeric Is Patient Pain Free? Yes Yes - Nurse 3 - General Ulcer D/C NN Start: 03/26/21 11:25 Freq: Status: Active Protocol: Activity Type Activity Date Activity User E-Sign Co-Sign Detail Recorded Client Recorded Date Recorded By Document 03/26/21 11:49 MW [id number] 03/26/21 11:51 MW Document 03/31/21 14:04 MW [id number] 03/31/21 14:05 MW 03/26/21 03/31/21 11:49 14:04 Wound Care Nurse 3 #1 L Achilles -Ulcer Cleansing Rinsed/ Rinsed/ Irrigated with Irrigated with Saline Saline -Foul Odor after Cleansing No No -Negative Pressure Wound Therapy N/A N/A -Primary Dressing Applied NonAdherent Contact Layer -Other Dressing SANTYL -Primary Dressing Covered/Secured with Dry Gauze & Dry Gauze, Roll Gauze, Secured with Secured with Tape Tape -Other Covering saline wet to dry Left -Lotion applied to leg before No No compression wrap -Other DOUBLE LAYER TUBIGRIP Treatment Response Procedure Procedure Tolerated Well Tolerated Well Pain Scale: 0-10 Numeric Is Patient Pain Free? Yes Yes Teaching: Wound Center Dressing Your Wound -Person Taught Patient Patient -Teaching Method Discussion Discussion, Demonstration -Response to teaching Verbalize Verbalize understanding understanding WC - Visit Discharge Discharge Condition Stable Stable Ambulatory Status Ambulatory Ambulatory Transportation Private Auto Accompanied by SELF self Medication Reconcilliation completed & No No provided to patient/care provider Clinical Summary of Care Provided Yes Yes Wound debrided: Left ankle wound Wound Grade/Stage: N/A - not a pressure ulcer Type of Debridement: Excisional debridement Anesthesia Used: 5% Lidocaine Gel Depth: Down to and including healthy tissue Percentage of wound debrided: 100 Instrument Used: #15 blade and Forceps Tissue Removed: slough The medial margin of the tendon is visible Severity: Necrosis of Muscle Amount of bleeding with debridement: Mild Bleeding Controlled with: Pressure Patient tolerated procedure: Patient tolerated procedure well Operative Diagnosis: cellultis and abscess of the surgical wound with hx of L Achilles repair Assessment/Plan Assessment/Plan (1) Cellulitis and abscess of left leg: CODE(S): L03.116 - Cellulitis of left lower limb; L02.416 - Cutaneous abscess of left lower limb (2) Delayed surgical wound healing: CODE(S): T81.89XA - Other complications of procedures, not elsewhere classified, initial encounter PLAN: 1. Direct admit to hospitalist service. Dr. Lopes is accepting. 2. I spoke with Dr. Granados and he is referring to Dr. Bain because he is leaving [facility] soon and Abdi will need follow up. 3. Needs IV antibiotics and imaging 4. Cultures (aerobic and anaerobic) sent and requisition for SA/MRSA PCR. 5. He has been walking around the house without shoes or slippers and he has a dog and a cat at home.
[2021-04-08 09:01] VITALS: BP 146/92; PULSE 81; RESP 20; TEMP 36.7; BMI 22.6
--- NOTE | 2021-04-08 14:00 | PN.PCM_ITS ---
History of Present Illness Date of Service: 04/08/21 Chief Complaint: Surgical wound breakdown. History of Wound: Mr. Hernandez is a 50-year-old who was referred to the wound center by his orthopedic surgeon due to nonhealing surgical wound/surgical wound breakdown. In November, had surgical repair following left Achilles tendon tear. Surgery was uneventful. Was placed in a cast following surgery and had his sutures removed uneventfully. However a few weeks after, noted reopening. He was recently admitted to the hospital for worsening infection status and proceeded to surgery 1 week ago for versa jet debridement of Achilles tendon wound with adjacent incision and drainage also. There is concern of retained FiberWire hardware and these bone anchors are in near proximity to the calcaneus. He has a PICC line and will complete 6 weeks of IV antibiotics under the management of infectious disease. He has been offloading. He has been practicing good hygiene techniques during dressing changes. He ordered Chucho supplementation to optimize healing. He denies chills, fever, nausea, vomiting. He is with his today. Progress of Wound: improved compared to recent hospitalization Objective Data Objective Data Vital Signs: Vital Signs Temp Pulse Resp BP 98.1 F 81 20 H 146/92 H 04/08/21 09:01 04/08/21 09:01 04/08/21 09:01 04/08/21 09:01 Weight: 75.735 kg Body Mass Index (BMI) 22.6 Lab / Micro Data Micro: Microbiology 03/31/21 13:45 Wound Abcess - Heel, Left Gram Stain - Final 03/31/21 13:45 Wound Abcess - Heel, Left Wound Culture - Final Staphylococcus aureus Haemophilus parainfluenzae Gram Positive Cocci 03/31/21 13:45 Wound Abcess - Heel, Left Anaerobic Culture - Final Anaerobic cocci Physical Exam Const alert and oriented x3 General Appearance: cooperative HEENT normocephalic Extremity Extremity Narrative: palpable pulses Muscle wasting noted Plantar flexion foot with Angulo test this is same compared to the contralateral noninjured limb General Extremity: edema and no tenderness to palpation of joints or extremities; Negative for cyanosis Skin Skin Narrative: no purulence, no streaking, no odor, no infection. Reduced Achilles exposure noted. Fiber tape with slack was excised today General Skin Exam: Negative for erythema Neuro Neuro Narrative: Epicritic sensation is intact to light touch the right lower extremity. Psych cooperative and affect normal Debridement Note Debridement Note Post-Debridement Measurements and Additional Note: Post-Debridement Measurements/Treatment WC - Nurse 1 - General Ulcer Assessment Start: 03/26/21 11:25 Freq: Status: Active Protocol: KEO Activity Type Activity Date Activity User E-Sign Co-Sign Detail Recorded Client Recorded Date Recorded By Document 03/26/21 11:25 AK [id number] 03/26/21 11:29 AK Document 03/31/21 13:24 KR [id number] 03/31/21 13:27 KR Document 04/08/21 09:01 DL [id number] 04/08/21 09:10 DL 03/26/21 03/31/21 04/08/21 11:25 13:24 09:01 WC - Today's Visit Information Type of service Follow-up Visit Follow-up Visit Follow-up Visit (Physician/RETREAD MOLD OPERATOR (Physician/RETREAD MOLD OPERATOR (Physician/RETREAD MOLD OPERATOR ) ) ) Arrival Mode Ambulatory Ambulatory Ambulatory, Walker Transfer Assistance None Patient Identification Verified (Name & Yes Yes Yes ) Patient Requires Transmission-Based No Precautions Height and Weight Body Mass Index (BMI) 22.6 22.6 22.6 BMI Classification Normal Normal Normal Vital Signs Temperature (97.8 F-99.1 F) 97.9 F 97.1 F L 98.1 F Temperature Source Temporal Temporal Temporal Pulse Rate (60-100) 78 82 81 Pulse Location Monitor Monitor Monitor Respiratory Rate (12-18) 20 H Respiratory rate source Observation Blood Pressure (90/60-120/80) 124/81 H 132/85 H 146/92 H Blood Pressure Mean (mm Hg) 95 100 110 Source Monitor Monitor Monitor Position Semi-Fowlers Blood Pressure Location Right Arm History Since Last Visit- (Skip if this is Patient's initial visit) Have you changed medications since your No No No last visit? Any new allergies or adverse reactions No No No Had a fall/change in ADL's that may No No No increase risk of falls Signs or symptoms of abuse and/or No No No neglect since last visit Have you been in the hospital since your No No No last visit? Has dressing in place as prescribed Yes Yes Yes Has compression in place as prescribed N/A N/A N/A Has offloadiing in place as prescribed N/A Yes Experienced any changes in pain level or No No No management Left Footwear Regular Shoe Right Footwear Regular Shoe Pain Scale: 0-10 Numeric Is Patient Pain Free? Yes Yes WC - Nurse 1 - General Ulcer Measurement Start: 03/26/21 11:25 Freq: Status: Active Protocol: Activity Type Activity Date Activity User E-Sign Co-Sign Detail Recorded Client Recorded Date Recorded By Document 03/26/21 11:25 AK [id number] 03/26/21 11:29 AK Document 03/31/21 13:24 KR [id number] 03/31/21 13:27 KR Document 04/08/21 09:01 DL [id number] 04/08/21 09:10 DL 03/26/21 03/31/21 04/08/21 11:25 13:24 09:01 Wound Center Nurse 1 #1 L Achilles -Combined with other wound No -Current Size (cm) - Length 1.6 2 5.9 -Current Size (cm) - Width 0.9 1.5 2.9 -Current Size (cm) - Depth 0.7 0.2 0.5 -Total Square Cm 1.44 3.0 17.11 -Photo Taken No Yes -Epithelialization None Present -Tunneling No -Undermining/Tunneling No -Circular Undermining No -Exudate Amt Medium Medium Medium -Exudate Type Serosanguineous Yellow/Green Serosanguineous -Wound Margin Distinct, Distinct, Distinct, Outline Outline Outline Attached Attached Attached -Granulation Amt Medium (34-66%) Large (67-100%) -Granulation Quality Red -Slough/Fibrin Yes -Necrosis Amt Medium (34-66%) Large (67-100%) Medium (34-66%) -Necrotic Tissue Type Adherent Slough Adherent Slough Eschar -Structure Exposed Fascia Tendon -Texture (Sue-wound Skin Appearance) No Abnormality, Assessed, Localized Edema Assessed Scarring ,Scarring -Moisture (Sue-wound Skin Appearance) No Abnormality, Assessed, No Abnormality Assessed Maceration -Color (Sue-wound Skin Appearance) No Abnormality, No Abnormality, No Abnormality Assessed Assessed -Temperature (Sue-wound Skin No Abnormality No Abnormality No Abnormality Appearance) (Pt Warm) (Pt Warm) (Pt Warm) -Tenderness on Palpation (Sue-wound No No No Skin Appearance) -Ulcer Cleansing Rinsed/ Rinsed/ Wound Cleanser Irrigated with Irrigated with Saline Saline -Foul Odor after Cleansing No No -Anesthetic Used 5% Lidocaine 5% Lidocaine 5% Lidocaine Gel Gel Gel TOBY - Nurse 2 - General Ulcer CM Notes Start: 03/26/21 11:25 Freq: Status: Active Protocol: Activity Type Activity Date Activity User E-Sign Co-Sign Detail Recorded Client Recorded Date Recorded By Document 03/26/21 11:44 MW [id number] 03/26/21 11:49 MW Document 03/31/21 13:37 MW [id number] 03/31/21 14:03 MW Document 04/08/21 09:30 JF [id number] 04/08/21 09:37 JF 03/26/21 03/31/21 04/08/21 11:44 13:37 09:30 Wound Center Nurse 2 #1 L Achilles -Time 11:44 13:38 09:32 -Correct Patient Yes Yes Yes -Correct Side, Site, Position Yes Yes Yes -Correct Procedure Yes Yes Yes -Procedure Performed Yes Yes Yes -Type of Procedure Debridement Debridement Debridement -Clinical Debridement Subcutaneous Subcutaneous Subcutaneous -Tissue Removed Subcutaneous Subcutaneous Subcutaneous -Post Debridement (cm) - Length 1.5 2.0 5.9 -Post Debridement (cm) - Width 0.9 1.5 3 -Post Debridement (cm) - Depth 0.2 0.8 0.5 -Total Square (Post) (cm) 1.35 3.00 17.7 -Area of Debridement (cm) - Length 1.5 2.0 5.9 -Area of Debridement (cm) - Width 0.9 1.5 3 -Total Square (Area) (cm) 1.35 3.00 17.7 -Tunneling No No No -Undermining/Tunneling No No No -Circular Undermining No No No -Wound/Ulcer Outcome Not Healed Not Healed Not Healed -Ulcer Cleansing Rinsed/ Rinsed/ Rinsed/ Irrigated with Irrigated with Irrigated with Saline Saline Saline -Foul Odor after Cleansing No No No -Bioengineered Tissue No No No -Bleeding Controlled with Pressure Pressure Pressure -Offloading No No Yes -Type of Offloading Knee Walker -Treatment Response Procedure Procedure Procedure Tolerated Well Tolerated Well Tolerated Well -Debridement - Subq, 1st 20sq cm Yes Yes Yes Pain Scale: 0-10 Numeric Is Patient Pain Free? Yes Yes Yes TOBY - Nurse 3 - General Ulcer D/C NN Start: 03/26/21 11:25 Freq: Status: Active Protocol: Activity Type Activity Date Activity User E-Sign Co-Sign Detail Recorded Client Recorded Date Recorded By Document 03/26/21 11:49 MW [id number] 03/26/21 11:51 MW Document 03/31/21 14:04 MW [id number] 03/31/21 14:05 MW Document 04/08/21 09:49 RB [id number] 04/08/21 09:49 RB 03/26/21 03/31/21 04/08/21 11:49 14:04 09:49 Wound Care Nurse 3 #1 L Achilles -Ulcer Cleansing Rinsed/ Rinsed/ Rinsed/ Irrigated with Irrigated with Irrigated with Saline Saline Saline -Foul Odor after Cleansing No No -Negative Pressure Wound Therapy N/A N/A -Primary Dressing Applied NonAdherent Promogran Contact Layer Beatris Matter -Other Dressing SANTYL -Primary Dressing Covered/Secured with Dry Gauze & Dry Gauze, Dry Gauze,Dry Roll Gauze, Secured with Gauze & Roll Secured with Tape Gauze,Secured Tape with Tape -Other Covering saline wet to dry -Promogran Beatris Matter 1 Left -Lotion applied to leg before No No compression wrap -Tubular Bandage Double Layer -Size of Tubigrip Used Size D -Size D ($) 2 -Other DOUBLE LAYER TUBIGRIP Treatment Response Procedure Procedure Tolerated Well Tolerated Well Pain Scale: 0-10 Numeric Is Patient Pain Free? Yes Yes Yes Teaching: Wound Center Dressing Your Wound -Person Taught Patient Patient -Teaching Method Discussion Discussion, Demonstration -Response to teaching Verbalize Verbalize understanding understanding WC - Visit Discharge Discharge Condition Stable Stable Stable Ambulatory Status Ambulatory Ambulatory Ambulatory Transportation Private Auto Private Auto Accompanied by SELF self Medication Reconcilliation completed & No No No provided to patient/care provider Clinical Summary of Care Provided Yes Yes Yes Wound debrided: posterior right lower leg Wound Grade/Stage: Type of Debridement: Excisional debridement Anesthesia Used: 4% Lidocaine Solution Depth: in the subcutaneous layer Percentage of wound debrided: 100 Instrument Used: #15 blade Tissue Removed: fibrous, devitalized subcutaneous, biofilm, slough Severity: Fat Layer Exposed Amount of bleeding with debridement: Mild Bleeding Controlled with: Pressure Patient tolerated procedure: Patient tolerated procedure well Assessment/Plan Assessment/Plan (1) Cellulitis and abscess of left leg: CODE(S): L03.116 - Cellulitis of left lower limb; L02.416 - Cutaneous abscess of left lower limb (2) Delayed surgical wound healing: CODE(S): T81.89XA - Other complications of procedures, not elsewhere classified, initial encounter (3) Strain of left Achilles tendon, initial encounter: CODE(S): S86.012A - Strain of left Achilles tendon, initial encounter PLAN: I reviewed and discussed his case today. Debridement was performed today as noted in the clinical panel to the ulcer site. The following work up and care recommendations were made: Dressing: Aquacel Ag daily. Is also okay to apply Adaptic if this is sticking. To cover a secondary gauze Wash: Antibacterial soap and water Tissue growth optimization: He was not approved for advanced wound healing product in outpatient setting. Pending continued resolution of infection, operating room application of advanced skin substitute will be considered. Offload: To reduce tension by avoiding active or passive ankle range of motion. To wear offloading donut pillow to take pressure off the site and to avoid sitting or laying directly on the wound. Vascular: There is palpable pulses. Continued delays in healing noted noninvasive vascular studies will be performed. Edema: Okay to use Tubigrip daily and to elevate intermittently Infection: He is MSSA infected ulcer and is being treated with 6 weeks of IV antibiotics via PICC line. Infectious disease is managing. Lab trends will be followed if he has return of symptoms. To complete the course of the recommend antibiotics. Nonfunctional fiber tape was removed from the wound. Pain: Controlled with predebridement Percocet. To transition into half a tablet or [id number] Tylenol Host factors: To optimize healing with Chucho supplementation. He was advised upper extremity exercise and nonsurgical limb rowing is okay. He understands the main focus of his treatment plan his infection management and wound healing. The functionality of his tendon still guarded however appears to be overall intact at this time given his angulo test results. I answered all the patient's questions. To return to the wound healing center in 1 week or call sooner if the patient has any questions or concerns. Note: [employer] speech recognition resident services coordinator software was used to create portions of this document. Sound-alike and misspelled words, as well as other resident services coordinator errors may be contained in the documentation.
[2021-04-15 09:18] VITALS: BP 126/82; PULSE 70; RESP 16; TEMP 37; BMI 22.6
--- NOTE | 2021-04-15 10:09 | PCM.WC.PN ---
History of Present Illness Date of Service: 04/15/21 Chief Complaint: Surgical wound breakdown History of Wound: Mr. Hernandez is a 50-year-old who had prior surgical repair following left Achilles tendon tear. A few weeks after suture removal, he had developed a wound and then subsequent infection. He was recently admitted to the hospital for worsening infection status and also underwent versa jet debridement of Achilles tendon wound with adjacent incision and drainage also. He has a PICC line and will complete 6 weeks of IV antibiotics under the management of infectious disease. He has some torso itching and describes this more of a nuisance without rash or other symptoms. He has been offloading. He has been practicing good hygiene techniques during dressing changes. He continues to take Chucho supplementation to optimize healing. He denies chills, fever, nausea, vomiting. He has been compliant with nonweightbearing recommendations. Progress of Wound: improved compared to recent hospitalization Objective Data Objective Data Vital Signs: Vital Signs Temp Pulse Resp BP 98.6 F 70 16 126/82 H 04/15/21 09:18 04/15/21 09:18 04/15/21 09:18 04/15/21 09:18 Oxygen Delivery Method Room Air Weight: 75.735 kg Body Mass Index (BMI) 22.6 Lab / Micro Data Micro: Microbiology 03/31/21 13:45 Wound Abcess - Heel, Left Gram Stain - Final 03/31/21 13:45 Wound Abcess - Heel, Left Wound Culture - Final Staphylococcus aureus Haemophilus parainfluenzae Gram Positive Cocci 03/31/21 13:45 Wound Abcess - Heel, Left Anaerobic Culture - Final Anaerobic cocci Physical Exam Const alert and oriented x3 General Appearance: cooperative HEENT normocephalic Extremity Extremity Narrative: palpable pulses Muscle wasting noted Plantar flexion foot with Angulo test this is same compared to the contralateral noninjured limb General Extremity: edema and no tenderness to palpation of joints or extremities; Negative for cyanosis Skin Skin Narrative: no purulence, no streaking, no odor, no infection. continued reduction in Achilles exposure noted. Fiber tape with slack was excised today General Skin Exam: Negative for erythema Neuro Neuro Narrative: Epicritic sensation is intact to light touch the right lower extremity. Psych cooperative and affect normal Debridement Note Debridement Note Post-Debridement Measurements and Additional Note: Post-Debridement Measurements/Treatment WC - Nurse 1 - General Ulcer Assessment Start: 03/26/21 11:25 Freq: Status: Active Protocol: WC.LOWEXT Activity Type Activity Date Activity User E-Sign Co-Sign Detail Recorded Client Recorded Date Recorded By Document 03/26/21 11:25 AK [id number] 03/26/21 11:29 AK Document 03/31/21 13:24 KR [id number] 03/31/21 13:27 KR Document 04/08/21 09:01 DL [id number] 04/08/21 09:10 DL Document 04/15/21 09:18 BMF [id number] 04/15/21 09:21 BMF 03/26/21 03/31/21 04/08/21 11:25 13:24 09:01 WC - Today's Visit Information Type of service Follow-up Visit Follow-up Visit Follow-up Visit (Physician/VULCANIZER RUBBER PLATE (Physician/VULCANIZER RUBBER PLATE (Physician/VULCANIZER RUBBER PLATE ) ) ) Arrival Mode Ambulatory Ambulatory Ambulatory, Walker Transfer Assistance None Patient Identification Verified (Name & Yes Yes Yes ) Patient Requires Transmission-Based No Precautions Height and Weight Body Mass Index (BMI) 22.6 22.6 22.6 BMI Classification Normal Normal Normal Vital Signs Temperature (97.8 F-99.1 F) 97.9 F 97.1 F L 98.1 F Temperature Source Temporal Temporal Temporal Pulse Rate (60-100) 78 82 81 Pulse Location Monitor Monitor Monitor Respiratory Rate (12-18) 20 H Respiratory rate source Observation Oxygen Delivery Method Blood Pressure (90/60-120/80) 124/81 H 132/85 H 146/92 H Blood Pressure Mean (mm Hg) 95 100 110 Source Monitor Monitor Monitor Position Semi-Fowlers Blood Pressure Location Right Arm History Since Last Visit- (Skip if this is Patient's initial visit) Have you changed medications since your No No No last visit? Any new allergies or adverse reactions No No No Had a fall/change in ADL's that may No No No increase risk of falls Signs or symptoms of abuse and/or No No No neglect since last visit Have you been in the hospital since your No No No last visit? Has dressing in place as prescribed Yes Yes Yes Has compression in place as prescribed N/A N/A N/A Has offloadiing in place as prescribed N/A Yes Experienced any changes in pain level or No No No management Left Footwear Regular Shoe Right Footwear Regular Shoe Pain Scale: 0-10 Numeric Is Patient Pain Free? Yes Yes 04/15/21 09:18 WC - Today's Visit Information Type of service Follow-up Visit (Physician/VULCAN[employer]ER RU[employer]ER [employer]ATE ) Arrival Mode Ambulatory Transfer Assistance None Patient Identification Verified (Name & Yes ) Patient Requires Transmission-Based No Precautions Height and Weight Body Mass Index (BMI) 22.6 BMI Classification Normal Vital Signs Temperature (97.8 F-99.1 F) 98.6 F Temperature Source Temporal Pulse Rate (60-100) 70 Pulse Location Monitor Respiratory Rate (12-18) 16 Respiratory rate source Observation Oxygen Delivery Method Room Air Blood Pressure (90/60-120/80) 126/82 H Blood Pressure Mean (mm Hg) 96 Source Monitor Position Sitting Blood Pressure Location Right Arm History Since Last Visit- (Skip if this is Patient's initial visit) Have you changed medications since your No last visit? Any new allergies or adverse reactions No Had a fall/change in ADL's that may No increase risk of falls Signs or symptoms of abuse and/or No neglect since last visit Have you been in the hospital since your No last visit? Has dressing in place as prescribed Yes Has compression in place as prescribed Yes Has offloadiing in place as prescribed N/A Experienced any changes in pain level or No management Left Footwear Regular Shoe Right Footwear Regular Shoe Pain Scale: 0-10 Numeric Is Patient Pain Free? Yes - Nurse 1 - General Ulcer Measurement Start: 03/26/21 11:25 Freq: Status: Active Protocol: Activity Type Activity Date Activity User E-Sign Co-Sign Detail Recorded Client Recorded Date Recorded By Document 03/26/21 11:25 AK [id number] 03/26/21 11:29 AK Document 03/31/21 13:24 KR [id number] 03/31/21 13:27 KR Document 04/08/21 09:01 DL [id number] 04/08/21 09:10 DL Document 04/15/21 09:18 [facility] [id number] 04/15/21 09:21 BMF 03/26/21 03/31/21 04/08/21 11:25 13:24 09:01 Wound Center Nurse 1 #1 L Achilles -Combined with other wound No -Current Size (cm) - Length 1.6 2 5.9 -Current Size (cm) - Width 0.9 1.5 2.9 -Current Size (cm) - Depth 0.7 0.2 0.5 -Total Square Cm 1.44 3.0 17.11 -Photo Taken No Yes -Epithelialization None Present -Tunneling No -Undermining/Tunneling No -Circular Undermining No -Exudate Amt Medium Medium Medium -Exudate Type Serosanguineous Yellow/Green Serosanguineous -Wound Margin Distinct, Distinct, Distinct, Outline Outline Outline Attached Attached Attached -Granulation Amt Medium (34-66%) Large (67-100%) -Granulation Quality Red -Slough/Fibrin Yes -Necrosis Amt Medium (34-66%) Large (67-100%) Medium (34-66%) -Necrotic Tissue Type Adherent Slough Adherent Slough Eschar -Structure Exposed Fascia Tendon -Texture (Sue-wound Skin Appearance) No Abnormality, Assessed, Localized Edema Assessed Scarring ,Scarring -Moisture (Sue-wound Skin Appearance) No Abnormality, Assessed, No Abnormality Assessed Maceration -Color (Sue-wound Skin Appearance) No Abnormality, No Abnormality, No Abnormality Assessed Assessed -Temperature (Sue-wound Skin No Abnormality No Abnormality No Abnormality Appearance) (Pt Warm) (Pt Warm) (Pt Warm) -Tenderness on Palpation (Sue-wound No No No Skin Appearance) -Ulcer Cleansing Rinsed/ Rinsed/ Wound Cleanser Irrigated with Irrigated with Saline Saline -Foul Odor after Cleansing No No -Anesthetic Used 5% Lidocaine 5% Lidocaine 5% Lidocaine Gel Gel Gel Lower Limb Edema Present Right Calf (cm) Right Ankle (cm) 04/15/21 09:18 Wound Center Nurse 1 #1 L Achilles -Combined with other wound No -Current Size (cm) - Length 5.6 -Current Size (cm) - Width 2.4 -Current Size (cm) - Depth 0.5 -Total Square Cm 13.44 -Photo Taken No -Epithelialization None Present -Tunneling No -Undermining/Tunneling No -Circular Undermining No -Exudate Amt Small -Exudate Type Serosanguineous -Wound Margin Distinct, Outline Attached -Granulation Amt Large (67-100%) -Granulation Quality Red -Slough/Fibrin Yes -Necrosis Amt Small (1-33%) -Necrotic Tissue Type Adherent Slough -Structure Exposed Tendon -Texture (Sue-wound Skin Appearance) Assessed, Scarring -Moisture (Sue-wound Skin Appearance) Assessed -Color (Sue-wound Skin Appearance) Assessed -Temperature (Sue-wound Skin No Abnormality Appearance) (Pt Warm) -Tenderness on Palpation (Sue-wound No Skin Appearance) -Ulcer Cleansing Rinsed/ Irrigated with Saline -Foul Odor after Cleansing No -Anesthetic Used 5% Lidocaine Gel Lower Limb Edema Present Yes Right Calf (cm) 33.8 Right Ankle (cm) 20.4 WC - Nurse 2 - General Ulcer CM Notes Start: 03/26/21 11:25 Freq: Status: Active Protocol: Activity Type Activity Date Activity User E-Sign Co-Sign Detail Recorded Client Recorded Date Recorded By Document 03/26/21 11:44 MW [id number] 03/26/21 11:49 MW Document 03/31/21 13:37 MW [id number] 03/31/21 14:03 MW Document 04/08/21 09:30 JF [id number] 04/08/21 09:37 JF Document 04/15/21 09:26 JF [id number] 04/15/21 09:31 JF 03/26/21 03/31/21 04/08/21 11:44 13:37 09:30 Wound Center Nurse 2 #1 L Achilles -Time 11:44 13:38 09:32 -Correct Patient Yes Yes Yes -Correct Side, Site, Position Yes Yes Yes -Correct Procedure Yes Yes Yes -Procedure Performed Yes Yes Yes -Type of Procedure Debridement Debridement Debridement -Clinical Debridement Subcutaneous Subcutaneous Subcutaneous -Tissue Removed Subcutaneous Subcutaneous Subcutaneous -Post Debridement (cm) - Length 1.5 2.0 5.9 -Post Debridement (cm) - Width 0.9 1.5 3 -Post Debridement (cm) - Depth 0.2 0.8 0.5 -Total Square (Post) (cm) 1.35 3.00 17.7 -Area of Debridement (cm) - Length 1.5 2.0 5.9 -Area of Debridement (cm) - Width 0.9 1.5 3 -Total Square (Area) (cm) 1.35 3.00 17.7 -Tunneling No No No -Undermining/Tunneling No No No -Circular Undermining No No No -Wound/Ulcer Outcome Not Healed Not Healed Not Healed -Ulcer Cleansing Rinsed/ Rinsed/ Rinsed/ Irrigated with Irrigated with Irrigated with Saline Saline Saline -Foul Odor after Cleansing No No No -Bioengineered Tissue No No No -Bleeding Controlled with Pressure Pressure Pressure -Offloading No No Yes -Type of Offloading Knee Walker -Treatment Response Procedure Procedure Procedure Tolerated Well Tolerated Well Tolerated Well -Debridement - Subq, 1st 20sq cm Yes Yes Yes Pain Scale: 0-10 Numeric Is Patient Pain Free? Yes Yes Yes 04/15/21 09:26 Wound Center Nurse 2 #1 L Achilles -Time 09:26 -Correct Patient Yes -Correct Side, Site, Position Yes -Correct Procedure Yes -Procedure Performed Yes -Type of Procedure Debridement -Clinical Debridement Subcutaneous -Tissue Removed Subcutaneous -Post Debridement (cm) - Length 5.6 -Post Debridement (cm) - Width 2.5 -Post Debridement (cm) - Depth 0.6 -Total Square (Post) (cm) 14.00 -Area of Debridement (cm) - Length 5.6 -Area of Debridement (cm) - Width 2.5 -Total Square (Area) (cm) 14.00 -Tunneling No -Undermining/Tunneling No -Circular Undermining No -Wound/Ulcer Outcome Not Healed -Ulcer Cleansing Rinsed/ Irrigated with Saline -Foul Odor after Cleansing No -Bioengineered Tissue No -Bleeding Controlled with Pressure -Offloading No -Type of Offloading -Treatment Response Procedure Tolerated Well -Debridement - Subq, 1st 20sq cm Yes Pain Scale: 0-10 Numeric Is Patient Pain Free? Yes WC - Nurse 3 - General Ulcer D/C NN Start: 03/26/21 11:25 Freq: Status: Active Protocol: Activity Type Activity Date Activity User E-Sign Co-Sign Detail Recorded Client Recorded Date Recorded By Document 03/26/21 11:49 MW [id number] 03/26/21 11:51 MW Document 03/31/21 14:04 MW [id number] 03/31/21 14:05 MW Document 04/08/21 09:49 RB [id number] 04/08/21 09:49 RB Document 04/15/21 09:45 BMF [id number] 04/15/21 09:46 BMF 03/26/21 03/31/21 04/08/21 11:49 14:04 09:49 Wound Care Nurse 3 #1 L Achilles -Ulcer Cleansing Rinsed/ Rinsed/ Rinsed/ Irrigated with Irrigated with Irrigated with Saline Saline Saline -Foul Odor after Cleansing No No -Negative Pressure Wound Therapy N/A N/A -Primary Dressing Applied NonAdherent Promogran Contact Layer Beatris Matter -Other Dressing SANTYL -Primary Dressing Covered/Secured with Dry Gauze & Dry Gauze, Dry Gauze,Dry Roll Gauze, Secured with Gauze & Roll Secured with Tape Gauze,Secured Tape with Tape -Other Covering saline wet to dry -Promogran Beatris Matter 1 Left -Lotion applied to leg before No No compression wrap -Compression Wrap -Tubular Bandage Double Layer -Size of Tubigrip Used Size D -Size D ($) 2 -Other DOUBLE LAYER TUBIGRIP Treatment Response Procedure Procedure Tolerated Well Tolerated Well Pain Scale: 0-10 Numeric Is Patient Pain Free? Yes Yes Yes Teaching: Wound Center Dressing Your Wound -Person Taught Patient Patient -Teaching Method Discussion Discussion, Demonstration -Response to teaching Verbalize Verbalize understanding understanding WC - Visit Discharge Discharge Condition Stable Stable Stable Ambulatory Status Ambulatory Ambulatory Ambulatory Transportation Private Auto Private Auto Accompanied by SELF self Medication Reconcilliation completed & No No No provided to patient/care provider Clinical Summary of Care Provided Yes Yes Yes 04/15/21 09:45 Wound Care Nurse 3 #1 L Achilles -Ulcer Cleansing Rinsed/ Irrigated with Saline -Foul Odor after Cleansing No -Negative Pressure Wound Therapy -Primary Dressing Applied Promogran Beatris Matter -Other Dressing -Primary Dressing Covered/Secured with Dry Gauze & Roll Gauze, Secured with Tape -Other Covering -Promogran Beatris Matter 1 Left -Lotion applied to leg before compression wrap -Compression Wrap Jaycob Wrap -Tubular Bandage -Size of Tubigrip Used -Size D ($) -Other Treatment Response Procedure Tolerated Well Pain Scale: 0-10 Numeric Is Patient Pain Free? Yes Teaching: Wound Center Dressing Your Wound -Person Taught -Teaching Method -Response to teaching WC - Visit Discharge Discharge Condition Stable Ambulatory Status Ambulatory, Walker Transportation Private Auto Accompanied by knee walker Medication Reconcilliation completed & provided to patient/care provider Clinical Summary of Care Provided Wound debrided: posterior left lower leg Wound Grade/Stage: Type of Debridement: Excisional debridement Anesthesia Used: 4% Lidocaine Solution Depth: in the subcutaneous layer Percentage of wound debrided: 100 Instrument Used: #15 blade Tissue Removed: fibrous, devitalized subcutaneous, biofilm, slough Severity: Fat Layer Exposed Amount of bleeding with debridement: Mild Bleeding Controlled with: Pressure Patient tolerated procedure: Patient tolerated procedure well Assessment/Plan Assessment/Plan (1) Cellulitis and abscess of left leg: CODE(S): L03.116 - Cellulitis of left lower limb; L02.416 - Cutaneous abscess of left lower limb (2) Delayed surgical wound healing: CODE(S): T81.89XA - Other complications of procedures, not elsewhere classified, initial encounter (3) Strain of left Achilles tendon, initial encounter: CODE(S): S86.012A - Strain of left Achilles tendon, initial encounter (4) 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 Debridement was performed today as noted in the clinical panel to the ulcer site. The following work up and care recommendations were made: Dressing: Aquacel Ag daily. Is also okay to apply Adaptic only if needed. To cover a secondary gauze Wash: Antibacterial soap and water Tissue growth optimization: He was not approved for advanced wound healing product in outpatient setting. Pending continued resolution of infection, operating room application of advanced skin substitute will be considered. Cost determination of this option will be looked at. Anticipated procedure would be done as a same day surgery under mac/local. Offload: To reduce tension by avoiding active or passive ankle range of motion. To wear offloading donut pillow to take pressure off the site and to avoid sitting or laying directly on the wound. Vascular: There is palpable pulses. Continued delays in healing noted noninvasive vascular studies will be performed. Edema: Okay to use Tubigrip daily and to elevate intermittently Infection: He is MSSA infected ulcer and is being treated with 6 weeks of IV antibiotics via PICC line. Infectious disease is managing. Lab trends will be followed if he has return of symptoms. To complete the course of the recommend antibiotics. Nonfunctional fiber tape was removed from the wound. Itching is noted and he will reach out to infectious disease office to communicate this concern. Pain: Controlled with predebridement Percocet (once/week). To transition into half a tablet or [id number] Tylenol Host factors: To optimize healing with Chucho supplementation. He was advised upper extremity exercise and nonsurgical limb rowing is okay. He understands the main focus of his treatment plan his infection management and wound healing. The functionality of his tendon still guarded however appears to be overall intact at this time given his angulo test results. I answered all the patient's questions. To return to the wound healing center in 1 week or call sooner if the patient has any questions or concerns. Note: [employer] speech recognition security test engineer software was used to create portions of this document. Sound-alike and misspelled words, as well as other security test engineer errors may be contained in the documentation.
== END 2021-04-21 23:59 ==
LOC: WC 09:00
PROVIDERS: Referring Provider Internal Medicine; Visit Provider Internal Medicine
DX: T81.31XA Disruption of external operation (surgical) wound, not elsewhere classified, initial encounter (principal); L97.823 Non-pressure chronic ulcer of other part of left lower leg with necrosis of muscle; B95.61 Methicillin susceptible Staphylococcus aureus infection as the cause of diseases classified elsewhere; L02.416 Cutaneous abscess of left lower limb; L03.116 Cellulitis of left lower limb; Y83.8 Other surgical procedures as the cause of abnormal reaction of the patient, or of later complication, without mention of misadventure at the time of the procedure; Y92.9 Unspecified place or not applicable; Z79.899 Other long term (current) drug therapy
CPT/HCPCS: 11042; 87070; 87075; 87077; 87186; 87205; 87640

== ENCOUNTER 2021-05-01 07:18 | Day surgery (SDC) | payer BC, SELFPAY ==
[2021-05-01 07:50] VITALS: BP 130/80; PULSE 79; RESP 18; TEMP 36.7; O2SAT 100; BMI 22.6
[2021-05-01] MEDS: Lactated Ringers 1,000 ML 100 ML IV (07:50)
--- NOTE | 2021-05-01 08:19 | EX.PCM.DISCH ---
Discharge Instructions Diet Discharge Diet: No restrictions Activity Discharge Activity: May Shower (only with the use of a shower bag) Weight Bearing Status: No weight bearing Keep extremity elevated above heart level: Left Leg Dressing / Incision Call your doctor if your incision/area has: Continuous Slow Oozing, Sudden Increased Bleeding, Increased Pain/ Swelling, Increased Redness, Foul Smelling Discharge and Swelling at the incision site Call your doctor if you observe: Numbness or Tingling, Chest pain, Calf discomfort and Uncontrolled pain Cleanse incision/area with: Keep Dressing Clean & Dry Follow Up Care Please Follow Up With: Kait Bain DPM When: 1 week at wound healing center 05/06/21. Call Dr. Bain sooner if questions or concerns at [phone]. Test Results: Test results from this visit will be discussed in further detail at your follow-up appointment, if applicable. Discharge Plan Admission Attending Provider: Kait Bain Primary Care Provider: Care Physician,No Primary Discharge Orders/Prescriptions Prescriptions: No Action ascorbic acid (vitamin C) [Vitamin C] 1,000 mg Tablet 1 g PO DAILY RF: 0 magnesium 200 mg Tablet 400 mg PO DAILY RF: 0 docosahexaenoic acid-epa Capsule 1 cap PO DAILY RF: 0 vitamin B complex 1 tab PO/SL DAILY RF: 0 zinc 50 mg Tablet 50 mg PO DAILY RF: 0 cyclobenzaprine 5 mg tablet 5 mg PO TID PRN PRN (Reason: muscle spasms) RF: 0 cholecalciferol (vitamin D3) [Vitamin D3] 25 mcg (1,000 unit) Capsule 25 mcg PO DAILY RF: 0 cephalexin 500 mg capsule 500 mg PO DAILY RF: 0 cephalexin 500 mg capsule RF: 0 cephalexin 500 mg capsule RF: 0 cephalexin 500 mg capsule RF: 0 Referrals / Follow Up: Care Physician,No Primary [Primary Care Provider] - Disposition Disposition (needs filled in before D/C Order can be placed): Home, Self Care
[2021-05-01] MEDS: Bupivacaine Mpf 0.5% 30 ML VIAL (08:42)
[2021-05-01] MEDS: Lidocaine 1% (30 ml sdv) 30 ML Vial (08:42)
--- NOTE | 2021-05-01 09:04 | PCM.OPRPT ---
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 Anatomic dissection was performed. Materials: Epicord, 4-0 nylon, Adaptic Complications: None Specimens: None The patient tolerated the procedure and anesthesia well. The patient was transported to the PACU with vital signs stable and vascular status intact to the surgical limb. To ice and elevate for pain and inflammation management. Postoperative orders were entered electronically. Surgeon: Kait Bain basketball player: None (Colt Arriaga DPM, PGY3) Type of Anesthesia: Local (Preoperative: One-to-one mixture of 1% lidocaine plain and 0.5% Marcaine plain administered and local infiltrative subdermal manner at the ulcer site, 5 cc) and MAC Estimated Blood Loss (mL): Minimal Description of Procedure: Indications: This 50 year old male previously ruptured his tendon and had surgical repair with his director digital communications, Dr. Francisco Javier Granados, on 12-11-20. Postoperative casting and suture removal were uneventful and were later followed by dehiscence several weeks later. He has demonstrated continued delayed healing and notable deterioration in which she was subsequently admitted to the hospital underwent surgical incision and drainage and infected wound debridement on 04/01/2021. He subsequently has been following up at the wound healing center for serial debridement and is on a comprehensive wound healing plan. He recently completed a four week course of IV cefazolin due to his retained FiberWire hardware and his prior deep space infection. He was under the management of infectious disease specialist. He is also taking nutritional supplementation, offloading, and has maintained a non weightbearing status. He does not have any local or systemic signs of illness at this time and presents to the operating room today for additional debridement and application of advanced wound healing product to reduce healing time. This is a limb salvage attempt to preserve function of the limb with the goal of returning to daily activities. It is also noted he is an avid runner. Preoperative H&P were reviewed including his diagnostic data. There is no gross abnormalities noted with labs. Preoperative indications, planned procedure, benefits, risk, anticipated healing time and management were reviewed. The patient understands and elects proceed with surgery at this time. No guarantees were made. The patient understands risk and complications include but are not limited to following: pain, swelling, scarring, need for further surgery, tendon contracture, tendon weakening, transfer lesion, continiued hardware failure, arthritis, delayed or nonhealing, infection, blood clot, allergic reaction, loss of limb, function, or life. The informed surgical limb and consent were signed. I answered all the patient's questions. The patient also understands there is an inherent risk with being in the hospital and undergoing a procedure during the time of COVID-19 pandemic. The patient understands precautions are being taken to prevent transmission. This patient understands the benefits and risks of having a procedure at this time versus waiting in which the benefits are reasonable at this time. He has been vaccinated. Procedure in detail: The patient was transferred to the operating room via cart and placed on the operating table in the lateral position. Final verification of patient, surgery, limb designation was performed via the time out procedure. No tourniquet was utilized. The left lower extremity was prepped and draped in the usual aseptic manner. Anesthesia team initiated MAC sedation and I administered the local infiltrative anesthesia as noted. Attention was first directed to the posterior leg ulcer site which measured 4.0 x 1.4 x 1.1 cm. A 15 blade scalpel was used to perform subcutaneous excisional debridement to remove devitalized subcutaneous tissue, biofilm, fibrous tissue, slough, and nonfunctioning loose exposed Arthrex FiberWire. At the distalmost lateral aspect of the wound bed there is deeper probe to Achilles tendon in which the other part of the Achilles tendon is no longer visualized due to progressive granulation tissue. This appeared healthy in color. There is no purulence or necrosis. Copious irrigation was performed. The post debridement measurement was 4.3 x 1.7 x 1.1 cm. Epi cord was next applied during standard protocol over the entire wound bed taking care to applied several layers into the deeper portion for full coverage. This was next secured with nylon suture and was moistened with saline gauze. 100% of the product was utilized. Adaptic was further applied as a wound veil and secured in place with Steri-Strips and 4-0 nylon suture. A postoperative dressing was next applied with overlying 4 x 4 gauze, Kerlix, abdominal pad, and Jaycob wrap. There was no pulsatile bleeding and brisk capillary refill time continued throughout the entire procedure to all digits of the left foot and periulcer site. It is noted at the end of the surgery there was no necrosis, purulence, or odor appreciated. After procedure: The patient tolerated the procedure and anesthesia well. The patient was transported to the PACU with vital signs stable and vascular status intact to the surgical limb. To ice and elevate for pain and inflammation management. Postoperative orders were entered electronically. He was advised to maintain a nonweightbearing status and to keep pressure off of the ulcer by hanging over stacked pillows or blankets while resting. To keep the dressing clean, dry, and intact until follow-up with the wound healing center next Tuesday. The goal today was to apply an advancing healing product and to proceed forward with a noninfected status. Pending continued resolution of infection and viability of this recently debrided wound, additional intervention with removal of additional Arthrex FiberWire nonabsorbable material, further repair or reconstruction of this tendon if indicated. Further work-up with MRI will be considered to evaluate Achilles tendon viability for functional purposes also. Kait Bain DPM, [facility] Grafts/Implants Used: epicord (3x5 cm) Complications none Admit VTE Documentation VTE Present on Admission: No VTE Mechan Device Prophylaxis: SCD's VTE Pharm Prophylaxis ordered?: No Reason prophylaxis not ordered:: Procedure Not Indicated
[2021-05-01 09:10] VITALS: BP 110/75; BP 130/80; PULSE 57; RESP 16; TEMP 36.3; O2SAT 99
[2021-05-01 09:15] VITALS: BP 117/67; BP 130/80; PULSE 61; RESP 16; O2SAT 99
[2021-05-01 09:20] VITALS: BP 118/67; BP 130/80; PULSE 59; RESP 16; O2SAT 99
[2021-05-01 09:25] VITALS: BP 123/78; BP 130/80; PULSE 65; RESP 16; O2SAT 100
[2021-05-01 09:37] VITALS: BP 128/75; BP 130/80; PULSE 57; RESP 16; TEMP 36.4; O2SAT 100
== END 2021-05-01 09:52 | disposition home or self-care (01) ==
LOC: SDC 07:19 → AC 07:20
PROVIDERS: Referring Provider Podiatrist; Visit Provider Podiatrist
PROC: (CPT 11043; principal; 2021-05-01 08:45)
DX: L97.923 Non-pressure chronic ulcer of unspecified part of left lower leg with necrosis of muscle (principal)
CPT/HCPCS: 01470; 11043; 15275; J7120; J2405

== ENCOUNTER 2021-05-20 13:00 | Outpatient (RCR) | payer BC, SELFPAY ==
[2021-04-22 00:39] VITALS: BP 126/82; PULSE 70; RESP 16; TEMP 37; BMI 22.6
[2021-04-22 13:20] VITALS: BP 128/72; PULSE 75; TEMP 36.4; BMI 22.6
--- NOTE | 2021-04-22 16:25 | PN.ID_ITS ---
Physical Exam Narrative Leg improving, no fever, no n/v/d, no issues with picc Const alert and no apparent distress General Appearance: cooperative Resp normal air movement and clear to auscultation bilaterally Cardio regular rate and regular rhythm GI normal to inspection, nondistended, normoactive bowel sounds Extremity no clubbing, cyanosis or edema Skin Skin Narrative: achilles wound improving ID ID: Route of nutrition/ use of supplements: [] Nutritional Intake: [] IV Site: [] Conner Catheter: [] Assessment & Plan Assessment/Plan (1) Cellulitis and abscess of left leg: PLAN: L achilles infection and abscess with nonabsorbable sutures in place. Cxs with MSSA. Taken to OR by Dr. Bain. Discharged with picc and 4 weeks IV cefazolin, stop date 04/29/21 with weekly labs. Itching improved with zyrtec. With presence of sutures, plan will be for group home po keflex for suppression after iv course completes. Will follow, d/w Dr. Bain, return to clinic in 1 month.
--- NOTE | 2021-04-22 16:52 | PN.PCM_ITS ---
History of Present Illness Date of Service: 04/22/21 Chief Complaint: left leg ulcer History of Wound: Mr. Hernandez is a 50-year-old who had prior surgical repair following left Achilles tendon tear. He has a PICC line and will complete 6 weeks of IV antibiotics under the management of infectious disease. He has some torso itching and describes this more of a nuisance without rash or other symptoms; this is relieved with Zyrtec. He has been offloading. He has been practicing good hygiene techniques during dressing changes. He continues to take Chucho supplementation to optimize healing. He denies chills, fever, nausea, vomiting. He has been compliant with nonweightbearing recommendations. He is amendable to proceed with operating room application of advanced wound healing product to speed up the healing process. Review of system: Constitutional: Denies fever, chill, loss of appetite Heent: Denies vision or hearing changes, denies cough, denies sore throat Respiratory: Denies cough or shortness of breath Cardiovascular denies chest pain Gastrointestinal: Denies nausea, vomiting, diarrhea, constipation Hematological: Denies swollen glands Genitourinary: Denies urinary frequency or difficulty with urination Skin: Wound with resolving infection to left lower extremity Musculoskeletal: Denies joint or back pain Neurological: Denies paresthesias Progress of Wound: Improving Objective Data Objective Data Vital Signs: Vital Signs Temp Pulse Resp BP 97.6 F L 75 16 128/72 H 04/22/21 13:20 04/22/21 13:20 04/22/21 00:39 04/22/21 13:20 Weight: 75.735 kg Body Mass Index (BMI) 22.6 Physical Exam Const alert and oriented x3 General Appearance: cooperative HEENT normocephalic Mouth: oral and palatal mucosa normal Eyes EOMs intact bilaterally and conjunctivae normal Neck full ROM General: Negative for lymphadenopathy Resp normal respiratory effort Auscultation: clear to auscultation bilaterally; Negative for wheezes Cardio regular rate and regular rhythm Back/Spine no CVA tenderness Extremity Extremity Narrative: palpable pulses Muscle wasting noted Plantar flexion foot with Angulo test this is same compared to the contralateral noninjured limb General Extremity: edema and no tenderness to palpation of joints or extremities; Negative for cyanosis Skin Skin Narrative: no purulence, no streaking, no odor, no infection. continued reduction in Achilles exposure noted. There is no longer any visualized fiber tape. No adjacent bogginess or fluctuance General Skin Exam: Negative for erythema Neuro Neuro Narrative: Epicritic sensation is intact to light touch the right lower extremity. Psych cooperative and affect normal Debridement Note Debridement Note Wound debrided: posterior left lower extremity Wound Grade/Stage: Type of Debridement: Excisional debridement Anesthesia Used: 4% Lidocaine Solution Depth: in the subcutaneous layer Percentage of wound debrided: 100 Instrument Used: #15 blade Tissue Removed: fibrous, devitalized subcutaneous, biofilm, slough Severity: Fat Layer Exposed Amount of bleeding with debridement: Mild Bleeding Controlled with: Pressure Patient tolerated procedure: Patient tolerated procedure well Post-Debridement Measurements and Additional Note: Post-Debridement Measurements/Treatment - Nurse 1 - General Ulcer Assessment Start: 04/22/21 13:19 Freq: Status: Active Protocol: KEO Activity Type Activity Date Activity User E-Sign Co-Sign Detail Recorded Client Recorded Date Recorded By Document 04/22/21 13:20 VALENTINA [id number] 04/22/21 13:22 VALENTINA 04/22/21 13:20 WC - Today's Visit Information Type of service Follow-up Visit (Physician/TEST CONSULTANT ) Arrival Mode Ambulatory Patient Identification Verified (Name & Yes ) Height and Weight Body Mass Index (BMI) 22.6 BMI Classification Normal Vital Signs Temperature (97.8 F-99.1 F) 97.6 F L Temperature Source Temporal Pulse Rate (60-100) 75 Pulse Location Monitor Blood Pressure (90/60-120/80) 128/72 H Blood Pressure Mean (mm Hg) 90 Source Monitor History Since Last Visit- (Skip if this is Patient's initial visit) Have you changed medications since your No last visit? Any new allergies or adverse reactions No Had a fall/change in ADL's that may No increase risk of falls Signs or symptoms of abuse and/or No neglect since last visit Have you been in the hospital since your No last visit? Has dressing in place as prescribed Yes Has compression in place as prescribed Yes Has offloadiing in place as prescribed Yes Experienced any changes in pain level or No management Right Footwear Regular Shoe - Nurse 1 - General Ulcer Measurement Start: 04/22/21 13:19 Freq: Status: Active Protocol: Activity Type Activity Date Activity User E-Sign Co-Sign Detail Recorded Client Recorded Date Recorded By Document 04/22/21 13:20 VALENTINA [id number] 04/22/21 13:22 NH 04/22/21 13:20 Wound Center Nurse 1 #1 L Achilles -Current Size (cm) - Length 5 -Current Size (cm) - Width 2 -Current Size (cm) - Depth 0.1 -Total Square Cm 10 -Photo Taken No -Tunneling No -Undermining/Tunneling No -Circular Undermining No -Exudate Amt Large -Exudate Type Serosanguineous -Wound Margin Distinct, Outline Attached -Granulation Amt Large (67-100%) -Granulation Quality Red -Slough/Fibrin Yes -Necrosis Amt Large (67-100%) -Necrotic Tissue Type Adherent Slough -Structure Exposed N/A -Texture (Sue-wound Skin Appearance) No Abnormality, Assessed -Moisture (Sue-wound Skin Appearance) No Abnormality, Assessed -Color (Sue-wound Skin Appearance) No Abnormality, Assessed -Temperature (Sue-wound Skin No Abnormality Appearance) (Pt Warm) -Tenderness on Palpation (Sue-wound No Skin Appearance) -Ulcer Cleansing Rinsed/ Irrigated with Saline -Foul Odor after Cleansing No -Anesthetic Used 5% Lidocaine Gel WC - Nurse 2 - General Ulcer CM Notes Start: 04/22/21 13:19 Freq: Status: Active Protocol: Activity Type Activity Date Activity User E-Sign Co-Sign Detail Recorded Client Recorded Date Recorded By Document 04/22/21 13:29 JOAN [id number] 04/22/21 13:32 JOAN 04/22/21 13:29 Wound Center Nurse 2 -Time 13:30 -Correct Patient Yes -Correct Side, Site, Position Yes -Correct Procedure Yes -Procedure Performed Yes -Type of Procedure Incision & Drainage -Tissue Removed Epidermis, Subcutaneous -Post Debridement (cm) - Length 4.8 -Post Debridement (cm) - Width 1.8 -Post Debridement (cm) - Depth 0.3 -Total Square (Post) (cm) 8.64 -Area of Debridement (cm) - Length 4.8 -Area of Debridement (cm) - Width 1.8 -Total Square (Area) (cm) 8.64 -Tunneling No -Undermining/Tunneling No -Circular Undermining No -Wound/Ulcer Outcome Not Healed -Ulcer Cleansing Rinsed/ Irrigated with Saline -Bioengineered Tissue No -Bleeding Controlled with Pressure -Offloading No -Treatment Response Procedure Tolerated Well -Debridement - Subq, 1st 20sq cm Yes Pain Scale: 0-10 Numeric Is Patient Pain Free? Yes WC - Nurse 3 - General Ulcer D/C NN Start: 04/22/21 13:19 Freq: Status: Active Protocol: Activity Type Activity Date Activity User E-Sign Co-Sign Detail Recorded Client Recorded Date Recorded By Document 04/22/21 14:40 DL [id number] 04/22/21 14:41 DL 04/22/21 14:40 Wound Care Nurse 3 #1 L Achilles -Ulcer Cleansing Wound Cleanser -Foul Odor after Cleansing No -Other Dressing maria isabel -Primary Dressing Covered/Secured with Dry Gauze & Roll Gauze, Secured with Tape -Other Covering katerina Treatment Response Procedure Tolerated Well Pain Scale: 0-10 Numeric Is Patient Pain Free? 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 Debridement was performed today as noted in the clinical panel to the ulcer site. The following work up and care recommendations were made: Dressing: Aquacel Ag daily. Is also okay to apply Adaptic only if needed. To cover a secondary gauze Wash: Antibacterial soap and water Tissue growth optimization: He was not approved for advanced wound healing product in outpatient setting. Pending continued resolution of infection, operating room application of advanced skin substitute will be considered. Cost determination of this option will be looked at. Anticipated procedure would be done as a same day surgery under mac/local to allow for product application and more aggressive debridement. Surgical planning: Preoperative H&P were reviewed including his diagnostic data. Preoperative indications, planned procedure, benefits, risk, anticipated healing time and management were reviewed. The patient understands and elects proceed with surgery at this time. No guarantees were made. The patient understands risk and complications include but are not limited to following: pain, swelling, scarring, need for further surgery, tendon contracture, transfer lesion, hardware failure, arthritis, need for further surgery, delayed or nonhealing, infection, blood clot, allergic reaction, loss of limb, function, or life. The informed surgical consent were signed today for left lower extremity ulcer debridement with application of advanced wound healing product (epi cord). I answered all the patient's questions. The patient also understands there is an inherent risk with being in the hospital and undergoing a procedure during the time of COVID-19 pandemic. The patient understands precautions are being taken to prevent transmission. This patient understands the benefits and risks of having a procedure at this time versus waiting in which the benefits are reasonable at this time. The goal timing of surgery is within the next one to two weeks pending OR availability. Offload: To reduce tension by avoiding active or passive ankle range of motion. To wear offloading donut pillow to take pressure off the site and to avoid sitting or laying directly on the wound. Vascular: There is palpable pulses. Continued delays in healing noted noninvasive vascular studies will be performed. Edema: Okay to use Tubigrip daily and to elevate intermittently Infection: He is MSSA infected ulcer and is being treated with 6 weeks of IV antibiotics via PICC line. Infectious disease is managing. He is currently on IV cefazolin. His stop date is 04-29-21. He was seen by infectious disease physician also today and he will continue on oral Keflex for at least a couple of months for long-term suppression due to the retained FiberWire's and bone anchors in the adjacent tissue. To continue Zyrtec as needed while he completes his IV antibiotics. Pain: Controlled with predebridement Percocet (once/week). To transition into half a tablet or [id number] Tylenol only if needed. He did not require medication this week and did well. Host factors: To optimize healing with Chucho supplementation. He was advised upper extremity exercise and nonsurgical limb rowing is okay. He understands the main focus of his treatment plan his infection management and wound healing. The functionality of his tendon still guarded however appears to be overall intact at this time given his angulo test results. I answered all the patient's questions. To return to the wound healing center in 1 week or call sooner if the patient has any questions or concerns. Note: [employer] speech recognition database marketing specialist software was used to create portions of this document. Sound-alike and misspelled words, as well as other database marketing specialist errors may be contained in the documentation. 30 minutes was spent on this encounter. This included face to face and non face to face care including preparing for the visit, reviewing the history, performing the exam, counseling and providing education to the patient, family, or caregiver, ordering medications/test/ procedures if indicated as documented, communicating with other healthcare providers, documenting information in the medical record, interpreting / sharing this information when indicated as documented, and care coordination.
[2021-04-29 09:04] VITALS: BP 124/70; PULSE 73; RESP 18; TEMP 36.6; BMI 22.6
--- NOTE | 2021-04-29 10:42 | PN.PCM_ITS ---
History of Present Illness Date of Service: 04/29/21 Chief Complaint: left leg ulcer History of Wound: Mr. Hernandez is a 50-year-old who had prior surgical repair following left Achilles tendon tear. He has a PICC line and will complete 6 weeks of IV antibiotics under the management of infectious disease. He continues to take Chucho supplementation to optimize healing. He denies chills, fever, nausea, vomiting, body itching, diarrhea. He has been compliant with nonweightbearing recommendations. He is amendable to proceed with operating room application of advanced wound healing product to speed up the healing process. This is scheduled for this upcoming Tuesday morning at [facility]. Progress of Wound: Stabilized Objective Data Objective Data Vital Signs: Vital Signs Temp Pulse Resp BP 97.8 F 73 18 124/70 H 04/29/21 09:04 04/29/21 09:04 04/29/21 09:04 04/29/21 09:04 Oxygen Delivery Method Room Air Weight: 75.735 kg Body Mass Index (BMI) 22.6 Physical Exam Eyes EOMs intact bilaterally and conjunctivae normal Neck full ROM General: Negative for lymphadenopathy Resp normal respiratory effort Auscultation: clear to auscultation bilaterally; Negative for wheezes Cardio regular rate and regular rhythm Back/Spine no CVA tenderness Extremity Extremity Narrative: palpable pulses Muscle wasting noted Skin Skin Narrative: no purulence, no streaking, no odor, no infection. continued reduction in Achilles exposure noted at distal most pole of the ulcer. There is no longer any visualized fiber tape. No adjacent bogginess or fluctuance Neuro Neuro Narrative: Epicritic sensation is intact to light touch the right lower extremity. Debridement Note Debridement Note Wound debrided: posterior left lower extremity Wound Grade/Stage: Type of Debridement: Excisional debridement Anesthesia Used: 4% Lidocaine Solution Depth: in the subcutaneous layer Percentage of wound debrided: 100 Instrument Used: #15 blade Tissue Removed: fibrous, devitalized subcutaneous, biofilm, slough Severity: Fat Layer Exposed Amount of bleeding with debridement: Mild Bleeding Controlled with: Pressure Patient tolerated procedure: Patient tolerated procedure well Post-Debridement Measurements and Additional Note: Post-Debridement Measurements/Treatment TOBY - Nurse 1 - General Ulcer Assessment Start: 04/22/21 13:19 Freq: Status: Active Protocol: KEO Activity Type Activity Date Activity User E-Sign Co-Sign Detail Recorded Client Recorded Date Recorded By Document 04/22/21 13:20 AK [id number] 04/22/21 13:22 AK Document 04/29/21 09:04 [facility] [id number] 04/29/21 09:06 [facility] 04/22/21 04/29/21 13:20 09:04 - Today's Visit Information Type of service Follow-up Visit Follow-up Visit (Physician/ORDER SCHEDULE CLERK (Physician/ORDER SCHEDULE CLERK ) ) Arrival Mode Ambulatory Ambulatory Transfer Assistance None Patient Identification Verified (Name & Yes Yes ) Patient Requires Transmission-Based No Precautions Height and Weight Body Mass Index (BMI) 22.6 22.6 BMI Classification Normal Normal Vital Signs Temperature (97.8 F-99.1 F) 97.6 F L 97.8 F Temperature Source Temporal Temporal Pulse Rate (60-100) 75 73 Pulse Location Monitor Monitor Respiratory Rate (12-18) 18 Respiratory rate source Observation Oxygen Delivery Method Room Air Blood Pressure (90/60-120/80) 128/72 H 124/70 H Blood Pressure Mean (mm Hg) 90 88 Source Monitor Monitor Position Sitting Blood Pressure Location Right Arm History Since Last Visit- (Skip if this is Patient's initial visit) Have you changed medications since your No No last visit? Any new allergies or adverse reactions No No Had a fall/change in ADL's that may No No increase risk of falls Signs or symptoms of abuse and/or No No neglect since last visit Have you been in the hospital since your No No last visit? Has dressing in place as prescribed Yes Yes Has compression in place as prescribed Yes N/A Has offloadiing in place as prescribed Yes Yes Experienced any changes in pain level or No No management Right Footwear Regular Shoe Pain Scale: 0-10 Numeric Is Patient Pain Free? Yes - Nurse 1 - General Ulcer Measurement Start: 04/22/21 13:19 Freq: Status: Active Protocol: Activity Type Activity Date Activity User E-Sign Co-Sign Detail Recorded Client Recorded Date Recorded By Document 04/22/21 13:20 VALENTINA [id number] 04/22/21 13:22 AK Document 04/29/21 09:04 [facility] [id number] 04/29/21 09:06 [facility] 04/22/21 04/29/21 13:20 09:04 Wound Center Nurse 1 #1 L Achilles -Combined with other wound No -Current Size (cm) - Length 5 3.7 -Current Size (cm) - Width 2 1.1 -Current Size (cm) - Depth 0.1 0.1 -Total Square Cm 10 4.07 -Photo Taken No No -Epithelialization Small 1-33% -Tunneling No No -Undermining/Tunneling No No -Circular Undermining No No -Exudate Amt Large Medium -Exudate Type Serosanguineous Serosanguineous -Wound Margin Distinct, Distinct, Outline Outline Attached Attached -Granulation Amt Large (67-100%) Large (67-100%) -Granulation Quality Red Red -Slough/Fibrin Yes Yes -Necrosis Amt Large (67-100%) Small (1-33%) -Necrotic Tissue Type Adherent Slough Adherent Slough -Structure Exposed N/A -Texture (Sue-wound Skin Appearance) No Abnormality, Assessed, Assessed Scarring -Moisture (Sue-wound Skin Appearance) No Abnormality, Assessed Assessed -Color (Sue-wound Skin Appearance) No Abnormality, Assessed Assessed -Temperature (Sue-wound Skin No Abnormality No Abnormality Appearance) (Pt Warm) (Pt Warm) -Tenderness on Palpation (Sue-wound No No Skin Appearance) -Ulcer Cleansing Rinsed/ Rinsed/ Irrigated with Irrigated with Saline Saline -Foul Odor after Cleansing No No -Anesthetic Used 5% Lidocaine 4% Lidocaine Gel Solution WC - Nurse 2 - General Ulcer CM Notes Start: 04/22/21 13:19 Freq: Status: Active Protocol: Activity Type Activity Date Activity User E-Sign Co-Sign Detail Recorded Client Recorded Date Recorded By Document 04/22/21 13:29 [id number] 04/22/21 13:32 Document 04/29/21 09:13 [id number] 04/29/21 09:15 04/22/21 04/29/21 13:29 09:13 Wound Center Nurse 2 #1 L Achilles -Time 13:30 09:14 -Correct Patient Yes Yes -Correct Side, Site, Position Yes Yes -Correct Procedure Yes Yes -Procedure Performed Yes Yes -Type of Procedure Incision & Debridement Drainage -Clinical Debridement Subcutaneous -Tissue Removed Epidermis, Subcutaneous Subcutaneous -Post Debridement (cm) - Length 4.8 3.8 -Post Debridement (cm) - Width 1.8 1.1 -Post Debridement (cm) - Depth 0.3 0.2 -Total Square (Post) (cm) 8.64 4.18 -Area of Debridement (cm) - Length 4.8 3.8 -Area of Debridement (cm) - Width 1.8 1.1 -Total Square (Area) (cm) 8.64 4.18 -Tunneling No No -Undermining/Tunneling No No -Circular Undermining No No -Wound/Ulcer Outcome Not Healed Not Healed -Ulcer Cleansing Rinsed/ Rinsed/ Irrigated with Irrigated with Saline Saline -Foul Odor after Cleansing No -Bioengineered Tissue No No -Bleeding Controlled with Pressure Pressure -Offloading No No -Treatment Response Procedure Procedure Tolerated Well Tolerated Well -Debridement - Subq, 1st 20sq cm Yes Yes Pain Scale: 0-10 Numeric Is Patient Pain Free? Yes Yes - Nurse 3 - General Ulcer D/C NN Start: 04/22/21 13:19 Freq: Status: Active Protocol: Activity Type Activity Date Activity User E-Sign Co-Sign Detail Recorded Client Recorded Date Recorded By Document 04/22/21 14:40 DL [id number] 04/22/21 14:41 DL Document 04/29/21 09:26 [facility] [id number] 04/29/21 09:27 [facility] 04/22/21 04/29/21 14:40 09:26 Wound Care Nurse 3 #1 L Achilles -Ulcer Cleansing Wound Cleanser Rinsed/ Irrigated with Saline -Foul Odor after Cleansing No No -Primary Dressing Applied Promogran Maria Isabel Matter -Other Dressing maria isabel -Primary Dressing Covered/Secured with Dry Gauze & Dry Gauze & Roll Gauze, Roll Gauze, Secured with Secured with Tape Tape -Other Covering jaycob -Promogran Maria Isabel Matter 1 Left -Compression Wrap Jaycob Wrap -Other JAYCOB TO SECURE Treatment Response Procedure Procedure Tolerated Well Tolerated Well Pain Scale: 0-10 Numeric Is Patient Pain Free? 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 Debridement was performed today as noted in the clinical panel to the ulcer site. The following work up and care recommendations were made: Dressing: Aquacel Ag daily. Is also okay to apply Adaptic only if needed. To cover a secondary gauze Wash: Antibacterial soap and water Tissue growth optimization:Resolution of local infection has went well, operating room application of advanced skin substitute is scheduled for this Tuesday at [facility]. preoperative H&P were reviewed including his diagnostic data. There is no gross abnormalities noted with labs for preoperative EKG. Anticipated procedure would be done as a same day surgery under mac/local to allow for product application and more aggressive debridement. Surgical consents and discussion was completed with H & P last week. Offload: To reduce tension by avoiding active or passive ankle range of motion. To wear offloading donut pillow to take pressure off the site and to avoid sitting or laying directly on the wound. Vascular: There is palpable pulses. Continued delays in healing noted noninvasive vascular studies will be performed. Edema: Okay to use Tubigrip daily and to elevate intermittently Infection: He had MSSA infected ulcer and is being treated with 6 weeks of IV antibiotics via PICC line. Infectious disease is managing. He is currently on IV cefazolin. His stop date is 04-29-21. He was seen by infectious disease physician also today and he will continue on oral Keflex for at least a couple of months for long-term suppression due to the retained FiberWire's and bone anchors in the adjacent tissue. To continue Zyrtec as needed while he completes his IV antibiotics. Pain: He no longer required pain medication (prescription strength). Host factors: To optimize healing with Chucho supplementation. He was advised upper extremity exercise and nonsurgical limb rowing is okay. He understands the main focus of his treatment plan his infection management and wound healing. The functionality of his tendon still guarded however appears to be overall intact at this time given his lopez test results. I answered all the patient's questions. To return to the wound healing center in 1 week or call sooner if the patient has any questions or concerns. Note: [employer] speech recognition interactive media marketing director software was used to create portions of this document. Sound-alike and misspelled words, as well as other interactive media marketing director errors may be contained in the documentation.
[2021-05-06 08:11] VITALS: BP 134/78; PULSE 72; RESP 20; TEMP 36.6; BMI 22.6
--- NOTE | 2021-05-06 09:01 | PCM.WC.PN ---
History of Present Illness Date of Service: 05/06/21 Chief Complaint: left leg ulcer History of Wound: Mr. Hernandez is a 50-year-old who had prior surgical repair following left Achilles tendon tear. He completed his course of antibiotics. He continues to take Chucho supplementation to optimize healing. He denies chills, fever, nausea, vomiting, body itching, diarrhea. He has been compliant with nonweightbearing recommendations. He recently had an appendectomy toward advanced wound and chronic application applied. He left his dressing clean dry and intact as advised. Progress of Wound: Stable Objective Data Objective Data Vital Signs: Vital Signs Temp Pulse Resp BP 97.9 F 72 20 H 134/78 H 05/06/21 08:11 05/06/21 08:11 05/06/21 08:11 05/06/21 08:11 Oxygen Delivery Method Room Air Weight: 75.735 kg Body Mass Index (BMI) 22.6 Physical Exam Back/Spine no CVA tenderness Extremity Extremity Narrative: palpable pulses Muscle wasting noted Active plantarflexion and dorsiflexion of the left lower extremity is noted with a palpable Achilles tendon without dell or hypertrophy Skin Skin Narrative: no purulence, no streaking, no odor, no infection. No adjacent bogginess or fluctuance. Wound is well aligned and coapting. This is covered with Adaptic and secured with sutures and Steri-Strips. Neuro Neuro Narrative: Epicritic sensation is intact to light touch the right lower extremity. Debridement Note Debridement Note Post-Debridement Measurements and Additional Note: Post-Debridement Measurements/Treatment - Nurse 1 - General Ulcer Assessment Start: 04/22/21 13:19 Freq: Status: Active Protocol: KEO Activity Type Activity Date Activity User E-Sign Co-Sign Detail Recorded Client Recorded Date Recorded By Document 04/22/21 13:20 AK [id number] 04/22/21 13:22 AK Document 04/29/21 09:04 BM [id number] 04/29/21 09:06 BMF Document 05/06/21 08:11 DL [id number] 05/06/21 08:15 DL 04/22/21 04/29/21 05/06/21 13:20 09:04 08:11 - Today's Visit Information Type of service Follow-up Visit Follow-up Visit Follow-up Visit (Physician/ELIGIBILITY COUNSELOR (Physician/ELIGIBILITY COUNSELOR (Physician/ELIGIBILITY COUNSELOR ) ) ) Arrival Mode Ambulatory Ambulatory Ambulatory Transfer Assistance None None Patient Identification Verified (Name & Yes Yes Yes ) Patient Requires Transmission-Based No No Precautions Height and Weight Body Mass Index (BMI) 22.6 22.6 22.6 BMI Classification Normal Normal Normal Vital Signs Temperature (97.8 F-99.1 F) 97.6 F L 97.8 F 97.9 F Temperature Source Temporal Temporal Temporal Pulse Rate (60-100) 75 73 72 Pulse Location Monitor Monitor Monitor Respiratory Rate (12-18) 18 20 H Respiratory rate source Observation Oxygen Delivery Method Room Air Blood Pressure (90/60-120/80) 128/72 H 124/70 H 134/78 H Blood Pressure Mean (mm Hg) 90 88 96 Source Monitor Monitor Monitor Position Sitting Blood Pressure Location Right Arm Comment graft recheck today. History Since Last Visit- (Skip if this is Patient's initial visit) Have you changed medications since your No No No last visit? Any new allergies or adverse reactions No No No Had a fall/change in ADL's that may No No No increase risk of falls Signs or symptoms of abuse and/or No No No neglect since last visit Have you been in the hospital since your No No No last visit? Has dressing in place as prescribed Yes Yes Yes Has compression in place as prescribed Yes N/A Yes Has offloadiing in place as prescribed Yes Yes N/A Experienced any changes in pain level or No No Yes management Left Footwear No Footwear Right Footwear Regular Shoe Pain Scale: 0-10 Numeric Is Patient Pain Free? Yes Yes WC - Nurse 1 - General Ulcer Measurement Start: 04/22/21 13:19 Freq: Status: Active Protocol: Activity Type Activity Date Activity User E-Sign Co-Sign Detail Recorded Client Recorded Date Recorded By Document 04/22/21 13:20 AK [id number] 04/22/21 13:22 AK Document 04/29/21 09:04 [facility] [id number] 04/29/21 09:06 BM Document 05/06/21 08:11 DL [id number] 05/06/21 08:15 DL 04/22/21 04/29/21 05/06/21 13:20 09:04 08:11 Wound Center Nurse 1 #1 L Achilles -Combined with other wound No -Current Size (cm) - Length 5 3.7 0.1 -Current Size (cm) - Width 2 1.1 0.1 -Current Size (cm) - Depth 0.1 0.1 0.1 -Total Square Cm 10 4.07 0.01 -Photo Taken No No No -Epithelialization Small 1-33% -Tunneling No No -Undermining/Tunneling No No -Circular Undermining No No -Exudate Amt Large Medium Small -Exudate Type Serosanguineous Serosanguineous Serosanguineous -Wound Margin Distinct, Distinct, Distinct, Outline Outline Outline Attached Attached Attached -Granulation Amt Large (67-100%) Large (67-100%) None Present (0 %) -Granulation Quality Red Red -Slough/Fibrin Yes Yes -Necrosis Amt Large (67-100%) Small (1-33%) -Necrotic Tissue Type Adherent Slough Adherent Slough -Structure Exposed N/A N/A -Texture (Sue-wound Skin Appearance) No Abnormality, Assessed, Scarring Assessed Scarring -Moisture (Sue-wound Skin Appearance) No Abnormality, Assessed No Abnormality Assessed -Color (Sue-wound Skin Appearance) No Abnormality, Assessed Assessed Assessed -Temperature (Sue-wound Skin No Abnormality No Abnormality No Abnormality Appearance) (Pt Warm) (Pt Warm) (Pt Warm) -Tenderness on Palpation (Sue-wound No No No Skin Appearance) -Ulcer Cleansing Rinsed/ Rinsed/ leg only Irrigated with Irrigated with Saline Saline -Foul Odor after Cleansing No No No -Anesthetic Used 5% Lidocaine 4% Lidocaine Gel Solution WC - Nurse 2 - General Ulcer CM Notes Start: 04/22/21 13:19 Freq: Status: Active Protocol: Activity Type Activity Date Activity User E-Sign Co-Sign Detail Recorded Client Recorded Date Recorded By Document 04/22/21 13:29 [id number] 04/22/21 13:32 Document 04/29/21 09:13 JF [id number] 04/29/21 09:15 Document 05/06/21 08:29 [id number] 05/06/21 08:32 04/22/21 04/29/21 05/06/21 13:29 09:13 08:29 Wound Center Nurse 2 #1 L Achilles -Time 13:30 09:14 -Correct Patient Yes Yes No -Correct Side, Site, Position Yes Yes No -Correct Procedure Yes Yes No -Procedure Performed Yes Yes No -Type of Procedure Incision & Debridement Drainage -Clinical Debridement Subcutaneous -Tissue Removed Epidermis, Subcutaneous Subcutaneous -Post Debridement (cm) - Length 4.8 3.8 -Post Debridement (cm) - Width 1.8 1.1 -Post Debridement (cm) - Depth 0.3 0.2 -Total Square (Post) (cm) 8.64 4.18 -Area of Debridement (cm) - Length 4.8 3.8 -Area of Debridement (cm) - Width 1.8 1.1 -Total Square (Area) (cm) 8.64 4.18 -Tunneling No No -Undermining/Tunneling No No -Circular Undermining No No -Wound/Ulcer Outcome Not Healed Not Healed Not Healed -Ulcer Cleansing Rinsed/ Rinsed/ Irrigated with Irrigated with Saline Saline -Foul Odor after Cleansing No -Bioengineered Tissue No No -Bleeding Controlled with Pressure Pressure -Offloading No No -Treatment Response Procedure Procedure Tolerated Well Tolerated Well -Debridement - Subq, 1st 20sq cm Yes Yes Pain Scale: 0-10 Numeric Is Patient Pain Free? Yes Yes Yes - Nurse 3 - General Ulcer D/C NN Start: 04/22/21 13:19 Freq: Status: Active Protocol: Activity Type Activity Date Activity User E-Sign Co-Sign Detail Recorded Client Recorded Date Recorded By Document 04/22/21 14:40 [id number] 04/22/21 14:41 Document 04/29/21 09:26 [facility] [id number] 04/29/21 09:27 [facility] Document 05/06/21 08:36 RB [id number] 05/06/21 08:37 RB 04/22/21 04/29/21 05/06/21 14:40 09:26 08:36 Wound Care Nurse 3 #1 L Achilles -Ulcer Cleansing Wound Cleanser Rinsed/ Irrigated with Saline -Foul Odor after Cleansing No No -Primary Dressing Applied Promogran Maria Isabel Matter -Other Dressing maria isabel -Primary Dressing Covered/Secured with Dry Gauze & Dry Gauze & Dry Gauze,Dry Roll Gauze, Roll Gauze, Gauze & Roll Secured with Secured with Gauze,Secured Tape Tape with Tape -Other Covering jaycob -Promogran Maria Isabel Matter 1 Left -Compression Wrap Jaycob Wrap -Other JAYCOB TO SECURE jaycob Treatment Response Procedure Procedure Procedure Tolerated Well Tolerated Well Tolerated Well Pain Scale: 0-10 Numeric Is Patient Pain Free? Yes Yes Yes WC - Visit Discharge Discharge Condition Stable Stable Stable Ambulatory Status Walker Ambulatory, Ambulatory, Walker Walker Transportation Private Auto Private Auto Private Auto Medication Reconcilliation completed & No provided to patient/care provider Clinical Summary of Care Provided Yes Notes: KNEE WALKER kneewalker Assessment/Plan Assessment/Plan (1) Cellulitis and abscess of left leg: CODE(S): L03.116 - Cellulitis of left lower limb; L02.416 - Cutaneous abscess of left lower limb (2) Delayed surgical wound healing: CODE(S): T81.89XA - Other complications of procedures, not elsewhere classified, initial encounter (3) Strain of left Achilles tendon, initial encounter: CODE(S): S86.012A - Strain of left Achilles tendon, initial encounter (4) 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 Debridement was performed today as noted in the clinical panel to the ulcer site. The following work up and care recommendations were made: Dressing: Secondary dressing was applied he was advised to keep this clean, dry, and intact until follow-up next week. Tissue growth optimization: He recently had advanced wound care product, epi cord applied in the operating room setting. Offload: To reduce tension by avoiding active or passive ankle range of motion. To wear offloading donut pillow to take pressure off the site and to avoid sitting or laying directly on the wound. He will bring in his Achilles wedge walking boot next week to consider progression of partial weightbearing. To continue ambulation with knee roller. Vascular: There is palpable pulses. Continued delays in healing noted noninvasive vascular studies will be performed. Edema: Okay to use Tubigrip daily and to elevate intermittently Infection: He had prior MSSA infected ulcer and completed a 6 week course of IV antibiotics; cefazolin. This was completed and I do not recommend additional antibiotics at this time. He is reassured no local signs of infection are noted. Pain: He no longer required pain medication (prescription strength). Host factors: To optimize healing with Chucho supplementation. He was advised upper extremity exercise and nonsurgical limb rowing is okay. He understands the main focus of his treatment plan his infection management and wound healing. The functionality of his tendon still guarded however appears to be overall intact at this time given his lopez test results. A prescription for parking placard was provided today. I answered all the patient's questions. To return to the wound healing center in 1 week or call sooner if the patient has any questions or concerns. The medical decision making level is low. There is noted low risk of morbidity after considering this treatment plan and diagnostic data. The problems addressed require a low medical decision making level which includes two or more minor problems, a stable chronic illness, or an acute uncomplicated illness or injury. Note: [employer] speech recognition potato grader software was used to create portions of this document. Sound-alike and misspelled words, as well as other potato grader errors may be contained in the documentation.
[2021-05-13 08:09] VITALS: BP 128/73; PULSE 76; RESP 18; TEMP 36.5; BMI 22.6
--- NOTE | 2021-05-13 08:50 | PCM.PROGNOTE ---
Objective Data Objective Data Vital Signs: Vital Signs Temp Pulse Resp BP 97.7 F L 76 18 128/73 H 05/13/21 08:09 05/13/21 08:09 05/13/21 08:09 05/13/21 08:09 Oxygen Delivery Method Room Air Weight: 75.735 kg Body Mass Index (BMI) 22.6
--- NOTE | 2021-05-13 14:18 | PCM.WC.PN ---
History of Present Illness Date of Service: 05/13/21 Chief Complaint: left leg ulcer History of Wound: Mr. Hernandez is a 50-year-old who had prior surgical repair following left Achilles tendon tear. He completed his course of antibiotics. He continues to take Chucho supplementation to optimize healing. He denies chills, fever, nausea, vomiting, body itching, diarrhea. He has been compliant with nonweightbearing recommendations. He recently had an application with advanced wound product in the OR. He brought his walking boot with him today with heel lifts and hope to transition into partial weightbearing activities. He thought his wound has an odor and was infected and [facility]; no odor or infection was noted once evaluated clinically. The remainder of the epi cord and sutures were removed yesterday in clinic. Progress of Wound: Improving Objective Data Objective Data Vital Signs: Vital Signs Temp Pulse Resp BP 97.7 F L 76 18 128/73 H 05/13/21 08:09 05/13/21 08:09 05/13/21 08:09 05/13/21 08:09 Oxygen Delivery Method Room Air Weight: 75.735 kg Body Mass Index (BMI) 22.6 Physical Exam Const alert and oriented x3 General Appearance: cooperative HEENT normocephalic Extremity Extremity Narrative: No calf tenderness Palpable pedal pulses 2 out of 4 Angulo test reveals plantar flexion of the surgical limb equal in comparison to the contralateral healthy limb General Extremity: edema and no tenderness to palpation of joints or extremities; Negative for cyanosis Skin Skin Narrative: no purulence, no streaking, no odor, no infection. There is significant peripheral epithelialization noted and I am no longer able to visualize the Achilles tendon. The ulcer bed is 100% granular. No adjacent fluctuance or bogginess General Skin Exam: Negative for erythema Neuro Neuro Narrative: Epicritic sensation intact to light touch Psych cooperative and affect normal Debridement Note Debridement Note Wound debrided: Posterior left lower leg Wound Grade/Stage: Type of Debridement: Excisional debridement Anesthesia Used: 4% Lidocaine Solution Depth: in the subcutaneous layer Percentage of wound debrided: 100 Instrument Used: #15 blade Tissue Removed: fibrous, devitalized subcutaneous, biofilm, slough Severity: Fat Layer Exposed Amount of bleeding with debridement: Mild Bleeding Controlled with: Pressure Patient tolerated procedure: Patient tolerated procedure well Post-Debridement Measurements and Additional Note: Post-Debridement Measurements/Treatment WC - Nurse 1 - General Ulcer Assessment Start: 04/22/21 13:19 Freq: Status: Active Protocol: KEO Activity Type Activity Date Activity User E-Sign Co-Sign Detail Recorded Client Recorded Date Recorded By Document 04/22/21 13:20 AK [id number] 04/22/21 13:22 AK Document 04/29/21 09:04 BMF [id number] 04/29/21 09:06 BMF Document 05/06/21 08:11 DL [id number] 05/06/21 08:15 DL Document 05/13/21 08:09 DL [id number] 05/13/21 08:12 DL 04/22/21 04/29/21 05/06/21 13:20 09:04 08:11 WC - Today's Visit Information Type of service Follow-up Visit Follow-up Visit Follow-up Visit (Physician/BUSINESS ADMINISTRATION PROFESSOR (Physician/BUSINESS ADMINISTRATION PROFESSOR (Physician/BUSINESS ADMINISTRATION PROFESSOR ) ) ) Arrival Mode Ambulatory Ambulatory Ambulatory Transfer Assistance None None Patient Identification Verified (Name & Yes Yes Yes ) Patient Requires Transmission-Based No No Precautions Height and Weight Body Mass Index (BMI) 22.6 22.6 22.6 BMI Classification Normal Normal Normal Vital Signs Temperature (97.8 F-99.1 F) 97.6 F L 97.8 F 97.9 F Temperature Source Temporal Temporal Temporal Pulse Rate (60-100) 75 73 72 Pulse Location Monitor Monitor Monitor Respiratory Rate (12-18) 18 20 H Respiratory rate source Observation Oxygen Delivery Method Room Air Blood Pressure (90/60-120/80) 128/72 H 124/70 H 134/78 H Blood Pressure Mean (mm Hg) 90 88 96 Source Monitor Monitor Monitor Position Sitting Blood Pressure Location Right Arm Comment graft recheck today. History Since Last Visit- (Skip if this is Patient's initial visit) Have you changed medications since your No No No last visit? Any new allergies or adverse reactions No No No Had a fall/change in ADL's that may No No No increase risk of falls Signs or symptoms of abuse and/or No No No neglect since last visit Have you been in the hospital since your No No No last visit? Has dressing in place as prescribed Yes Yes Yes Has compression in place as prescribed Yes N/A Yes Has offloadiing in place as prescribed Yes Yes N/A Experienced any changes in pain level or No No Yes management Left Footwear No Footwear Right Footwear Regular Shoe Pain Scale: 0-10 Numeric Is Patient Pain Free? Yes Yes 05/13/21 08:09 WC - Today's Visit Information Type of service Follow-up Visit (Physician/BUSINESS ADMINISTRATION PROFESSOR ) Arrival Mode Ambulatory, Walker Transfer Assistance None Patient Identification Verified (Name & Yes ) Patient Requires Transmission-Based No Precautions Height and Weight Body Mass Index (BMI) 22.6 BMI Classification Normal Vital Signs Temperature (97.8 F-99.1 F) 97.7 F L Temperature Source Temporal Pulse Rate (60-100) 76 Pulse Location Monitor Respiratory Rate (12-18) 18 Respiratory rate source Observation Oxygen Delivery Method Blood Pressure (90/60-120/80) 128/73 H Blood Pressure Mean (mm Hg) 91 Source Monitor Position Blood Pressure Location Comment History Since Last Visit- (Skip if this is Patient's initial visit) Have you changed medications since your No last visit? Any new allergies or adverse reactions No Had a fall/change in ADL's that may No increase risk of falls Signs or symptoms of abuse and/or No neglect since last visit Have you been in the hospital since your last visit? Has dressing in place as prescribed Yes Has compression in place as prescribed Yes Has offloadiing in place as prescribed Experienced any changes in pain level or No management Left Footwear Right Footwear Pain Scale: 0-10 Numeric Is Patient Pain Free? Yes - Nurse 1 - General Ulcer Measurement Start: 04/22/21 13:19 Freq: Status: Active Protocol: Activity Type Activity Date Activity User E-Sign Co-Sign Detail Recorded Client Recorded Date Recorded By Document 04/22/21 13:20 AK [id number] 04/22/21 13:22 AK Document 04/29/21 09:04 [facility] [id number] 04/29/21 09:06 [facility] Document 05/06/21 08:11 DL [id number] 05/06/21 08:15 DL Document 05/13/21 08:09 DL [id number] 05/13/21 08:12 DL 04/22/21 04/29/21 05/06/21 13:20 09:04 08:11 Wound Center Nurse 1 #1 L Achilles -Combined with other wound No -Current Size (cm) - Length 5 3.7 0.1 -Current Size (cm) - Width 2 1.1 0.1 -Current Size (cm) - Depth 0.1 0.1 0.1 -Total Square Cm 10 4.07 0.01 -Photo Taken No No No -Epithelialization Small 1-33% -Tunneling No No -Undermining/Tunneling No No -Circular Undermining No No -Exudate Amt Large Medium Small -Exudate Type Serosanguineous Serosanguineous Serosanguineous -Wound Margin Distinct, Distinct, Distinct, Outline Outline Outline Attached Attached Attached -Granulation Amt Large (67-100%) Large (67-100%) None Present (0 %) -Granulation Quality Red Red -Slough/Fibrin Yes Yes -Necrosis Amt Large (67-100%) Small (1-33%) -Necrotic Tissue Type Adherent Slough Adherent Slough -Structure Exposed N/A N/A -Texture (Sue-wound Skin Appearance) No Abnormality, Assessed, Scarring Assessed Scarring -Moisture (Sue-wound Skin Appearance) No Abnormality, Assessed No Abnormality Assessed -Color (Sue-wound Skin Appearance) No Abnormality, Assessed Assessed Assessed -Temperature (Sue-wound Skin No Abnormality No Abnormality No Abnormality Appearance) (Pt Warm) (Pt Warm) (Pt Warm) -Tenderness on Palpation (Sue-wound No No No Skin Appearance) -Ulcer Cleansing Rinsed/ Rinsed/ leg only Irrigated with Irrigated with Saline Saline -Foul Odor after Cleansing No No No -Anesthetic Used 5% Lidocaine 4% Lidocaine Gel Solution 05/13/21 08:09 Wound Center Nurse 1 #1 L Achilles -Combined with other wound -Current Size (cm) - Length 2.5 -Current Size (cm) - Width 0.8 -Current Size (cm) - Depth 0.2 -Total Square Cm 2.00 -Photo Taken No -Epithelialization -Tunneling -Undermining/Tunneling -Circular Undermining -Exudate Amt Small -Exudate Type Serosanguineous -Wound Margin Distinct, Outline Attached -Granulation Amt Large (67-100%) -Granulation Quality Red -Slough/Fibrin -Necrosis Amt Small (1-33%) -Necrotic Tissue Type Adherent Slough -Structure Exposed N/A -Texture (Sue-wound Skin Appearance) Scarring -Moisture (Sue-wound Skin Appearance) No Abnormality -Color (Sue-wound Skin Appearance) No Abnormality -Temperature (Sue-wound Skin No Abnormality Appearance) (Pt Warm) -Tenderness on Palpation (Sue-wound No Skin Appearance) -Ulcer Cleansing -Foul Odor after Cleansing -Anesthetic Used 4% Lidocaine Solution WC - Nurse 2 - General Ulcer CM Notes Start: 04/22/21 13:19 Freq: Status: Active Protocol: Activity Type Activity Date Activity User E-Sign Co-Sign Detail Recorded Client Recorded Date Recorded By Document 04/22/21 13:29 [id number] 04/22/21 13:32 Document 04/29/21 09:13 [id number] 04/29/21 09:15 Document 05/06/21 08:29 [id number] 05/06/21 08:32 Document 05/13/21 08:20 [id number] 05/13/21 08:23 04/22/21 04/29/21 05/06/21 13:29 09:13 08:29 Wound Center Nurse 2 #1 L Achilles -Time 13:30 09:14 -Correct Patient Yes Yes No -Correct Side, Site, Position Yes Yes No -Correct Procedure Yes Yes No -Procedure Performed Yes Yes No -Type of Procedure Incision & Debridement Drainage -Clinical Debridement Subcutaneous -Tissue Removed Epidermis, Subcutaneous Subcutaneous -Post Debridement (cm) - Length 4.8 3.8 -Post Debridement (cm) - Width 1.8 1.1 -Post Debridement (cm) - Depth 0.3 0.2 -Total Square (Post) (cm) 8.64 4.18 -Area of Debridement (cm) - Length 4.8 3.8 -Area of Debridement (cm) - Width 1.8 1.1 -Total Square (Area) (cm) 8.64 4.18 -Tunneling No No -Undermining/Tunneling No No -Circular Undermining No No -Wound/Ulcer Outcome Not Healed Not Healed Not Healed -Ulcer Cleansing Rinsed/ Rinsed/ Irrigated with Irrigated with Saline Saline -Foul Odor after Cleansing No -Bioengineered Tissue No No -Bleeding Controlled with Pressure Pressure -Offloading No No -Type of Offloading -Treatment Response Procedure Procedure Tolerated Well Tolerated Well -Debridement - Subq, 1st 20sq cm Yes Yes Pain Scale: 0-10 Numeric Is Patient Pain Free? Yes Yes Yes 05/13/21 08:20 Wound Center Nurse 2 #1 L Achilles -Time 08:20 -Correct Patient Yes -Correct Side, Site, Position Yes -Correct Procedure Yes -Procedure Performed Yes -Type of Procedure Debridement -Clinical Debridement Subcutaneous -Tissue Removed Subcutaneous, Fascia -Post Debridement (cm) - Length 3.5 -Post Debridement (cm) - Width 1.3 -Post Debridement (cm) - Depth 0.2 -Total Square (Post) (cm) 4.55 -Area of Debridement (cm) - Length 3.5 -Area of Debridement (cm) - Width 1.3 -Total Square (Area) (cm) 4.55 -Tunneling No -Undermining/Tunneling No -Circular Undermining No -Wound/Ulcer Outcome Not Healed -Ulcer Cleansing Rinsed/ Irrigated with Saline -Foul Odor after Cleansing No -Bioengineered Tissue No -Bleeding Controlled with Pressure -Offloading Yes -Type of Offloading Surgical Shoe -Treatment Response Procedure Tolerated Well -Debridement - Subq, 1st 20sq cm Yes Pain Scale: 0-10 Numeric Is Patient Pain Free? Yes WC - Nurse 3 - General Ulcer D/C NN Start: 04/22/21 13:19 Freq: Status: Active Protocol: Activity Type Activity Date Activity User E-Sign Co-Sign Detail Recorded Client Recorded Date Recorded By Document 04/22/21 14:40 DL [id number] 04/22/21 14:41 DL Document 04/29/21 09:26 [facility] [id number] 04/29/21 09:27 [facility] Document 05/06/21 08:36 RB [id number] 05/06/21 08:37 RB Document 05/13/21 08:42 RB [id number] 05/13/21 08:43 RB 04/22/21 04/29/21 05/06/21 14:40 09:26 08:36 Wound Care Nurse 3 #1 L Achilles -Ulcer Cleansing Wound Cleanser Rinsed/ Irrigated with Saline -Foul Odor after Cleansing No No -Primary Dressing Applied Promogran Maria Isabel Matter -Other Dressing maria isabel -Primary Dressing Covered/Secured with Dry Gauze & Dry Gauze & Dry Gauze,Dry Roll Gauze, Roll Gauze, Gauze & Roll Secured with Secured with Gauze,Secured Tape Tape with Tape -Other Covering jaycob -Promogran Maria Isabel Matter 1 Left -Compression Wrap Jaycob Wrap -Other JAYCOB TO SECURE jaycob Treatment Response Procedure Procedure Procedure Tolerated Well Tolerated Well Tolerated Well Pain Scale: 0-10 Numeric Is Patient Pain Free? Yes Yes Yes WC - Visit Discharge Discharge Condition Stable Stable Stable Ambulatory Status Walker Ambulatory, Ambulatory, Walker Walker Transportation Private Auto Private Auto Private Auto Medication Reconcilliation completed & No provided to patient/care provider Clinical Summary of Care Provided Yes Notes: KNEE TOMAS gilliam 05/13/21 08:42 Wound Care Nurse 3 #1 L Achilles -Ulcer Cleansing Rinsed/ Irrigated with Saline -Foul Odor after Cleansing -Primary Dressing Applied Promogran Maria Isabel Matter -Other Dressing -Primary Dressing Covered/Secured with Dry Gauze,Dry Gauze & Roll Gauze,Secured with Tape -Other Covering -Promogran Maria Isabel Matter 1 Left -Compression Wrap -Other jaycob Treatment Response Pain Scale: 0-10 Numeric Is Patient Pain Free? WC - Visit Discharge Discharge Condition Stable Ambulatory Status Ambulatory Transportation Private Auto Medication Reconcilliation completed & No provided to patient/care provider Clinical Summary of Care Provided Yes Notes: knee walker Assessment/Plan Assessment/Plan (1) Cellulitis and abscess of left leg: CODE(S): L03.116 - Cellulitis of left lower limb; L02.416 - Cutaneous abscess of left lower limb (2) Delayed surgical wound healing: CODE(S): T81.89XA - Other complications of procedures, not elsewhere classified, initial encounter (3) Strain of left Achilles tendon, initial encounter: CODE(S): S86.012A - Strain of left Achilles tendon, initial encounter (4) 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 Debridement was performed today as noted in the clinical panel to the ulcer site. The following work up and care recommendations were made: Dressing: To change daily with Maria Isabel Wash: Antibacterial soap and water. Is okay to take a brief shower. To avoid soaking activity. To wear gloves while performing dressing change. Tissue growth optimization: He recently had advanced wound care product, epi cord applied in the operating room setting. Offload: To reduce tension by avoiding active or passive ankle range of motion. To wear offloading donut pillow to take pressure off the site and to avoid sitting or laying directly on the wound. It is okay to transition into weightbearing as tolerated with his cam walker boot with 2-[address] To progress into this activity. To continue with the knee roller otherwise. Vascular: There is palpable pulses. Continued delays in healing noted noninvasive vascular studies will be performed. Edema: Okay to use Tubigrip daily and to elevate intermittently Infection: He had prior MSSA infected ulcer and completed a 6 week course of IV antibiotics; cefazolin. This was completed and I do not recommend additional antibiotics at this time. He is reassured no local signs of infection are noted. Pain: He no longer required pain medication (prescription strength). Host factors: To optimize healing with Chucho supplementation. He was advised upper extremity exercise and nonsurgical limb rowing is okay. I answered all the patient's questions. To return to the wound healing center in 1 week or call sooner if the patient has any questions or concerns. Note: [employer] speech recognition certified nurse midwife software was used to create portions of this document. Sound-alike and misspelled words, as well as other certified nurse midwife errors may be contained in the documentation.
[2021-05-20 13:03] VITALS: BP 136/85; PULSE 73; RESP 16; TEMP 36.4; BMI 22.6
--- NOTE | 2021-05-20 19:55 | PCM.PN.ID ---
Physical Exam Narrative Feeling better, ankle improving. No fever. 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 Return to clinic in 6 months, d/w Dr. Bain
--- NOTE | 2021-05-20 21:35 | PN.PCM_ITS ---
History of Present Illness Date of Service: 05/20/21 Chief Complaint: left leg ulcer History of Wound: Mr. Hernandez is a 50-year-old who had prior surgical repair following left Achilles tendon tear. He completed his course of antibiotics. He continues to take Chucho supplementation to optimize healing. He denies chills, fever, nausea, vomiting, body itching, diarrhea. He has been compliant with nonweightbearing recommendations. He recently had an application with advanced wound product in the OR. He continues to use his walking boot with heel lift in place. He has only occasional pain. He saw Dr. Shen, infectious disease specialist today. Progress of Wound: Improving Objective Data Objective Data Vital Signs: Vital Signs Temp Pulse Resp BP 97.5 F L 73 16 136/85 H 05/20/21 13:03 05/20/21 13:03 05/20/21 13:03 05/20/21 13:03 Oxygen Delivery Method Room Air Weight: 75.735 kg Body Mass Index (BMI) 22.6 Physical Exam Const alert and oriented x3 General Appearance: cooperative Extremity Extremity Narrative: No calf tenderness Palpable pedal pulses 2 out of 4 General Extremity: edema and no tenderness to palpation of joints or extremities; Negative for cyanosis Skin Skin Narrative: no purulence, no streaking, no odor, no infection. There is significant peripheral epithelialization noted and I am no longer able to visualize the Achilles tendon. The ulcer bed is 100% granular. No adjacent fluctuance or bogginess. Take the distal posterior aspect where there was previous noted depth through the wound there is an emerging fiber tape which was cooled to length and resected today. There is overall reduction in deep pr obing. General Skin Exam: Negative for erythema Neuro Neuro Narrative: Epicritic sensation intact to light touch Psych cooperative and affect normal Debridement Note Debridement Note Wound debrided: Posterior left leg Wound Grade/Stage: Type of Debridement: Excisional debridement Anesthesia Used: 4% Lidocaine Solution Depth: in the subcutaneous layer Percentage of wound debrided: 100 Instrument Used: #15 blade Tissue Removed: fibrous, devitalized subcutaneous, biofilm, slough Severity: Fat Layer Exposed Amount of bleeding with debridement: Mild Bleeding Controlled with: Pressure Patient tolerated procedure: Patient tolerated procedure well Post-Debridement Measurements and Additional Note: Post-Debridement Measurements/Treatment WC - Nurse 1 - General Ulcer Assessment Start: 04/22/21 13:19 Freq: Status: Active Protocol: TOBY.LOWEXT Activity Type Activity Date Activity User E-Sign Co-Sign Detail Recorded Client Recorded Date Recorded By Document 04/22/21 13:20 AK [id number] 04/22/21 13:22 AK Document 04/29/21 09:04 BM [id number] 04/29/21 09:06 BMF Document 05/06/21 08:11 DL [id number] 05/06/21 08:15 DL Document 05/13/21 08:09 DL [id number] 05/13/21 08:12 DL Document 05/20/21 13:03 BM Desktop 05/20/21 13:07 BMF 04/22/21 04/29/21 05/06/21 13:20 09:04 08:11 WC - Today's Visit Information Type of service Follow-up Visit Follow-up Visit Follow-up Visit (Physician/FORKLIFT MATERIAL HANDLER (Physician/FORKLIFT MATERIAL HANDLER (Physician/FORKLIFT MATERIAL HANDLER ) ) ) Arrival Mode Ambulatory Ambulatory Ambulatory Transfer Assistance None None Patient Identification Verified (Name & Yes Yes Yes ) Patient Requires Transmission-Based No No Precautions Height and Weight Body Mass Index (BMI) 22.6 22.6 22.6 BMI Classification Normal Normal Normal Vital Signs Temperature (97.8 F-99.1 F) 97.6 F L 97.8 F 97.9 F Temperature Source Temporal Temporal Temporal Pulse Rate (60-100) 75 73 72 Pulse Location Monitor Monitor Monitor Respiratory Rate (12-18) 18 20 H Respiratory rate source Observation Oxygen Delivery Method Room Air Blood Pressure (90/60-120/80) 128/72 H 124/70 H 134/78 H Blood Pressure Mean (mm Hg) 90 88 96 Source Monitor Monitor Monitor Position Sitting Blood Pressure Location Right Arm Comment graft recheck today. History Since Last Visit- (Skip if this is Patient's initial visit) Have you changed medications since your No No No last visit? Any new allergies or adverse reactions No No No Had a fall/change in ADL's that may No No No increase risk of falls Signs or symptoms of abuse and/or No No No neglect since last visit Have you been in the hospital since your No No No last visit? Has dressing in place as prescribed Yes Yes Yes Has compression in place as prescribed Yes N/A Yes Has offloadiing in place as prescribed Yes Yes N/A Experienced any changes in pain level or No No Yes management Left Footwear No Footwear Right Footwear Regular Shoe Pain Scale: 0-10 Numeric Is Patient Pain Free? Yes Yes 05/13/21 05/20/21 08:09 13:03 - Today's Visit Information Type of service Follow-up Visit Follow-up Visit (Physician/FORKLIFT MATERIAL HANDLER (Physician/FORKLIFT MATERIAL HANDLER ) ) Arrival Mode Ambulatory, Ambulatory Walker Transfer Assistance None None Patient Identification Verified (Name & Yes Yes ) Patient Requires Transmission-Based No No Precautions Height and Weight Body Mass Index (BMI) 22.6 22.6 BMI Classification Normal Normal Vital Signs Temperature (97.8 F-99.1 F) 97.7 F L 97.5 F L Temperature Source Temporal Temporal Pulse Rate (60-100) 76 73 Pulse Location Monitor Monitor Respiratory Rate (12-18) 18 16 Respiratory rate source Observation Observation Oxygen Delivery Method Room Air Blood Pressure (90/60-120/80) 128/73 H 136/85 H Blood Pressure Mean (mm Hg) 91 102 Source Monitor Monitor Position Sitting Blood Pressure Location Left Arm Comment History Since Last Visit- (Skip if this is Patient's initial visit) Have you changed medications since your No No last visit? Any new allergies or adverse reactions No No Had a fall/change in ADL's that may No No increase risk of falls Signs or symptoms of abuse and/or No No neglect since last visit Have you been in the hospital since your No last visit? Has dressing in place as prescribed Yes Yes Has compression in place as prescribed Yes Yes Has offloadiing in place as prescribed N/A Experienced any changes in pain level or No No management Left Footwear Multipodus Splint/Boot Right Footwear Regular Shoe Pain Scale: 0-10 Numeric Is Patient Pain Free? Yes Yes - Nurse 1 - General Ulcer Measurement Start: 04/22/21 13:19 Freq: Status: Active Protocol: Activity Type Activity Date Activity User E-Sign Co-Sign Detail Recorded Client Recorded Date Recorded By Document 04/22/21 13:20 AK [id number] 04/22/21 13:22 AK Document 04/29/21 09:04 [facility] [id number] 04/29/21 09:06 [facility] Document 05/06/21 08:11 DL [id number] 05/06/21 08:15 DL Document 05/13/21 08:09 DL [id number] 05/13/21 08:12 DL Document 05/20/21 13:03 BMF Desktop 05/20/21 13:07 BMF 04/22/21 04/29/21 05/06/21 13:20 09:04 08:11 Wound Center Nurse 1 #1 L Achilles -Combined with other wound No -Current Size (cm) - Length 5 3.7 0.1 -Current Size (cm) - Width 2 1.1 0.1 -Current Size (cm) - Depth 0.1 0.1 0.1 -Total Square Cm 10 4.07 0.01 -Date of Last Picture (Recall this field) -Photo Taken No No No -Epithelialization Small 1-33% -Tunneling No No -Undermining/Tunneling No No -Circular Undermining No No -Exudate Amt Large Medium Small -Exudate Type Serosanguineous Serosanguineous Serosanguineous -Wound Margin Distinct, Distinct, Distinct, Outline Outline Outline Attached Attached Attached -Granulation Amt Large (67-100%) Large (67-100%) None Present (0 %) -Granulation Quality Red Red -Slough/Fibrin Yes Yes -Necrosis Amt Large (67-100%) Small (1-33%) -Necrotic Tissue Type Adherent Slough Adherent Slough -Structure Exposed N/A N/A -Texture (Sue-wound Skin Appearance) No Abnormality, Assessed, Scarring Assessed Scarring -Moisture (Sue-wound Skin Appearance) No Abnormality, Assessed No Abnormality Assessed -Color (Sue-wound Skin Appearance) No Abnormality, Assessed Assessed Assessed -Temperature (Sue-wound Skin No Abnormality No Abnormality No Abnormality Appearance) (Pt Warm) (Pt Warm) (Pt Warm) -Tenderness on Palpation (Sue-wound No No No Skin Appearance) -Ulcer Cleansing Rinsed/ Rinsed/ leg only Irrigated with Irrigated with Saline Saline -Foul Odor after Cleansing No No No -Anesthetic Used 5% Lidocaine 4% Lidocaine Gel Solution 05/13/21 05/20/21 08:09 13:03 Wound Center Nurse 1 #1 L Achilles -Combined with other wound No -Current Size (cm) - Length 2.5 3.6 -Current Size (cm) - Width 0.8 1.8 -Current Size (cm) - Depth 0.2 0.1 -Total Square Cm 2.00 6.48 -Date of Last Picture (Recall this 05/20/21 field) -Photo Taken No Yes -Epithelialization Small 1-33% -Tunneling No -Undermining/Tunneling No -Circular Undermining No -Exudate Amt Small Medium -Exudate Type Serosanguineous Serosanguineous -Wound Margin Distinct, Distinct, Outline Outline Attached Attached -Granulation Amt Large (67-100%) Large (67-100%) -Granulation Quality Red Red -Slough/Fibrin Yes -Necrosis Amt Small (1-33%) Small (1-33%) -Necrotic Tissue Type Adherent Slough Adherent Slough -Structure Exposed N/A -Texture (Sue-wound Skin Appearance) Scarring Assessed, Scarring -Moisture (Sue-wound Skin Appearance) No Abnormality Assessed -Color (Sue-wound Skin Appearance) No Abnormality Assessed -Temperature (Sue-wound Skin No Abnormality No Abnormality Appearance) (Pt Warm) (Pt Warm) -Tenderness on Palpation (Sue-wound No No Skin Appearance) -Ulcer Cleansing Rinsed/ Irrigated with Saline -Foul Odor after Cleansing No -Anesthetic Used 4% Lidocaine 5% Lidocaine Solution Gel WC - Nurse 2 - General Ulcer CM Notes Start: 04/22/21 13:19 Freq: Status: Active Protocol: Activity Type Activity Date Activity User E-Sign Co-Sign Detail Recorded Client Recorded Date Recorded By Document 04/22/21 13:29 [id number] 04/22/21 13:32 Document 04/29/21 09:13 [id number] 04/29/21 09:15 Document 05/06/21 08:29 [id number] 05/06/21 08:32 Document 05/13/21 08:20 [id number] 05/13/21 08:23 Document 05/20/21 13:15 [id number] 05/20/21 13:21 04/22/21 04/29/21 05/06/21 13:29 09:13 08:29 Wound Center Nurse 2 #1 L Achilles -Time 13:30 09:14 -Correct Patient Yes Yes No -Correct Side, Site, Position Yes Yes No -Correct Procedure Yes Yes No -Procedure Performed Yes Yes No -Type of Procedure Incision & Debridement Drainage -Clinical Debridement Subcutaneous -Tissue Removed Epidermis, Subcutaneous Subcutaneous -Post Debridement (cm) - Length 4.8 3.8 -Post Debridement (cm) - Width 1.8 1.1 -Post Debridement (cm) - Depth 0.3 0.2 -Total Square (Post) (cm) 8.64 4.18 -Area of Debridement (cm) - Length 4.8 3.8 -Area of Debridement (cm) - Width 1.8 1.1 -Total Square (Area) (cm) 8.64 4.18 -Tunneling No No -Undermining/Tunneling No No -Circular Undermining No No -Wound/Ulcer Outcome Not Healed Not Healed Not Healed -Ulcer Cleansing Rinsed/ Rinsed/ Irrigated with Irrigated with Saline Saline -Foul Odor after Cleansing No -Bioengineered Tissue No No -Bleeding Controlled with Pressure Pressure -Offloading No No -Type of Offloading -Treatment Response Procedure Procedure Tolerated Well Tolerated Well -Debridement - Subq, 1st 20sq cm Yes Yes Pain Scale: 0-10 Numeric Is Patient Pain Free? Yes Yes Yes 05/13/21 05/20/21 08:20 13:15 Wound Center Nurse 2 #1 L Achilles -Time 08:20 13:16 -Correct Patient Yes Yes -Correct Side, Site, Position Yes Yes -Correct Procedure Yes Yes -Procedure Performed Yes Yes -Type of Procedure Debridement Debridement -Clinical Debridement Subcutaneous Subcutaneous -Tissue Removed Subcutaneous, Subcutaneous Fascia -Post Debridement (cm) - Length 3.5 3.8 -Post Debridement (cm) - Width 1.3 1.2 -Post Debridement (cm) - Depth 0.2 0.3 -Total Square (Post) (cm) 4.55 4.56 -Area of Debridement (cm) - Length 3.5 3.8 -Area of Debridement (cm) - Width 1.3 1.2 -Total Square (Area) (cm) 4.55 4.56 -Tunneling No No -Undermining/Tunneling No No -Circular Undermining No No -Wound/Ulcer Outcome Not Healed Not Healed -Ulcer Cleansing Rinsed/ Rinsed/ Irrigated with Irrigated with Saline Saline -Foul Odor after Cleansing No No -Bioengineered Tissue No No -Bleeding Controlled with Pressure Pressure -Offloading Yes Yes -Type of Offloading Surgical Shoe Camwalker -Treatment Response Procedure Procedure Tolerated Well Tolerated Well -Debridement - Subq, 1st 20sq cm Yes Yes Pain Scale: 0-10 Numeric Is Patient Pain Free? Yes Yes WC - Nurse 3 - General Ulcer D/C NN Start: 04/22/21 13:19 Freq: Status: Active Protocol: Activity Type Activity Date Activity User E-Sign Co-Sign Detail Recorded Client Recorded Date Recorded By Document 04/22/21 14:40 DL [id number] 04/22/21 14:41 DL Document 04/29/21 09:26 BMF [id number] 04/29/21 09:27 BMF Document 05/06/21 08:36 RB [id number] 05/06/21 08:37 RB Document 05/13/21 08:42 RB [id number] 05/13/21 08:43 RB Document 05/20/21 14:05 DL Desktop 05/20/21 14:05 DL 04/22/21 04/29/21 05/06/21 14:40 09:26 08:36 Wound Care Nurse 3 #1 L Achilles -Ulcer Cleansing Wound Cleanser Rinsed/ Irrigated with Saline -Foul Odor after Cleansing No No -Primary Dressing Applied Promogran Maria Isabel Matter -Other Dressing maria isabel -Primary Dressing Covered/Secured with Dry Gauze & Dry Gauze & Dry Gauze,Dry Roll Gauze, Roll Gauze, Gauze & Roll Secured with Secured with Gauze,Secured Tape Tape with Tape -Other Covering jaycob -Promogran Maria Isabel Matter 1 Left -Compression Wrap Jaycob Wrap -Other JAYCOB TO SECURE jaycob Treatment Response Procedure Procedure Procedure Tolerated Well Tolerated Well Tolerated Well Pain Scale: 0-10 Numeric Is Patient Pain Free? Yes Yes Yes WC - Visit Discharge Discharge Condition Stable Stable Stable Ambulatory Status Walker Ambulatory, Ambulatory, Walker Walker Transportation Private Auto Private Auto Private Auto Medication Reconcilliation completed & No provided to patient/care provider Clinical Summary of Care Provided Yes Notes: KNEE WALKER kneewalker 05/13/21 05/20/21 08:42 14:05 Wound Care Nurse 3 #1 L Achilles -Ulcer Cleansing Rinsed/ Rinsed/ Irrigated with Irrigated with Saline Saline -Foul Odor after Cleansing No -Primary Dressing Applied Promogran Promogran Maria Isabel Matter Maria Isabel Matter -Other Dressing -Primary Dressing Covered/Secured with Dry Gauze,Dry Dry Gauze & Gauze & Roll Roll Gauze, Gauze,Secured Secured with with Tape Tape -Other Covering -Promogran Maria Isabel Matter 1 1 Left -Compression Wrap -Other jaycob Treatment Response Procedure Tolerated Well Pain Scale: 0-10 Numeric Is Patient Pain Free? Yes WC - Visit Discharge Discharge Condition Stable Stable Ambulatory Status Ambulatory Ambulatory Transportation Private Auto Private Auto Medication Reconcilliation completed & No provided to patient/care provider Clinical Summary of Care Provided Yes Notes: knee walker Assessment/Plan Assessment/Plan (1) Cellulitis and abscess of left leg: CODE(S): L03.116 - Cellulitis of left lower limb; L02.416 - Cutaneous abscess of left lower limb (2) Delayed surgical wound healing: CODE(S): T81.89XA - Other complications of procedures, not elsewhere classified, initial encounter (3) Strain of left Achilles tendon, initial encounter: CODE(S): S86.012A - Strain of left Achilles tendon, initial encounter (4) 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 Debridement was performed today as noted in the clinical panel to the ulcer site. Additional fiber tape was resected from the ulcer today he was reassured there is no purulence or devitalized tissue. Overall improvement is noted. The following work up and care recommendations were made: Dressing: To change daily with Maria Isabel Wash: Antibacterial soap and water. It is okay to take a brief shower. To avoid soaking activity. To wear gloves while performing dressing change. Tissue growth optimization: He recently had advanced wound care product, epi cord applied in the operating room setting. Offload: To reduce tension by avoiding active or passive ankle range of motion. To wear offloading donut pillow to take pressure off the site and to avoid sitting or laying directly on the wound. It is okay to transition into weightbearing as tolerated with his cam walker boot with 2-[address] To progress into this activity. To continue with the knee roller otherwise. Vascular: There is palpable pulses. Continued delays in healing noted noninvasive vascular studies will be performed. Edema: Okay to use Tubigrip daily and to elevate intermittently Infection: He had prior MSSA infected ulcer and completed a 6 week course of IV antibiotics; cefazolin. Additional oral antibiotics were recommended by infectious disease due to his retained surgical materials (suppressive Keflex). Infectious disease recommendations are appreciated; he will follow-up in [address] Shen. Pain: He no longer required pain medication (prescription strength). Host factors: To optimize healing with Chucho supplementation. He was advised upper extremity exercise and nonsurgical limb rowing is okay. I answered all the patient's questions. To return to the wound healing center in 1 week or call sooner if the patient has any questions or concerns. Note: [employer] speech recognition [employer] staff officer software was used to create portions of this document. Sound-alike and misspelled words, as well as other [employer] staff officer errors may be contained in the documentation.
== END 2021-05-21 23:59 ==
LOC: WC 13:00
PROVIDERS: Referring Provider Internal Medicine; Visit Provider Internal Medicine
DX: T81.89XA Other complications of procedures, not elsewhere classified, initial encounter (principal); L97.823 Non-pressure chronic ulcer of other part of left lower leg with necrosis of muscle; L03.116 Cellulitis of left lower limb; L02.416 Cutaneous abscess of left lower limb; B95.61 Methicillin susceptible Staphylococcus aureus infection as the cause of diseases classified elsewhere
CPT/HCPCS: 11042; 99213; G0463

== ENCOUNTER 2021-06-17 08:15 | Outpatient (RCR) | payer BC, SELFPAY ==
[2021-05-22 00:30] VITALS: BP 136/85; PULSE 73; RESP 16; TEMP 36.4; BMI 22.6
[2021-05-27 08:14] VITALS: BP 127/71; PULSE 67; RESP 18; TEMP 36.1; BMI 22.6
--- NOTE | 2021-05-27 10:22 | PN.PCM_ITS ---
History of Present Illness Date of Service: 05/27/21 Chief Complaint: left leg ulcer History of Wound: Mr. Hernandez is a 50-year-old who had prior surgical repair following left Achilles tendon tear. He completed his course of antibiotics. He continues to take Chucho supplementation to optimize healing. He denies chills, fever, nausea, vomiting, body itching, diarrhea. He has been compliant with nonweightbearing recommendations. He recently had an application with advanced wound product in the OR. He continues to use his walking boot with heel lift in place. Progress of Wound: Improving Objective Data Objective Data Vital Signs: Vital Signs Temp Pulse Resp BP 97 F L 67 18 127/71 H 05/27/21 08:14 05/27/21 08:14 05/27/21 08:14 05/27/21 08:14 Weight: 75.735 kg Body Mass Index (BMI) 22.6 Physical Exam Const alert and oriented x3 General Appearance: cooperative Extremity Extremity Narrative: No calf tenderness Palpable pedal pulses 2 out of 4 General Extremity: edema and no tenderness to palpation of joints or extremities; Negative for cyanosis Skin Skin Narrative: no purulence, no streaking, no odor, no infection. There is significant peripheral epithelialization noted and I am no longer able to visualize the Achilles tendon. The ulcer bed is 100% granular. No adjacent fluctuance or bogginess. Take the distal posterior aspect where there was pre vious noted depth through the wound there is an emerging fiber tape which was cooled to length and resected today. There is overall resolution in deep probing. General Skin Exam: Negative for erythema Neuro Neuro Narrative: Epicritic sensation intact to light touch Psych cooperative and affect normal Debridement Note Debridement Note Wound debrided: posterior left leg Wound Grade/Stage: Type of Debridement: Excisional debridement Anesthesia Used: 4% Lidocaine Solution Depth: in the subcutaneous layer Percentage of wound debrided: 100 Instrument Used: #15 blade Tissue Removed: fibrous, devitalized subcutaneous, biofilm, slough Severity: Fat Layer Exposed Amount of bleeding with debridement: Mild Bleeding Controlled with: Pressure Patient tolerated procedure: Patient tolerated procedure well Post-Debridement Measurements and Additional Note: Post-Debridement Measurements/Treatment TOBY - Nurse 1 - General Ulcer Assessment Start: 05/27/21 08:14 Freq: Status: Active Protocol: KEO Activity Type Activity Date Activity User E-Sign Co-Sign Detail Recorded Client Recorded Date Recorded By Document 05/27/21 08:14 Desktop 05/27/21 08:17 DL 05/27/21 08:14 WC - Today's Visit Information Type of service 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 ) Arrival Mode Ambulatory Transfer Assistance None Patient Identification Verified (Name & Yes ) Patient Requires Transmission-Based No Precautions Height and Weight Body Mass Index (BMI) 22.6 BMI Classification Normal Vital Signs Temperature (97.8 F-99.1 F) 97 F L Temperature Source Temporal Pulse Rate (60-100) 67 Pulse Location Monitor Respiratory Rate (12-18) 18 Respiratory rate source Observation Blood Pressure (90/60-120/80) 127/71 H Blood Pressure Mean (mm Hg) 89 Source Monitor History Since Last Visit- (Skip if this is Patient's initial visit) Have you changed medications since your No last visit? Any new allergies or adverse reactions No Had a fall/change in ADL's that may No increase risk of falls Signs or symptoms of abuse and/or No neglect since last visit Have you been in the hospital since your No last visit? Has dressing in place as prescribed Yes Has compression in place as prescribed Yes Has offloadiing in place as prescribed Yes Experienced any changes in pain level or No management Left Footwear Removable Cast Walker/Walking Boot Pain Scale: 0-10 Numeric Is Patient Pain Free? Yes - Nurse 1 - General Ulcer Measurement Start: 05/27/21 08:14 Freq: Status: Active Protocol: Activity Type Activity Date Activity User E-Sign Co-Sign Detail Recorded Client Recorded Date Recorded By Document 05/27/21 08:14 [email or web address] 05/27/21 08:17 DL 05/27/21 08:14 Wound Center Nurse 1 #1 L Achilles -Current Size (cm) - Length 2.4 -Current Size (cm) - Width 0.4 -Current Size (cm) - Depth 0.1 -Total Square Cm 0.96 -Photo Taken No -Exudate Amt Small -Exudate Type Serosanguineous -Wound Margin Distinct, Outline Attached -Granulation Amt Large (67-100%) -Granulation Quality Red -Necrosis Amt None Present (0 %) -Structure Exposed N/A -Texture (Sue-wound Skin Appearance) Scarring -Moisture (Sue-wound Skin Appearance) Dry/Scaly -Color (Sue-wound Skin Appearance) No Abnormality -Temperature (Sue-wound Skin No Abnormality Appearance) (Pt Warm) -Tenderness on Palpation (Sue-wound No Skin Appearance) -Ulcer Cleansing Rinsed/ Irrigated with Saline -Foul Odor after Cleansing No -Anesthetic Used 5% Lidocaine Gel TOBY - Nurse 2 - General Ulcer CM Notes Start: 05/27/21 08:14 Freq: Status: Active Protocol: Activity Type Activity Date Activity User E-Sign Co-Sign Detail Recorded Client Recorded Date Recorded By Document 05/27/21 08:32 [id number] 05/27/21 08:35 05/27/21 08:32 Wound Center Nurse 2 -Time 08:33 -Correct Patient Yes -Correct Side, Site, Position Yes -Correct Procedure Yes -Procedure Performed Yes -Type of Procedure Debridement -Clinical Debridement Subcutaneous -Tissue Removed Subcutaneous -Post Debridement (cm) - Length 2.5 -Post Debridement (cm) - Width 0.4 -Post Debridement (cm) - Depth 0.1 -Total Square (Post) (cm) 1.00 -Area of Debridement (cm) - Length 2.5 -Area of Debridement (cm) - Width 0.4 -Total Square (Area) (cm) 1.00 -Tunneling No -Undermining/Tunneling No -Circular Undermining No -Wound/Ulcer Outcome Not Healed -Ulcer Cleansing Rinsed/ Irrigated with Saline -Foul Odor after Cleansing No -Bioengineered Tissue No -Bleeding Controlled with Pressure -Offloading Yes -Type of Offloading Camwalker -Treatment Response Procedure Tolerated Well -Debridement - Subq, 1st 20sq cm Yes Pain Scale: 0-10 Numeric Is Patient Pain Free? Yes TOBY - Nurse 3 - General Ulcer D/C NN Start: 05/27/21 08:14 Freq: Status: Active Protocol: Activity Type Activity Date Activity User E-Sign Co-Sign Detail Recorded Client Recorded Date Recorded By Document 05/27/21 08:45 DL Desktop 05/27/21 08:48 DL 05/27/21 08:45 Wound Care Nurse 3 #1 L Achilles -Ulcer Cleansing Rinsed/ Irrigated with Saline -Foul Odor after Cleansing No -Primary Dressing Applied Promogran Beatris Matter -Primary Dressing Covered/Secured with Dry Gauze, Secured with Tape -Promogran Beatris Matter 1 Treatment Response Procedure Tolerated Well Pain Scale: 0-10 Numeric Is Patient Pain Free? 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 Debridement was performed today as noted in the clinical panel to the ulcer site. Additional fiber tape was resected from the ulcer today he was reassured there is no purulence or devitalized tissue. Overall improvement is noted. The following work up and care recommendations were made: Dressing: To change daily with Beatris Wash: Antibacterial soap and water. It is okay to take a brief shower. To avoid soaking activity. To wear gloves while performing dressing change. Tissue growth optimization: He recently had advanced wound care product, epi cord applied in the operating room setting. Offload: To reduce tension by avoiding active or passive ankle range of motion. To wear offloading donut pillow to take pressure off the site and to avoid sitting or laying directly on the wound. It is okay to transition into weightbearing as tolerated with his cam walker boot with 2-[address] To progress into this activity. To continue with the knee roller otherwise. Vascular: There is palpable pulses. Continued delays in healing noted noninvasive vascular studies will be performed. Edema: Okay to use Tubigrip daily and to elevate intermittently Infection: He had prior MSSA infected ulcer and completed a 6 week course of IV antibiotics; cefazolin. Additional oral antibiotics were recommended by infectious disease due to his retained surgical materials (suppressive Keflex). Infectious disease recommendations are appreciated; he will follow-up in [address] Shen. Pain: He no longer required pain medication (prescription strength). Host factors: To optimize healing with Chucho supplementation. He was advised upper extremity exercise and nonsurgical limb rowing is okay. I answered all the patient's questions. To return to the wound healing center in 1 week or call sooner if the patient has any questions or concerns. Note: [employer] speech recognition telegraph lineman software was used to create portions of this document. Sound-alike and misspelled words, as well as other telegraph lineman errors may be contained in the documentation.
[2021-06-03 08:49] VITALS: BP 123/74; PULSE 72; RESP 18; TEMP 36.3; BMI 22.6
--- NOTE | 2021-06-03 09:23 | PN.PCM_ITS ---
History of Present Illness Date of Service: 06/03/21 Chief Complaint: left leg ulcer History of Wound: Mr. Hernandez is a 50-year-old who had prior surgical repair following left Achilles tendon tear. He completed his course of antibiotics. He continues to take Chucho supplementation to optimize healing. He denies chills, fever, nausea, vomiting, body itching, diarrhea. He has been weightbearing in a cam walker with heel wedges. He is trying to keep pressure directly off of the ulcer site. He denies redness or odors. Progress of Wound: Improving Objective Data Objective Data Vital Signs: Vital Signs Temp Pulse Resp BP 97.4 F L 72 18 123/74 H 06/03/21 08:49 06/03/21 08:49 06/03/21 08:49 06/03/21 08:49 Weight: 75.735 kg Body Mass Index (BMI) 22.6 Physical Exam Extremity Extremity Narrative: No calf tenderness Palpable pedal pulses 2 out of 4 Skin Skin Narrative: no purulence, no streaking, no odor, no infection. There is significant peripheral epithelialization noted and I am no longer able to visualize the Achilles tendon. The ulcer bed is 100% granular. No adjacent fluctuance or bogginess. There is overall resolution in deep probing. Mild pressure change to the medial border Neuro Neuro Narrative: Epicritic sensation intact to light touch Debridement Note Debridement Note Wound debrided: left posterior leg Wound Grade/Stage: Type of Debridement: Excisional debridement Anesthesia Used: 4% Lidocaine Solution Depth: in the subcutaneous layer Percentage of wound debrided: 100 Instrument Used: #15 blade Tissue Removed: fibrous, devitalized subcutaneous, biofilm, slough Severity: Fat Layer Exposed Amount of bleeding with debridement: Mild Bleeding Controlled with: Pressure Patient tolerated procedure: Patient tolerated procedure well Post-Debridement Measurements and Additional Note: Post-Debridement Measurements/Treatment - Nurse 1 - General Ulcer Assessment Start: 05/27/21 08:14 Freq: Status: Active Protocol: KEO Activity Type Activity Date Activity User E-Sign Co-Sign Detail Recorded Client Recorded Date Recorded By Document 05/27/21 08:14 DL Desktop 05/27/21 08:17 DL Document 06/03/21 08:49 DL Desktop 06/03/21 08:56 DL 05/27/21 06/03/21 08:14 08:49 - Today's Visit Information Type of service Follow-up Visit 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 (Physician/DISTRICT MANAGER POSTAL SERVICE ) ) Arrival Mode Ambulatory Ambulatory Transfer Assistance None None Patient Identification Verified (Name & Yes Yes ) Patient Requires Transmission-Based No No Precautions Height and Weight Body Mass Index (BMI) 22.6 22.6 BMI Classification Normal Normal Vital Signs Temperature (97.8 F-99.1 F) 97 F L 97.4 F L Temperature Source Temporal Temporal Pulse Rate (60-100) 67 72 Pulse Location Monitor Monitor Respiratory Rate (12-18) 18 18 Respiratory rate source Observation Observation Blood Pressure (90/60-120/80) 127/71 H 123/74 H Blood Pressure Mean (mm Hg) 89 90 Source Monitor Monitor History Since Last Visit- (Skip if this is Patient's initial visit) Have you changed medications since your No No last visit? Any new allergies or adverse reactions No No Had a fall/change in ADL's that may No No increase risk of falls Signs or symptoms of abuse and/or No No neglect since last visit Have you been in the hospital since your No No last visit? Has dressing in place as prescribed Yes Yes Has compression in place as prescribed Yes Yes Has offloadiing in place as prescribed Yes Yes Experienced any changes in pain level or No No management Left Footwear Removable Cast Walker/Walking Boot Pain Scale: 0-10 Numeric Is Patient Pain Free? Yes Yes - Nurse 1 - General Ulcer Measurement Start: 05/27/21 08:14 Freq: Status: Active Protocol: Activity Type Activity Date Activity User E-Sign Co-Sign Detail Recorded Client Recorded Date Recorded By Document 05/27/21 08:14 DL Desktop 05/27/21 08:17 DL Document 06/03/21 08:49 DL Desktop 06/03/21 08:56 DL 05/27/21 06/03/21 08:14 08:49 Wound Center Nurse 1 #1 L Achilles -Current Size (cm) - Length 2.4 2.4 -Current Size (cm) - Width 0.4 0.7 -Current Size (cm) - Depth 0.1 0.2 -Total Square Cm 0.96 1.68 -Photo Taken No No -Exudate Amt Small Small -Exudate Type Serosanguineous Serosanguineous -Wound Margin Distinct, Distinct, Outline Outline Attached Attached -Granulation Amt Large (67-100%) Medium (34-66%) -Granulation Quality Red Red -Necrosis Amt None Present (0 Medium (34-66%) %) -Necrotic Tissue Type Adherent Slough -Structure Exposed N/A N/A -Texture (Sue-wound Skin Appearance) Scarring Scarring -Moisture (Sue-wound Skin Appearance) Dry/Scaly No Abnormality -Color (Sue-wound Skin Appearance) No Abnormality No Abnormality -Temperature (Sue-wound Skin No Abnormality No Abnormality Appearance) (Pt Warm) (Pt Warm) -Tenderness on Palpation (Sue-wound No No Skin Appearance) -Ulcer Cleansing Rinsed/ Soap and Water Irrigated with Saline -Foul Odor after Cleansing No -Anesthetic Used 5% Lidocaine 4% Lidocaine Gel Solution WC - Nurse 2 - General Ulcer CM Notes Start: 05/27/21 08:14 Freq: Status: Active Protocol: Activity Type Activity Date Activity User E-Sign Co-Sign Detail Recorded Client Recorded Date Recorded By Document 05/27/21 08:32 [email or web address] 05/27/21 08:35 Document 06/03/21 09:02 [email or web address] [id number] 06/03/21 09:04 05/27/21 06/03/21 08:32 09:02 Wound Center Nurse 2 #1 L Achilles -Time 08:33 09:03 -Correct Patient Yes Yes -Correct Side, Site, Position Yes Yes -Correct Procedure Yes Yes -Procedure Performed Yes Yes -Type of Procedure Debridement Debridement -Clinical Debridement Subcutaneous Subcutaneous -Tissue Removed Subcutaneous Subcutaneous -Post Debridement (cm) - Length 2.5 3 -Post Debridement (cm) - Width 0.4 0.8 -Post Debridement (cm) - Depth 0.1 0.2 -Total Square (Post) (cm) 1.00 2.4 -Area of Debridement (cm) - Length 2.5 3 -Area of Debridement (cm) - Width 0.4 0.8 -Total Square (Area) (cm) 1.00 2.4 -Tunneling No No -Undermining/Tunneling No No -Circular Undermining No No -Wound/Ulcer Outcome Not Healed Not Healed -Ulcer Cleansing Rinsed/ Rinsed/ Irrigated with Irrigated with Saline Saline -Foul Odor after Cleansing No No -Bioengineered Tissue No No -Bleeding Controlled with Pressure Pressure -Offloading Yes Yes -Type of Offloading Camwalker Camwalker -Treatment Response Procedure Procedure Tolerated Well Tolerated Well -Debridement - Subq, 1st 20sq cm Yes Yes Pain Scale: 0-10 Numeric Is Patient Pain Free? Yes Yes - Nurse 3 - General Ulcer D/C NN Start: 05/27/21 08:14 Freq: Status: Active Protocol: Activity Type Activity Date Activity User E-Sign Co-Sign Detail Recorded Client Recorded Date Recorded By Document 05/27/21 08:45 DL Desktop 05/27/21 08:48 DL Document 06/03/21 09:13 BMF Desktop 06/03/21 09:13 BMF 05/27/21 06/03/21 08:45 09:13 Wound Care Nurse 3 #1 L Achilles -Ulcer Cleansing Rinsed/ Rinsed/ Irrigated with Irrigated with Saline Saline -Foul Odor after Cleansing No No -Primary Dressing Applied Promogran Promogran Beatris Matter Beatris Matter -Primary Dressing Covered/Secured with Dry Gauze, Dry Gauze, Secured with Secured with Tape Tape -Promogran Beatris Matter 1 1 Left -Compression Wrap Jaycob Wrap Treatment Response Procedure Procedure Tolerated Well Tolerated Well Pain Scale: 0-10 Numeric Is Patient Pain Free? 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 Debridement was performed today as noted in the clinical panel to the ulcer site. Overall improvement is noted. The following work up and care recommendations were made: Dressing: To change daily with Beatris Wash: Antibacterial soap and water. It is okay to take a brief shower. To avoid soaking activity. To wear gloves while performing dressing change. Tissue growth optimization: He recently had advanced wound care product, epi cord applied in the operating room setting. Offload: To reduce tension by avoiding active or passive ankle range of motion. To wear offloading donut pillow to take pressure off the site and to avoid sitting or laying directly on the wound. To avoid laying directly the ulcer site. It is okay to transition into weightbearing as tolerated with his cam walker boot with [address] To progress into this activity. To continue with the knee roller otherwise. Vascular: There is palpable pulses. Continued delays in healing noted noninvasive vascular studies will be performed. Edema: Okay to use Tubigrip daily and to elevate intermittently Infection: He had prior MSSA infected ulcer and completed a 6 week course of IV antibiotics; cefazolin. Additional oral antibiotics were recommended by infectious disease due to his retained surgical materials (suppressive Keflex). Infectious disease recommendations are appreciated; he will follow-up in [address] Shen. Pain: He no longer required pain medication (prescription strength). Host factors: To optimize healing with Chucho supplementation. He was advised upper extremity exercise and nonsurgical limb rowing is okay. I answered all the patient's questions. To return to the wound healing center in 1 week or call sooner if the patient has any questions or concerns. Note: [employer] speech recognition photographer's model software was used to create portions of this document. Sound-alike and misspelled words, as well as other photographer's model errors may be contained in the documentation.
[2021-06-10 08:06] VITALS: BP 124/72; PULSE 74; RESP 20; TEMP 36.2; BMI 22.6
--- NOTE | 2021-06-10 08:44 | PCM.WC.PN ---
History of Present Illness Date of Service: 06/10/21 Chief Complaint: left leg ulcer History of Wound: Mr. Hernandez is a 50-year-old who had prior surgical repair following left Achilles tendon tear. He completed his course of antibiotics. He continues to take Chucho supplementation to optimize healing. He denies chills, fever, nausea, vomiting, body itching, diarrhea. He has been weightbearing in a cam walker with one heel wedge. He is trying to keep pressure directly off of the ulcer site. He denies redness or odors. The maria isabel is no longer adhering as much. He plans to travel to [place] this week via vehicle. Progress of Wound: Improving Objective Data Objective Data Vital Signs: Vital Signs Temp Pulse Resp BP 97.1 F L 74 20 H 124/72 H 06/10/21 08:06 06/10/21 08:06 06/10/21 08:06 06/10/21 08:06 Weight: 75.735 kg Body Mass Index (BMI) 22.6 Physical Exam Extremity Extremity Narrative: No calf tenderness Palpable pedal pulses 2 out of 4 Skin Skin Narrative: no purulence, no streaking, no odor, no infection. There is significant peripheral epithelialization noted. The ulcer bed is 100% granular. No adjacent fluctuance or bogginess. There is overall resolution in deep probing. Mild pressure change to the medial border Neuro Neuro Narrative: Epicritic sensation intact to light touch Debridement Note Debridement Note Wound debrided: posterior left leg Wound Grade/Stage: Type of Debridement: Excisional debridement Anesthesia Used: 4% Lidocaine Solution Depth: in the subcutaneous layer Percentage of wound debrided: 100 Instrument Used: #15 blade Tissue Removed: fibrous, devitalized subcutaneous, biofilm, slough Severity: Fat Layer Exposed Amount of bleeding with debridement: Mild Bleeding Controlled with: Pressure Patient tolerated procedure: Patient tolerated procedure well Post-Debridement Measurements and Additional Note: Post-Debridement Measurements/Treatment TOBY - Nurse 1 - General Ulcer Assessment Start: 05/27/21 08:14 Freq: Status: Active Protocol: KEO Activity Type Activity Date Activity User E-Sign Co-Sign Detail Recorded Client Recorded Date Recorded By Document 05/27/21 08:14 DL Desktop 05/27/21 08:17 DL Document 06/03/21 08:49 DL Desktop 06/03/21 08:56 DL Document 06/10/21 08:06 DL Desktop 06/10/21 08:12 DL 05/27/21 06/03/21 06/10/21 08:14 08:49 08:06 - Today's Visit Information Type of service Follow-up Visit Follow-up Visit Follow-up Visit (Physician/PUMP SERVICER SUPERVISOR (Physician/PUMP SERVICER SUPERVISOR (Physician/PUMP SERVICER SUPERVISOR ) ) ) Arrival Mode Ambulatory Ambulatory Ambulatory Transfer Assistance None None None Patient Identification Verified (Name & Yes Yes Yes ) Patient Requires Transmission-Based No No No Precautions Height and Weight Body Mass Index (BMI) 22.6 22.6 22.6 BMI Classification Normal Normal Normal Vital Signs Temperature (97.8 F-99.1 F) 97 F L 97.4 F L 97.1 F L Temperature Source Temporal Temporal Temporal Pulse Rate (60-100) 67 72 74 Pulse Location Monitor Monitor Monitor Respiratory Rate (12-18) 18 18 20 H Respiratory rate source Observation Observation Blood Pressure (90/60-120/80) 127/71 H 123/74 H 124/72 H Blood Pressure Mean (mm Hg) 89 90 89 Source Monitor Monitor Monitor History Since Last Visit- (Skip if this is Patient's initial visit) Have you changed medications since your No No No last visit? Any new allergies or adverse reactions No No No Had a fall/change in ADL's that may No No No increase risk of falls Signs or symptoms of abuse and/or No No No neglect since last visit Have you been in the hospital since your No No No last visit? Has dressing in place as prescribed Yes Yes Yes Has compression in place as prescribed Yes Yes N/A Has offloadiing in place as prescribed Yes Yes Yes Experienced any changes in pain level or No No No management Left Footwear Removable Cast Walker/Walking Boot Pain Scale: 0-10 Numeric Is Patient Pain Free? Yes Yes Yes - Nurse 1 - General Ulcer Measurement Start: 05/27/21 08:14 Freq: Status: Active Protocol: Activity Type Activity Date Activity User E-Sign Co-Sign Detail Recorded Client Recorded Date Recorded By Document 05/27/21 08:14 DL Desktop 05/27/21 08:17 DL Document 06/03/21 08:49 DL Desktop 06/03/21 08:56 DL Document 06/10/21 08:06 DL Desktop 06/10/21 08:12 DL 05/27/21 06/03/21 06/10/21 08:14 08:49 08:06 Wound Center Nurse 1 #1 L Achilles -Current Size (cm) - Length 2.4 2.4 3.2 -Current Size (cm) - Width 0.4 0.7 0.8 -Current Size (cm) - Depth 0.1 0.2 0.1 -Total Square Cm 0.96 1.68 2.56 -Photo Taken No No No -Exudate Amt Small Small Small -Exudate Type Serosanguineous Serosanguineous -Wound Margin Distinct, Distinct, Distinct, Outline Outline Outline Attached Attached Attached -Granulation Amt Large (67-100%) Medium (34-66%) Medium (34-66%) -Granulation Quality Red Red Red -Necrosis Amt None Present (0 Medium (34-66%) Medium (34-66%) %) -Necrotic Tissue Type Adherent Slough Adherent Slough -Structure Exposed N/A N/A N/A -Texture (Sue-wound Skin Appearance) Scarring Scarring Scarring -Moisture (Sue-wound Skin Appearance) Dry/Scaly No Abnormality No Abnormality -Color (Sue-wound Skin Appearance) No Abnormality No Abnormality No Abnormality -Temperature (Sue-wound Skin No Abnormality No Abnormality No Abnormality Appearance) (Pt Warm) (Pt Warm) (Pt Warm) -Tenderness on Palpation (Sue-wound No No No Skin Appearance) -Ulcer Cleansing Rinsed/ Soap and Water Soap and Water Irrigated with Saline -Foul Odor after Cleansing No No -Anesthetic Used 5% Lidocaine 4% Lidocaine 4% Lidocaine Gel Solution Solution WC - Nurse 2 - General Ulcer CM Notes Start: 05/27/21 08:14 Freq: Status: Active Protocol: Activity Type Activity Date Activity User E-Sign Co-Sign Detail Recorded Client Recorded Date Recorded By Document 05/27/21 08:32 JF [id number] 05/27/21 08:35 JF Document 06/03/21 09:02 JF [id number] 06/03/21 09:04 JF Document 06/10/21 08:16 JF [id number] 06/10/21 08:19 JF 05/27/21 06/03/21 06/10/21 08:32 09:02 08:16 Wound Center Nurse 2 #1 L Achilles -Time 08:33 09:03 08:17 -Correct Patient Yes Yes Yes -Correct Side, Site, Position Yes Yes Yes -Correct Procedure Yes Yes Yes -Procedure Performed Yes Yes Yes -Type of Procedure Debridement Debridement Debridement -Clinical Debridement Subcutaneous Subcutaneous Subcutaneous -Tissue Removed Subcutaneous Subcutaneous Subcutaneous -Post Debridement (cm) - Length 2.5 3 2.6 -Post Debridement (cm) - Width 0.4 0.8 0.4 -Post Debridement (cm) - Depth 0.1 0.2 0.2 -Total Square (Post) (cm) 1.00 2.4 1.04 -Area of Debridement (cm) - Length 2.5 3 2.6 -Area of Debridement (cm) - Width 0.4 0.8 0.4 -Total Square (Area) (cm) 1.00 2.4 1.04 -Tunneling No No No -Undermining/Tunneling No No No -Circular Undermining No No No -Wound/Ulcer Outcome Not Healed Not Healed Not Healed -Ulcer Cleansing Rinsed/ Rinsed/ Rinsed/ Irrigated with Irrigated with Irrigated with Saline Saline Saline -Foul Odor after Cleansing No No No -Bioengineered Tissue No No No -Bleeding Controlled with Pressure Pressure Pressure -Offloading Yes Yes No -Type of Offloading Camwalker Camwalker -Treatment Response Procedure Procedure Procedure Tolerated Well Tolerated Well Tolerated Well -Debridement - Subq, 1st 20sq cm Yes Yes Yes Pain Scale: 0-10 Numeric Is Patient Pain Free? Yes Yes Yes - Nurse 3 - General Ulcer D/C NN Start: 05/27/21 08:14 Freq: Status: Active Protocol: Activity Type Activity Date Activity User E-Sign Co-Sign Detail Recorded Client Recorded Date Recorded By Document 05/27/21 08:45 DL Desktop 05/27/21 08:48 DL Document 06/03/21 09:13 [facility] Desktop 06/03/21 09:13 BM Document 06/10/21 08:29 [facility] Desktop 06/10/21 08:29 F 05/27/21 06/03/21 06/10/21 08:45 09:13 08:29 Wound Care Nurse 3 #1 L Achilles -Ulcer Cleansing Rinsed/ Rinsed/ Rinsed/ Irrigated with Irrigated with Irrigated with Saline Saline Saline -Foul Odor after Cleansing No No No -Primary Dressing Applied Promogran Promogran C Hydrogel ($), Maria Isabel Matter Maria Isabel Matter NonAdherent Contact Layer -Primary Dressing Covered/Secured with Dry Gauze, Dry Gauze, Dry Gauze, Secured with Secured with Secured with Tape Tape Tape -Promogran Maria Isabel Matter 1 1 Left -Compression Wrap Jaycob Wrap Jaycob Wrap Treatment Response Procedure Procedure Procedure Tolerated Well Tolerated Well Tolerated Well Pain Scale: 0-10 Numeric Is Patient Pain Free? Yes Yes Yes WC - Visit Discharge Discharge Condition Stable Stable Stable Ambulatory Status Ambulatory Ambulatory Ambulatory Transportation Private Auto Private Auto Private Auto Assessment/Plan Assessment/Plan (1) Cellulitis and abscess of left leg: CODE(S): L03.116 - Cellulitis of left lower limb; L02.416 - Cutaneous abscess of left lower limb (2) Delayed surgical wound healing: CODE(S): T81.89XA - Other complications of procedures, not elsewhere classified, initial encounter (3) Strain of left Achilles tendon, initial encounter: CODE(S): S86.012A - Strain of left Achilles tendon, initial encounter (4) 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 Debridement was performed today as noted in the clinical panel to the ulcer site. Overall improvement is noted. The following work up and care recommendations were made: Dressing: To change daily with hydrogel and adaptic Wash: Antibacterial soap and water. It is okay to take a brief shower. To avoid soaking activity. To wear gloves while performing dressing change. Tissue growth optimization: He recently had advanced wound care product, epi cord applied in the operating room setting. Offload: To reduce tension by avoiding active or passive ankle range of motion. To wear offloading donut pillow to take pressure off the site and to avoid sitting or laying directly on the wound. To avoid laying directly the ulcer site. It is okay to transition into weightbearing as tolerated with his cam walker boot with [address] If he continues to feel well, ok to transition to no heel lift. To progress into this activity. To continue with the knee roller otherwise. Vascular: There is palpable pulses. Continued delays in healing noted noninvasive vascular studies will be performed. Edema: Okay to use Tubigrip daily and to elevate intermittently. To stop frequently and move during car trip to [place] to prevent stasis. Infection: He had prior MSSA infected ulcer and completed a 6 week course of IV antibiotics; cefazolin. Additional oral antibiotics were recommended by infectious disease due to his retained surgical materials (suppressive Keflex). Infectious disease recommendations are appreciated; he will follow-up in [address] Shen. Pain: He no longer required pain medication (prescription strength). Host factors: To optimize healing with Chucho supplementation. He was advised upper extremity exercise and nonsurgical limb rowing is okay. I answered all the patient's questions. To return to the wound healing center in 1 week or call sooner if the patient has any questions or concerns. Note: [employer] speech recognition programming coordinator software was used to create portions of this document. Sound-alike and misspelled words, as well as other programming coordinator errors may be contained in the documentation.
[2021-06-17 08:08] VITALS: BP 130/82; PULSE 80; RESP 16; TEMP 36.1; BMI 22.6
--- NOTE | 2021-06-17 09:34 | PN.PCM_ITS ---
History of Present Illness Date of Service: 06/17/21 Chief Complaint: left leg ulcer History of Wound: Mr. Hernandez is a 50-year-old who had prior surgical repair following left Achilles tendon tear. He completed his course of antibiotics. He continues to take Chucho supplementation to optimize healing. He denies chills, fever, nausea, vomiting. He has been weightbearing in a cam walker. He is trying to keep pressure directly off of the ulcer site. He denies redness or odors. His trip to [place] has been delayed. Progress of Wound: Improving Objective Data Objective Data Vital Signs: Vital Signs Temp Pulse Resp BP 96.9 F L 80 16 130/82 H 06/17/21 08:08 06/17/21 08:08 06/17/21 08:08 06/17/21 08:08 Oxygen Delivery Method Room Air Weight: 75.735 kg Body Mass Index (BMI) 22.6 Physical Exam Extremity Extremity Narrative: No calf tenderness Palpable pedal pulses 2 out of 4 Skin Skin Narrative: no purulence, no streaking, no odor, no infection. There is significant peripheral epithelialization noted. The ulcer bed is 100% granular. No adjacent fluctuance or bogginess. There is overall resolution in deep probing. Mild pressure change to the medial border Neuro Neuro Narrative: Epicritic sensation intact to light touch Debridement Note Debridement Note Wound debrided: leg distal posterior leg Wound Grade/Stage: Type of Debridement: Excisional debridement Anesthesia Used: 4% Lidocaine Solution Depth: in the subcutaneous layer Percentage of wound debrided: 100 Instrument Used: #15 blade Tissue Removed: fibrous, devitalized subcutaneous, biofilm, slough Severity: Fat Layer Exposed Amount of bleeding with debridement: Mild Bleeding Controlled with: Pressure Patient tolerated procedure: Patient tolerated procedure well Post-Debridement Measurements and Additional Note: Post-Debridement Measurements/Treatment TOBY - Nurse 1 - General Ulcer Assessment Start: 05/27/21 08:14 Freq: Status: Active Protocol: KEO Activity Type Activity Date Activity User E-Sign Co-Sign Detail Recorded Client Recorded Date Recorded By Document 05/27/21 08:14 DL Desktop 05/27/21 08:17 DL Document 06/03/21 08:49 DL Desktop 06/03/21 08:56 DL Document 06/10/21 08:06 DL Desktop 06/10/21 08:12 DL Document 06/17/21 08:08 [facility] [id number] 06/17/21 08:12 BM 05/27/21 06/03/21 06/10/21 08:14 08:49 08:06 - Today's Visit Information Type of service Follow-up Visit Follow-up Visit Follow-up Visit (Physician/BALANCE WHEEL SCREW HOLE DRILLER (Physician/BALANCE WHEEL SCREW HOLE DRILLER (Physician/BALANCE WHEEL SCREW HOLE DRILLER ) ) ) Arrival Mode Ambulatory Ambulatory Ambulatory Transfer Assistance None None None Patient Identification Verified (Name & Yes Yes Yes ) Patient Requires Transmission-Based No No No Precautions Height and Weight Body Mass Index (BMI) 22.6 22.6 22.6 BMI Classification Normal Normal Normal Vital Signs Temperature (97.8 F-99.1 F) 97 F L 97.4 F L 97.1 F L Temperature Source Temporal Temporal Temporal Pulse Rate (60-100) 67 72 74 Pulse Location Monitor Monitor Monitor Respiratory Rate (12-18) 18 18 20 H Respiratory rate source Observation Observation Oxygen Delivery Method Blood Pressure (90/60-120/80) 127/71 H 123/74 H 124/72 H Blood Pressure Mean (mm Hg) 89 90 89 Source Monitor Monitor Monitor Position Blood Pressure Location History Since Last Visit- (Skip if this is Patient's initial visit) Have you changed medications since your No No No last visit? Any new allergies or adverse reactions No No No Had a fall/change in ADL's that may No No No increase risk of falls Signs or symptoms of abuse and/or No No No neglect since last visit Have you been in the hospital since your No No No last visit? Has dressing in place as prescribed Yes Yes Yes Has compression in place as prescribed Yes Yes N/A Has offloadiing in place as prescribed Yes Yes Yes Experienced any changes in pain level or No No No management Left Footwear Removable Cast Walker/Walking Boot Right Footwear Pain Scale: 0-10 Numeric Is Patient Pain Free? Yes Yes Yes 06/17/21 08:08 - Today's Visit Information Type of service Follow-up Visit (Physician/BALANCE WHEEL SCREW HOLE DRILLER ) Arrival Mode Ambulatory Transfer Assistance None Patient Identification Verified (Name & Yes ) Patient Requires Transmission-Based No Precautions Height and Weight Body Mass Index (BMI) 22.6 BMI Classification Normal Vital Signs Temperature (97.8 F-99.1 F) 96.9 F L Temperature Source Temporal Pulse Rate (60-100) 80 Pulse Location Monitor Respiratory Rate (12-18) 16 Respiratory rate source Observation Oxygen Delivery Method Room Air Blood Pressure (90/60-120/80) 130/82 H Blood Pressure Mean (mm Hg) 98 Source Monitor Position Sitting Blood Pressure Location Right Arm History Since Last Visit- (Skip if this is Patient's initial visit) Have you changed medications since your No last visit? Any new allergies or adverse reactions No Had a fall/change in ADL's that may No increase risk of falls Signs or symptoms of abuse and/or No neglect since last visit Have you been in the hospital since your No last visit? Has dressing in place as prescribed Yes Has compression in place as prescribed Yes Has offloadiing in place as prescribed Yes Experienced any changes in pain level or No management Left Footwear Removable Cast Walker/Walking Boot Right Footwear Regular Shoe Pain Scale: 0-10 Numeric Is Patient Pain Free? Yes WC - Nurse 1 - General Ulcer Measurement Start: 05/27/21 08:14 Freq: Status: Active Protocol: Activity Type Activity Date Activity User E-Sign Co-Sign Detail Recorded Client Recorded Date Recorded By Document 05/27/21 08:14 DL Desktop 05/27/21 08:17 DL Document 06/03/21 08:49 DL Desktop 06/03/21 08:56 DL Document 06/10/21 08:06 DL Desktop 06/10/21 08:12 DL Document 06/17/21 08:08 [facility] [id number] 06/17/21 08:12 [facility] 05/27/21 06/03/21 06/10/21 08:14 08:49 08:06 Wound Center Nurse 1 #1 L Achilles -Combined with other wound -Current Size (cm) - Length 2.4 2.4 3.2 -Current Size (cm) - Width 0.4 0.7 0.8 -Current Size (cm) - Depth 0.1 0.2 0.1 -Total Square Cm 0.96 1.68 2.56 -Photo Taken No No No -Epithelialization -Tunneling -Undermining/Tunneling -Circular Undermining -Exudate Amt Small Small Small -Exudate Type Serosanguineous Serosanguineous -Wound Margin Distinct, Distinct, Distinct, Outline Outline Outline Attached Attached Attached -Granulation Amt Large (67-100%) Medium (34-66%) Medium (34-66%) -Granulation Quality Red Red Red -Slough/Fibrin -Necrosis Amt None Present (0 Medium (34-66%) Medium (34-66%) %) -Necrotic Tissue Type Adherent Slough Adherent Slough -Structure Exposed N/A N/A N/A -Texture (Sue-wound Skin Appearance) Scarring Scarring Scarring -Moisture (Sue-wound Skin Appearance) Dry/Scaly No Abnormality No Abnormality -Color (Sue-wound Skin Appearance) No Abnormality No Abnormality No Abnormality -Temperature (Sue-wound Skin No Abnormality No Abnormality No Abnormality Appearance) (Pt Warm) (Pt Warm) (Pt Warm) -Tenderness on Palpation (Sue-wound No No No Skin Appearance) -Ulcer Cleansing Rinsed/ Soap and Water Soap and Water Irrigated with Saline -Foul Odor after Cleansing No No -Anesthetic Used 5% Lidocaine 4% Lidocaine 4% Lidocaine Gel Solution Solution 06/17/21 08:08 Wound Center Nurse 1 #1 L Achilles -Combined with other wound No -Current Size (cm) - Length 3.8 -Current Size (cm) - Width 1.3 -Current Size (cm) - Depth 0.1 -Total Square Cm 4.94 -Photo Taken No -Epithelialization Small 1-33% -Tunneling No -Undermining/Tunneling No -Circular Undermining No -Exudate Amt Medium -Exudate Type Serosanguineous -Wound Margin Distinct, Outline Attached -Granulation Amt Small (1-33%) -Granulation Quality Red -Slough/Fibrin Yes -Necrosis Amt Large (67-100%) -Necrotic Tissue Type Adherent Slough -Structure Exposed -Texture (Sue-wound Skin Appearance) Assessed, Fluctuance -Moisture (Sue-wound Skin Appearance) Assessed -Color (Sue-wound Skin Appearance) Assessed -Temperature (Sue-wound Skin No Abnormality Appearance) (Pt Warm) -Tenderness on Palpation (Sue-wound No Skin Appearance) -Ulcer Cleansing Rinsed/ Irrigated with Saline -Foul Odor after Cleansing No -Anesthetic Used 5% Lidocaine Gel WC - Nurse 2 - General Ulcer CM Notes Start: 05/27/21 08:14 Freq: Status: Active Protocol: Activity Type Activity Date Activity User E-Sign Co-Sign Detail Recorded Client Recorded Date Recorded By Document 05/27/21 08:32 JOAN [id number] 05/27/21 08:35 JOAN Document 06/03/21 09:02 JF [id number] 06/03/21 09:04 JF Document 06/10/21 08:16 JF [id number] 06/10/21 08:19 JF Document 06/17/21 08:21 JF [id number] 06/17/21 08:22 JF 05/27/21 06/03/21 06/10/21 08:32 09:02 08:16 Wound Center Nurse 2 #1 L Achilles -Time 08:33 09:03 08:17 -Correct Patient Yes Yes Yes -Correct Side, Site, Position Yes Yes Yes -Correct Procedure Yes Yes Yes -Procedure Performed Yes Yes Yes -Type of Procedure Debridement Debridement Debridement -Clinical Debridement Subcutaneous Subcutaneous Subcutaneous -Tissue Removed Subcutaneous Subcutaneous Subcutaneous -Post Debridement (cm) - Length 2.5 3 2.6 -Post Debridement (cm) - Width 0.4 0.8 0.4 -Post Debridement (cm) - Depth 0.1 0.2 0.2 -Total Square (Post) (cm) 1.00 2.4 1.04 -Area of Debridement (cm) - Length 2.5 3 2.6 -Area of Debridement (cm) - Width 0.4 0.8 0.4 -Total Square (Area) (cm) 1.00 2.4 1.04 -Tunneling No No No -Undermining/Tunneling No No No -Circular Undermining No No No -Wound/Ulcer Outcome Not Healed Not Healed Not Healed -Ulcer Cleansing Rinsed/ Rinsed/ Rinsed/ Irrigated with Irrigated with Irrigated with Saline Saline Saline -Foul Odor after Cleansing No No No -Bioengineered Tissue No No No -Bleeding Controlled with Pressure Pressure Pressure -Offloading Yes Yes No -Type of Offloading Camwalker Camwalker -Treatment Response Procedure Procedure Procedure Tolerated Well Tolerated Well Tolerated Well -Debridement - Subq, 1st 20sq cm Yes Yes Yes Pain Scale: 0-10 Numeric Is Patient Pain Free? Yes Yes Yes 06/17/21 08:21 Wound Center Nurse 2 #1 L Achilles -Time 08:21 -Correct Patient Yes -Correct Side, Site, Position Yes -Correct Procedure Yes -Procedure Performed Yes -Type of Procedure Debridement -Clinical Debridement Subcutaneous -Tissue Removed Subcutaneous -Post Debridement (cm) - Length 2.8 -Post Debridement (cm) - Width 0.4 -Post Debridement (cm) - Depth 0.2 -Total Square (Post) (cm) 1.12 -Area of Debridement (cm) - Length 2.8 -Area of Debridement (cm) - Width 0.4 -Total Square (Area) (cm) 1.12 -Tunneling No -Undermining/Tunneling No -Circular Undermining -Wound/Ulcer Outcome Not Healed -Ulcer Cleansing Rinsed/ Irrigated with Saline -Foul Odor after Cleansing No -Bioengineered Tissue No -Bleeding Controlled with Pressure -Offloading Yes -Type of Offloading Camwalker -Treatment Response Procedure Tolerated Well -Debridement - Subq, 1st 20sq cm Yes Pain Scale: 0-10 Numeric Is Patient Pain Free? WC - Nurse 3 - General Ulcer D/C NN Start: 05/27/21 08:14 Freq: Status: Active Protocol: Activity Type Activity Date Activity User E-Sign Co-Sign Detail Recorded Client Recorded Date Recorded By Document 05/27/21 08:45 DL Desktop 05/27/21 08:48 DL Document 06/03/21 09:13 F Desktop 06/03/21 09:13 BMF Document 06/10/21 08:29 F Desktop 06/10/21 08:29 F Document 06/17/21 08:28 DL [id number] 06/17/21 08:28 DL 05/27/21 06/03/21 06/10/21 08:45 09:13 08:29 Wound Care Nurse 3 #1 L Achilles -Ulcer Cleansing Rinsed/ Rinsed/ Rinsed/ Irrigated with Irrigated with Irrigated with Saline Saline Saline -Foul Odor after Cleansing No No No -Primary Dressing Applied Promogran Promogran C Hydrogel ($), Beatris Matter Beatris Matter NonAdherent Contact Layer -Other Dressing -Primary Dressing Covered/Secured with Dry Gauze, Dry Gauze, Dry Gauze, Secured with Secured with Secured with Tape Tape Tape -Promogran Beatris Matter 1 1 Left -Compression Wrap Jaycob Wrap Jaycob Wrap Treatment Response Procedure Procedure Procedure Tolerated Well Tolerated Well Tolerated Well Pain Scale: 0-10 Numeric Is Patient Pain Free? Yes Yes Yes WC - Visit Discharge Discharge Condition Stable Stable Stable Ambulatory Status Ambulatory Ambulatory Ambulatory Transportation Private Auto Private Auto Private Auto 06/17/21 08:28 Wound Care Nurse 3 #1 L Achilles -Ulcer Cleansing Rinsed/ Irrigated with Saline -Foul Odor after Cleansing No -Primary Dressing Applied -Other Dressing hydrogel -Primary Dressing Covered/Secured with Dry Gauze, Secured with Tape -Promogran Beatris Matter Left -Compression Wrap Treatment Response Procedure Tolerated Well Pain Scale: 0-10 Numeric Is Patient Pain Free? 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 Debridement was performed today as noted in the clinical panel to the ulcer site. Overall improvement is noted. The following work up and care recommendations were made: Dressing: To change daily with hydrogel and adaptic Wash: Antibacterial soap and water. It is okay to take a brief shower. To avoid soaking activity. To wear gloves while performing dressing change. Tissue growth optimization: He recently had advanced wound care product, epi cord applied in the operating room setting. Offload: To reduce tension by avoiding active or passive ankle range of motion. To wear offloading donut pillow to take pressure off the site and to avoid sitt ing or laying directly on the wound. To avoid laying directly the ulcer site. Weightbear as tolerated in cam without wedge. To progress into this activity. To continue with the knee roller otherwise. Vascular: There is palpable pulses. Continued delays in healing noted noninvasive vascular studies will be performed. Edema: Okay to use Tubigrip daily and to elevate intermittently. To stop freq uently and move during car trip to [place] to prevent stasis. Infection: He had prior MSSA infected ulcer and completed a 6 week course of IV antibiotics; cefazolin. Additional oral antibiotics were recommended by infectious disease due to his retained surgical materials (suppressive Keflex). Infectious disease recommendations are appreciated; he will follow-up in [address] Shen. Pain: He no longer required pain medication (prescription strength). Host factors: To optimize healing with Chucho supplementation. He was advised upper extremity exercise and nonsurgical limb rowing is okay. I answered all the patient's questions. To return to the wound healing center in 1 week or call sooner if the patient has any questions or concerns. Note: [employer] speech recognition food storeroom clerk software was used to create portions of this document. Sound-alike and misspelled words, as well as other food storeroom clerk errors may be contained in the documentation.
== END 2021-06-21 23:59 ==
LOC: WC 08:15
PROVIDERS: Referring Provider Internal Medicine; Visit Provider Podiatrist
DX: T81.89XA Other complications of procedures, not elsewhere classified, initial encounter (principal); L97.822 Non-pressure chronic ulcer of other part of left lower leg with fat layer exposed; L03.116 Cellulitis of left lower limb; L02.416 Cutaneous abscess of left lower limb; Z79.899 Other long term (current) drug therapy
CPT/HCPCS: 11042

== ENCOUNTER 2021-07-15 08:30 | Outpatient (RCR) | payer BC, SELFPAY ==
[2021-06-22 00:24] VITALS: BP 130/82; PULSE 80; RESP 16; TEMP 36.1; BMI 22.6
[2021-07-01 08:26] VITALS: BP 146/87; PULSE 78; RESP 18; TEMP 36.1; BMI 22.6
--- NOTE | 2021-07-01 10:31 | PN.PCM_ITS ---
History of Present Illness Date of Service: 07/01/21 Chief Complaint: left leg ulcer History of Wound: Mr. Hernandez is a 50-year-old who had prior surgical repair following left Achilles tendon tear. He completed his course of antibiotics. He continues to take Chucho supplementation to optimize healing. He denies chills, fever, nausea, vomiting. He has been weightbearing in a cam walker. He is trying to keep pressure directly off of the ulcer site. He denies redness or odors. He has another upcoming work trip and has a short airplane flight scheduled for this upcoming week. Progress of Wound: Improving Objective Data Objective Data Vital Signs: Vital Signs Temp Pulse Resp BP 97 F L 78 18 146/87 H 07/01/21 08:26 07/01/21 08:26 07/01/21 08:26 07/01/21 08:26 Weight: 75.735 kg Body Mass Index (BMI) 22.6 Physical Exam Extremity Extremity Narrative: No calf tenderness Palpable pedal pulses 2 out of 4 Skin Skin Narrative: no purulence, no streaking, no odor, no infection. There is significant peripheral epithelialization noted. The ulcer bed is 100% granular. No adjacent fluctuance or bogginess. There is overall resolution in deep probing. Skin epithelialization noted at the distal and central aspects; this is not considered a wound cluster Neuro Neuro Narrative: Epicritic sensation intact to light touch Debridement Note Debridement Note Wound debrided: Posterior left leg Wound Grade/Stage: Type of Debridement: Excisional debridement Anesthesia Used: 4% Lidocaine Solution Depth: in the subcutaneous layer Percentage of wound debrided: - (75%) Instrument Used: #15 blade Tissue Removed: fibrous, devitalized subcutaneous, biofilm, slough Severity: Fat Layer Exposed Amount of bleeding with debridement: Mild Bleeding Controlled with: Pressure Patient tolerated procedure: Patient tolerated procedure well Post-Debridement Measurements and Additional Note: Post-Debridement Measurements/Treatment - Nurse 1 - General Ulcer Assessment Start: 07/01/21 08:26 Freq: Status: Active Protocol: KEO Activity Type Activity Date Activity User E-Sign Co-Sign Detail Recorded Client Recorded Date Recorded By Document 07/01/21 08:26 [facility] [id number] 07/01/21 08:29 [facility] 07/01/21 08:26 - Today's Visit Information Type of service Follow-up Visit (Physician/CRATE LINER ) Arrival Mode Ambulatory Transfer Assistance None Patient Identification Verified (Name & Yes ) Patient Requires Transmission-Based No Precautions Height and Weight Body Mass Index (BMI) 22.6 BMI Classification Normal Vital Signs Temperature (97.8 F-99.1 F) 97 F L Temperature Source Temporal Pulse Rate (60-100) 78 Pulse Location Monitor Respiratory Rate (12-18) 18 Respiratory rate source Observation Blood Pressure (90/60-120/80) 146/87 H Blood Pressure Mean (mm Hg) 106 Source Monitor Position Semi-Fowlers Blood Pressure Location Left Arm History Since Last Visit- (Skip if this is Patient's initial visit) Have you changed medications since your No last visit? Any new allergies or adverse reactions No Had a fall/change in ADL's that may No increase risk of falls Signs or symptoms of abuse and/or No neglect since last visit Have you been in the hospital since your No last visit? Has dressing in place as prescribed Yes Has compression in place as prescribed No Has offloadiing in place as prescribed Yes Experienced any changes in pain level or No management Left Footwear Removable Cast Walker/Walking Boot Right Footwear Regular Shoe Pain Scale: 0-10 Numeric Is Patient Pain Free? Yes WC - Nurse 1 - General Ulcer Measurement Start: 07/01/21 08:26 Freq: Status: Active Protocol: Activity Type Activity Date Activity User E-Sign Co-Sign Detail Recorded Client Recorded Date Recorded By Document 07/01/21 08:26 [facility] [id number] 07/01/21 08:29 [facility] 07/01/21 08:26 Wound Center Nurse 1 #1 L Achilles -Combined with other wound No -Current Size (cm) - Length 3.3 -Current Size (cm) - Width 1 -Current Size (cm) - Depth 0.1 -Total Square Cm 3.3 -Tunneling No -Undermining/Tunneling No -Circular Undermining No -Exudate Amt Medium -Exudate Type Serosanguineous -Wound Margin Flat & Intact -Granulation Amt Medium (34-66%) -Granulation Quality [place] -Slough/Fibrin Yes -Necrosis Amt Medium (34-66%) -Necrotic Tissue Type Adherent Slough -Structure Exposed N/A -Texture (Sue-wound Skin Appearance) Assessed -Moisture (Sue-wound Skin Appearance) Assessed -Color (Sue-wound Skin Appearance) Erythema -Temperature (Sue-wound Skin No Abnormality Appearance) (Pt Warm) -Tenderness on Palpation (Sue-wound No Skin Appearance) -Ulcer Cleansing Wound Cleanser -Foul Odor after Cleansing No -Anesthetic Used 5% Lidocaine Gel TOBY - Nurse 2 - General Ulcer CM Notes Start: 07/01/21 08:26 Freq: Status: Active Protocol: Activity Type Activity Date Activity User E-Sign Co-Sign Detail Recorded Client Recorded Date Recorded By Document 07/01/21 08:35 [id number] 07/01/21 08:38 07/01/21 08:35 Wound Center Nurse 2 -Time 08:35 -Correct Patient Yes -Correct Side, Site, Position Yes -Correct Procedure Yes -Procedure Performed Yes -Type of Procedure Debridement -Clinical Debridement Subcutaneous -Tissue Removed Subcutaneous -Post Debridement (cm) - Length 2.4 -Post Debridement (cm) - Width 0.7 -Post Debridement (cm) - Depth 0.2 -Total Square (Post) (cm) 1.68 -Area of Debridement (cm) - Length 2.0 -Area of Debridement (cm) - Width 0.6 -Total Square (Area) (cm) 1.20 -Tunneling No -Undermining/Tunneling No -Circular Undermining No -Wound/Ulcer Outcome Not Healed -Ulcer Cleansing Rinsed/ Irrigated with Saline -Foul Odor after Cleansing No -Bioengineered Tissue No -Bleeding Controlled with Pressure -Offloading Yes -Type of Offloading Camwalker -Treatment Response Procedure Tolerated Well -Debridement - Subq, 1st 20sq cm Yes Pain Scale: 0-10 Numeric Is Patient Pain Free? Yes - Nurse 3 - General Ulcer D/C NN Start: 07/01/21 08:26 Freq: Status: Active Protocol: Activity Type Activity Date Activity User E-Sign Co-Sign Detail Recorded Client Recorded Date Recorded By Document 07/01/21 08:43 [facility] [id number] 07/01/21 08:45 [facility] 07/01/21 08:43 Wound Care Nurse 3 #1 L Achilles -Ulcer Cleansing Rinsed/ Irrigated with Saline -Foul Odor after Cleansing No -Primary Dressing Applied C Hydrogel ($), NonAdherent Contact Layer -Primary Dressing Covered/Secured with Dry Gauze, Secured with Tape -Other Covering DRSG PER RB RN Left -Tubular Bandage Single Layer -Size of Tubigrip Used Size D -Size D ($) 1 Pain Scale: 0-10 Numeric Is Patient Pain Free? 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 Debridement was performed today as noted in the clinical panel to the ulcer site. Overall improvement is noted. The following work up and care recommendations were made: Dressing: To change daily with hydrogel and adaptic Wash: Antibacterial soap and water. It is okay to take a brief shower. To avoid soaking activity. To wear gloves while performing dressing change. Tissue growth optimization: He recently had advanced wound care product, epi cord applied in the operating room setting. Offload: To reduce tension by avoiding active or passive ankle range of motion. To wear offloading donut pillow to take pressure off the site and to avoid sitting or laying directly on the wound. To avoid laying directly the ulcer site. Weightbear as tolerated in cam without wedge. To progress into this activity. To continue with the knee roller otherwise. Vascular: There is palpable pulses. Continued delays in healing noted noninvasive vascular studies will be performed. Edema: Okay to use Tubigrip daily and to elevate intermittently. I recommend routine movement while on his airplane flight. I do not recommend anticoagulation medication due to benefits versus risk. This was discussed in detail today. Infection: He had prior MSSA infected ulcer and completed a 6 week course of IV antibiotics; cefazolin. Additional oral antibiotics were recommended by infectious disease due to his retained surgical materials (suppressive Keflex). Infectious disease recommendations are appreciated; he will follow-up in 6 months. He was reassured no local signs of infection are noted today. Pain: He no longer required pain medication (prescription strength). Host factors: To optimize healing with Chucho supplementation. He was advised upper extremity exercise and nonsurgical limb rowing is okay. I answered all the patient's questions. To return to the wound healing center in 1 week or call sooner if the patient has any questions or concerns. Note: Archive speech recognition operations intelligence superintendent software was used to create portions of this document. Sound-alike and misspelled words, as well as other operations intelligence superintendent errors may be contained in the documentation.
[2021-07-15 08:22] VITALS: BP 145/83; BMI 22.6
--- NOTE | 2021-07-15 08:42 | PCM.WC.PN ---
History of Present Illness Date of Service: 07/15/21 Chief Complaint: left leg ulcer History of Wound: Mr. Hernandez is a 51-year-old who had prior surgical repair following left Achilles tendon tear. He completed his course of antibiotics. He continues to take Chucho supplementation to optimize healing. He denies chills, fever, nausea, vomiting. He has been weightbearing in a cam walker. He is trying to keep pressure directly off of the ulcer site. He denies redness or odors. He has been sleeping with his boot. Progress of Wound: Improving Objective Data Objective Data Vital Signs: Vital Signs Temp Pulse Resp BP 97 F L 78 18 145/83 H 07/01/21 08:26 07/01/21 08:26 07/01/21 08:26 07/15/21 08:22 Weight: 75.735 kg Body Mass Index (BMI) 22.6 Physical Exam Extremity Extremity Narrative: No calf tenderness Palpable pedal pulses 2 out of 4 Skin Skin Narrative: no purulence, no streaking, no odor, no infection. There is significant peripheral epithelialization noted. No adjacent fluctuance or bogginess. There is overall resolution in deep probing. Skin epithelialization noted at the distal and central aspects; this is now considered a wound cluster Neuro Neuro Narrative: Epicritic sensation intact to light touch Debridement Note Debridement Note Wound debrided: left leg Wound Grade/Stage: 1 Type of Debridement: Excisional debridement Anesthesia Used: 4% Lidocaine Solution Depth: in the subcutaneous layer Percentage of wound debrided: 50 Instrument Used: #15 blade Tissue Removed: fibrous, devitalized subcutaneous, biofilm, slough Severity: Fat Layer Exposed Amount of bleeding with debridement: Mild Bleeding Controlled with: Pressure Patient tolerated procedure: Patient tolerated procedure well Post-Debridement Measurements and Additional Note: Post-Debridement Measurements/Treatment - Nurse 1 - General Ulcer Assessment Start: 07/01/21 08:26 Freq: Status: Active Protocol: KEO Activity Type Activity Date Activity User E-Sign Co-Sign Detail Recorded Client Recorded Date Recorded By Document 07/01/21 08:26 [facility] [id number] 07/01/21 08:29 [facility] Document 07/15/21 08:22 [place] [id number] 07/15/21 08:24 [place] 07/01/21 07/15/21 08:26 08:22 - Today's Visit Information Type of service Follow-up Visit Follow-up Visit (Physician/TRIMMER LOADER (Physician/TRIMMER LOADER ) ) Arrival Mode Ambulatory Ambulatory Transfer Assistance None Patient Identification Verified (Name & Yes Yes ) Patient Requires Transmission-Based No No Precautions Safety Precautions NA Height and Weight Body Mass Index (BMI) 22.6 22.6 BMI Classification Normal Normal Vital Signs Temperature (97.8 F-99.1 F) 97 F L Temperature Source Temporal Pulse Rate (60-100) 78 Pulse Location Monitor Respiratory Rate (12-18) 18 Respiratory rate source Observation Blood Pressure (90/60-120/80) 146/87 H 145/83 H Blood Pressure Mean (mm Hg) 106 103 Source Monitor Monitor Position Semi-Fowlers Blood Pressure Location Left Arm History Since Last Visit- (Skip if this is Patient's initial visit) Have you changed medications since your No No last visit? Any new allergies or adverse reactions No No Had a fall/change in ADL's that may No No increase risk of falls Signs or symptoms of abuse and/or No No neglect since last visit Have you been in the hospital since your No No last visit? Has dressing in place as prescribed Yes Yes Has compression in place as prescribed No Yes Has offloadiing in place as prescribed Yes Yes Experienced any changes in pain level or No No management Left Footwear Removable Cast Removable Cast Walker/Walking Walker/Walking Boot Boot Right Footwear Regular Shoe Regular Shoe Pain Scale: 0-10 Numeric Is Patient Pain Free? Yes WC - Nurse 1 - General Ulcer Measurement Start: 07/01/21 08:26 Freq: Status: Active Protocol: Activity Type Activity Date Activity User E-Sign Co-Sign Detail Recorded Client Recorded Date Recorded By Document 07/01/21 08:26 [facility] [id number] 07/01/21 08:29 [facility] Document 07/15/21 08:22 [place] [id number] 07/15/21 08:24 [place] 07/01/21 07/15/21 08:26 08:22 Wound Center Nurse 1 #1 L Achilles -Combined with other wound No No -Current Size (cm) - Length 3.3 1 -Current Size (cm) - Width 1 0.3 -Current Size (cm) - Depth 0.1 0.1 -Total Square Cm 3.3 0.3 -Photo Taken No -Epithelialization Medium 34-66% -Tunneling No No -Undermining/Tunneling No No -Circular Undermining No No -Exudate Amt Medium Small -Exudate Type Serosanguineous Serosanguineous -Wound Margin Flat & Intact Distinct, Outline Attached -Granulation Amt Medium (34-66%) Medium (34-66%) -Granulation Quality [place] N/A -Slough/Fibrin Yes Yes -Necrosis Amt Medium (34-66%) Medium (34-66%) -Necrotic Tissue Type Adherent Slough Adherent Slough -Structure Exposed N/A N/A -Texture (Sue-wound Skin Appearance) Assessed No Abnormality, Assessed -Moisture (Sue-wound Skin Appearance) Assessed No Abnormality, Assessed -Color (Sue-wound Skin Appearance) Erythema No Abnormality, Assessed -Temperature (Sue-wound Skin No Abnormality No Abnormality Appearance) (Pt Warm) (Pt Warm) -Tenderness on Palpation (Sue-wound No No Skin Appearance) -Ulcer Cleansing Wound Cleanser Rinsed/ Irrigated with Saline -Foul Odor after Cleansing No No -Anesthetic Used 5% Lidocaine 5% Lidocaine Gel Gel Lower Limb Edema Present No Left Calf (cm) 33 Left Ankle (cm) 22.5 WC - Nurse 2 - General Ulcer CM Notes Start: 07/01/21 08:26 Freq: Status: Active Protocol: Activity Type Activity Date Activity User E-Sign Co-Sign Detail Recorded Client Recorded Date Recorded By Document 07/01/21 08:35 [facility] [id number] 07/01/21 08:38 Document 07/15/21 08:31 [id number] 07/15/21 08:35 07/01/21 07/15/21 08:35 08:31 Wound Center Nurse 2 #1 L Achilles -Time 08:35 08:31 -Correct Patient Yes Yes -Correct Side, Site, Position Yes Yes -Correct Procedure Yes Yes -Procedure Performed Yes Yes -Type of Procedure Debridement Debridement -Clinical Debridement Subcutaneous Subcutaneous -Tissue Removed Subcutaneous Subcutaneous -Post Debridement (cm) - Length 2.4 2.6 -Post Debridement (cm) - Width 0.7 0.8 -Post Debridement (cm) - Depth 0.2 0.1 -Total Square (Post) (cm) 1.68 2.08 -Area of Debridement (cm) - Length 2.0 1.4 -Area of Debridement (cm) - Width 0.6 0.8 -Total Square (Area) (cm) 1.20 1.12 -Tunneling No No -Undermining/Tunneling No No -Circular Undermining No No -Wound/Ulcer Outcome Not Healed Not Healed -Ulcer Cleansing Rinsed/ Rinsed/ Irrigated with Irrigated with Saline Saline -Foul Odor after Cleansing No No -Bioengineered Tissue No No -Bleeding Controlled with Pressure Pressure -Offloading Yes Yes -Type of Offloading Camwalker Camwalker -Treatment Response Procedure Procedure Tolerated Well Tolerated Well -Debridement - Subq, 1st 20sq cm Yes Yes Pain Scale: 0-10 Numeric Is Patient Pain Free? Yes Yes - Nurse 3 - General Ulcer D/C NN Start: 07/01/21 08:26 Freq: Status: Active Protocol: Activity Type Activity Date Activity User E-Sign Co-Sign Detail Recorded Client Recorded Date Recorded By Document 07/01/21 08:43 [facility] [id number] 07/01/21 08:45 [facility] 07/01/21 08:43 Wound Care Nurse 3 #1 L Achilles -Ulcer Cleansing Rinsed/ Irrigated with Saline -Foul Odor after Cleansing No -Primary Dressing Applied C Hydrogel ($), NonAdherent Contact Layer -Primary Dressing Covered/Secured with Dry Gauze, Secured with Tape -Other Covering DRSG PER RB RN Left -Tubular Bandage Single Layer -Size of Tubigrip Used Size D -Size D ($) 1 Pain Scale: 0-10 Numeric Is Patient Pain Free? 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 Debridement was performed today as noted in the clinical panel to the ulcer site. Overall improvement is noted. The following work up and care recommendations were made: Dressing: To change daily with hydrogel and adaptic Wash: Antibacterial soap and water. It is okay to take a brief shower. To avoid soaking activity. To wear gloves while performing dressing change. Tissue growth optimization: He recently had advanced wound care product, epi cord applied in the operating room setting. Offload: To reduce tension by avoiding active or passive ankle range of motion. To wear offloading donut pillow to take pressure off the site and to avoid sitting or laying directly on the wound. To avoid laying directly the ulcer site. Weightbear as tolerated in cam without wedge. To progress into this activity. To continue with the knee roller otherwise. While laying in bed a donut offloading pillow was recommended because he is not sure if he is laying directly on this while he is sleeping. Vascular: There is palpable pulses. Continued delays in healing noted noninvasive vascular studies will be performed. Edema: Okay to use Tubigrip daily and to elevate intermittently. I recommend routine movement while on his airplane flight. I do not recommend anticoagulation medication due to benefits versus risk. This was discussed in detail today. Infection: He had prior MSSA infected ulcer and completed a 6 week course of IV antibiotics; cefazolin. Additional oral antibiotics were recommended by infectious disease due to his retained surgical materials (suppressive Keflex). Infectious disease recommendations are appreciated; he will follow-up in 6 months. He was reassured no local signs of infection are noted today. Pain: He no longer required pain medication (prescription strength). Host factors: To optimize healing with Chucho supplementation. He was advised upper extremity exercise and nonsurgical limb rowing is okay. I answered all the patient's questions. To return to the wound healing center in 1 week or call sooner if the patient has any questions or concerns. Note: [employer]az[employer] speech recognition woodwind instruments inspector software was used to create portions of this document. Sound-alike and misspelled words, as well as other woodwind instruments inspector errors may be contained in the documentation.
== END 2021-07-21 23:59 ==
LOC: WC 08:30
PROVIDERS: Referring Provider Internal Medicine; Visit Provider Podiatrist
DX: T81.89XA Other complications of procedures, not elsewhere classified, initial encounter (principal); L97.822 Non-pressure chronic ulcer of other part of left lower leg with fat layer exposed; R60.9 Edema, unspecified; Z79.899 Other long term (current) drug therapy
CPT/HCPCS: 11042

== ENCOUNTER 2021-08-05 08:30 | Outpatient (RCR) | payer BC, SELFPAY ==
[2021-07-22 00:29] VITALS: BP 145/83; PULSE 78; RESP 18; TEMP 36.1; BMI 22.6
[2021-07-29 08:19] VITALS: BP 131/79; PULSE 78; RESP 18; TEMP 36.3; BMI 22.6
--- NOTE | 2021-07-29 09:10 | PN.PCM_ITS ---
History of Present Illness Date of Service: 07/29/21 Chief Complaint: left leg ulcer History of Wound: Mr. Hernandez is a 51-year-old who had prior surgical repair following left Achilles tendon tear. He completed his course of antibiotics. He continues to take Chucho supplementation to optimize healing. He denies chills, fever, nausea, vomiting. He has been weightbearing in a cam walker. He is trying to keep pressure directly off of the ulcer site. He denies redness or odors. He was not able to tolerate a donut pillow. Progress of Wound: Improving Objective Data Objective Data Vital Signs: Vital Signs Temp Pulse Resp BP 97.3 F L 78 18 131/79 H 07/29/21 08:19 12 08:19 07/29/21 08:19 07/29/21 08:19 Oxygen Delivery Method Room Air Weight: 75.735 kg Body Mass Index (BMI) 22.6 Physical Exam Extremity Extremity Narrative: No calf tenderness Palpable pedal pulses 2 out of 4 Skin Skin Narrative: no purulence, no streaking, no odor, no infection. There is significant peripheral epithelialization noted. No adjacent fluctuance or bogginess. There is overall resolution in deep probing. Skin epithelialization noted at the distal and central aspects; this is now considered a wound cluster Neuro Neuro Narrative: Epicritic sensation intact to light touch Debridement Note Debridement Note Wound debrided: posterior left lower leg Wound Grade/Stage: Type of Debridement: Excisional debridement Anesthesia Used: 4% Lidocaine Solution Depth: in the subcutaneous layer Percentage of wound debrided: 100 Instrument Used: #15 blade Tissue Removed: fibrous, devitalized subcutaneous, biofilm, slough Severity: Fat Layer Exposed Amount of bleeding with debridement: Mild Bleeding Controlled with: Pressure Patient tolerated procedure: Patient tolerated procedure well Post-Debridement Measurements and Additional Note: Post-Debridement Measurements/Treatment TOBY - Nurse 1 - General Ulcer Assessment Start: 07/29/21 08:19 Freq: Status: Active Protocol: KEO Activity Type Activity Date Activity User E-Sign Co-Sign Detail Recorded Client Recorded Date Recorded By Document 07/29/21 08:19 CANDELARIO [id number] 07/29/21 08:24 DL 07/29/21 08:19 TOBY - Today's Visit Information Type of service Follow-up Visit (Physician/PERSONAL FINANCIAL COUNSELOR ) Arrival Mode Ambulatory Transfer Assistance None Patient Identification Verified (Name & Yes ) Patient Requires Transmission-Based No Precautions Height and Weight Body Mass Index (BMI) 22.6 BMI Classification Normal Vital Signs Temperature (97.8 F-99.1 F) 97.3 F L Temperature Source Temporal Pulse Rate (60-100) 78 Pulse Location Monitor Respiratory Rate (12-18) 18 Respiratory rate source Observation Oxygen Delivery Method Room Air Blood Pressure (90/60-120/80) 131/79 H Blood Pressure Mean (mm Hg) 96 Position Sitting Blood Pressure Location Left Forearm History Since Last Visit- (Skip if this is Patient's initial visit) Have you changed medications since your No last visit? Any new allergies or adverse reactions No Had a fall/change in ADL's that may No increase risk of falls Signs or symptoms of abuse and/or No neglect since last visit Have you been in the hospital since your No last visit? Has dressing in place as prescribed Yes Has compression in place as prescribed Yes Has offloadiing in place as prescribed Yes Experienced any changes in pain level or No management Left Footwear Removable Cast Walker/Walking Boot Right Footwear Regular Shoe Pain Scale: 0-10 Numeric Is Patient Pain Free? Yes WC - Nurse 1 - General Ulcer Measurement Start: 07/29/21 08:19 Freq: Status: Active Protocol: Activity Type Activity Date Activity User E-Sign Co-Sign Detail Recorded Client Recorded Date Recorded By Document 07/29/21 08:19 CANDELARIO [id number] 07/29/21 08:24 DL 07/29/21 08:19 Wound Center Nurse 1 #1 L Achilles -Combined with other wound No -Current Size (cm) - Length 0.1 -Current Size (cm) - Width 0.1 -Current Size (cm) - Depth 0.1 -Total Square Cm 0.01 -Photo Taken No -Epithelialization Medium 34-66% -Tunneling No -Undermining/Tunneling No -Exudate Amt Small -Exudate Type Serosanguineous -Wound Margin Flat & Intact -Granulation Amt Medium (34-66%) -Granulation Quality Red -Slough/Fibrin Yes -Necrosis Amt Medium (34-66%) -Necrotic Tissue Type Adherent Slough -Texture (Sue-wound Skin Appearance) Assessed, Scarring -Moisture (Sue-wound Skin Appearance) Assessed -Color (Sue-wound Skin Appearance) Assessed -Temperature (Sue-wound Skin No Abnormality Appearance) (Pt Warm) -Tenderness on Palpation (Sue-wound No Skin Appearance) -Ulcer Cleansing Rinsed/ Irrigated with Saline -Foul Odor after Cleansing No -Anesthetic Used 4% Lidocaine Solution Lower Limb Edema Present Yes Left Calf (cm) 33.2 Left Ankle (cm) 22 - Nurse 2 - General Ulcer CM Notes Start: 07/29/21 08:19 Freq: Status: Active Protocol: Activity Type Activity Date Activity User E-Sign Co-Sign Detail Recorded Client Recorded Date Recorded By Document 07/29/21 08:32 [id number] 07/29/21 08:35 JF 07/29/21 08:32 Wound Center Nurse 2 #1 L Achilles -Time 08:33 -Correct Patient Yes -Correct Side, Site, Position Yes -Correct Procedure Yes -Procedure Performed Yes -Type of Procedure Debridement -Clinical Debridement Subcutaneous -Tissue Removed Subcutaneous -Post Debridement (cm) - Length 1.1 -Post Debridement (cm) - Width 0.5 -Post Debridement (cm) - Depth 0.1 -Total Square (Post) (cm) 0.55 -Area of Debridement (cm) - Length 1.1 -Area of Debridement (cm) - Width 0.5 -Total Square (Area) (cm) 0.55 -Tunneling No -Undermining/Tunneling No -Circular Undermining No -Wound/Ulcer Outcome Not Healed -Ulcer Cleansing Rinsed/ Irrigated with Saline -Foul Odor after Cleansing No -Bioengineered Tissue No -Bleeding Controlled with Pressure -Offloading Yes -Type of Offloading Camwalker -Treatment Response Procedure Tolerated Well -Debridement - Subq, 1st 20sq cm Yes Pain Scale: 0-10 Numeric Is Patient Pain Free? Yes - Nurse 3 - General Ulcer D/C NN Start: 07/29/21 08:19 Freq: Status: Active Protocol: Activity Type Activity Date Activity User E-Sign Co-Sign Detail Recorded Client Recorded Date Recorded By Document 07/29/21 08:41 DL [id number] 07/29/21 08:43 DL 07/29/21 08:41 Wound Care Nurse 3 #1 L Achilles -Ulcer Cleansing Rinsed/ Irrigated with Saline -Foul Odor after Cleansing No -Primary Dressing Applied NonAdherent Contact Layer, Promogran Maria Isabel Matter -Primary Dressing Covered/Secured with Dry Gauze, Secured with Tape -Other Covering tubigrip -Promogran Maria Isabel Matter 1 Pain Scale: 0-10 Numeric Is Patient Pain Free? 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 Debridement was performed today as noted in the clinical panel to the ulcer site. Overall improvement is noted. The following work up and care recommendations were made: Dressing: To change daily maria isabel Wash: Antibacterial soap and water. It is okay to take a brief shower. To avoid soaking activity. To wear gloves while performing dressing change. Tissue growth optimization: He recently had advanced wound care product, epi cord applied in the operating room setting. Offload: To reduce tension by avoiding active or passive ankle range of motion. Vascular: There is palpable pulses. Continued delays in healing noted noninvasive vascular studies will be performed. Edema: Okay to use Tubigrip daily and to elevate intermittently. I recommend routine movement while on his airplane flight. I do not recommend anticoagulation medication due to benefits versus risk. This was discussed in detail today. Infection: He had prior MSSA infected ulcer and completed a 6 week course of IV antibiotics; cefazolin. Additional oral antibiotics were recommended by infectious disease due to his retained surgical materials (suppressive Keflex). Infectious disease recommendations are appreciated; he will follow-up in 6 months. He was reassured no local signs of infection are noted today. Pain: He no longer required pain medication (prescription strength). Host factors: To optimize healing with Chucho supplementation. He was advised upper extremity exercise and nonsurgical limb rowing is okay. I answered all the patient's questions. To return to the wound healing center in 1 week or call sooner if the patient has any questions or concerns. Note: [employer] speech recognition dimension warehouse supervisor software was used to create portions of this document. Sound-alike and misspelled words, as well as other dimension warehouse supervisor errors may be contained in the documentation.
[2021-08-05 08:23] VITALS: BP 138/77; PULSE 91; RESP 20; TEMP 36.4; BMI 22.6
--- NOTE | 2021-08-05 09:48 | PN.PCM_ITS ---
History of Present Illness Date of Service: 08/05/21 Chief Complaint: left leg ulcer History of Wound: Mr. Hernandez is a 51-year-old who had prior surgical repair following left Achilles tendon tear. He completed his course of antibiotics. He continues to take Chucho supplementation to optimize healing. He denies chills, fever, nausea, vomiting. He has been weightbearing in a cam walker. He is trying to keep pressure directly off of the ulcer site. He denies redness or odors. Progress of Wound: Improving Objective Data Objective Data Vital Signs: Vital Signs Temp Pulse Resp BP 97.5 F L 91 20 H 138/77 H 08/05/21 08:23 08/05/21 08:23 08/05/21 08:23 08/05/21 08:23 Oxygen Delivery Method Room Air Weight: 75.735 kg Body Mass Index (BMI) 22.6 Physical Exam Extremity Extremity Narrative: No calf tenderness Palpable pedal pulses 2 out of 4 Skin Skin Narrative: no purulence, no streaking, no odor, no infection. There is significant peripheral epithelialization noted. No adjacent fluctuance or bogginess. There is overall resolution in deep probing. Skin epithelialization noted in a progressive manner Neuro Neuro Narrative: Epicritic sensation intact to light touch Debridement Note Debridement Note Wound debrided: posterior lower leg left Wound Grade/Stage: Type of Debridement: Excisional debridement Anesthesia Used: 4% Lidocaine Solution Depth: in the subcutaneous layer Percentage of wound debrided: 100 Instrument Used: #15 blade Tissue Removed: fibrous, devitalized subcutaneous, biofilm, slough Severity: Fat Layer Exposed Amount of bleeding with debridement: Mild Bleeding Controlled with: Pressure Patient tolerated procedure: Patient tolerated procedure well Post-Debridement Measurements and Additional Note: Post-Debridement Measurements/Treatment - Nurse 1 - General Ulcer Assessment Start: 07/29/21 08:19 Freq: Status: Active Protocol: KEO Activity Type Activity Date Activity User E-Sign Co-Sign Detail Recorded Client Recorded Date Recorded By Document 07/29/21 08:19 DL [id number] 07/29/21 08:24 DL Document 08/05/21 08:23 DL [id number] 08/05/21 08:28 DL 07/29/21 08/05/21 08:19 08:23 - Today's Visit Information Type of service Follow-up Visit Follow-up Visit (Physician/PAYROLL MACHINE OPERATOR (Physician/PAYROLL MACHINE OPERATOR ) ) Arrival Mode Ambulatory Ambulatory Transfer Assistance None None Patient Identification Verified (Name & Yes Yes ) Patient Requires Transmission-Based No Precautions Height and Weight Body Mass Index (BMI) 22.6 22.6 BMI Classification Normal Normal Vital Signs Temperature (97.8 F-99.1 F) 97.3 F L 97.5 F L Temperature Source Temporal Temporal Pulse Rate (60-100) 78 91 Pulse Location Monitor Monitor Respiratory Rate (12-18) 18 20 H Respiratory rate source Observation Observation Oxygen Delivery Method Room Air Blood Pressure (90/60-120/80) 131/79 H 138/77 H Blood Pressure Mean (mm Hg) 96 97 Source Monitor Position Sitting Blood Pressure Location Left Forearm History Since Last Visit- (Skip if this is Patient's initial visit) Have you changed medications since your No No last visit? Any new allergies or adverse reactions No No Had a fall/change in ADL's that may No No increase risk of falls Signs or symptoms of abuse and/or No No neglect since last visit Have you been in the hospital since your No No last visit? Has dressing in place as prescribed Yes Yes Has compression in place as prescribed Yes N/A Has offloadiing in place as prescribed Yes Yes Experienced any changes in pain level or No No management Left Footwear Removable Cast Removable Cast Walker/Walking Walker/Walking Boot Boot Right Footwear Regular Shoe Pain Scale: 0-10 Numeric Is Patient Pain Free? Yes Yes WC - Nurse 1 - General Ulcer Measurement Start: 07/29/21 08:19 Freq: Status: Active Protocol: Activity Type Activity Date Activity User E-Sign Co-Sign Detail Recorded Client Recorded Date Recorded By Document 07/29/21 08:19 DL [id number] 07/29/21 08:24 DL Document 08/05/21 08:23 DL [id number] 08/05/21 08:28 DL 07/29/21 08/05/21 08:19 08:23 Wound Center Nurse 1 #1 L Achilles -Combined with other wound No -Current Size (cm) - Length 0.1 2.5 -Current Size (cm) - Width 0.1 0.5 -Current Size (cm) - Depth 0.1 0.1 -Total Square Cm 0.01 1.25 -Photo Taken No No -Epithelialization Medium 34-66% -Tunneling No -Undermining/Tunneling No -Exudate Amt Small Small -Exudate Type Serosanguineous Serosanguineous -Wound Margin Flat & Intact Thickened -Granulation Amt Medium (34-66%) Small (1-33%) -Granulation Quality Red [place] -Slough/Fibrin Yes -Necrosis Amt Medium (34-66%) Large (67-100%) -Necrotic Tissue Type Adherent Slough Adherent Slough -Structure Exposed N/A -Texture (Sue-wound Skin Appearance) Assessed, Scarring Scarring -Moisture (Sue-wound Skin Appearance) Assessed No Abnormality -Color (Sue-wound Skin Appearance) Assessed No Abnormality -Temperature (Sue-wound Skin No Abnormality No Abnormality Appearance) (Pt Warm) (Pt Warm) -Tenderness on Palpation (Sue-wound No No Skin Appearance) -Ulcer Cleansing Rinsed/ Rinsed/ Irrigated with Irrigated with Saline Saline -Foul Odor after Cleansing No No -Anesthetic Used 4% Lidocaine 5% Lidocaine Solution Gel Lower Limb Edema Present Yes Left Calf (cm) 33.2 Left Ankle (cm) 22 WC - Nurse 2 - General Ulcer CM Notes Start: 07/29/21 08:19 Freq: Status: Active Protocol: Activity Type Activity Date Activity User E-Sign Co-Sign Detail Recorded Client Recorded Date Recorded By Document 07/29/21 08:32 [id number] 07/29/21 08:35 Document 08/05/21 08:38 [id number] 08/05/21 08:40 07/29/21 08/05/21 08:32 08:38 Wound Center Nurse 2 #1 L Achilles -Time 08:33 08:38 -Correct Patient Yes Yes -Correct Side, Site, Position Yes Yes -Correct Procedure Yes Yes -Procedure Performed Yes Yes -Type of Procedure Debridement Debridement -Clinical Debridement Subcutaneous Subcutaneous -Tissue Removed Subcutaneous Subcutaneous -Post Debridement (cm) - Length 1.1 0.3 -Post Debridement (cm) - Width 0.5 0.5 -Post Debridement (cm) - Depth 0.1 0.1 -Total Square (Post) (cm) 0.55 0.15 -Area of Debridement (cm) - Length 1.1 0.3 -Area of Debridement (cm) - Width 0.5 0.5 -Total Square (Area) (cm) 0.55 0.15 -Tunneling No No -Undermining/Tunneling No No -Circular Undermining No No -Wound/Ulcer Outcome Not Healed Not Healed -Ulcer Cleansing Rinsed/ Rinsed/ Irrigated with Irrigated with Saline Saline -Foul Odor after Cleansing No No -Bioengineered Tissue No No -Bleeding Controlled with Pressure Pressure -Offloading Yes Yes -Type of Offloading Camwalker Camwalker -Treatment Response Procedure Procedure Tolerated Well Tolerated Well -Debridement - Subq, 1st 20sq cm Yes Yes Pain Scale: 0-10 Numeric Is Patient Pain Free? Yes Yes - Nurse 3 - General Ulcer D/C NN Start: 07/29/21 08:19 Freq: Status: Active Protocol: Activity Type Activity Date Activity User E-Sign Co-Sign Detail Recorded Client Recorded Date Recorded By Document 07/29/21 08:41 DL [id number] 07/29/21 08:43 DL Document 08/05/21 08:51 RB [id number] 08/05/21 08:52 RB 07/29/21 08/05/21 08:41 08:51 Wound Care Nurse 3 #1 L Achilles -Ulcer Cleansing Rinsed/ Rinsed/ Irrigated with Irrigated with Saline Saline -Foul Odor after Cleansing No -Primary Dressing Applied NonAdherent NonAdherent Contact Layer, Contact Layer Promogran Beatris Matter -Other Dressing hydrogel -Primary Dressing Covered/Secured with Dry Gauze, Dry Gauze, Secured with Secured with Tape Tape -Other Covering tubigrip -Promogran Beatris Matter 1 Left -Other single layer tubigrip Treatment Response Procedure Tolerated Well Pain Scale: 0-10 Numeric Is Patient Pain Free? 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 Debridement was performed today as noted in the clinical panel to the ulcer site. Overall improvement is noted. The following work up and care recommendations were made: Dressing: To change daily hydrogel Wash: Antibacterial soap and water. It is okay to take a brief shower. To avoid soaking activity. To wear gloves while performing dressing change. Tissue growth optimization: He recently had advanced wound care product, epi cord applied in the operating room setting. Offload: To reduce tension by avoiding active or passive ankle range of motion. Vascular: There is palpable pulses. Continued delays in healing noted noninvasive vascular studies will be performed. Edema: Okay to use Tubigrip daily and to elevate intermittently. I recommend routine movement while on his airplane flight. I do not recommend anticoagulation medication due to benefits versus risk. This was discussed in detail today. Infection: No infection signs are noted today. He had prior MSSA infected ulcer and completed a 6 week course of IV antibiotics; cefazolin. Additional oral antibiotics were recommended by infectious disease due to his retained surgical materials (suppressive Keflex). Infectious disease recommendations are appreciated; he will follow-up in 6 months. Pain: He no longer required pain medication (prescription strength). Host factors: To optimize healing with Chucho supplementation. He was advised upper extremity exercise and nonsurgical limb rowing is okay. I answered all the patient's questions. To return to the wound healing center in 1 week or call sooner if the patient has any questions or concerns. Upon wound healing we will consider physical therapy referral and transition to an athletic sneaker. Note: [employer] speech recognition [employer] loom card changer software was used to create portions of this document. Sound-alike and misspelled words, as well as other [employer] loom card changer errors may be contained in the documentation.
== END 2021-08-21 23:59 ==
LOC: WC 08:30
PROVIDERS: Referring Provider Internal Medicine; Visit Provider Podiatrist
DX: T81.89XA Other complications of procedures, not elsewhere classified, initial encounter (principal); L97.822 Non-pressure chronic ulcer of other part of left lower leg with fat layer exposed; S86.012S Strain of left Achilles tendon, sequela; X58.XXXS Exposure to other specified factors, sequela; R60.9 Edema, unspecified
CPT/HCPCS: 11042

== ENCOUNTER 2021-09-16 08:30 | Outpatient (RCR) | payer BC, SELFPAY ==
[2021-08-22 00:27] VITALS: BP 138/77; PULSE 91; RESP 20; TEMP 36.4; BMI 22.6
[2021-08-26 11:42] VITALS: BP 147/70; PULSE 94; RESP 18; TEMP 36.2; BMI 22.6
--- NOTE | 2021-08-26 22:32 | PN.PCM_ITS ---
History of Present Illness Date of Service: 08/26/21 Chief Complaint: left leg ulcer History of Wound: Mr. Hernandez is a 51-year-old who had prior surgical repair following left Achilles tendon tear. He completed his course of antibiotics. He continues to take Chucho supplementation to optimize healing. He denies chills, fever, nausea, vomiting. He has been weightbearing in a cam walker. He is trying to keep pressure directly off of the ulcer site. He denies redness or odors. Objective Data Objective Data Vital Signs: Vital Signs Temp Pulse Resp BP 97.1 F L 94 18 147/70 H 08/26/21 11:42 08/26/21 11:42 08/26/21 11:42 08/26/21 11:42 Weight: 75.735 kg Body Mass Index (BMI) 22.6 Physical Exam Extremity Extremity Narrative: No calf tenderness Palpable pedal pulses 2 out of 4 Skin Skin Narrative: no purulence, no streaking, no odor, no infection. There is significant peripheral epithelialization noted. No adjacent fluctuance or bogginess. There is overall resolution in deep probing. Skin epithelialization noted in a progressive manner. sue ulcer inflammation with edema noted. no erythema or deep tissue exposure. Neuro Neuro Narrative: Epicritic sensation intact to light touch Debridement Note Debridement Note Wound debrided: left lower leg Wound Grade/Stage: Type of Debridement: Excisional debridement Anesthesia Used: 4% Lidocaine Solution Depth: in the subcutaneous layer Percentage of wound debrided: 100 Instrument Used: #15 blade Tissue Removed: fibrous, devitalized subcutaneous, biofilm, slough Severity: Fat Layer Exposed Amount of bleeding with debridement: Mild Bleeding Controlled with: Pressure Patient tolerated procedure: Patient tolerated procedure well Post-Debridement Measurements and Additional Note: Post-Debridement Measurements/Treatment - Nurse 1 - General Ulcer Assessment Start: 08/26/21 11:41 Freq: Status: Active Protocol: TOBY.BETZY Activity Type Activity Date Activity User E-Sign Co-Sign Detail Recorded Client Recorded Date Recorded By Document 08/26/21 11:42 MW [id number] 08/26/21 11:45 MW 08/26/21 11:42 - Today's Visit Information Type of service Follow-up Visit (Physician/MEDICAL DERMATOLOGIST ) Arrival Mode Ambulatory Transfer Assistance None Patient Identification Verified (Name & Yes ) Patient Requires Transmission-Based No Precautions Height and Weight Body Mass Index (BMI) 22.6 BMI Classification Normal Vital Signs Temperature (97.8 F-99.1 F) 97.1 F L Temperature Source Temporal Pulse Rate (60-100) 94 Pulse Location Monitor Respiratory Rate (12-18) 18 Respiratory rate source Observation Blood Pressure (90/60-120/80) 147/70 H Blood Pressure Mean (mm Hg) 95 Source Monitor Position Sitting Blood Pressure Location Left Arm History Since Last Visit- (Skip if this is Patient's initial visit) Have you changed medications since your No last visit? Any new allergies or adverse reactions No Had a fall/change in ADL's that may No increase risk of falls Signs or symptoms of abuse and/or No neglect since last visit Have you been in the hospital since your No last visit? Has dressing in place as prescribed Yes Has compression in place as prescribed No Has offloadiing in place as prescribed No Experienced any changes in pain level or No management Pain Scale: 0-10 Numeric Is Patient Pain Free? Yes WC - Nurse 1 - General Ulcer Measurement Start: 08/26/21 11:41 Freq: Status: Active Protocol: Activity Type Activity Date Activity User E-Sign Co-Sign Detail Recorded Client Recorded Date Recorded By Document 08/26/21 11:42 MW [id number] 08/26/21 11:45 MW 08/26/21 11:42 Wound Center Nurse 1 #1 L Achilles -Combined with other wound No -Current Size (cm) - Length 0.1 -Current Size (cm) - Width 0.1 -Current Size (cm) - Depth 0.1 -Total Square Cm 0.01 -Tunneling No -Undermining/Tunneling No -Circular Undermining No -Exudate Amt Medium -Exudate Type Serosanguineous -Wound Margin Indistinct, Non -Visible -Granulation Amt Medium (34-66%) -Granulation Quality Bliss -Slough/Fibrin Yes -Necrosis Amt Small (1-33%) -Necrotic Tissue Type Adherent Slough -Texture (Sue-wound Skin Appearance) Scarring -Moisture (Sue-wound Skin Appearance) Assessed -Color (Sue-wound Skin Appearance) Assessed -Temperature (Sue-wound Skin No Abnormality Appearance) (Pt Warm) -Tenderness on Palpation (Sue-wound No Skin Appearance) -Ulcer Cleansing Wound Cleanser -Foul Odor after Cleansing No -Anesthetic Used 5% Lidocaine Gel Lower Limb Edema Present Yes Left Calf (cm) 35 Left Ankle (cm) 22.2 WC - Nurse 2 - General Ulcer CM Notes Start: 08/26/21 11:41 Freq: Status: Active Protocol: Activity Type Activity Date Activity User E-Sign Co-Sign Detail Recorded Client Recorded Date Recorded By Document 08/26/21 11:51 [id number] 08/26/21 11:53 JOAN 08/26/21 11:51 Wound Center Nurse 2 #1 L Achilles -Time 11:52 -Correct Patient Yes -Correct Side, Site, Position Yes -Correct Procedure Yes -Procedure Performed Yes -Type of Procedure Debridement -Clinical Debridement Subcutaneous -Tissue Removed Subcutaneous -Post Debridement (cm) - Length 1.1 -Post Debridement (cm) - Width 0.2 -Post Debridement (cm) - Depth 0.1 -Total Square (Post) (cm) 0.22 -Area of Debridement (cm) - Length 1.1 -Area of Debridement (cm) - Width 0.2 -Total Square (Area) (cm) 0.22 -Tunneling No -Undermining/Tunneling No -Circular Undermining No -Wound/Ulcer Outcome Not Healed -Ulcer Cleansing Rinsed/ Irrigated with Saline -Foul Odor after Cleansing No -Bioengineered Tissue No -Bleeding Controlled with Pressure -Offloading No -Treatment Response Procedure Tolerated Well -Debridement - Subq, 1st 20sq cm Yes Pain Scale: 0-10 Numeric Is Patient Pain Free? Yes - Nurse 3 - General Ulcer D/C NN Start: 08/26/21 11:41 Freq: Status: Active Protocol: Activity Type Activity Date Activity User E-Sign Co-Sign Detail Recorded Client Recorded Date Recorded By Document 08/26/21 11:58 [id number] 08/26/21 11:58 GARFIELD 08/26/21 11:58 Wound Care Nurse 3 #1 L Achilles -Primary Dressing Applied C Hydrogel ($) -Primary Dressing Covered/Secured with Dry Gauze, Secured with Tape Pain Scale: 0-10 Numeric Is Patient Pain Free? 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 Debridement was performed today as noted in the clinical panel to the ulcer site. Overall improvement is noted. The following work up and care recommendations were made: Dressing: To change daily hydrogel. to d/c adaptic Wash: Antibacterial soap and water. It is okay to take a brief shower. To avoid soaking activity. To wear gloves while performing dressing change. Tissue growth optimization: He recently had advanced wound care product, epi cord applied in the operating room setting. Offload: To reduce tension by avoiding active or passive ankle range of motion. Vascular: There is palpable pulses. Continued delays in healing noted noninvasive vascular studies will be performed. Edema: Okay to use Tubigrip daily and to elevate intermittently. I recommend routine movement while on his airplane flight. I do not recommend anticoagulation medication due to benefits versus risk. This was discussed in detail today. Infection: No infection signs are noted today. He had prior MSSA infected ulcer and completed a 6 week course of IV antibiotics; cefazolin. Additional oral antibiotics were recommended by infectious disease due to his retained surgical materials (suppressive Keflex). Infectious disease recommendations are appreciated; he will follow-up in 6 months. edema management: He has some sue ulcer inflammation. There are no signs of infection. I recommend wearing a double Tubigrip and practicing routine elevation. Is also okay to apply an additional Jaycob wrap if he can tolerate this . Pain: He no longer required pain medication (prescription strength). Host factors: To optimize healing with Chucho supplementation. He was advised upper extremity exercise and nonsurgical limb rowing is okay. I answered all the patient's questions. To return to the wound healing center in 1 week or call sooner if the patient has any questions or concerns. Upon wound healing we will consider physical therapy referral and transition to an athletic sneaker. Note: [employer] speech recognition mechanical service specialist software was used to create portions of this document. Sound-alike and misspelled words, as well as other mechanical service specialist errors may be contained in the documentation. The medical decision making level is low. There is noted low risk of morbidity after considering this treatment plan and diagnostic data. The problems addressed require a low medical decision making level which includes two or more minor problems, a stable chronic illness, or an acute uncomplicated illness or injury.
[2021-09-02 08:35] VITALS: BP 142/84; PULSE 80; RESP 18; TEMP 36.6; BMI 22.6
--- NOTE | 2021-09-02 12:28 | PCM.WC.PN ---
History of Present Illness Date of Service: 09/02/21 Chief Complaint: left leg ulcer History of Wound: Mr. Hernandez is a 51-year-old who had prior surgical repair following left Achilles tendon tear. He completed his course of antibiotics. He continues to take Chucho supplementation to optimize healing. He denies chills, fever, nausea, vomiting. He has been weightbearing in a cam walker. He is trying to keep pressure directly off of the ulcer site. He denies redness or odors. He has increased his compression to reduce edema. He tries to apply lotion daily to the sue ulcer skin that seems irritated. He denies odor. Progress of Wound: Improving Objective Data Objective Data Vital Signs: Vital Signs Temp Pulse Resp BP 98 F 80 18 142/84 H 09/02/21 08:35 09/02/21 08:35 09/02/21 08:35 09/02/21 08:35 Weight: 75.735 kg Body Mass Index (BMI) 22.6 Physical Exam Extremity Extremity Narrative: No calf tenderness Palpable pedal pulses 2 out of 4 Skin Skin Narrative: no purulence, no streaking, no odor, no infection. There is significant peripheral epithelialization noted. No adjacent fluctuance or bogginess. There is overall resolution in deep probing. Skin epithelialization noted in a progressive manner. sue ulcer inflammation with edema noted. no erythema or deep tissue exposure. Neuro Neuro Narrative: Epicritic sensation intact to light touch Debridement Note Debridement Note Wound debrided: Posterior left leg Wound Grade/Stage: Type of Debridement: Excisional debridement Anesthesia Used: 4% Lidocaine Solution Depth: in the subcutaneous layer Percentage of wound debrided: 100 Instrument Used: #15 blade Tissue Removed: fibrous, devitalized subcutaneous, biofilm, slough Severity: Fat Layer Exposed Amount of bleeding with debridement: Mild Bleeding Controlled with: Pressure Patient tolerated procedure: Patient tolerated procedure well Post-Debridement Measurements and Additional Note: Post-Debridement Measurements/Treatment TOBY - Nurse 1 - General Ulcer Assessment Start: 08/26/21 11:41 Freq: Status: Active Protocol: KEO Activity Type Activity Date Activity User E-Sign Co-Sign Detail Recorded Client Recorded Date Recorded By Document 08/26/21 11:42 MW [id number] 08/26/21 11:45 MW Document 09/02/21 08:35 RB [id number] 09/02/21 08:38 RB 08/26/21 09/02/21 11:42 08:35 - Today's Visit Information Type of service Follow-up Visit Follow-up Visit (Physician/GUEST EXPERIENCE REPRESENTATIVE (Physician/GUEST EXPERIENCE REPRESENTATIVE ) ) Arrival Mode Ambulatory Ambulatory Transfer Assistance None None Patient Identification Verified (Name & Yes Yes ) Patient Requires Transmission-Based No Precautions Height and Weight Body Mass Index (BMI) 22.6 22.6 BMI Classification Normal Normal Vital Signs Temperature (97.8 F-99.1 F) 97.1 F L 98 F Temperature Source Temporal Temporal Pulse Rate (60-100) 94 80 Pulse Location Monitor Monitor Respiratory Rate (12-18) 18 18 Respiratory rate source Observation Observation Blood Pressure (90/60-120/80) 147/70 H 142/84 H Blood Pressure Mean (mm Hg) 95 103 Source Monitor Monitor Position Sitting Sitting Blood Pressure Location Left Arm Left Arm History Since Last Visit- (Skip if this is Patient's initial visit) Have you changed medications since your No No last visit? Any new allergies or adverse reactions No No Had a fall/change in ADL's that may No No increase risk of falls Signs or symptoms of abuse and/or No No neglect since last visit Have you been in the hospital since your No No last visit? Has dressing in place as prescribed Yes Yes Has compression in place as prescribed No Yes Has offloadiing in place as prescribed No No Experienced any changes in pain level or No No management Left Footwear Regular Shoe Right Footwear Regular Shoe Pain Scale: 0-10 Numeric Is Patient Pain Free? Yes Yes - Nurse 1 - General Ulcer Measurement Start: 08/26/21 11:41 Freq: Status: Active Protocol: Activity Type Activity Date Activity User E-Sign Co-Sign Detail Recorded Client Recorded Date Recorded By Document 08/26/21 11:42 MW [id number] 08/26/21 11:45 MW Document 09/02/21 08:35 RB [id number] 09/02/21 08:38 RB 08/26/21 09/02/21 11:42 08:35 Wound Center Nurse 1 #1 L Achilles -Combined with other wound No No -Current Size (cm) - Length 0.1 1.2 -Current Size (cm) - Width 0.1 0.5 -Current Size (cm) - Depth 0.1 0.1 -Total Square Cm 0.01 0.60 -Tunneling No No -Undermining/Tunneling No No -Circular Undermining No No -Exudate Amt Medium Medium -Exudate Type Serosanguineous Serosanguineous -Wound Margin Indistinct, Non Flat & Intact -Visible -Granulation Amt Medium (34-66%) Medium (34-66%) -Granulation Quality Anton Anton -Slough/Fibrin Yes Yes -Necrosis Amt Small (1-33%) Large (67-100%) -Necrotic Tissue Type Adherent Slough Adherent Slough -Structure Exposed N/A -Texture (Sue-wound Skin Appearance) Scarring Scarring -Moisture (Sue-wound Skin Appearance) Assessed Assessed -Color (Sue-wound Skin Appearance) Assessed Assessed -Temperature (Sue-wound Skin No Abnormality No Abnormality Appearance) (Pt Warm) (Pt Warm) -Tenderness on Palpation (Sue-wound No No Skin Appearance) -Ulcer Cleansing Wound Cleanser Rinsed/ Irrigated with Saline -Foul Odor after Cleansing No No -Anesthetic Used 5% Lidocaine 5% Lidocaine Gel Gel Lower Limb Edema Present Yes Left Calf (cm) 35 Left Ankle (cm) 22.2 - Nurse 2 - General Ulcer CM Notes Start: 08/26/21 11:41 Freq: Status: Active Protocol: Activity Type Activity Date Activity User E-Sign Co-Sign Detail Recorded Client Recorded Date Recorded By Document 08/26/21 11:51 [id number] 08/26/21 11:53 Document 09/02/21 08:48 [id number] 09/02/21 08:49 08/26/21 09/02/21 11:51 08:48 Wound Center Nurse 2 #1 L Achilles -Time 11:52 08:49 -Correct Patient Yes Yes -Correct Side, Site, Position Yes Yes -Correct Procedure Yes Yes -Procedure Performed Yes Yes -Type of Procedure Debridement Debridement -Clinical Debridement Subcutaneous Subcutaneous -Tissue Removed Subcutaneous Subcutaneous -Post Debridement (cm) - Length 1.1 0.8 -Post Debridement (cm) - Width 0.2 0.2 -Post Debridement (cm) - Depth 0.1 0.1 -Total Square (Post) (cm) 0.22 0.16 -Area of Debridement (cm) - Length 1.1 0.8 -Area of Debridement (cm) - Width 0.2 0.2 -Total Square (Area) (cm) 0.22 0.16 -Tunneling No No -Undermining/Tunneling No No -Circular Undermining No No -Wound/Ulcer Outcome Not Healed Not Healed -Ulcer Cleansing Rinsed/ Rinsed/ Irrigated with Irrigated with Saline Saline -Foul Odor after Cleansing No No -Bioengineered Tissue No No -Bleeding Controlled with Pressure Pressure -Offloading No -Treatment Response Procedure Tolerated Well -Debridement - Subq, 1st 20sq cm Yes Yes Pain Scale: 0-10 Numeric Is Patient Pain Free? Yes Yes - Nurse 3 - General Ulcer D/C NN Start: 08/26/21 11:41 Freq: Status: Active Protocol: Activity Type Activity Date Activity User E-Sign Co-Sign Detail Recorded Client Recorded Date Recorded By Document 08/26/21 11:58 KR [id number] 08/26/21 11:58 KR Document 09/02/21 08:56 DL [id number] 09/02/21 08:56 DL 08/26/21 09/02/21 11:58 08:56 Wound Care Nurse 3 #1 L Achilles -Ulcer Cleansing Rinsed/ Irrigated with Saline -Foul Odor after Cleansing No -Primary Dressing Applied C Hydrogel ($) -Other Dressing hydrogel -Primary Dressing Covered/Secured with Dry Gauze, Dry Gauze, Secured with Secured with Tape Tape Treatment Response Procedure Tolerated Well Pain Scale: 0-10 Numeric Is Patient Pain Free? 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 Debridement was performed today as noted in the clinical panel to the ulcer site. Overall improvement is noted. The following work up and care recommendations were made: Dressing: To change daily hydrogel. Wash: Antibacterial soap and water. It is okay to take a brief shower. To avoid soaking activity. To wear gloves while performing dressing change. To moisturize adjacent skin to keep integrity intact. Tissue growth optimization: He recently had advanced wound care product, epi cord applied in the operating room setting. Offload: To reduce tension by avoiding active or passive ankle range of motion. Vascular: There is palpable pulses. Continued delays in healing noted noninvasive vascular studies will be performed. Infection: No infection signs are noted today. He had prior MSSA infected ulcer and completed a 6 week course of IV antibiotics; cefazolin. Additional oral antibiotics were recommended by infectious disease due to his retained surgical materials (suppressive Keflex). Infectious disease recommendations are appreciated; he will follow-up in 6 months. edema management: He has some sue ulcer inflammation. There are no signs of infection. I recommend wearing a double Tubigrip and practicing routine elevation. Is also okay to apply an additional Jaycob wrap if he can tolerate this. Pain: He no longer required pain medication (prescription strength). Host factors: To optimize healing with Chucho supplementation. He will get additional supply today at the hospital. I answered all the patient's questions. To return to the wound healing center in 1 week or call sooner if the patient has any questions or concerns. Upon wound healing we will consider physical therapy referral and transition to an athletic sneaker. Note: [employer] speech recognition director index software was used to create portions of this document. Sound-alike and misspelled words, as well as other director index errors may be contained in the documentation.
[2021-09-16 08:29] VITALS: BP 155/81; PULSE 88; RESP 16; TEMP 36.4; BMI 22.6
--- NOTE | 2021-09-16 10:08 | PCM.WC.PN ---
History of Present Illness Date of Service: 09/16/21 Chief Complaint: left leg ulcer History of Wound: Mr. Hernandez is a 51-year-old who had prior surgical repair following left Achilles tendon tear. He is on a long-term suppressive course of cephalexin under the management of infectious disease. He continues to take Chucho supplementation to optimize healing. He denies chills, fever, nausea, vomiting. He tried a new lotion, Aveeno, which has helped hydrate his dry skin that is irritated around the ulcer site. This ulcer site continues to drain. Progress of Wound: Improving Objective Data Objective Data Vital Signs: Vital Signs Temp Pulse Resp BP 97.6 F L 88 16 155/81 H 09/16/21 08:29 09/16/21 08:29 09/16/21 08:29 09/16/21 08:29 Oxygen Delivery Method Room Air Weight: 75.735 kg Body Mass Index (BMI) 22.6 Physical Exam Extremity Extremity Narrative: No calf tenderness Palpable pedal pulses 2 out of 4 Skin Skin Narrative: no purulence, no streaking, no odor. There is continued peripheral epithelialization noted. No adjacent fluctuance or bogginess. Skin epithelialization noted in a progressive manner. sue ulcer inflammation with edema noted. no erythema or deep tissue exposure. The peripheral skin does have some erythema papules that appear to be less inflamed this week. The adjacent medial border is also some hemorrhagic and there is mild serosanguineous drainage Neuro Neuro Narrative: Epicritic sensation intact to light touch Debridement Note Debridement Note Wound debrided: Posterior lower left leg Wound Grade/Stage: Type of Debridement: Excisional debridement Anesthesia Used: 4% Lidocaine Solution Depth: in the subcutaneous layer Percentage of wound debrided: 100 Instrument Used: #15 blade Tissue Removed: fibrous, devitalized subcutaneous, biofilm, slough Severity: Fat Layer Exposed Amount of bleeding with debridement: Mild Bleeding Controlled with: Pressure Patient tolerated procedure: Patient tolerated procedure well Post-Debridement Measurements and Additional Note: Post-Debridement Measurements/Treatment WC - Nurse 1 - General Ulcer Assessment Start: 08/26/21 11:41 Freq: Status: Active Protocol: KEO Activity Type Activity Date Activity User E-Sign Co-Sign Detail Recorded Client Recorded Date Recorded By Document 08/26/21 11:42 MW [id number] 08/26/21 11:45 MW Document 09/02/21 08:35 RB [id number] 09/02/21 08:38 RB Document 09/16/21 08:29 BM [id number] 09/16/21 08:34 BMF 08/26/21 09/02/21 09/16/21 11:42 08:35 08:29 - Today's Visit Information Type of service Follow-up Visit Follow-up Visit Follow-up Visit (Physician/HAND HIDE STRETCHER (Physician/HAND HIDE STRETCHER (Physician/HAND HIDE STRETCHER ) ) ) Arrival Mode Ambulatory Ambulatory Ambulatory Transfer Assistance None None None Patient Identification Verified (Name & Yes Yes Yes ) Patient Requires Transmission-Based No No Precautions Height and Weight Body Mass Index (BMI) 22.6 22.6 22.6 BMI Classification Normal Normal Normal Vital Signs Temperature (97.8 F-99.1 F) 97.1 F L 98 F 97.6 F L Temperature Source Temporal Temporal Temporal Pulse Rate (60-100) 94 80 88 Pulse Location Monitor Monitor Monitor Respiratory Rate (12-18) 18 18 16 Respiratory rate source Observation Observation Observation Oxygen Delivery Method Room Air Blood Pressure (90/60-120/80) 147/70 H 142/84 H 155/81 H Blood Pressure Mean (mm Hg) 95 103 105 Source Monitor Monitor Monitor Position Sitting Sitting Sitting Blood Pressure Location Left Arm Left Arm Left Arm History Since Last Visit- (Skip if this is Patient's initial visit) Have you changed medications since your No No No last visit? Any new allergies or adverse reactions No No No Had a fall/change in ADL's that may No No No increase risk of falls Signs or symptoms of abuse and/or No No No neglect since last visit Have you been in the hospital since your No No No last visit? Has dressing in place as prescribed Yes Yes Yes Has compression in place as prescribed No Yes Yes Has offloadiing in place as prescribed No No N/A Experienced any changes in pain level or No No No management Left Footwear Regular Shoe Removable Cast Walker/Walking Boot Right Footwear Regular Shoe Regular Shoe Pain Scale: 0-10 Numeric Is Patient Pain Free? Yes Yes Yes - Nurse 1 - General Ulcer Measurement Start: 08/26/21 11:41 Freq: Status: Active Protocol: Activity Type Activity Date Activity User E-Sign Co-Sign Detail Recorded Client Recorded Date Recorded By Document 08/26/21 11:42 MW [id number] 08/26/21 11:45 MW Document 09/02/21 08:35 RB [id number] 09/02/21 08:38 RB Document 09/16/21 08:29 BM [id number] 09/16/21 08:34 BM 08/26/21 09/02/21 09/16/21 11:42 08:35 08:29 Wound Center Nurse 1 #1 L Achilles -Combined with other wound No No No -Current Size (cm) - Length 0.1 1.2 0.1 -Current Size (cm) - Width 0.1 0.5 0.1 -Current Size (cm) - Depth 0.1 0.1 0.1 -Total Square Cm 0.01 0.60 0.01 -Photo Taken No -Epithelialization Large 67-100% -Tunneling No No No -Undermining/Tunneling No No No -Circular Undermining No No No -Exudate Amt Medium Medium Small -Exudate Type Serosanguineous Serosanguineous Serous -Wound Margin Indistinct, Non Flat & Intact Distinct, -Visible Outline Attached -Granulation Amt Medium (34-66%) Medium (34-66%) Large (67-100%) -Granulation Quality [place] Red -Slough/Fibrin Yes Yes No -Necrosis Amt Small (1-33%) Large (67-100%) None Present (0 %) -Necrotic Tissue Type Adherent Slough Adherent Slough -Structure Exposed N/A -Texture (Sue-wound Skin Appearance) Scarring Scarring Assessed, Excoriation, Scarring -Moisture (Sue-wound Skin Appearance) Assessed Assessed Assessed,Dry/ Scaly -Color (Sue-wound Skin Appearance) Assessed Assessed Assessed, Erythema -Temperature (Sue-wound Skin No Abnormality No Abnormality No Abnormality Appearance) (Pt Warm) (Pt Warm) (Pt Warm) -Tenderness on Palpation (Sue-wound No No No Skin Appearance) -Ulcer Cleansing Wound Cleanser Rinsed/ Rinsed/ Irrigated with Irrigated with Saline Saline -Foul Odor after Cleansing No No No -Anesthetic Used 5% Lidocaine 5% Lidocaine 5% Lidocaine Gel Gel Gel Lower Limb Edema Present Yes Yes Left Calf (cm) 35 36.8 Left Ankle (cm) 22.2 22.5 WC - Nurse 2 - General Ulcer CM Notes Start: 08/26/21 11:41 Freq: Status: Active Protocol: Activity Type Activity Date Activity User E-Sign Co-Sign Detail Recorded Client Recorded Date Recorded By Document 08/26/21 11:51 [id number] 08/26/21 11:53 JF Document 09/02/21 08:48 [id number] 09/02/21 08:49 Document 09/16/21 08:48 [id number] 09/16/21 08:52 JF 08/26/21 09/02/21 09/16/21 11:51 08:48 08:48 Wound Center Nurse 2 #1 L Achilles -Time 11:52 08:49 08:48 -Correct Patient Yes Yes Yes -Correct Side, Site, Position Yes Yes Yes -Correct Procedure Yes Yes Yes -Procedure Performed Yes Yes Yes -Type of Procedure Debridement Debridement Debridement -Clinical Debridement Subcutaneous Subcutaneous Subcutaneous -Tissue Removed Subcutaneous Subcutaneous Subcutaneous -Post Debridement (cm) - Length 1.1 0.8 0.4 -Post Debridement (cm) - Width 0.2 0.2 0.1 -Post Debridement (cm) - Depth 0.1 0.1 0.1 -Total Square (Post) (cm) 0.22 0.16 0.04 -Area of Debridement (cm) - Length 1.1 0.8 0.4 -Area of Debridement (cm) - Width 0.2 0.2 0.1 -Total Square (Area) (cm) 0.22 0.16 0.04 -Tunneling No No No -Undermining/Tunneling No No No -Circular Undermining No No No -Wound/Ulcer Outcome Not Healed Not Healed Not Healed -Ulcer Cleansing Rinsed/ Rinsed/ Rinsed/ Irrigated with Irrigated with Irrigated with Saline Saline Saline -Foul Odor after Cleansing No No No -Bioengineered Tissue No No No -Bleeding Controlled with Pressure Pressure Pressure -Offloading No No -Treatment Response Procedure Procedure Tolerated Well Tolerated Well -Debridement - Subq, 1st 20sq cm Yes Yes Yes Pain Scale: 0-10 Numeric Is Patient Pain Free? Yes Yes Yes WC - Nurse 3 - General Ulcer D/C NN Start: 08/26/21 11:41 Freq: Status: Active Protocol: Activity Type Activity Date Activity User E-Sign Co-Sign Detail Recorded Client Recorded Date Recorded By Document 08/26/21 11:58 KR [id number] 08/26/21 11:58 KR Document 09/02/21 08:56 DL [id number] 09/02/21 08:56 DL Document 09/16/21 09:00 [facility] [id number] 09/16/21 09:01 [facility] 08/26/21 09/02/21 09/16/21 11:58 08:56 09:00 Wound Care Nurse 3 #1 L Achilles -Ulcer Cleansing Rinsed/ Rinsed/ Irrigated with Irrigated with Saline Saline -Foul Odor after Cleansing No No -Primary Dressing Applied C Hydrogel ($) Other -Other Dressing hydrogel hydrogel -Primary Dressing Covered/Secured with Dry Gauze, Dry Gauze, Dry Gauze, Secured with Secured with Secured with Tape Tape Tape Left -Tubular Bandage Double Layer -Size of Tubigrip Used Size D -Size D ($) 1 Treatment Response Procedure Procedure Tolerated Well Tolerated Well Pain Scale: 0-10 Numeric Is Patient Pain Free? Yes Yes Yes WC - Visit Discharge Discharge Condition Stable Stable Stable Ambulatory Status Ambulatory Ambulatory Ambulatory Transportation Private Auto Private Auto Private Auto Accompanied by self Medication Reconcilliation completed & No provided to patient/care provider Clinical Summary of Care Provided No Assessment/Plan Assessment/Plan (1) Delayed surgical wound healing: CODE(S): T81.89XA - Other complications of procedures, not elsewhere classified, initial encounter (2) Strain of left Achilles tendon, initial encounter: CODE(S): S86.012A - Strain of left Achilles tendon, initial encounter (3) 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 Debridement was performed today as noted in the clinical panel to the ulcer site. Overall improvement is noted. The following work up and care recommendations were made: Dressing: To change daily hydrogel. Wash: Antibacterial soap and water. It is okay to take a brief shower. To avoid soaking activity. To wear gloves while performing dressing change. To moisturize adjacent skin to keep integrity intact.Aveeno lotion use noted. Tissue growth optimization: He previously had advanced wound care product, epi cord applied in the operating room setting. Offload: To reduce tension by avoiding active or passive ankle range of motion. Vascular: There is palpable pulses. Continued delays in healing noted noninvasive vascular studies will be performed. Infection: No confirmed infection signs are noted today. He had prior MSSA infected ulcer and completed a 6 week course of IV antibiotics; cefazolin. Due to his ongoing periulcer inflammatory changes I recommended culturing this today to see if there is bacterial colonization or contamination that may be contributing to this situation. This was sent for aerobic, anaerobic and MRSA PCR. I will follow the results and call him with the plan. edema management: He has some sue ulcer inflammation. There are no signs of infection. I recommend wearing a double Tubigrip and practicing routine elevation. Is also okay to apply an additional Jaycob wrap if he can tolerate this. Pain: He no longer required pain medication (prescription strength). Host factors: To optimize healing with Chucho supplementation. He will get additional supply today at the hospital. I answered all the patient's questions. To return to the wound healing center in 1 week or call sooner if the patient has any questions or concerns. Upon wound healing we will consider physical therapy referral and transition to an athletic sneaker. Note: [employer] speech recognition peoplesoft crm developer software was used to create portions of this document. Sound-alike and misspelled words, as well as other peoplesoft crm developer errors may be contained in the documentation.
[2021-09-16 14:56] LABS: M R Staph aureus DNA By PCR Negative (Negative); Probe Check PASS; Specimen Processing Control PASS; Staph aureus DNA By PCR NEGATIVE (Negative)
== END 2021-09-21 23:59 ==
LOC: WC 08:30
PROVIDERS: Referring Provider Internal Medicine; Visit Provider Podiatrist
DX: T81.89XA Other complications of procedures, not elsewhere classified, initial encounter (principal); L97.823 Non-pressure chronic ulcer of other part of left lower leg with necrosis of muscle; L03.116 Cellulitis of left lower limb; S86.012A Strain of left Achilles tendon, initial encounter; R60.0 Localized edema
CPT/HCPCS: 11042; 87070; 87075; 87186; 87205; 87640

== ENCOUNTER 2021-10-14 09:00 | Outpatient (RCR) | payer OTHER, SELFPAY ==
[2021-09-22 00:35] VITALS: BP 155/81; PULSE 88; RESP 16; TEMP 36.4; BMI 22.6
[2021-09-23 09:54] VITALS: BP 150/93; PULSE 81; RESP 18; TEMP 36.3; BMI 22.6
--- NOTE | 2021-09-23 10:51 | PCM.WC.PN ---
History of Present Illness Date of Service: 09/23/21 Chief Complaint: left leg ulcer History of Wound: Mr. Hernandez is a 51-year-old who had prior surgical repair following left Achilles tendon tear. He was taking Augmentin the past couple days as advised due to his recent culture results. He continues to take Chucho supplementation to optimize healing. He denies chills, fever, nausea, vomiting. This ulcer site continues to drain. He washes his wound with contact lens saline solution and Dial soap. Progress of Wound: improved ulcer; stable periwound Objective Data Objective Data Vital Signs: Vital Signs Temp Pulse Resp BP 97.4 F L 81 18 150/93 H 09/23/21 09:54 09/23/21 09:54 09/23/21 09:54 09/23/21 09:54 Weight: 75.735 kg Body Mass Index (BMI) 22.6 Physical Exam Extremity Extremity Narrative: No calf tenderness Palpable pedal pulses 2 out of 4 Skin Skin Narrative: no purulence, no streaking, no odor. There is continued peripheral epithelialization noted. No adjacent fluctuance or bogginess. Skin epithelialization noted in a progressive manner. sue ulcer inflammation with edema noted. no deep tissue exposure. The peripheral skin does have some erythema papules that appear to be less inflamed this week. The adjacent medial border is also some hemorrhagic and there is mild serosanguineous drainage Neuro Neuro Narrative: Epicritic sensation intact to light touch Debridement Note Debridement Note Wound debrided: posterior left leg Wound Grade/Stage: Type of Debridement: Excisional debridement Anesthesia Used: 4% Lidocaine Solution Depth: in the subcutaneous layer Percentage of wound debrided: 100 Instrument Used: #15 blade Tissue Removed: fibrous, devitalized subcutaneous, biofilm, slough Severity: Fat Layer Exposed Amount of bleeding with debridement: Mild Bleeding Controlled with: Pressure Patient tolerated procedure: Patient tolerated procedure well Post-Debridement Measurements and Additional Note: Post-Debridement Measurements/Treatment - Nurse 1 - General Ulcer Assessment Start: 09/23/21 09:54 Freq: Status: Active Protocol: KEO Activity Type Activity Date Activity User E-Sign Co-Sign Detail Recorded Client Recorded Date Recorded By Document 09/23/21 09:54 DL [id number] 09/23/21 10:00 DL 09/23/21 09:54 - Today's Visit Information Type of service Follow-up Visit (Physician/[employer] ) Arrival Mode Ambulatory Transfer Assistance None Patient Identification Verified (Name & Yes ) Patient Requires Transmission-Based No Precautions Height and Weight Body Mass Index (BMI) 22.6 BMI Classification Normal Vital Signs Temperature (97.8 F-99.1 F) 97.4 F L Temperature Source Temporal Pulse Rate (60-100) 81 Pulse Location Monitor Respiratory Rate (12-18) 18 Respiratory rate source Observation Blood Pressure (90/60-120/80) 150/93 H Blood Pressure Mean (mm Hg) 112 Source Monitor History Since Last Visit- (Skip if this is Patient's initial visit) Have you changed medications since your No last visit? Any new allergies or adverse reactions No Had a fall/change in ADL's that may No increase risk of falls Signs or symptoms of abuse and/or No neglect since last visit Have you been in the hospital since your No last visit? Has dressing in place as prescribed Yes Has compression in place as prescribed N/A Has offloadiing in place as prescribed Yes Experienced any changes in pain level or No management Left Footwear Regular Shoe Right Footwear Removable Cast Walker/Walking Boot Pain Scale: 0-10 Numeric Is Patient Pain Free? Yes WC - Nurse 1 - General Ulcer Measurement Start: 09/23/21 09:54 Freq: Status: Active Protocol: Activity Type Activity Date Activity User E-Sign Co-Sign Detail Recorded Client Recorded Date Recorded By Document 09/23/21 09:54 DL [id number] 09/23/21 10:00 DL 09/23/21 09:54 Wound Center Nurse 1 #1 L Achilles -Current Size (cm) - Length 0.1 -Current Size (cm) - Width 0.1 -Current Size (cm) - Depth 0.1 -Total Square Cm 0.01 -Photo Taken No -Exudate Amt Small -Exudate Type Serosanguineous -Wound Margin Indistinct, Non -Visible -Granulation Amt Large (67-100%) -Granulation Quality [place] -Necrosis Amt Small (1-33%) -Necrotic Tissue Type Adherent Slough -Structure Exposed N/A -Texture (Sue-wound Skin Appearance) Excoriation, Rash -Moisture (Sue-wound Skin Appearance) Weeping -Color (Sue-wound Skin Appearance) Erythema -Temperature (Sue-wound Skin No Abnormality Appearance) (Pt Warm) -Tenderness on Palpation (Sue-wound No Skin Appearance) -Ulcer Cleansing Rinsed/ Irrigated with Saline -Anesthetic Used 4% Lidocaine Solution, Cetacaine Left Calf (cm) 33.7 Left Ankle (cm) 22.5 TOBY - Nurse 2 - General Ulcer CM Notes Start: 09/23/21 09:54 Freq: Status: Active Protocol: Activity Type Activity Date Activity User E-Sign Co-Sign Detail Recorded Client Recorded Date Recorded By Document 09/23/21 10:21 [id number] 09/23/21 10:23 JOAN 09/23/21 10:21 Wound Center Nurse 2 #1 L Achilles -Time 10:21 -Correct Patient Yes -Correct Side, Site, Position Yes -Correct Procedure Yes -Procedure Performed Yes -Type of Procedure Debridement -Clinical Debridement Subcutaneous -Tissue Removed Subcutaneous -Post Debridement (cm) - Length 0.4 -Post Debridement (cm) - Width 0.2 -Post Debridement (cm) - Depth 0.1 -Total Square (Post) (cm) 0.08 -Area of Debridement (cm) - Length 0.4 -Area of Debridement (cm) - Width 0.2 -Total Square (Area) (cm) 0.08 -Tunneling No -Undermining/Tunneling No -Circular Undermining No -Wound/Ulcer Outcome Not Healed -Ulcer Cleansing Rinsed/ Irrigated with Saline -Foul Odor after Cleansing No -Bioengineered Tissue No -Bleeding Controlled with Pressure -Offloading No -Treatment Response Procedure Tolerated Well -Debridement - Subq, 1st 20sq cm Yes Pain Scale: 0-10 Numeric Is Patient Pain Free? Yes - Nurse 3 - General Ulcer D/C NN Start: 09/23/21 09:54 Freq: Status: Active Protocol: Activity Type Activity Date Activity User E-Sign Co-Sign Detail Recorded Client Recorded Date Recorded By Document 09/23/21 10:39 RB [id number] 09/23/21 10:40 RB 09/23/21 10:39 Wound Care Nurse 3 #1 L Achilles -Ulcer Cleansing Rinsed/ Irrigated with Saline -Primary Dressing Applied C Hydrogel ($) -Primary Dressing Covered/Secured with Dry Gauze, Secured with Tape Left -Tubular Bandage Double Layer -Size of Tubigrip Used Size D -Size D ($) 2 Treatment Response Procedure Tolerated Well Pain Scale: 0-10 Numeric Is Patient Pain Free? 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 Debridement was performed today as noted in the clinical panel to the ulcer site. Overall improvement is noted. The following work up and care recommendations were made: Dressing: To change daily hydrogel. Wash: Daily with antimicrobial soap and water; this was dispensed today it is okay to take a brief shower. To avoid soaking activity. To wear gloves while performing dressing change. To moisturize adjacent skin to keep integrity intact.Aveeno lotion use noted. To discontinue contact saline cleanse to ulcer site. Tissue growth optimization: He previously had advanced wound care product, epi cord applied in the operating room setting. Offload: To reduce tension by avoiding active or passive ankle range of motion. Vascular: There is palpable pulses. Continued delays in healing noted noninvasive vascular studies will be performed. Infection: No confirmed infection signs are noted today. He had prior MSSA infected ulcer and completed a 6 week course of IV antibiotics; cefazolin. Due to his ongoing periulcer inflammatory changes a culture was obtained with Enterococcus growth. A refill for Augmentin was provided so he will complete a 10-day course. edema management: He has some sue ulcer inflammation. There are no signs of infection. I recommend wearing a double Tubigrip and practicing routine elevation. Is also okay to apply an additional Jaycob wrap if he can tolerate this. Pain: He no longer required pain medication (prescription strength). Host factors: To optimize healing with Chucho supplementation. He will get additional supply today at the hospital. I answered all the patient's questions. To return to the wound healing center in 1 week or call sooner if the patient has any questions or concerns. Upon wound healing we will consider physical therapy referral and transition to an athletic sneaker. Note: The [employer] speech recognition founder software was used to create portions of this document. Sound-alike and misspelled words, as well as other founder errors may be contained in the documentation. The medical decision making level is limited based on data including the review of prior external notes, review of a prior test, or ordering a test. The medical decision making level is low. There is noted low risk of morbidity after considering this treatment plan and diagnostic data.
[2021-10-02 12:56] VITALS: BP 140/74; PULSE 93; RESP 16; TEMP 36.1; BMI 22.6
--- NOTE | 2021-10-02 13:54 | PN.PCM_ITS ---
History of Present Illness Date of Service: 10/02/21 Chief Complaint: left leg ulcer History of Wound: Mr. Hernandez is a 51-year-old who had prior surgical repair following left Achilles tendon tear. He was taking Augmentin the past couple days as advised due to his recent culture results. He continues to take Chucho supplementation to optimize healing. He denies chills, fever, nausea, vomiting. This ulcer site continues to drain. He washes his wound with Dial soap. He completed a 10-day course of Augmentin due to wound contamination. He reports the odor has resolved however he still has week being and peripheral skin irritation even though there is some minor improvement. He has since resumed cephalexin. He admits he has been using a new antimicrobial impregnated gauze and asks if this is okay. Progress of Wound: Overall stable but still compromised sue ulcer site Objective Data Objective Data Vital Signs: Vital Signs Temp Pulse Resp BP 96.9 F L 93 16 140/74 H 10/02/21 12:56 10/02/21 12:56 10/02/21 12:56 10/02/21 12:56 Oxygen Delivery Method Room Air Weight: 75.735 kg Body Mass Index (BMI) 22.6 Physical Exam Extremity Extremity Narrative: No calf tenderness Palpable pedal pulses 2 out of 4 Skin Skin Narrative: no purulence, no streaking, no odor. There is continued peripheral epithelialization noted. No adjacent fluctuance or bogginess. Skin epithelialization noted in a progressive manner. sue ulcer inflammation with edema noted. no deep tissue exposure. The peripheral skin does have some erythema papules that appear to be less inflamed this week. The adjacent medial border is also some hemorrhagic and there is mild serosanguineous drainage Neuro Neuro Narrative: Epicritic sensation intact to light touch Debridement Note Debridement Note Post-Debridement Measurements and Additional Note: Post-Debridement Measurements/Treatment TOBY - Nurse 1 - General Ulcer Assessment Start: 09/23/21 09:54 Freq: Status: Active Protocol: KEO Activity Type Activity Date Activity User E-Sign Co-Sign Detail Recorded Client Recorded Date Recorded By Document 09/23/21 09:54 DL [id number] 09/23/21 10:00 DL Document 10/02/21 12:56 [facility] [id number] 10/02/21 13:01 BMF 09/23/21 10/02/21 09:54 12:56 - Today's Visit Information Type of service Follow-up Visit Follow-up Visit (Physician/ACCOUNTING TECHNICIAN (Physician/ACCOUNTING TECHNICIAN ) ) Arrival Mode Ambulatory Ambulatory Transfer Assistance None None Patient Identification Verified (Name & Yes Yes ) Patient Requires Transmission-Based No No Precautions Height and Weight Body Mass Index (BMI) 22.6 22.6 BMI Classification Normal Normal Vital Signs Temperature (97.8 F-99.1 F) 97.4 F L 96.9 F L Temperature Source Temporal Temporal Pulse Rate (60-100) 81 93 Pulse Location Monitor Monitor Respiratory Rate (12-18) 18 16 Respiratory rate source Observation Observation Oxygen Delivery Method Room Air Blood Pressure (90/60-120/80) 150/93 H 140/74 H Blood Pressure Mean (mm Hg) 112 96 Source Monitor Monitor Position Sitting Blood Pressure Location Left Arm History Since Last Visit- (Skip if this is Patient's initial visit) Have you changed medications since your No No last visit? Any new allergies or adverse reactions No No Had a fall/change in ADL's that may No No increase risk of falls Signs or symptoms of abuse and/or No No neglect since last visit Have you been in the hospital since your No No last visit? Has dressing in place as prescribed Yes Yes Has compression in place as prescribed N/A Yes Has offloadiing in place as prescribed Yes N/A Experienced any changes in pain level or No No management Left Footwear Regular Shoe Multipodus Splint/Boot Right Footwear Removable Cast Regular Shoe Walker/Walking Boot Pain Scale: 0-10 Numeric Is Patient Pain Free? Yes Yes - Nurse 1 - General Ulcer Measurement Start: 09/23/21 09:54 Freq: Status: Active Protocol: Activity Type Activity Date Activity User E-Sign Co-Sign Detail Recorded Client Recorded Date Recorded By Document 09/23/21 09:54 [id number] 09/23/21 10:00 DL Document 10/02/21 12:56 [facility] [id number] 10/02/21 13:01 [facility] 09/23/21 10/02/21 09:54 12:56 Wound Center Nurse 1 #1 L Achilles -Combined with other wound No -Current Size (cm) - Length 0.1 2.7 -Current Size (cm) - Width 0.1 0.4 -Current Size (cm) - Depth 0.1 0.1 -Total Square Cm 0.01 1.08 -Photo Taken No No -Epithelialization None Present -Tunneling No -Undermining/Tunneling No -Circular Undermining No -Exudate Amt Small Medium -Exudate Type Serosanguineous Serous -Wound Margin Indistinct, Non Flat & Intact -Visible -Granulation Amt Large (67-100%) Medium (34-66%) -Granulation Quality Brush Red -Slough/Fibrin Yes -Necrosis Amt Small (1-33%) Medium (34-66%) -Necrotic Tissue Type Adherent Slough Adherent Slough -Structure Exposed N/A -Texture (Sue-wound Skin Appearance) Excoriation, Assessed, Rash Excoriation, Scarring -Moisture (Sue-wound Skin Appearance) Weeping Assessed -Color (Sue-wound Skin Appearance) Erythema Assessed, Erythema -Temperature (Sue-wound Skin No Abnormality No Abnormality Appearance) (Pt Warm) (Pt Warm) -Tenderness on Palpation (Sue-wound No Yes Skin Appearance) -Ulcer Cleansing Rinsed/ Rinsed/ Irrigated with Irrigated with Saline Saline -Foul Odor after Cleansing No -Anesthetic Used 4% Lidocaine 5% Lidocaine Solution, Gel Cetacaine Left Calf (cm) 33.7 Left Ankle (cm) 22.5 WC - Nurse 2 - General Ulcer CM Notes Start: 09/23/21 09:54 Freq: Status: Active Protocol: Activity Type Activity Date Activity User E-Sign Co-Sign Detail Recorded Client Recorded Date Recorded By Document 09/23/21 10:21 JOAN [id number] 09/23/21 10:23 JOAN 09/23/21 10:21 Wound Center Nurse 2 -Time 10:21 -Correct Patient Yes -Correct Side, Site, Position Yes -Correct Procedure Yes -Procedure Performed Yes -Type of Procedure Debridement -Clinical Debridement Subcutaneous -Tissue Removed Subcutaneous -Post Debridement (cm) - Length 0.4 -Post Debridement (cm) - Width 0.2 -Post Debridement (cm) - Depth 0.1 -Total Square (Post) (cm) 0.08 -Area of Debridement (cm) - Length 0.4 -Area of Debridement (cm) - Width 0.2 -Total Square (Area) (cm) 0.08 -Tunneling No -Undermining/Tunneling No -Circular Undermining No -Wound/Ulcer Outcome Not Healed -Ulcer Cleansing Rinsed/ Irrigated with Saline -Foul Odor after Cleansing No -Bioengineered Tissue No -Bleeding Controlled with Pressure -Offloading No -Treatment Response Procedure Tolerated Well -Debridement - Subq, 1st 20sq cm Yes Pain Scale: 0-10 Numeric Is Patient Pain Free? Yes - Nurse 3 - General Ulcer D/C NN Start: 09/23/21 09:54 Freq: Status: Active Protocol: Activity Type Activity Date Activity User E-Sign Co-Sign Detail Recorded Client Recorded Date Recorded By Document 09/23/21 10:39 RB [id number] 09/23/21 10:40 RB Document 10/02/21 13:40 [facility] [id number] 10/02/21 13:41 BMF 09/23/21 10/02/21 10:39 13:40 Wound Care Nurse 3 #1 L Achilles -Ulcer Cleansing Rinsed/ Rinsed/ Irrigated with Irrigated with Saline Saline -Foul Odor after Cleansing No -Primary Dressing Applied C Hydrogel ($) Other -Other Dressing HYDROGEL -Primary Dressing Covered/Secured with Dry Gauze, Dry Gauze, Secured with Secured with Tape Tape Left -Tubular Bandage Double Layer -Size of Tubigrip Used Size D -Size D ($) 2 -Other OWN TUBIS APPLIED Treatment Response Procedure Procedure Tolerated Well Tolerated Well Pain Scale: 0-10 Numeric Is Patient Pain Free? 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 Debridement was performed today as noted in the clinical panel to the ulcer site. Overall there is still sue ucler inflammation concerns. The following work up and care recommendations were made: Dressing: To change daily hydrogel. I do not recommend using antimicrobial impregnated gauze because this may be holding moisture in the skin. To use woven gauze. A prescription was provided for him to obtain this at the hospital. Wash: Daily with antimicrobial soap and water and dynahex for a couple of weeks. To avoid soaking activity. To wear gloves while performing dressing change. To moisturize adjacent skin to keep integrity intact.Aveeno lotion use noted. To discontinue contact saline cleanse to ulcer site. We reviewed the concern of potential contamination exposure to the wound and he was advised to wear gloves. Tissue growth optimization: He previously had advanced wound care product, epi cord applied in the operating room setting. Offload: To reduce tension by avoiding active or passive ankle range of motion. Vascular: There is palpable pulses. Continued delays in healing noted noninvasive vascular studies will be performed. Infection: No confirmed infection signs are noted today. He had prior MSSA infected ulcer and completed a 6 week course of IV antibiotics; cefazolin. Due to his ongoing periulcer inflammatory changes a culture was obtained with Enterococcus growth. He completed 10-day course of Augmentin. He is back on his prolonged course of cephalexin per infectious disease previously recommendations. I do recommend a follow-up with infectious disease to see if there are any additional recommendations at this present time. edema management: He has some sue ulcer inflammation. There are no signs of infection. I recommend wearing a double Tubigrip and practicing routine elevation. Is also okay to apply an additional Jaycob wrap if he can tolerate this. Pain: He no longer required pain medication (prescription strength). Host factors: To optimize healing with Chucho supplementation. He will get additional supply today at the hospital. I answered all the patient's questions. To return to the wound healing center in 1 week or call sooner if the patient has any questions or concerns. Upon wound healing we will consider physical therapy referral and transition to an athletic sneaker. Note: [employer] speech recognition furnace setter software was used to create portions of this document. Sound-alike and misspelled words, as well as other furnace setter errors may be contained in the documentation. The medical decision making level is low. There is noted low risk of morbidity after considering this treatment plan and diagnostic data. The problems addressed require a low medical decision making level which includes two or more minor problems, a stable chronic illness, or an acute uncomplicated illness or injury.
[2021-10-07 14:05] VITALS: BP 146/70; PULSE 82; RESP 18; TEMP 36.3; BMI 22.6
--- NOTE | 2021-10-07 16:32 | PCM.WC.PN ---
History of Present Illness Date of Service: 10/07/21 Chief Complaint: left leg ulcer History of Wound: Mr. Hernandez is a 51-year-old who had prior surgical repair following left Achilles tendon tear. He was taking Augmentin the past couple days as advised due to his recent culture results. He continues to take Chucho supplementation to optimize healing. He denies chills, fever, nausea, vomiting. This ulcer site continues to drain and this is more notable this past week. He washes his wound with Dial soap. He completed a 10-day course of Augmentin due to wound contamination without significant improvement. He reports the odor has resolved however he still has week being and peripheral skin irritation even though there is some minor improvement. He has since resumed cephalexin. He was also seen today by infectious disease specialist, Dr. Shen. Progress of Wound: Worse due to increased size and compromise periulcer site Objective Data Objective Data Vital Signs: Vital Signs Temp Pulse Resp BP 97.4 F L 82 18 146/70 H 10/07/21 14:05 10/07/21 14:05 10/07/21 14:05 10/07/21 14:05 Oxygen Delivery Method Room Air Weight: 75.735 kg Body Mass Index (BMI) 22.6 Physical Exam Extremity Extremity Narrative: No calf tenderness Palpable pedal pulses 2 out of 4 Skin Skin Narrative: no purulence, no streaking, no odor. There is continued peripheral epithelialization noted. No adjacent fluctuance or bogginess. Skin epithelialization noted in a progressive manner. sue ulcer inflammation with edema noted. no deep tissue exposure. The peripheral skin does have some erythema papules that appear to have continued inflammation this week. The adjacent medial border is also some hemorrhagic and there is mild serosanguineous drainage which has increased the ulcer size Neuro Neuro Narrative: Epicritic sensation intact to light touch Debridement Note Debridement Note Wound debrided: left leg Wound Grade/Stage: Type of Debridement: Excisional debridement Anesthesia Used: 4% Lidocaine Solution Depth: in the subcutaneous layer Percentage of wound debrided: 100 Instrument Used: #15 blade Tissue Removed: fibrous, devitalized subcutaneous, biofilm, slough Severity: Fat Layer Exposed Amount of bleeding with debridement: Mild Bleeding Controlled with: Pressure Patient tolerated procedure: Patient tolerated procedure well Post-Debridement Measurements and Additional Note: Post-Debridement Measurements/Treatment WC - Nurse 1 - General Ulcer Assessment Start: 09/23/21 09:54 Freq: Status: Active Protocol: WC.LOWEXT Activity Type Activity Date Activity User E-Sign Co-Sign Detail Recorded Client Recorded Date Recorded By Document 09/23/21 09:54 DL [id number] 09/23/21 10:00 DL Document 10/02/21 12:56 BM [id number] 10/02/21 13:01 BMF Document 10/07/21 14:05 RB [id number] 10/07/21 14:14 RB 09/23/21 10/02/21 10/07/21 09:54 12:56 14:05 WC - Today's Visit Information Type of service Follow-up Visit Follow-up Visit Follow-up Visit (Physician/TICKET SCHEDULER (Physician/TICKET SCHEDULER (Physician/TICKET SCHEDULER ) ) ) Arrival Mode Ambulatory Ambulatory Ambulatory Transfer Assistance None None None Patient Identification Verified (Name & Yes Yes Yes ) Patient Requires Transmission-Based No No Precautions Height and Weight Body Mass Index (BMI) 22.6 22.6 22.6 BMI Classification Normal Normal Normal Vital Signs Temperature (97.8 F-99.1 F) 97.4 F L 96.9 F L 97.4 F L Temperature Source Temporal Temporal Temporal Pulse Rate (60-100) 81 93 82 Pulse Location Monitor Monitor Monitor Respiratory Rate (12-18) 18 16 18 Respiratory rate source Observation Observation Observation Oxygen Delivery Method Room Air Blood Pressure (90/60-120/80) 150/93 H 140/74 H 146/70 H Blood Pressure Mean (mm Hg) 112 96 95 Source Monitor Monitor Monitor Position Sitting Semi-Fowlers Blood Pressure Location Left Arm Left Arm History Since Last Visit- (Skip if this is Patient's initial visit) Have you changed medications since your No No No last visit? Any new allergies or adverse reactions No No No Had a fall/change in ADL's that may No No No increase risk of falls Signs or symptoms of abuse and/or No No No neglect since last visit Have you been in the hospital since your No No No last visit? Has dressing in place as prescribed Yes Yes Yes Has compression in place as prescribed N/A Yes Yes Has offloadiing in place as prescribed Yes N/A No Experienced any changes in pain level or No No No management Left Footwear Regular Shoe Multipodus Splint/Boot Right Footwear Removable Cast Regular Shoe Walker/Walking Boot Pain Scale: 0-10 Numeric Is Patient Pain Free? Yes Yes Yes WC - Nurse 1 - General Ulcer Measurement Start: 09/23/21 09:54 Freq: Status: Active Protocol: Activity Type Activity Date Activity User E-Sign Co-Sign Detail Recorded Client Recorded Date Recorded By Document 09/23/21 09:54 DL [id number] 09/23/21 10:00 DL Document 10/02/21 12:56 BMF [id number] 10/02/21 13:01 BMF Document 10/07/21 14:05 RB [id number] 10/07/21 14:14 RB 09/23/21 10/02/21 10/07/21 09:54 12:56 14:05 Wound Center Nurse 1 #1 L Achilles -Combined with other wound No -Current Size (cm) - Length 0.1 2.7 2 -Current Size (cm) - Width 0.1 0.4 1.8 -Current Size (cm) - Depth 0.1 0.1 0.1 -Total Square Cm 0.01 1.08 3.6 -Photo Taken No No -Epithelialization None Present -Tunneling No No -Undermining/Tunneling No No -Circular Undermining No No -Exudate Amt Small Medium Medium -Exudate Type Serosanguineous Serous Serosanguineous -Wound Margin Indistinct, Non Flat & Intact Distinct, -Visible Outline Attached -Granulation Amt Large (67-100%) Medium (34-66%) Large (67-100%) -Granulation Quality [place],Red -Slough/Fibrin Yes Yes -Necrosis Amt Small (1-33%) Medium (34-66%) Small (1-33%) -Necrotic Tissue Type Adherent Slough Adherent Slough Adherent Slough -Structure Exposed N/A N/A -Texture (Sue-wound Skin Appearance) Excoriation, Assessed, Excoriation Rash Excoriation, Scarring -Moisture (Sue-wound Skin Appearance) Weeping Assessed Assessed -Color (Sue-wound Skin Appearance) Erythema Assessed, Erythema Erythema -Temperature (Sue-wound Skin No Abnormality No Abnormality No Abnormality Appearance) (Pt Warm) (Pt Warm) (Pt Warm) -Tenderness on Palpation (Sue-wound No Yes No Skin Appearance) -Ulcer Cleansing Rinsed/ Rinsed/ Wound Cleanser Irrigated with Irrigated with Saline Saline -Foul Odor after Cleansing No No -Anesthetic Used 4% Lidocaine 5% Lidocaine 5% Lidocaine Solution, Gel Gel Cetacaine Lower Limb Edema Present Yes Left Calf (cm) 33.7 35.2 Left Ankle (cm) 22.5 22 WC - Nurse 2 - General Ulcer CM Notes Start: 09/23/21 09:54 Freq: Status: Active Protocol: Activity Type Activity Date Activity User E-Sign Co-Sign Detail Recorded Client Recorded Date Recorded By Document 09/23/21 10:21 [id number] 09/23/21 10:23 JF Document 10/02/21 14:59 PL [id number] 10/03/21 15:00 PL Document 10/07/21 14:19 [id number] 10/07/21 14:21 09/23/21 10/02/21 10/07/21 10:21 14:59 14:19 Wound Center Nurse 2 #1 L Achilles -Time 10:21 13:26 14:19 -Correct Patient Yes Yes Yes -Correct Side, Site, Position Yes Yes Yes -Correct Procedure Yes Yes Yes -Procedure Performed Yes Yes Yes -Type of Procedure Debridement Debridement Debridement -Clinical Debridement Subcutaneous Subcutaneous Subcutaneous -Tissue Removed Subcutaneous Subcutaneous Subcutaneous -Post Debridement (cm) - Length 0.4 2.7 0.8 -Post Debridement (cm) - Width 0.2 0.4 0.6 -Post Debridement (cm) - Depth 0.1 0.1 0.1 -Total Square (Post) (cm) 0.08 1.08 0.48 -Area of Debridement (cm) - Length 0.4 2.7 0.8 -Area of Debridement (cm) - Width 0.2 0.4 0.6 -Total Square (Area) (cm) 0.08 1.08 0.48 -Tunneling No No No -Undermining/Tunneling No No No -Circular Undermining No No No -Wound/Ulcer Outcome Not Healed Not Healed Not Healed -Ulcer Cleansing Rinsed/ Rinsed/ Rinsed/ Irrigated with Irrigated with Irrigated with Saline Saline Saline -Foul Odor after Cleansing No No No -Bioengineered Tissue No No No -Bleeding Controlled with Pressure Pressure Pressure -Offloading No No -Treatment Response Procedure Procedure Procedure Tolerated Well Tolerated Well Tolerated Well -Debridement - Subq, 1st 20sq cm Yes Yes Yes Pain Scale: 0-10 Numeric Is Patient Pain Free? Yes Yes Yes - Nurse 3 - General Ulcer D/C NN Start: 09/23/21 09:54 Freq: Status: Active Protocol: Activity Type Activity Date Activity User E-Sign Co-Sign Detail Recorded Client Recorded Date Recorded By Document 09/23/21 10:39 RB [id number] 09/23/21 10:40 RB Document 10/02/21 13:40 [facility] [id number] 10/02/21 13:41 [facility] Document 10/07/21 14:43 [facility] [id number] 10/07/21 14:43 [facility] 09/23/21 10/02/21 10/07/21 10:39 13:40 14:43 Wound Care Nurse 3 #1 L Achilles -Ulcer Cleansing Rinsed/ Rinsed/ Rinsed/ Irrigated with Irrigated with Irrigated with Saline Saline Saline -Foul Odor after Cleansing No No -Primary Dressing Applied C Hydrogel ($) Other Aquacel AG 4x4 -Other Dressing HYDROGEL -Primary Dressing Covered/Secured with Dry Gauze, Dry Gauze, Dry Gauze, Secured with Secured with Secured with Tape Tape Tape -Aquacel AG 4x4 1 Left -Tubular Bandage Double Layer -Size of Tubigrip Used Size D -Size D ($) 2 -Other OWN TUBIS APPLIED PTS OWN APPLIED DOUBLE LAYER TUBI AND JAYCOB Treatment Response Procedure Procedure Procedure Tolerated Well Tolerated Well Tolerated Well Pain Scale: 0-10 Numeric Is Patient Pain Free? 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 Debridement was performed today as noted in the clinical panel to the ulcer site. Overall there is still sue ucler inflammation concerns. The following work up and care recommendations were made: Dressing: To change daily hydrogel. I do not recommend using antimicrobial impregnated gauze because this may be holding moisture in the skin. To use woven gauze. Wash: Daily with antimicrobial soap and water and dynahex for a couple of weeks. To avoid soaking activity. To wear gloves while performing dressing change. To moisturize adjacent skin to keep integrity intact.Aveeno lotion use noted. To discontinue contact saline cleanse to ulcer site. We reviewed the concern of potential contamination exposure to the wound and he was advised to wear gloves. Tissue growth optimization: He previously had advanced wound care product, epi cord applied in the operating room setting. Offload: To reduce tension by avoiding active or passive ankle range of motion. Vascular: There is palpable pulses. Continued delays in healing noted noninvasive vascular studies will be performed. Infection: No confirmed infection signs are noted today. He had prior MSSA infected ulcer and completed a 6 week course of IV antibiotics; cefazolin. Due to his ongoing periulcer inflammatory changes a culture was obtained with Enterococcus growth. He completed 10-day course of Augmentin. He is back on his prolonged course of cephalexin per infectious disease previously recommendations. I do recommend a follow-up with infectious disease to see if there are any additional recommendations at this present time. Dr. Shen will prescribe a 10-day course of linezolid. If lack of improvement is noted a punch biopsy will be considered. edema management: He has some sue ulcer inflammation. There are no signs of infection. I recommend wearing a double Tubigrip and practicing routine elevation. Is also okay to apply an additional Jaycob wrap if he can tolerate this. Pain: He no longer required pain medication (prescription strength). Host factors: To optimize healing with Chucho supplementation. He will get additional supply today at the hospital. I answered all the patient's questions. To return to the wound healing center in 1 week or call sooner if the patient has any questions or concerns. Upon wound healing we will consider physical therapy referral and transition to an athletic sneaker. Note: [employer] speech recognition technician preventative medicine software was used to create portions of this document. Sound-alike and misspelled words, as well as other technician preventative medicine errors may be contained in the documentation. The medical decision making level is low. There is noted low risk of morbidity after considering this treatment plan and diagnostic data. The problems addressed require a low medical decision making level which includes two or more minor problems, a stable chronic illness, or an acute uncomplicated illness or injury.
[2021-10-14 09:13] VITALS: BP 133/73; PULSE 81; RESP 18; TEMP 36.6; BMI 22.6
--- NOTE | 2021-10-14 10:25 | PCM.WC.PN ---
History of Present Illness Date of Service: 10/14/21 Chief Complaint: left leg ulcer History of Wound: Mr. Hernandez is a 51-year-old who had prior surgical repair following left Achilles tendon tear. He was also seen today by infectious disease specialist, Dr. Shen.He was started on 10-day course of linezolid and denies side effects. He also denies drainage. He denies itchiness, fever, chills, nausea, vomiting. He continues to ambulate with his cam walker boot. Progress of Wound: Healed Objective Data Objective Data Vital Signs: Vital Signs Temp Pulse Resp BP 97.8 F 81 18 133/73 H 10/14/21 09:13 10/14/21 09:13 10/14/21 09:13 10/14/21 09:13 Oxygen Delivery Method Room Air Weight: 75.735 kg Body Mass Index (BMI) 22.6 Physical Exam Extremity Extremity Narrative: No calf tenderness Palpable pedal pulses 2 out of 4 Compartments remain soft to palpate to the lower extremity Skin Skin Narrative: no purulence, no streaking, no odor. There is full epithelialization and no serous weeping. There is some dried petechiae adjacent however this is not intense. No skin peeling or other skin discontinuity is noted. No bogginess or fluctuance on palpation. Neuro Neuro Narrative: Epicritic sensation intact to light touch Debridement Note Debridement Note Post-Debridement Measurements and Additional Note: Post-Debridement Measurements/Treatment - Nurse 1 - General Ulcer Assessment Start: 09/23/21 09:54 Freq: Status: Active Protocol: TOBY.BETZY Activity Type Activity Date Activity User E-Sign Co-Sign Detail Recorded Client Recorded Date Recorded By Document 09/23/21 09:54 DL [id number] 09/23/21 10:00 DL Document 10/02/21 12:56 [facility] [id number] 10/02/21 13:01 BMF Document 10/07/21 14:05 RB [id number] 10/07/21 14:14 RB Document 10/14/21 09:13 DL [id number] 10/14/21 09:20 DL 09/23/21 10/02/21 10/07/21 09:54 12:56 14:05 - Today's Visit Information Type of service Follow-up Visit Follow-up Visit Follow-up Visit (Physician/STRATEGIC ACCOUNTS MANAGER (Physician/STRATEGIC ACCOUNTS MANAGER (Physician/STRATEGIC ACCOUNTS MANAGER ) ) ) Arrival Mode Ambulatory Ambulatory Ambulatory Transfer Assistance None None None Patient Identification Verified (Name & Yes Yes Yes ) Patient Requires Transmission-Based No No Precautions Height and Weight Body Mass Index (BMI) 22.6 22.6 22.6 BMI Classification Normal Normal Normal Vital Signs Temperature (97.8 F-99.1 F) 97.4 F L 96.9 F L 97.4 F L Temperature Source Temporal Temporal Temporal Pulse Rate (60-100) 81 93 82 Pulse Location Monitor Monitor Monitor Respiratory Rate (12-18) 18 16 18 Respiratory rate source Observation Observation Observation Oxygen Delivery Method Room Air Blood Pressure (90/60-120/80) 150/93 H 140/74 H 146/70 H Blood Pressure Mean (mm Hg) 112 96 95 Source Monitor Monitor Monitor Position Sitting Semi-Fowlers Blood Pressure Location Left Arm Left Arm History Since Last Visit- (Skip if this is Patient's initial visit) Have you changed medications since your No No No last visit? Any new allergies or adverse reactions No No No Had a fall/change in ADL's that may No No No increase risk of falls Signs or symptoms of abuse and/or No No No neglect since last visit Have you been in the hospital since your No No No last visit? Has dressing in place as prescribed Yes Yes Yes Has compression in place as prescribed N/A Yes Yes Has offloadiing in place as prescribed Yes N/A No Experienced any changes in pain level or No No No management Left Footwear Regular Shoe Multipodus Splint/Boot Right Footwear Removable Cast Regular Shoe Walker/Walking Boot Pain Scale: 0-10 Numeric Is Patient Pain Free? Yes Yes Yes 10/14/21 09:13 - Today's Visit Information Type of service Follow-up Visit (Physician/STRATEGIC ACCOUNTS MANAGER ) Arrival Mode Ambulatory Transfer Assistance None Patient Identification Verified (Name & Yes ) Patient Requires Transmission-Based No Precautions Height and Weight Body Mass Index (BMI) 22.6 BMI Classification Normal Vital Signs Temperature (97.8 F-99.1 F) 97.8 F Temperature Source Temporal Pulse Rate (60-100) 81 Pulse Location Monitor Respiratory Rate (12-18) 18 Respiratory rate source Observation Oxygen Delivery Method Blood Pressure (90/60-120/80) 133/73 H Blood Pressure Mean (mm Hg) 93 Source Monitor Position Blood Pressure Location History Since Last Visit- (Skip if this is Patient's initial visit) Have you changed medications since your No last visit? Any new allergies or adverse reactions No Had a fall/change in ADL's that may No increase risk of falls Signs or symptoms of abuse and/or No neglect since last visit Have you been in the hospital since your No last visit? Has dressing in place as prescribed Yes Has compression in place as prescribed Yes Has offloadiing in place as prescribed Yes Experienced any changes in pain level or No management Left Footwear Removable Cast Walker/Walking Boot Right Footwear Pain Scale: 0-10 Numeric Is Patient Pain Free? Yes WC - Nurse 1 - General Ulcer Measurement Start: 09/23/21 09:54 Freq: Status: Active Protocol: Activity Type Activity Date Activity User E-Sign Co-Sign Detail Recorded Client Recorded Date Recorded By Document 09/23/21 09:54 DL [id number] 09/23/21 10:00 DL Document 10/02/21 12:56 [facility] [id number] 10/02/21 13:01 BMF Document 10/07/21 14:05 RB [id number] 10/07/21 14:14 RB Document 10/14/21 09:13 DL [id number] 10/14/21 09:20 DL 09/23/21 10/02/21 10/07/21 09:54 12:56 14:05 Wound Center Nurse 1 #1 L Achilles -Combined with other wound No -Current Size (cm) - Length 0.1 2.7 2 -Current Size (cm) - Width 0.1 0.4 1.8 -Current Size (cm) - Depth 0.1 0.1 0.1 -Total Square Cm 0.01 1.08 3.6 -Photo Taken No No -Epithelialization None Present -Tunneling No No -Undermining/Tunneling No No -Circular Undermining No No -Exudate Amt Small Medium Medium -Exudate Type Serosanguineous Serous Serosanguineous -Wound Margin Indistinct, Non Flat & Intact Distinct, -Visible Outline Attached -Granulation Amt Large (67-100%) Medium (34-66%) Large (67-100%) -Granulation Quality [place] Red [place],Red -Slough/Fibrin Yes Yes -Necrosis Amt Small (1-33%) Medium (34-66%) Small (1-33%) -Necrotic Tissue Type Adherent Slough Adherent Slough Adherent Slough -Structure Exposed N/A N/A -Texture (Sue-wound Skin Appearance) Excoriation, Assessed, Excoriation Rash Excoriation, Scarring -Moisture (Sue-wound Skin Appearance) Weeping Assessed Assessed -Color (Sue-wound Skin Appearance) Erythema Assessed, Erythema Erythema -Temperature (Sue-wound Skin No Abnormality No Abnormality No Abnormality Appearance) (Pt Warm) (Pt Warm) (Pt Warm) -Tenderness on Palpation (Sue-wound No Yes No Skin Appearance) -Ulcer Cleansing Rinsed/ Rinsed/ Wound Cleanser Irrigated with Irrigated with Saline Saline -Foul Odor after Cleansing No No -Anesthetic Used 4% Lidocaine 5% Lidocaine 5% Lidocaine Solution, Gel Gel Cetacaine Lower Limb Edema Present Yes Left Calf (cm) 33.7 35.2 Left Ankle (cm) 22.5 22 10/14/21 09:13 Wound Center Nurse 1 #1 L Achilles -Combined with other wound -Current Size (cm) - Length 0.1 -Current Size (cm) - Width 0.1 -Current Size (cm) - Depth 0.1 -Total Square Cm 0.01 -Photo Taken No -Epithelialization -Tunneling -Undermining/Tunneling -Circular Undermining -Exudate Amt None Present -Exudate Type -Wound Margin Flat & Intact -Granulation Amt Large (67-100%) -Granulation Quality [place] -Slough/Fibrin -Necrosis Amt None Present (0 %) -Necrotic Tissue Type -Structure Exposed N/A -Texture (Sue-wound Skin Appearance) Scarring,Rash -Moisture (Sue-wound Skin Appearance) No Abnormality -Color (Sue-wound Skin Appearance) No Abnormality -Temperature (Sue-wound Skin No Abnormality Appearance) (Pt Warm) -Tenderness on Palpation (Sue-wound No Skin Appearance) -Ulcer Cleansing Rinsed/ Irrigated with Saline -Foul Odor after Cleansing -Anesthetic Used 5% Lidocaine Gel Lower Limb Edema Present Left Calf (cm) 33 Left Ankle (cm) 21 WC - Nurse 2 - General Ulcer CM Notes Start: 09/23/21 09:54 Freq: Status: Active Protocol: Activity Type Activity Date Activity User E-Sign Co-Sign Detail Recorded Client Recorded Date Recorded By Document 09/23/21 10:21 [id number] 09/23/21 10:23 Document 10/02/21 14:59 PL [id number] 10/03/21 15:00 PL Document 10/07/21 14:19 [id number] 10/07/21 14:21 Document 10/14/21 09:25 [id number] 10/14/21 09:27 09/23/21 10/02/21 10/07/21 10:21 14:59 14:19 Wound Center Nurse 2 #1 L Achilles -Time 10:21 13:26 14:19 -Correct Patient Yes Yes Yes -Correct Side, Site, Position Yes Yes Yes -Correct Procedure Yes Yes Yes -Procedure Performed Yes Yes Yes -Type of Procedure Debridement Debridement Debridement -Clinical Debridement Subcutaneous Subcutaneous Subcutaneous -Tissue Removed Subcutaneous Subcutaneous Subcutaneous -Post Debridement (cm) - Length 0.4 2.7 0.8 -Post Debridement (cm) - Width 0.2 0.4 0.6 -Post Debridement (cm) - Depth 0.1 0.1 0.1 -Total Square (Post) (cm) 0.08 1.08 0.48 -Area of Debridement (cm) - Length 0.4 2.7 0.8 -Area of Debridement (cm) - Width 0.2 0.4 0.6 -Total Square (Area) (cm) 0.08 1.08 0.48 -Tunneling No No No -Undermining/Tunneling No No No -Circular Undermining No No No -Wound/Ulcer Outcome Not Healed Not Healed Not Healed -Ulcer Cleansing Rinsed/ Rinsed/ Rinsed/ Irrigated with Irrigated with Irrigated with Saline Saline Saline -Foul Odor after Cleansing No No No -Bioengineered Tissue No No No -Bleeding Controlled with Pressure Pressure Pressure -Offloading No No -Treatment Response Procedure Procedure Procedure Tolerated Well Tolerated Well Tolerated Well -Debridement - Subq, 1st 20sq cm Yes Yes Yes Pain Scale: 0-10 Numeric Is Patient Pain Free? Yes Yes Yes 10/14/21 09:25 Wound Center Nurse 2 #1 L Achilles -Time -Correct Patient No -Correct Side, Site, Position No -Correct Procedure No -Procedure Performed No -Type of Procedure -Clinical Debridement -Tissue Removed -Post Debridement (cm) - Length 0 -Post Debridement (cm) - Width 0 -Post Debridement (cm) - Depth 0 -Total Square (Post) (cm) 0 -Area of Debridement (cm) - Length 0 -Area of Debridement (cm) - Width 0 -Total Square (Area) (cm) 0 -Tunneling -Undermining/Tunneling -Circular Undermining -Wound/Ulcer Outcome Healed- Epithelialized -Ulcer Cleansing -Foul Odor after Cleansing -Bioengineered Tissue -Bleeding Controlled with -Offloading -Treatment Response -Debridement - Subq, 1st 20sq cm Pain Scale: 0-10 Numeric Is Patient Pain Free? Yes - Nurse 3 - General Ulcer D/C NN Start: 09/23/21 09:54 Freq: Status: Active Protocol: Activity Type Activity Date Activity User E-Sign Co-Sign Detail Recorded Client Recorded Date Recorded By Document 09/23/21 10:39 [id number] 09/23/21 10:40 Document 10/02/21 13:40 [facility] [id number] 10/02/21 13:41 [facility] Document 10/07/21 14:43 [facility] [id number] 10/07/21 14:43 [facility] Document 10/14/21 09:28 [id number] 10/14/21 09:28 09/23/21 10/02/21 10/07/21 10:39 13:40 14:43 Wound Care Nurse 3 #1 L Achilles -Ulcer Cleansing Rinsed/ Rinsed/ Rinsed/ Irrigated with Irrigated with Irrigated with Saline Saline Saline -Foul Odor after Cleansing No No -Primary Dressing Applied C Hydrogel ($) Other Aquacel AG 4x4 -Other Dressing HYDROGEL -Primary Dressing Covered/Secured with Dry Gauze, Dry Gauze, Dry Gauze, Secured with Secured with Secured with Tape Tape Tape -Aquacel AG 4x4 1 Left -Tubular Bandage Double Layer -Size of Tubigrip Used Size D -Size D ($) 2 -Other OWN TUBIS APPLIED PTS OWN APPLIED DOUBLE LAYER TUBI AND VIJAYA Treatment Response Procedure Procedure Procedure Tolerated Well Tolerated Well Tolerated Well Pain Scale: 0-10 Numeric Is Patient Pain Free? Yes Yes Yes - Visit Discharge Discharge Condition Stable Stable Stable Ambulatory Status Ambulatory Ambulatory Ambulatory Transportation Private Auto Private Auto Private Auto Medication Reconcilliation completed & No provided to patient/care provider Clinical Summary of Care Provided Yes 10/14/21 09:28 Wound Care Nurse 3 #1 L Achilles -Ulcer Cleansing -Foul Odor after Cleansing -Primary Dressing Applied -Other Dressing -Primary Dressing Covered/Secured with -Aquacel AG 4x4 Left -Tubular Bandage Double Layer -Size of Tubigrip Used Size D -Size D ($) -Other Treatment Response Pain Scale: 0-10 Numeric Is Patient Pain Free? 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 Debridement was not performed because the ulcer is healed. The following work up and care recommendations were made: Dressing: Discontinue because the ulcer is healed. To wear white cotton socks Wash: Daily with antibacterial Dial soap and water daily. Offload: To reduce tension by avoiding active or passive ankle range of motion. Vascular: There is palpable pulses. Continued delays in healing noted noninvasive vascular studies will be performed. Infection: To complete 10-day course of linezolid. He appears to be responding well. If lack of overall improvement is noted punch biopsy will be considered. We discussed the indications benefits and risks of performing this procedure. edema management: He has some sue healed ulcer inflammation that are mildly reduced this week. There are no signs of infection. I recommend wearing a double Tubigrip and practicing routine elevation. Pain: He no longer required pain medication (prescription strength). I answered all the patient's questions. To return to the wound healing center in 2 week or call sooner if the patient has any questions or concerns. To wear cam walker boot for the next week and then transition to a supportive athletic sneaker that does not press directly on this recently healed site that is trying to remodel. Note: [employer] speech recognition spotter software was used to create portions of this document. Sound-alike and misspelled words, as well as other spotter errors may be contained in the documentation. The medical decision making level is moderate based on data including at least three of the following: review of prior external notes, review of a test, ordering a test, assessment requiring an independent historian. The medical decision making level is moderate. There is noted moderate risk of morbidity after considering this treatment plan and diagnostic data. Considerations were given to prescription management, decisions regarding surgical options, or social determinants of health.
== END 2021-10-19 23:59 | disposition home or self-care (01) ==
LOC: WC 09:00
PROVIDERS: Referring Provider Internal Medicine; Visit Provider Podiatrist
DX: T81.89XA Other complications of procedures, not elsewhere classified, initial encounter (principal); L97.923 Non-pressure chronic ulcer of unspecified part of left lower leg with necrosis of muscle; L03.116 Cellulitis of left lower limb; R60.0 Localized edema; S86.012S Strain of left Achilles tendon, sequela
CPT/HCPCS: 11042; 99213; G0463

== ENCOUNTER 2021-11-04 08:00 | Outpatient (RCR) | payer OTHER, SELFPAY ==
[2021-10-20 00:29] VITALS: BP 133/73; PULSE 81; RESP 18; TEMP 36.6; BMI 22.6
[2021-10-28 09:22] VITALS: BP 149/83; PULSE 83; RESP 16; TEMP 36.5; BMI 22.6
--- NOTE | 2021-10-28 10:12 | PCM.WC.PN ---
History of Present Illness Date of Service: 10/28/21 Chief Complaint: left leg ulcer History of Wound: Mr. Hernandez is a 51-year-old who had prior surgical repair following left Achilles tendon tear. He was also seen today by infectious disease specialist, Dr. Shen.He was started on 10-day course of linezolid and denies side effects. He reports scant occasional drainage note don his white cotton crew sock. He denies itchiness, fever, chills, nausea, vomiting. He continues to ambulate with his athletic sneaker. He would like to resume riding his bike if possible. He denies redness or streaking. He wears Tubigrip for swelling management. Progress of Wound: Compromised skin at recently healed ulcer site Objective Data Objective Data Vital Signs: Vital Signs Temp Pulse Resp BP 97.7 F L 83 16 149/83 H 10/28/21 09:22 03 09:22 10/28/21 09:22 10/28/21 09:22 Weight: 75.735 kg Body Mass Index (BMI) 22.6 Physical Exam Extremity Extremity Narrative: No calf tenderness Palpable pedal pulses 2 out of 4 Compartments remain soft to palpate to the lower extremity Skin Skin Narrative: no purulence, no streaking, no odor. There is full epithelialization and no serous weeping directly visualized today however this is noted on his sock and a scant manner. There is some dried petechiae adjacent however this is not intense. No bogginess or fluctuance on palpation. There is dry skin that is peeling adjacent to the recently healed ulcer site and lower posterior leg Neuro Neuro Narrative: Epicritic sensation intact to light touch Debridement Note Debridement Note Post-Debridement Measurements and Additional Note: Post-Debridement Measurements/Treatment - Nurse 1 - General Ulcer Assessment Start: 10/28/21 09:21 Freq: Status: Active Protocol: TOBY.BETZY Activity Type Activity Date Activity User E-Sign Co-Sign Detail Recorded Client Recorded Date Recorded By Document 10/28/21 09:22 JOAN [id number] 10/28/21 09:22 JOAN 10/28/21 09:22 - Today's Visit Information Type of service 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-up Visit (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 Any new allergies or adverse reactions No Had a fall/change in ADL's that may No increase risk of falls Signs or symptoms of abuse and/or No neglect since last visit Have you been in the hospital since your No last visit? Has dressing in place as prescribed Yes Has compression in place as prescribed Yes Has offloadiing in place as prescribed N/A Experienced any changes in pain level or No management Left Footwear Regular Shoe Right Footwear Regular Shoe Pain Scale: 0-10 Numeric Is Patient Pain Free? Yes - Nurse 2 - General Ulcer CM Notes Start: 10/28/21 09:21 Freq: Status: Active Protocol: Activity Type Activity Date Activity User E-Sign Co-Sign Detail Recorded Client Recorded Date Recorded By Document 10/28/21 09:23 [id number] 10/28/21 09:24 JF 10/28/21 09:23 Is Patient Pain Free? Yes - Nurse 3 - General Ulcer D/C NN Start: 10/28/21 09:21 Freq: Status: Active Protocol: Activity Type Activity Date Activity User E-Sign Co-Sign Detail Recorded Client Recorded Date Recorded By Document 10/28/21 09:31 DL [id number] 10/28/21 09:32 DL 10/28/21 09:31 Wound Care Nurse 3 Left -Tubular Bandage Double Layer -Size of Tubigrip Used Size D -Size D ($) 2 Treatment Response Procedure Tolerated Well Pain Scale: 0-10 Numeric Is Patient Pain Free? 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 Debridement was not performed because the ulcer is healed. The following work up and care recommendations were made: Dressing: Discontinue because the ulcer is healed. To wear white cotton socks Wash: Daily with antibacterial Dial soap and water daily. To address his dermatitis I recommend application of triamcinolone 0.5% cream twice daily to affected skin on lower extremity. Offload: To reduce tension by avoiding active or passive ankle range of motion. Vascular: There is palpable pulses. Continued delays in healing noted noninvasive vascular studies will be performed. Infection: To complete 10-day course of linezolid. He appears to be responding well. If lack of overall improvement is noted punch biopsy will be considered. We discussed the indications benefits and risks of performing this procedure. edema management: He has some fallon healed ulcer inflammation that are mildly reduced this week. There are no signs of infection. I recommend wearing a double Tubigrip and practicing routine elevation. It is okay to resume cycling activity but to progress in a slow manner. This will trades helper with muscle contraction and edema management. Pain: He no longer required pain medication (prescription strength). I answered all the patient's questions. To return to the wound healing center in 2 week or call sooner if the patient has any questions or concerns. To wear cam walker boot for the next week and then transition to a supportive athletic sneaker that does not press directly on this recently healed site that is trying to remodel. Note: [employer] speech recognition education supervisor software was used to create portions of this document. Sound-alike and misspelled words, as well as other education supervisor errors may be contained in the documentation. The medical decision making level is moderate based on data including at least three of the following: review of prior external notes, review of a test, ordering a test, assessment requiring an independent historian. The medical decision making level is moderate. There is noted moderate risk of morbidity after considering this treatment plan and diagnostic data. Considerations were given to prescription management, decisions regarding surgical options, or social determinants of health.
[2021-11-04 08:15] VITALS: BP 118/78; PULSE 75; RESP 18; TEMP 36.2; BMI 22.6
--- NOTE | 2021-11-04 09:47 | PCM.WC.PN ---
History of Present Illness Date of Service: 11/04/21 Chief Complaint: left leg ulcer History of Wound: Mr. Hernandez is a 51-year-old who had prior surgical repair following left Achilles tendon tear. He was also seen today by infectious disease specialist, Dr. Shen.He was started on 10-day course of linezolid and denies side effects; this has been completed successfully. He reports scant occasional drainage note don his white cotton crew sock. He denies itchiness, fever, chills, nausea, vomiting. He continues to ambulate with his athletic sneaker. He has resumed bike riding however has been busy this past week with other things so he has not been riding. He denies redness or streaking. He wears Tubigrip for swelling management. He uses triamcinolone cream and this resolved his adjacent skin irritation and dermatitis in full. He now denies having a wound or any drainage. He is an avid runner and is interested to return to running however he is not able to perform a single-leg heel rise. Progress of Wound: Healed and improved periulcer Objective Data Objective Data Vital Signs: Vital Signs Temp Pulse Resp BP 97.2 F L 75 18 118/78 11/04/21 08:15 11/04/21 08:15 11/04/21 08:15 11/04/21 08:15 Weight: 75.735 kg Body Mass Index (BMI) 22.6 Physical Exam Extremity Extremity Narrative: No calf tenderness Palpable pedal pulses 2 out of 4 Compartments remain soft to palpate to the lower extremity Able to perform double heel rise 5 out of 5 ankle muscle strength in all directions bilateral Unable to perform full single left lower extremity heel rise; able to perform with apprehension with about 50% weightbearing Athletic sneakers noted and the lip of the heel counter is in near approximation with his recently Ilfeld ulcer; he will cut her full this to avoid direct pressure. Skin Skin Narrative: no purulence, no streaking, no odor. There is full epithelialization and no serous weeping . There is resolved dried petechiae and no longer any adjacent skin dermatitis. No bogginess or fluctuance on palpation. There is dry skin that is peeling adjacent to the recently healed ulcer site and lower posterior leg Neuro Neuro Narrative: Epicritic sensation intact to light touch Debridement Note Debridement Note Post-Debridement Measurements and Additional Note: Post-Debridement Measurements/Treatment TOBY - Nurse 1 - General Ulcer Assessment Start: 10/28/21 09:21 Freq: Status: Active Protocol: KEO Activity Type Activity Date Activity User E-Sign Co-Sign Detail Recorded Client Recorded Date Recorded By Document 10/28/21 09:22 JOAN [id number] 10/28/21 09:22 JF Document 11/04/21 08:15 RB [id number] 11/04/21 08:16 RB 10/28/21 11/04/21 09:22 08:15 TOBY - Today's Visit Information Type of service Follow-up Visit Follow-up Visit (Physician/[employer] (Physician/[employer] ) ) Arrival Mode Ambulatory Ambulatory Transfer Assistance None Patient Identification Verified (Name & Yes ) Patient Requires Transmission-Based No No Precautions Height and Weight Body Mass Index (BMI) 22.6 22.6 BMI Classification Normal Normal Vital Signs Temperature (97.8 F-99.1 F) 97.7 F L 97.2 F L Temperature Source Temporal Temporal Pulse Rate (60-100) 83 75 Pulse Location Monitor Monitor Respiratory Rate (12-18) 16 18 Respiratory rate source Observation Observation Blood Pressure (90/60-120/80) 149/83 H 118/78 Blood Pressure Mean (mm Hg) 105 91 Source Monitor Monitor Position Semi-Fowlers Sitting Blood Pressure Location Left Arm Left Arm History Since Last Visit- (Skip if this is Patient's initial visit) Have you changed medications since your No No last visit? Any new allergies or adverse reactions No No Had a fall/change in ADL's that may No No increase risk of falls Signs or symptoms of abuse and/or No No neglect since last visit Have you been in the hospital since your No No last visit? Has dressing in place as prescribed Yes Yes Has compression in place as prescribed Yes Yes Has offloadiing in place as prescribed N/A No Experienced any changes in pain level or No No management Left Footwear Regular Shoe Regular Shoe Right Footwear Regular Shoe Regular Shoe Pain Scale: 0-10 Numeric Is Patient Pain Free? Yes Yes TOBY - Nurse 2 - General Ulcer CM Notes Start: 10/28/21 09:21 Freq: Status: Active Protocol: Activity Type Activity Date Activity User E-Sign Co-Sign Detail Recorded Client Recorded Date Recorded By Document 10/28/21 09:23 [id number] 10/28/21 09:24 JF Document 11/04/21 08:23 [id number] 11/04/21 08:23 JF 10/28/21 11/04/21 09:23 08:23 Is Patient Pain Free? Yes Yes - Nurse 3 - General Ulcer D/C NN Start: 10/28/21 09:21 Freq: Status: Active Protocol: Activity Type Activity Date Activity User E-Sign Co-Sign Detail Recorded Client Recorded Date Recorded By Document 10/28/21 09:31 DL [id number] 10/28/21 09:32 DL Document 11/04/21 08:23 JF [id number] 11/04/21 08:23 10/28/21 11/04/21 09:31 08:23 Wound Care Nurse 3 Left -Tubular Bandage Double Layer -Size of Tubigrip Used Size D -Size D ($) 2 Treatment Response Procedure Tolerated Well Pain Scale: 0-10 Numeric Is Patient Pain Free? Yes Yes - Visit Discharge Discharge Condition Stable Stable Ambulatory Status Ambulatory Ambulatory Transportation Private Auto Private Auto Medication Reconcilliation completed & Yes provided to patient/care provider Clinical Summary of Care Provided Yes Notes: Healed, healed and recheck in one discharged. 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 Debridement was not performed because the ulcer is healed. The following work up and care recommendations were made: Dressing: Discontinue because the ulcer is healed. To wear white cotton socks Wash: Daily with antibacterial Dial soap and water daily. To address his dermatitis I previously prescribed triamcinolone 0.5% cream twice daily to affected skin on lower extremity and this helped. To d/c at this time. Infection: This is now resolved. He completed a 10-day course of linezolid. Pain: He no longer required pain medication (prescription strength). I answered all the patient's questions. He is discharged from the wound healing center at this time. He was advised to return as needed. I recommend a physical therapy referral and he would like to go to [facility] therapy services in [place]. A referral be provided for strength training, balance, and functional progression. His functional limitations are noted. Is noted he is an avid runner and I recommended he start with normal walking pattern prior to starting running. Is okay to cross train with riding a bike. He understands additional advanced imaging may be required to determine the amount of compromised Achilles tendon. He also may require extended or permanent use of an ankle-foot orthotic brace depending on his response to physical therapy. Note: [employer] speech recognition armor reconnaissance specialist software was used to create portions of this document. Sound-alike and misspelled words, as well as other armor reconnaissance specialist errors may be contained in the documentation. The medical decision making level is moderate based on data including at least three of the following: review of prior external notes, review of a test, ordering a test, assessment requiring an independent historian. The medical decision making level is moderate. There is noted moderate risk of morbidity after considering this treatment plan and diagnostic data. Considerations were given to prescription management, decisions regarding surgical options, or social determinants of health.
== END 2021-11-04 14:12 | disposition home or self-care (01) ==
LOC: WC 08:00
PROVIDERS: Referring Provider Internal Medicine; Visit Provider Podiatrist
DX: T81.89XA Other complications of procedures, not elsewhere classified, initial encounter (principal); L97.923 Non-pressure chronic ulcer of unspecified part of left lower leg with necrosis of muscle; L03.116 Cellulitis of left lower limb; R60.0 Localized edema; L30.9 Dermatitis, unspecified; S86.012S Strain of left Achilles tendon, sequela; X58.XXXS Exposure to other specified factors, sequela
CPT/HCPCS: 99212; G0463

== ENCOUNTER → 2022-12-13 | Outpatient (CLI) | payer OTHER, SELFPAY ==
--- NOTE | 2022-12-13 12:59 | VDLE_ITS ---
Reason For Study: Edema RIGHT LEFT CFV is compressible, spontaneous, phasic, CFV is compressible, spontaneous, phasic, competent and demonstrates normal competent, and demonstrates normal augmentation. augmentation. FV is compressible, spontaneous, phasic, FV is compressible, spontaneous, phasic, competent and demonstrates normal competent and demonstrates normal augmentation. augmentation. POP V is compressible, spontaneous, phasic, POP V is compressible, spontaneous, phasic, competent and demonstrates normal competent and demonstrates normal augmentation. augmentation. T/P Trunk is compressible. T/P Trunk is compressible. PTV is compressible. PTV is compressible. RT PerV is compressible. LT PerV is compressible. SFJ is competent and measures 0.73 x 0.87 cm. SFJ is competent and measures 0.94 x1.01 cm. GSV proximal thigh measures 0.57 x 0.56 cm. GSV proximal thigh measures 0.60 x 0.63 cm. GSV at knee measures 0.38 x 0.41 cm. GSV at knee measures 0.64 x 0.66 cm. GSV is competent throughout. GSV is competent throughout. SSV proximal calf is competent and measures SSV proximal calf is competent and measures 0.34 x 0.33 cm. 0.44 x 0.50 cm. Procedure Exam performed in department. The exam was diagnostic. VL/Venous Duplex US - Good Extrem Interpretation Summary Deep veins of the lower extremities are bilaterally patent and compressible seg mentally. There is no evidence of deep vein thrombosis on either side. Valvular competence appears in tact within the proximal deep venous systems bilaterally. The great saphenous veins appear bila terally patent and compressible segmentally. Sapheno-femoral junctions are bilaterally competent . Valvular competence appears to be intact segmentally within the great saphenous veins bilaterally. Small saphenous veins are patent and competent bilaterally. Ordering Physician: Wilbur Preston Referring Physician: Wilbur Preston Performed By: Liang, Elijah, RVT
== END | disposition home or self-care (01) ==
LOC: CVS 12:55
PROVIDERS: PCP Internal Medicine Infectious Disease; Referring Provider Podiatrist; Visit Provider Podiatrist
DX: R60.0 Localized edema (principal); I87.2 Venous insufficiency (chronic) (peripheral)
CPT/HCPCS: 93970